=== PATIENT | female | born 1955 | race Caucasian/White ===

== ENCOUNTER 2019-07-21 16:50 | Inpatient (IN) | payer OTHER ==
--- NOTE | 2019-07-21 17:10 | ER Document Report ---
ED Medical Screen (RME) - General Chief Complaint: Hip Pain Stated Complaint: HIP PAIN Time Seen by Provider: 07/21/19 17:07 Notes: This 63-year-old female with a prior hip fracture to the left side who has discomfort to her right hip after a fall 4 weeks ago says she is been unable to ambulate. She is rather frail woman who has the appearance of somebody with osteoporosis. I greeted and performed a rapid initial assessment of this patient. Comprehensive ED assessment and evaluation of the patient, analysis of test results and completion of the medical decision making process will be conducted by additional ED providers. TRAVEL OUTSIDE OF THE [place] IN LAST 30 DAYS: No - Related Data Allergies/Adverse Reactions: prednisone [Prednisone] Allergy (Verified 02/03/14 18:02) Past Medical History - Social History Frequency of alcohol use: None Drug Abuse: None Physical Exam - Vital signs Vitals: Temp Pulse Resp BP Pulse Ox 98.6 F 57 L 20 110/71 97 07/21/19 16:58 07/21/19 16:58 07/21/19 16:58 07/21/19 16:58 07/21/19 16:58 Course - Vital Signs Vital signs: Temp Pulse Resp BP Pulse Ox 98.6 F 57 L 20 110/71 97 07/21/19 17:04 07/21/19 16:58 07/21/19 16:58 07/21/19 16:58 07/21/19 16:58
--- NOTE | 2019-07-21 18:10 | RADIOLOGY REPORT (SQ) ---
EXAM DESCRIPTION: CT PELVIS WITHOUT IMAGES COMPLETED DATE/TIME: 07/21/2019 5:47 pm REASON FOR STUDY: pain COMPARISON: CT abdomen pelvis 02/03/2014 TECHNIQUE: CT scan of the pelvis performed without intravenous or oral contrast. Images reviewed wi th soft tissue and bone windows. Reconstructed coronal and sagittal MPR images reviewed. All images stored on PACS. All CT scanners at this facility use dose modulation, iterative reconstruction, and/or weight based d osing when appropriate to reduce radiation dose to as low as reasonably achievable (ALARA). [facility]: Dose Right [facility]: CareDose [facility]: Dose Right [facility]: Teradose 4D [facility]: Smart BetterWorks (Closed) RADIATION DOSE: CT Rad equipment meets quality standard of care and radiation dose reduction techniq ues were employed. CTDIvol: 4.8 mGy. DLP: 212 mGy-cm. mGy. LIMITATIONS: None. FINDINGS: PELVIC BONES: No acute fracture. No worrisome bone lesions. VISUALIZED SPINE: No acute findings. 9 mm grade 1 degenerative anterolisthesis L4 on L5. HIP(S): Postsurgical changes of total right hip arthroplasty. Intact arthroplasty hardware. Mildly comminuted greater trochanteric fracture with mild anterior displacement. Mild left hip osteoarthrit is. PELVIC SOFT TISSUES: No significant findings. EXTRAPELVIC SOFT TISSUES: No significant findings. OTHER: Partially visualized elongated gallbladder containing numerous gallstones. No gallbladder wal l thickening or pericholecystic fluid. Dilated distal appendix measuring 9 mm in caliber. Mild righ t paracolic gutter and moderate right hemipelvis free fluid. IMPRESSION: Postsurgical changes of total right hip arthroplasty. Mildly comminuted right greater t rochanteric fracture with mild anterior displacement. No hardware fracture or dislocation. Dilated distal appendix measuring 9 mm in caliber. Elongated gallbladder containing numerous gallsto jasen. Mild right paracolic gutter and moderate right hemipelvis free fluid. As this is a limited non contrast exam, clinically correlate for acute cholecystitis or appendicitis. TECHNICAL DOCUMENTATION: JOB ID: [id number] Quality ID # [id number]: Final reports with documentation of one or more dose reduction techniques (e.g., Au tomated exposure control, adjustment of the mA and/or kV according to patient size, use of iterative reconstruction technique) 2010 [facility]- All Rights Reserved Reading location - IP/workstation name: [facility]
[2019-07-21] MEDS ORDERED: NORMAL SALINE 1000 ML 1,000 ML IV ONE (21:37)
--- NOTE | 2019-07-21 22:53 | RADIOLOGY REPORT (SQ) ---
CLINICAL INDICATION: COPD. TECHNIQUE: A single portable AP view was obtained of the chest at 2203 hours. Additional repeat image COMPARISON: None. FINDINGS: The cardiomediastinal silhouette is normal. The lungs demonstrates significant emphysematous changes. No evidence of effusion or pneumothorax. Old posttraumatic change. IMPRESSION: No evidence of active intrathoracic disease.
[2019-07-21 23:50] LABS: APPEARANCE,URINE SLIGHTLY-CLOUDY; BILIRUBIN,URINE SMALL (NEGATIVE); COLOR,URINE AMBER; GLUCOSE, URINE NEGATIVE (NEGATIVE); KETONES,URINE TRACE mg/dL (NEGATIVE); PROTEIN,URINE 30 mg/dL (NEGATIVE); URINE SPECIFIC GRAVITY 1.028
[2019-07-21 23:52] LABS: INTERNATIONAL RATION (INR) 2.07; PROTHROMBIN TIME 23.6 SEC (11.4-15.4)
[2019-07-21 23:59] LABS: URINE AMPHETAMINES SCREEN NEGATIVE; URINE BARBITURATES SCREEN NEGATIVE; URINE BENZODIAZEPINES SCREEN NEGATIVE; URINE COCAINE SCREEN NEGATIVE; URINE MARIJUANA (THC) SCREEN NEGATIVE; URINE METHADONE SCREEN NEGATIVE; URINE PHENCYCLIDINE SCREEN NEGATIVE
[2019-07-22 00:02] LABS: ABSOLUTE BASOPHILS # (AUTO) 0.1 10^3/uL (0.0-0.2); ABSOLUTE LYMPHOCYTES (AUTO) 1.8 10^3/uL (0.5-4.7); ABSOLUTE MONOCYTES (AUTO) 0.6 10^3/uL (0.1-1.4); ABSOLUTE NEUT (AUTO) 7.8 10^3/uL (1.7-8.2); BASOPHILS % (AUTO) 0.7 % (0-2); EOSINOPHILS % (AUTO) 0.1 % (0-6); HEMATOCRIT 39.7 % (36.0-47.0); HEMOGLOBIN 13.5 g/dL (12.0-15.5); LYMPHOCYTES % (AUTO) 17.6 % (13-45); MEAN CORPUSCULAR HEMOGLOBIN 36.9 pg (27.0-33.4); MEAN CORPUSCULAR VOLUME 108 fl (80-97); MONOCYTES % (AUTO) 6.1 % (3-13); PLATELET COUNT 496 10^3/uL (150-450); RED BLOOD COUNT 3.66 10^6/uL (3.72-5.28); RED CELL DISTRIBUTION WIDTH 18.2 % (11.5-14.0); SEGMENTED NEUTROPHILS % (AUTO) 75.5 % (42-78); TOTAL CELLS COUNTED % (AUTO) 100 %; WHITE BLOOD COUNT 10.4 10^3/uL (4.0-10.5)
[2019-07-22 00:13] LABS: ALKALINE PHOSPHATASE 290 U/L (38-126); ANION GAP 10 (5-19); ASPARTATE AMINO TRANSFERASE 44 U/L (14-36); BILIRUBIN,DIRECT 0.5 mg/dL (0.0-0.4); BILIRUBIN,TOTAL 0.8 mg/dL (0.2-1.3); BLOOD UREA NITROGEN 14 mg/dL (7-20); CALCIUM 8.5 mg/dL (8.4-10.2); CARBON DIOXIDE 27 mmol/L (22-30); CHLORIDE 101 mmol/L (98-107); GLUCOSE 96 mg/dL (75-110); POTASSIUM 3.7 mmol/L (3.6-5.0); TOTAL PROTEIN 6.7 g/dL (6.3-8.2)
[2019-07-22] MEDS ORDERED: PHYTONADIONE INJ 10 MG/1 ML AMPULE SUBCUT ONE (00:45)
[2019-07-22] MEDS ORDERED: LORAZEPAM INJ 2 MG/1 ML VIAL IV PRN (00:46)
[2019-07-22] MEDS ORDERED: IPRATROPIUM/ALBUTEROL 0.5-2.5 MG/3 ML AMPUL NEB PRN (00:47)
[2019-07-22] MEDS ORDERED: MAGNESIUM HYDROXIDE SUSP 30 ML UDCUP PO PRN (00:47)
[2019-07-22] MEDS ORDERED: ACETAMINOPHEN 325 MG TABLET PO PRN (00:47)
[2019-07-22] MEDS ORDERED: MAG HYDROX/AL HYDROX/SIMETH SUSP 30 ML UDCUP PO PRN (00:47)
[2019-07-22] MEDS ORDERED: LEVALBUTEROL HCL NEB 1.25 MG/3 ML AMPUL NEB PRN (00:47)
--- NOTE | 2019-07-22 00:50 | RADIOLOGY REPORT (SQ) ---
CLINICAL INDICATION: right hip pain. . TECHNIQUE: Single view(s) were obtained of the right hip. AP pelvis COMPARISON: February 04, 2014. FINDINGS: Acute nondisplaced fracture of the proximal femur adjacent to the femoral component of the hemiarthroplasty with apparent avulsion of the greater tuberosity. Alignment appears anatomic. Hemiarthroplasty appears intact. Surrounding soft tissues are unremarkable. IMPRESSION: Fracture of the femur adjacent to the femoral component of the right hip hemiarthroplasty.
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
[2019-07-22] MEDS ORDERED: NORMAL SALINE 1000 ML 1,000 ML IV PRN (01:00)
[2019-07-22] MEDS ORDERED: DIAZEPAM 5 MG TABLET PO ONE (01:15)
[2019-07-22] MEDS ORDERED: THIAMINE HCL 100 MG, FOLIC ACID 1 MG in NORMAL SALINE 250 ML IV ONE (01:15)
[2019-07-22] MEDS ORDERED: DILTIAZEM HCL INJ 25 MG/5 ML VIAL ONE ×2 (02:12→18:45)
[2019-07-22] MEDS ORDERED: DILTIAZEM HCL INJ 25 MG/5 ML VIAL IV ONE ×2 (02:15→18:45)
[2019-07-22] MEDS ORDERED: DILTIAZEM HCL/D5W 125 MG/125 ML RTUINJ IV ONE (02:20)
[2019-07-22] MEDS: DILTIAZEM HCL/D5W 125 MG/125 ML RTUINJ IV PRN ×2 (02:26→13:28)
[2019-07-22 02:31] LABS: PHOSPHORUS 2.3 mg/dL (2.5-4.5)
--- NOTE | 2019-07-22 03:02 | RADIOLOGY REPORT (SQ) ---
Ultrasound right upper quadrant on 07/22/2019 at 1:31 AM CLINICAL INDICATION: Abnormal LFTs, abnormal weight loss COMPARISON: CT from 02/03/2014 FINDINGS: Multiple sonographic images are obtained throughout the right upper quadrant, both transverse and sagittal images are obtained. Limited visualized pancreas is unremarkable. Visualized aorta is unremarkable. Visualized liver is homogeneous without focal liver lesion. Common duct measures 2 mm which is within normal limits mitigating against obstruction of the biliary tree. There are multiple echogenic foci with posterior shadowing in the gallbladder consistent with multiple gallstones. No gallbladder wall thickening or pericholecystic fluid is noted. The right kidney shows no hydronephrosis. IMPRESSION: 1. Cholelithiasis. 2. Otherwise essentially unremarkable.
[2019-07-22] MEDS ORDERED: FOLIC ACID INJ 5 MG/1 ML 10 ML VIAL ONE (04:18)
[2019-07-22] MEDS ORDERED: DIGOXIN INJ 0.5 MG/2 ML AMPULE IV ONE (05:11)
[2019-07-22] MEDS ORDERED: THIAMINE HCL INJ 200 MG/2 ML VIAL ONE (05:21)
[2019-07-22] MEDS: MAGNESIUM SULFATE/D5W 1 GM/100 ML RTUPB IV SCH ×2 (05:32→06:43)
[2019-07-22] MEDS: HEPARIN SOD (PORCINE) 5,000 UNIT/ML 1 ML VIAL SUBCUT SCH ×3 (05:33→22:20)
[2019-07-22] MEDS: KETOROLAC TROMETHAMINE INJ/PF 30 MG/1 ML SDV IV PRN ×2 (06:46→14:13)
[2019-07-22 06:51] LABS: HEMATOCRIT 42.7 % (36.0-47.0); HEMOGLOBIN 14.3 g/dL (12.0-15.5); MEAN CORPUSCULAR HEMOGLOBIN 36.6 pg (27.0-33.4); MEAN CORPUSCULAR HGB CONC 33.6 g/dL (32.0-36.0); MEAN CORPUSCULAR VOLUME 109 fl (80-97); PLATELET COUNT 477 10^3/uL (150-450); RED BLOOD COUNT 3.91 10^6/uL (3.72-5.28); WHITE BLOOD COUNT 8.2 10^3/uL (4.0-10.5)
[2019-07-22 06:59] LABS: ABSOLUTE RETICS # 0.025 10^6/uL (0.028-0.122); RETICULOCYTE COUNT (AUTO) 0.64 % (0.66-2.85)
[2019-07-22 07:15] LABS: ABSOLUTE LYMPHOCYTES# (MANUAL) 2.1 10^3/uL (0.5-4.7); ABSOLUTE MONOCYTES # (MANUAL) 0.4 10^3/uL (0.1-1.4); BAND NEUTROPHILS % (MANUAL) 2 % (3-5); BASOPHILS % (MANUAL) 0 % (0-2); EOSINOPHILS % (MANUAL) 0 % (0-6); LYMPHOCYTES % (MANUAL) 26 % (13-45); MONOCYTES % (MANUAL) 5 % (3-13); SEGMENTED NEUTROPHILS % (MAN) 67 % (42-78); TOTAL CELLS COUNTED 100
[2019-07-22 07:16] LABS: ANISOCYTOSIS 1+; PLATELET COMMENT ADEQUATE; POLYCHROMASIA 1+
[2019-07-22] MEDS ORDERED: DIGOXIN INJ 0.5 MG/2 ML AMPULE ONE (07:43)
[2019-07-22 08:47] LABS: ANION GAP 6 (5-19); BLOOD UREA NITROGEN 13 mg/dL (7-20); CALCIUM 7.5 mg/dL (8.4-10.2); CARBON DIOXIDE 24 mmol/L (22-30); CHLORIDE 102 mmol/L (98-107); GLUCOSE 108 mg/dL (75-110); IRON(TIBC) 30.9 ug/dL (37-170); POTASSIUM 3.5 mmol/L (3.6-5.0)
[2019-07-22 09:55] LABS: FOLATE > 20.00 ng/mL (>2.76)
[2019-07-22] MEDS ORDERED: DIAZEPAM 2 MG TABLET PO SCH (10:00)
[2019-07-22] MEDS ORDERED: DIAZEPAM 5 MG TABLET PO SCH (10:00)
[2019-07-22] MEDS: DOCUSATE SODIUM 100 MG CAPSULE PO SCH ×2 (10:56→17:29)
[2019-07-22] MEDS: CHOLECALCIFEROL (D3) 400 UNIT TABLET PO SCH (10:56)
--- NOTE | 2019-07-22 11:04 | PDOC CONSULTATION ---
Consultation Consult Date: 07/22/19 Attending physician:: KARLA OH Provider Consulted: ROGER NDIAYE Consult reason:: Right hip periprosthetic subacute greater trochanteric fracture History of Present Illness Admission Date/PCP: 07/22/19 01:[facility] Patient complains of: Right hip pain and difficulty ambulating History of Present Illness: OLGA BUSTAMANTE is a 63 year old female who previously underwent a right hip hemiarthroplasty for fracture. She reports a fall at home approximately 1 month ago. Since this fall she has been having pain in her right hip and difficulty ambulating even with the assistance of a walker. She has been requiring help from friends and neighbors. She presented to the emergency department last evening and was admitted to the hospitalist service. Past Medical History Cardiac Medical History: Reports: None Pulmonary Medical History: Reports: None, Bronchitis, Chronic Obstructive Pulmonary Disease (COPD) EENT Medical History: Reports: None Neurological Medical History: Reports: None Endocrine Medical History: Reports: None Renal/ Medical History: Reports: None Malignancy Medical History: Reports: None Skin Medical History: Reports: Eczema Psychiatric Medical History: Denies: Depression Past Surgical History Past Surgical History: Reports: Orthopedic Surgery - Right hip hemiarthroplasty by Dr. Corbett Social History Smoking Status: Current Every Day Smoker Cigarettes Packs Per Day: 1 Electronic Cigarette use?: No Frequency of Alcohol Use: Heavy Hx Recreational Drug Use: No Drugs: None Hx Prescription Drug Abuse: No - Advance Directive Resuscitation Status: Full Code Family History Family History: Arthritis, Hyperlipidemia Parental Family History Reviewed: Yes Children Family History Reviewed: Unknown Sibling(s) Family History Reviewed.: Unknown Medication/Allergy Home Medications: Ibuprofen 200 mg PO DAILYP PRN 02/03/14 Allergies/Adverse Reactions: prednisone [Prednisone] Allergy (Verified 02/03/14 18:02) Review of Systems All systems: reviewed and no additional remarkable complaints except as stated - As per HPI Physical Exam Vital Signs: Temp Pulse Resp BP Pulse Ox 97.8 F 120 H 20 111/59 L 86 L 07/22/19 07:32 07/22/19 10:00 07/22/19 08:04 07/22/19 10:00 07/22/19 07:33 Intake & Output 07/21/19 07/22/19 07/23/19 06:59 06:59 06:59 Intake Total 1107 422.2 Balance 1107 422.2 Weight 31.75 kg General appearance: PRESENT: no acute distress, well-developed, well-nourished Head exam: PRESENT: atraumatic, normocephalic Eye exam: PRESENT: PERRLA Mouth exam: PRESENT: moist, tongue midline Neck exam: PRESENT: full ROM Respiratory exam: PRESENT: clear to auscultation lovely. ABSENT: rales, rhonchi, wheezes Cardiovascular exam: PRESENT: RRR Pulses: PRESENT: +2 pedal pulses bilateral Rectal exam: PRESENT: deferred Musculoskeletal exam: PRESENT: other - Right lower extremity: The patient has full and painless range of motion of the hip, knee, ankle and foot. Sensation is normal to touch. 2+ PT and DP pulses. Results Laboratory Results: 07/22/19 06:14 07/22/19 08:20 07/21/19 07/21/19 07/21/19 22:40 23:28 23:28 WBC 10.4 RBC 3.66 L Hgb 13.5 Hct 39.7 MCV 108 H MCH 36.9 H MCHC 34.0 RDW 18.2 H Plt Count 496 H Seg Neutrophils % 75.5 Retic Count (auto) Sodium 137.7 Potassium 3.7 Chloride 101 Carbon Dioxide 27 Anion Gap 10 BUN 14 Creatinine 0.54 Est GFR ( Amer) > 60 Est GFR (Non-Af Amer) Glucose 96 Calcium 8.5 Phosphorus Magnesium 1.6 Iron TIBC % Saturation Transferrin Ferritin Total Bilirubin 0.8 AST 44 H Alkaline Phosphatase 290 H Total Protein 6.7 Albumin 3.0 L Prealbumin Vitamin B12 Folate TSH Urine Color ANUPAMA Urine Appearance SLIGHTLY-CLOUDY Urine pH 5.0 Ur Specific [place] 1.028 Urine Protein 30 H Urine Glucose (UA) NEGATIVE Urine Ketones TRACE H Urine Blood SMALL H 07/21/19 07/22/19 07/22/19 23:28 02:10 02:10 WBC RBC Hgb Hct MCV MCH MCHC RDW Plt Count Seg Neutrophils % Retic Count (auto) Sodium Potassium Chloride Carbon Dioxide Anion Gap BUN Creatinine Est GFR ( Amer) Est GFR (Non-Af Amer) Glucose Calcium Phosphorus 2.3 L Magnesium 1.5 L Iron TIBC % Saturation Transferrin Ferritin Total Bilirubin AST Alkaline Phosphatase Total Protein Albumin Prealbumin 8.1 L Vitamin B12 Folate TSH 3.21 Urine Color Urine Appearance Urine pH Ur Specific [place] Urine Protein Urine Glucose (UA) Urine Ketones Urine Blood 07/22/19 07/22/19 07/22/19 06:14 06:14 06:31 WBC 8.2 RBC 3.91 Hgb 14.3 Hct 42.7 MCV 109 H MCH 36.6 H MCHC 33.6 RDW 18.0 H Plt Count 477 H Seg Neutrophils % Not Reportable Retic Count (auto) 0.64 L Sodium Cancelled Potassium Cancelled Chloride Cancelled Carbon Dioxide Cancelled Anion Gap Cancelled BUN Cancelled Creatinine Cancelled Est GFR ( Amer) Cancelled Est GFR (Non-Af Amer) Cancelled Glucose Cancelled Calcium Cancelled Phosphorus Magnesium Iron TIBC % Saturation Transferrin Ferritin Total Bilirubin AST Alkaline Phosphatase Total Protein Albumin Prealbumin Vitamin B12 Folate TSH Urine Color Urine Appearance Urine pH Ur Specific [place] Urine Protein Urine Glucose (UA) Urine Ketones Urine Blood 07/22/19 07/22/19 07/22/19 06:31 06:31 08:20 WBC RBC Hgb Hct MCV MCH MCHC RDW Plt Count Seg Neutrophils % Retic Count (auto) Sodium 132.2 L Potassium 3.5 L Chloride 102 Carbon Dioxide 24 Anion Gap 6 BUN 13 Creatinine 0.44 L Est GFR ( Amer) > 60 Est GFR (Non-Af Amer) Glucose 108 Calcium 7.5 L Phosphorus Magnesium Iron Cancelled 30.9 L TIBC Cancelled 166 L % Saturation Cancelled 19 Transferrin Cancelled Ferritin Cancelled 803.00 H Total Bilirubin AST Alkaline Phosphatase Total Protein Albumin Prealbumin Vitamin B12 Cancelled 740.0 Folate Cancelled > 20.00 TSH Urine Color Urine Appearance Urine pH Ur Specific [place] Urine Protein Urine Glucose (UA) Urine Ketones Urine Blood 07/22/19 08:20 WBC RBC Hgb Hct MCV MCH MCHC RDW Plt Count Seg Neutrophils % Retic Count (auto) Sodium Potassium Chloride Carbon Dioxide Anion Gap BUN Creatinine Est GFR ( Amer) Est GFR (Non-Af Amer) Glucose Calcium Phosphorus Magnesium Iron TIBC % Saturation Transferrin 95.79 L Ferritin Total Bilirubin AST Alkaline Phosphatase Total Protein Albumin Prealbumin Vitamin B12 Folate TSH Urine Color Urine Appearance Urine pH Ur Specific [place] Urine Protein Urine Glucose (UA) Urine Ketones Urine Blood Impressions: Pelvis CT 07/21/19 17:07 IMPRESSION: Postsurgical changes of total right hip arthroplasty. Mildly comminuted right greater trochanteric fracture with mild anterior displacement. No hardware fracture or dislocation. Dilated distal appendix measuring 9 mm in caliber. Elongated gallbladder containing numerous gallstones. Mild right paracolic gutter and moderate right hemipelvis free fluid. As this is a limited noncontrast exam, clinically correlate for acute cholecystitis or appendicitis. Chest X-Ray 07/21/19 21:37 IMPRESSION: No evidence of active intrathoracic disease. Hip/Pelvis X-Ray 07/21/19 23:20 IMPRESSION: Fracture of the femur adjacent to the femoral component of the right hip hemiarthroplasty. Abdomen Ultrasound 07/22/19 00:00 IMPRESSION: 1. Cholelithiasis. 2. Otherwise essentially unremarkable. Assessment & Plan - Diagnosis (1) Closed right hip fracture Qualifiers: Encounter type: initial encounter Qualified Code(s): S72.001A - Fracture of unspecified part of neck of right femur, initial encounter for closed fracture - Time Time Spent: 30 to 50 Minutes - Plan Summary Plan Summary: The patient is a pleasant 63-year-old woman who previously underwent a right hip hemiarthroplasty for fracture. She has sustained a fall approximately 1 month ago resulting in a nondisplaced fracture in the greater trochanteric region. Radiographic examination of the right hip shows a nondisplaced greater trochanteric fracture with interval but incomplete healing. I have discussed these findings with the patient. I have discussed that she may continue to be weightbearing as tolerated with an assistive device and I have placed an order for physical therapy.
--- NOTE | 2019-07-22 11:16 | EKG REPORT ---
SEVERITY:- ABNORMAL ECG - A FIB FLUTTER WITH RVR BORDERLINE RIGHT AXIS DEVIATION CONSIDER ANTERIOR INFARCT : Confirmed by: Emilia Mckenzie 22-Jul-2019 11:16:04
[2019-07-22] MEDS ORDERED: METOPROLOL TARTRATE PF/INJ 5 MG/5 ML SDV IV ONE ×2 (13:15→13:30)
[2019-07-22] MEDS: HYDROCORTISONE 1% CREAM 28.35 GM TP PRN ×2 (13:29→23:31)
[2019-07-22] MEDS: DILTIAZEM HCL 60 MG TABLET PO SCH (16:08)
--- NOTE | 2019-07-22 19:01 | EKG REPORT ---
SEVERITY:- OTHERWISE NORMAL ECG - SINUS RHYTHM BORDERLINE RIGHT AXIS DEVIATION : Confirmed by: Emilia Mckenzie 22-Jul-2019 19:01:36
[2019-07-22] MEDS: NORMAL SALINE 1000 ML 1,000 ML IV PRN (21:30)
[2019-07-23] MEDS: DILTIAZEM HCL 60 MG TABLET PO SCH ×2 (01:33→07:06)
[2019-07-23] MEDS ORDERED: NORMAL SALINE 1000 ML 1,000 ML IV ONE (01:45)
[2019-07-23] MEDS: NORMAL SALINE 1000 ML 1,000 ML IV PRN ×2 (03:40→20:35)
[2019-07-23 05:33] LABS: ABSOLUTE EOSINOPHILS # (AUTO) 0.1 10^3/uL (0.0-0.6); ABSOLUTE LYMPHOCYTES (AUTO) 1.3 10^3/uL (0.5-4.7); ABSOLUTE MONOCYTES (AUTO) 0.8 10^3/uL (0.1-1.4); ABSOLUTE NEUT (AUTO) 6.7 10^3/uL (1.7-8.2); BASOPHILS % (AUTO) 0.3 % (0-2); EOSINOPHILS % (AUTO) 0.7 % (0-6); HEMATOCRIT 34.5 % (36.0-47.0); LYMPHOCYTES % (AUTO) 15.2 % (13-45); MEAN CORPUSCULAR HEMOGLOBIN 37.1 pg (27.0-33.4); MEAN CORPUSCULAR HGB CONC 33.8 g/dL (32.0-36.0); MEAN CORPUSCULAR VOLUME 110 fl (80-97); MONOCYTES % (AUTO) 8.9 % (3-13); PLATELET COUNT 400 10^3/uL (150-450); RED BLOOD COUNT 3.14 10^6/uL (3.72-5.28); RED CELL DISTRIBUTION WIDTH 17.9 % (11.5-14.0); SEGMENTED NEUTROPHILS % (AUTO) 74.9 % (42-78); TOTAL CELLS COUNTED % (AUTO) 100 %; WHITE BLOOD COUNT 8.9 10^3/uL (4.0-10.5)
[2019-07-23 05:34] LABS: HEMOGLOBIN 11.6 g/dL (12.0-15.5)
[2019-07-23 05:45] LABS: INTERNATIONAL RATION (INR) 1.12; PROTHROMBIN TIME 14.5 SEC (11.4-15.4)
[2019-07-23 05:47] LABS: ANION GAP 6 (5-19); BLOOD UREA NITROGEN 9 mg/dL (7-20); CALCIUM 7.4 mg/dL (8.4-10.2); CARBON DIOXIDE 21 mmol/L (22-30); CHLORIDE 106 mmol/L (98-107); GLUCOSE 76 mg/dL (75-110); POTASSIUM 3.5 mmol/L (3.6-5.0)
[2019-07-23] MEDS: HEPARIN SOD (PORCINE) 5,000 UNIT/ML 1 ML VIAL SUBCUT SCH ×2 (07:07→15:43)
[2019-07-23] MEDS ORDERED: LORAZEPAM INJ 2 MG/1 ML VIAL IV PRN (08:54)
[2019-07-23] MEDS ORDERED: SODIUM BICARBONATE 8.4% INJ 50 MEQ/50 ML DISP.SYRIN ONE ×2 (09:01→23:02)
[2019-07-23] MEDS ORDERED: ATROPINE SULFATE INJ 1 MG/10 ML DISP.SYRIN IV ONE (09:01)
[2019-07-23] MEDS ORDERED: EPINEPHRINE INJ 1 MG/10 ML DISP.SYRIN ONE ×2 (09:01→23:09)
[2019-07-23] MEDS: THIAMINE HCL 100 MG, FOLIC ACID 1 MG in NORMAL SALINE 250 ML IV SCH (10:29)
[2019-07-23] MEDS: DOCUSATE SODIUM 100 MG CAPSULE PO SCH ×2 (10:29→17:45)
[2019-07-23] MEDS: DILTIAZEM HCL 180 MG CAPSULE.CR PO SCH (10:29)
[2019-07-23] MEDS: DILTIAZEM HCL 120 MG CAP.SR.24H PO SCH (10:29)
[2019-07-23] MEDS: CHOLECALCIFEROL (D3) 400 UNIT TABLET PO SCH (10:29)
--- NOTE | 2019-07-23 14:00 | PDOC PROGRESS REPORT ---
Subjective Progress Note for:: 07/23/19 Subjective:: No adverse events overnight. No new complaints. No significant pain. She did not seem to do too well for physical therapy yesterday. Appetite overall is been pretty good. Reason For Visit: FALL HIP FTRACTURE ETOH DEP Physical Exam Vital Signs: Temp Pulse Resp BP Pulse Ox 97.7 F 102 H 16 121/70 96 07/23/19 11:53 07/23/19 11:53 07/23/19 11:53 07/23/19 11:53 07/23/19 11:53 Intake & Output 07/22/19 07/23/19 07/24/19 06:59 06:59 06:59 Intake Total 1107 3455.2 222 Output Total 350 Balance 1107 3105.2 222 Weight 31.75 kg 44.2 kg General appearance: PRESENT: no acute distress, cooperative, disheveled, thin Teeth exam: PRESENT: edentulous Respiratory exam: PRESENT: clear to auscultation loevly, symmetrical, unlabored. ABSENT: accessory muscle use, chest wall tenderness, crackles, prolonged expiratory phas, rhonchi, tachypnea, wheezes Cardiovascular exam: PRESENT: RRR, +S1, +S2 Pulses: PRESENT: normal carotid pulses Vascular exam: PRESENT: normal capillary refill GI/Abdominal exam: PRESENT: normal bowel sounds, soft. ABSENT: distended, guarding, rebound Extremities exam: ABSENT: clubbing, pedal edema Musculoskeletal exam: PRESENT: normal inspection. ABSENT: deformity Neurological exam: PRESENT: awake, oriented to person, oriented to place, oriented to situation Psychiatric exam: PRESENT: flat affect Skin exam: PRESENT: dry, warm Results Laboratory Results: 07/23/19 04:54 07/23/19 04:54 07/23/19 07/23/19 04:54 04:54 WBC 8.9 RBC 3.14 L Hgb 11.6 L D Hct 34.5 L MCV 110 H MCH 37.1 H MCHC 33.8 RDW 17.9 H Plt Count 400 Seg Neutrophils % 74.9 Sodium 132.6 L Potassium 3.5 L Chloride 106 Carbon Dioxide 21 L Anion Gap 6 BUN 9 Creatinine 0.39 L Est GFR ( Amer) > 60 Glucose 76 Calcium 7.4 L 07/21/19 22:40 Catheterized Urine Urine Culture - Final Escherichia Coli Impressions: Pelvis CT 07/21/19 17:07 IMPRESSION: Postsurgical changes of total right hip arthroplasty. Mildly comminuted right greater trochanteric fracture with mild anterior displacement. No hardware fracture or dislocation. Dilated distal appendix measuring 9 mm in caliber. Elongated gallbladder containing numerous gallstones. Mild right paracolic gutter and moderate right hemipelvis free fluid. As this is a limited noncontrast exam, clinically correlate for acute cholecystitis or appendicitis. Chest X-Ray 07/21/19 21:37 IMPRESSION: No evidence of active intrathoracic disease. Hip/Pelvis X-Ray 07/21/19 23:20 IMPRESSION: Fracture of the femur adjacent to the femoral component of the right hip hemiarthroplasty. Abdomen Ultrasound 07/22/19 00:00 IMPRESSION: 1. Cholelithiasis. 2. Otherwise essentially unremarkable. Assessment and Plan - Diagnosis (1) Closed right hip fracture Qualifiers: Encounter type: initial encounter Qualified Code(s): S72.001A - Fracture of unspecified part of neck of right femur, initial encounter for closed fracture Is this a current diagnosis for this admission?: Yes Plan: Weightbearing as tolerated with assistive device per orthopedics. We will follow-up physical therapy recommendations. (2) Atrial fibrillation with RVR Is this a current diagnosis for this admission?: Yes Plan: We switched her over to oral Cardizem today. She is converted to a sinus rhythm, and has bouts into A. fib a couple of times since then but mostly stays in a sinus rhythm now. With her risk of falling I would be reluctant to anticoagulate her at this time. (3) Asymptomatic bacteriuria Is this a current diagnosis for this admission?: Yes Plan: Her urine culture returned positive, but she has no symptoms, she had no white cells in her urine, and her leukocyte esterase was negative. We will monitor for now. (4) Iron deficiency Is this a current diagnosis for this admission?: Yes Plan: She is on an iron supplement (5) Macrocytic anemia Is this a current diagnosis for this admission?: Yes Plan: She does not have a reticulocytosis, her B12 and folic acid levels are normal, the only home medication she is on is ibuprofen. She denies use of alcohol. She is not on therapy for HIV. Her TSH is normal. In this patient, she could be thiamine deficient. She is on some thiamine now. Because her reticulocyte count was 11, she should have this followed up on in the future, with consideration of a referral to a engineer system administrator if it persists. (6) Vitamin D deficiency Is this a current diagnosis for this admission?: Yes Plan: She is on a supplement. She may have osteoporosis. She could benefit from a bone health consult as an outpatient with an ep tech. (7) Hypocalcemia Is this a current diagnosis for this admission?: Yes Plan: Replace with IV as needed (8) Current every day smoker Is this a current diagnosis for this admission?: Yes Plan: Have strongly encourage cessation - Time Time Spent with patient: 25-34 minutes
[2019-07-23] MEDS ORDERED: DIAZEPAM 2 MG TABLET PO ONE (21:45)
[2019-07-23] MEDS ORDERED: THIAMINE HCL 100 MG, FOLIC ACID 1 MG in NORMAL SALINE 250 ML IV ONE (22:30)
[2019-07-23] MEDS ORDERED: DEXTROSE 50%-WATER 25 GM/50 ML DISP.SYRIN IV ONE (22:32)
[2019-07-23] MEDS ORDERED: FOLIC ACID INJ 5 MG/1 ML 10 ML VIAL IV PRN (22:33)
[2019-07-23] MEDS ORDERED: THIAMINE HCL INJ 200 MG/2 ML VIAL IV PRN (22:33)
[2019-07-23] MEDS ORDERED: HYDROCORTISONE SOD SUCCINATE INJ/PF 100 MG/2 ML SDV IV ONE (22:36)
[2019-07-23] MEDS ORDERED: HYDROCORTISONE SOD SUCCINATE INJ/PF 100 MG/2 ML SDV ONE (22:37)
[2019-07-23] MEDS ORDERED: LORAZEPAM INJ 2 MG/1 ML VIAL ONE ×3 (22:39→22:50)
[2019-07-23] MEDS ORDERED: PHENYTOIN SODIUM INJ/PF 250 MG/5 ML SDV ONE ×2 (22:45→22:46)
[2019-07-23] MEDS ORDERED: ETOMIDATE INJ/PF 20 MG/10 ML SDV IV ONE (22:58)
[2019-07-23 23:05] LABS: ARTERIAL BLOOD BASE EXCESS -11.6 mmol/L; ARTERIAL BLOOD H2CO3 2.47 mmol/L (1.05-1.35); ARTERIAL BLOOD HCO3 20.9 mmol/L (20-24); ARTERIAL BLOOD O2 SATURATION 96.3 % (94-98); ARTERIAL BLOOD PO2 122.8 mmHg (80-100); ARTERIAL BLOOD TOTAL CO2 23.4 mmol/L (21-25)
[2019-07-23] MEDS ORDERED: EPINEPHRINE INJ/PF 1 MG/1 ML AMPULE ONE (23:09)
[2019-07-23 23:31] LABS: ARTERIAL BLOOD PCO2 82.1 mmHg (35-45); ARTERIAL BLOOD PH 7.02 (7.35-7.45)
[2019-07-23 23:36] LABS: PHOSPHORUS 2.9 mg/dL (2.5-4.5)
[2019-07-24] MEDS ORDERED: PHARMACY COMMUNICATION ORDER MC NR
[2019-07-24] MEDS ORDERED: NOREPINEPHRINE BITARTRATE INJ/PF 4 MG/4 ML SDV IV ONE ×2 (00:02→05:40)
[2019-07-24] MEDS: DEXTROSE 5%-WATER 250 ML with NOREPINEPHRINE BITARTRATE 4 MG IV PRN ×10 (00:05→21:42)
[2019-07-24] MEDS ORDERED: ACETAMINOPHEN SOLN 325 MG/10.15 ML UDCUP PO PRN (00:23)
[2019-07-24] MEDS ORDERED: MIDAZOLAM HCL 50 MG/100 ML RTUINJ ONE (00:23)
--- NOTE | 2019-07-24 00:24 | RADIOLOGY REPORT (SQ) ---
EXAM DESCRIPTION: XR CHEST 1 VIEW COMPLETED DATE/TME: 07/23/2019 00:00 CLINICAL HISTORY: 63 years, Female, Intubated COMPARISON: 07/21/2019 chest x-ray NUMBER OF VIEWS: Portable chest TECHNIQUE: Portable chest LIMITATIONS: None. FINDINGS: Heart size is normal. Severe underlying emphysema. Endotracheal tube with the tip approximately 2.6 cm above the ana. Enteric tube, the tip extends into the left upper quadrant. Overlying artifact. No discrete pneumothorax. Stable blunting of the costophrenic angles bilaterally. Multiple old right rib fractures. Equivocal right upper lobe airspace opacity IMPRESSION: Endotracheal and enteric tubes are in place. Severe underlying emphysema. Equivocal right upper lobe airspace opacity copyright 2010 [employer]- All Rights Reserved
[2019-07-24] MEDS ORDERED: ACETAMINOPHEN SOLN 325 MG/10.15 ML UDCUP NG PRN (00:30)
[2019-07-24] MEDS ORDERED: MAGNESIUM HYDROXIDE SUSP 30 ML UDCUP NG PRN (00:30)
[2019-07-24] MEDS ORDERED: MAG HYDROX/AL HYDROX/SIMETH SUSP 30 ML UDCUP NG PRN (00:30)
[2019-07-24] MEDS ORDERED: EPINEPHRINE INJ 1 MG/10 ML DISP.SYRIN ONE (00:33)
[2019-07-24] MEDS: DEXTROSE 5%-WATER 250 ML with EPINEPHRINE/PF 1 MG IV PRN ×10 (00:40→10:38)
[2019-07-24 01:20] LABS: ARTERIAL BLOOD H2CO3 0.89 mmol/L (1.05-1.35); ARTERIAL BLOOD HCO3 15.6 mmol/L (20-24); ARTERIAL BLOOD O2 SATURATION 99.6 % (94-98); ARTERIAL BLOOD PCO2 29.5 mmHg (35-45); ARTERIAL BLOOD PH 7.34 (7.35-7.45); ARTERIAL BLOOD PO2 280.5 mmHg (80-100); ARTERIAL BLOOD TOTAL CO2 16.5 mmol/L (21-25)
[2019-07-24 01:24] LABS: ARTERIAL BLOOD FIO2 60%
[2019-07-24 01:36] LABS: HEMATOCRIT 29.5 % (36.0-47.0); HEMOGLOBIN 9.6 g/dL (12.0-15.5); MEAN CORPUSCULAR HEMOGLOBIN 36.6 pg (27.0-33.4); MEAN CORPUSCULAR HGB CONC 32.8 g/dL (32.0-36.0); PLATELET COUNT 326 10^3/uL (150-450); RED BLOOD COUNT 2.63 10^6/uL (3.72-5.28); RED CELL DISTRIBUTION WIDTH 17.6 % (11.5-14.0); WHITE BLOOD COUNT 12.3 10^3/uL (4.0-10.5)
[2019-07-24] MEDS ORDERED: MIDAZOLAM HCL 50 MG/100 ML RTUINJ IV PRN (01:49)
[2019-07-24 01:51] LABS: MEAN CORPUSCULAR VOLUME 112 fl (80-97)
[2019-07-24 01:54] LABS: ABSOLUTE LYMPHOCYTES# (MANUAL) 0.6 10^3/uL (0.5-4.7); ABSOLUTE MONOCYTES # (MANUAL) 0.6 10^3/uL (0.1-1.4); BAND NEUTROPHILS % (MANUAL) 1 % (3-5); BASOPHILS % (MANUAL) 0 % (0-2); EOSINOPHILS % (MANUAL) 0 % (0-6); LYMPHOCYTES % (MANUAL) 5 % (13-45); MONOCYTES % (MANUAL) 5 % (3-13); SEGMENTED NEUTROPHILS % (MAN) 89 % (42-78); TOTAL CELLS COUNTED 100
[2019-07-24 01:58] LABS: ANISOCYTOSIS 1+; OVALOCYTES SLIGHT; PLATELET COMMENT ADEQUATE; POIKILOCYTOSIS 1+; SCHISTOCYTES 1+; TEAR DROP CELLS SLIGHT; TOXIC GRANULATION 1+
[2019-07-24 02:15] LABS: APPEARANCE,URINE SLIGHTLY-CLOUDY; BILIRUBIN,URINE NEGATIVE (NEGATIVE); COLOR,URINE YELLOW; GLUCOSE, URINE NEGATIVE (NEGATIVE); KETONES,URINE NEGATIVE (NEGATIVE); PROTEIN,URINE NEGATIVE (NEGATIVE); URINE SPECIFIC GRAVITY 1.004; UROBILINOGEN,URINE NEGATIVE mg/dL (<2.0)
[2019-07-24] MEDS ORDERED: EPINEPHRINE INJ/PF 1 MG/1 ML AMPULE ONE ×3 (02:16→07:11)
--- NOTE | 2019-07-24 02:34 | CRITICAL CARE ADMISSION REPORT ---
HPI Date:: 07/23/19 Time:: 23:00 Reason for ICU Reason:: s/p cardiac arrest HPI: Ms. Lisa Tobar is a 63-year-old female with a past medical history of COPD, right hip fracture status post hemiarthroplasty on 02/05/2014. She reports falling at home approximately 1 month ago. Since the fall she is been having pain in her right hip and difficulty ambulating even with assistance of a walker. She presented to the emergency department on 07/21/2019 and was admitted to the hospitalist service. At 2238 rapid response was called upon arrival to the floor patient was actively seizing she had a total of 3 mg of Ativan and was loaded with 1 g of Dilantin. At 2257 patient began agonal breathing and subsequently went into asystole ACLS was initiated. She was intubated with a 7.5 ETT 23 cm at the lip. She was given 4 rounds of epinephrine, 2 Amps of bicarb, and 0.5 mg of atropine. ROSC was achieved at 2306. Pulse was thready she was started on epinephrine drip at 0.01 mg/min, and transferred to the ICU for further management. Upon arrival to the intensive care unit she remained hypotensive with systolic blood pressure in the 70s she was started on norepinephrine arterial line was placed in the left femoral artery. An 18-gauge IV was placed in the right EJ. - Diagnosis/Plan (1) Asymptomatic bacteriuria Is this a current diagnosis for this admission?: Yes Plan: We will send urinalysis with reflex urine culture (2) Closed right hip fracture Qualifiers: Encounter type: initial encounter Qualified Code(s): S72.001A - Fracture of unspecified part of neck of right femur, initial encounter for closed fracture Is this a current diagnosis for this admission?: Yes Plan: Orthopedic surgery is following no plans for OR (3) Cardiac arrest Is this a current diagnosis for this admission?: Yes Plan: Given her rapid decline to cardiac arrest and being bedridden, for 4 weeks will send for CTA of the chest to rule out a PE Continue epinephrine and norepinephrine drip to maintain a map of 65 or greater. Maintain on mechanical ventilation. (4) Seizure Is this a current diagnosis for this admission?: Yes Plan: New onset seizure, has been loaded with 1 g of Dilantin Will need EEG when stabilized Will get CT of the head Started on Versed drip Past Medical History Cardiac Medical History: Reports: None Pulmonary Medical History: Reports: None, Bronchitis, Chronic Obstructive Pulmonary Disease (COPD) EENT Medical History: Reports: None Neurological Medical History: Reports: None Endocrine Medical History: Reports: None Renal/ Medical History: Reports: None Malignancy Medical History: Reports: None Skin Medical History: Reports: Eczema Psychiatric Medical History: Denies: Depression Past Surgical History Past Surgical History: Reports: Orthopedic Surgery - Right hip hemiarthroplasty by Dr. Corbett Social/Family History - Social History Smoking Status: Current Every Day Smoker Cigarettes Packs Per Day: 1 Frequency of Alcohol Use: Heavy Hx Recreational Drug Use: No Drugs: None Hx Prescription Drug Abuse: No - Medication/Allergies Home Medications: Ibuprofen 200 mg PO DAILYP PRN 02/03/14 Allergies/Adverse Reactions: prednisone [Prednisone] Allergy (Verified 02/03/14 18:02) Review of Systems ROS unobtainable: Due to endotracheal tube Physical Exam Vital Signs: Temp Pulse Resp BP Pulse Ox 95.7 F L 95 27 H 91/65 L 98 07/24/19 00:00 07/23/19 23:18 07/23/19 23:18 07/23/19 23:18 07/23/19 23:18 Intake & Output 07/22/19 07/23/19 07/24/19 06:59 06:59 06:59 Intake Total 1107 3455.2 1722 Output Total 350 300 Balance 1107 3105.2 1422 Weight 31.75 kg 44.2 kg Weight/Height Weight 44.2 kg Height 5 ft 4 in General appearance: PRESENT: severe distress Eye exam: PRESENT: other - Pupils fixed and dilated Mouth exam: PRESENT: moist Teeth exam: PRESENT: edentulous Neck exam: PRESENT: full ROM Respiratory exam: PRESENT: decreased breath sounds, other - Acute respiratory arrest Cardiovascular exam: PRESENT: RRR GI/Abdominal exam: PRESENT: normal bowel sounds, soft Neurological exam: PRESENT: other - Unresponsive Skin exam: PRESENT: other - Multiple areas of ecchymosis on bilateral upper extremities Tubes/Lines: PRESENT: Endotracheal Tube, Arterial Catheter, Nasogastic Tube Laboratory/Radiographs Laboratory Results: 07/23/19 04:54 07/23/19 07/23/19 07/23/19 04:54 04:54 22:31 WBC 8.9 RBC 3.14 L Hgb 11.6 L D Hct 34.5 L MCV 110 H MCH 37.1 H MCHC 33.8 RDW 17.9 H Plt Count 400 Seg Neutrophils % 74.9 Carbonic Acid 2.47 H HCO3/H2CO3 Ratio 8:1 ABG pH 7.02 L* ABG pCO2 82.1 H* ABG pO2 122.8 H ABG HCO3 20.9 ABG O2 Saturation 96.3 ABG Base Excess -11.6 FiO2 44% Sodium 132.6 L Potassium 3.5 L Chloride 106 Carbon Dioxide 21 L Anion Gap 6 BUN 9 Creatinine 0.39 L Est GFR ( Amer) > 60 Glucose 76 Calcium 7.4 L 07/23/19 07/24/19 07/24/19 22:53 01:10 01:10 WBC Cancelled RBC Cancelled Hgb Cancelled Hct Cancelled MCV Cancelled MCH Cancelled MCHC Cancelled RDW Cancelled Plt Count Cancelled Seg Neutrophils % Cancelled Not Reportable Carbonic Acid 0.89 L HCO3/H2CO3 Ratio 17:1 ABG pH 7.34 L ABG pCO2 29.5 L ABG pO2 280.5 H ABG HCO3 15.6 L ABG O2 Saturation 99.6 H ABG Base Excess -9.0 FiO2 60% Sodium Potassium Chloride Carbon Dioxide Anion Gap BUN Creatinine Est GFR ( Amer) Glucose Calcium 07/21/19 22:40 Catheterized Urine Urine Culture - Final Escherichia Coli Impressions: Pelvis CT 07/21/19 17:07 IMPRESSION: Postsurgical changes of total right hip arthroplasty. Mildly comminuted right greater trochanteric fracture with mild anterior displacement. No hardware fracture or dislocation. Dilated distal appendix measuring 9 mm in caliber. Elongated gallbladder containing numerous gallstones. Mild right paracolic gutter and moderate right hemipelvis free fluid. As this is a limited noncontrast exam, clinically correlate for acute cholecystitis or appendicitis. Hip/Pelvis X-Ray 07/21/19 23:20 IMPRESSION: Fracture of the femur adjacent to the femoral component of the right hip hemiarthroplasty. Abdomen Ultrasound 07/22/19 00:00 IMPRESSION: 1. Cholelithiasis. 2. Otherwise essentially unremarkable. Chest X-Ray 07/23/19 00:00 IMPRESSION: Endotracheal and enteric tubes are in place. Severe underlying emphysema. Equivocal right upper lobe airspace opacity copyright 2011 [employer]- All Rights Reserved All labs, radiographs, diagnostic studies and EKGs were personally reviewed: Yes In addition, reports of radiographic and diagnostic studies were read: Yes Critical Time Critical Time (minutes): 75 -: The care of a critically ill patient is dynamic. This note represents a static moment in the admission process. Orders and treatments may be given simultaneously and urgently, and time is not community representative of the treatment process. This patient requires Critical Care secondary to life threatening organ or limb dysfunction. Without Critical Care services, the patient is at risk for increased mortality and morbidity.
--- NOTE | 2019-07-24 02:54 | Operative Report ---
Bedside Procedure - History of Present Illness Indication for Procedure: Hemodynamic monitoring Date: 07/24/19 Provider: LOYDA GAITAN - Additional Procedures Arterial Line Time performed: 01:30 Notes: Laterality: Left Consent: Emergent Provider: ARLYN Liriano Indications: Hemodynamic monitoring After properly positioning the patient in the standard fashion the site was prepped and draped in sterile fashion. Lidocaine was administered subcutaneously as a local infiltration and given time to take effect. Next the femoral artery was entered, noting bright red blood and pulsatile flow guidewire was easily inserted and the needle removed. The catheter was then placed using the Seldinger technique. The guidewire was removed with good flow present. The catheter was then connected to the transducer with good waveform noted. The catheter was secured with suture and occlusive dressing was placed after properly cleaning and prepping the site. Complications: Patient tolerated the procedure well and no complications were noted. Estimated blood loss: Less than 5 cc
--- NOTE | 2019-07-24 03:59 | RADIOLOGY REPORT (SQ) ---
EXAM DESCRIPTION: CTA of the chest, abdomen, and pelvis with contrast. COMPLETED DATE/TME: 07/24/2019 00:00 CLINICAL HISTORY: Hypoxia, s/p cardiac arrest. CREAT 0.39 COMPARISON: None Available. TECHNIQUE: CTA of the chest, abdomen and pelvis performed following IV administration of 100 mL of Omnipaque 350. 3-D/MIP reformatted images available. Delayed images of the abdomen available. FINDINGS: Chest: Thyroid:No abnormalities of the visualized thyroid. Great Vessels:Great vessels have normal anatomic configuration. Thoracic Aorta: Normal caliber thoracic aorta without evidence of dissection. Atherosclerotic vascular calcification. Pulmonary arteries: No filling defects identified. Heart: Coronary artery atherosclerosis. No cardiomegaly or significant pericardial effusion. Lymph Nodes:No enlarged mediastinal lymph nodes identified. Esophagus: OG tube with tip in the esophagus. Other: Body wall anasarca. Lungs: Centrilobular emphysematous change. Bibasilar opacities. Pleura: Moderate left and small right pleural effusion. No pneumothorax identified. Trachea/Airways: Endotracheal tube terminating above the ana. Mild bronchial wall thickening Abdomen: Liver: The liver has normal size and density. No intrahepatic mass or biliary dilatation. Gallbladder: No calcified gallstones. Spleen, Pancreas, and Adrenal Glands: The spleen, pancreas, and adrenal glands are unremarkable. Kidneys: The kidneys have normal size and contour without evidence of solid mass or hydronephrosis. The kidneys excrete contrast. Vasculature: Normal caliber abdominal aorta. Aortoiliac atherosclerosis. Pleural-based stenosis of the left external iliac artery. The internal iliac arteries are patent. Following the stenosis of the right common femoral artery. The portal vein is patent. The celiac artery is widely patent. The superior mesenteric artery is widely patent. Replaced right hepatic artery. The inferior mesenteric artery is patent. The bilateral renal arteries are patent without evidence of flow-limiting stenosis. Stomach: OG tube with tip in the stomach. Other: No free intraperitoneal air. Moderate amount of free fluid. Pelvis: Bladder: Myles catheter in the urinary bladder. Bowel: Diffuse wall thickening of the small bowel coastal enhancement. No dilated loops of bowel. Appendix: Normal appendix. Pelvis: Uterus not enlarged. Bones: Right total hip arthroplasty. Degenerative change of the spine. Anterolisthesis of L4 over L5 is likely degenerative. Fractures of the anterior right fourth through sixth rib. Fractures of the left third through sixth ribs. IMPRESSION: 1. No evidence of dissection or aneurysm involving the thoracic or abdominal aorta. The visceral arteries are patent. 2. No pulmonary embolism. 3. Diffuse wall thickening of the small bowel with mucosal enhancement. Findings compatible with shock bowel related to prolonged hypotension. No large vessel arterial occlusion. 4. Moderate left and small right pleural effusion. 5. Bibasilar opacities. This likely represents a component of compressive atelectasis however superimposed aspiration could contribute to this appearance. Continued follow-up recommended. 6. Moderate amount of ascites. 7. Coronary artery atherosclerosis. 8. Centrilobular emphysematous change. Likely chronic bronchitis. 9. 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 Correlation for history of claudication recommended. 10. Nondisplaced fractures of the right fourth through sixth anterior ribs and left third through sixth anterior ribs. This exam was performed according to our departmental dose-optimization program, which includes automated exposure control, adjustment of the mA and/or kV according to patient size and/or use of iterative reconstruction technique.
--- NOTE | 2019-07-24 04:02 | RADIOLOGY REPORT (SQ) ---
EXAM DESCRIPTION: CT HEAD ANGIOGRAPHY WITHOUT THEN WITH IV CONTRAST COMPLETED DATE/TME: 07/24/2019 00:00 CLINICAL HISTORY: 63 years, Female, Seizure COMPARISON: None. TECHNIQUE: CT of the head obtained without contrast. Axial CTA images of the head and neck obtained after the uncomplicated intravenous administration of 100 mL Omnipaque 350. 3-D/MIP reformatted images available. FINDINGS: Head CT without contrast: No acute intracranial hemorrhage identified. No mass, mass effect, shift of the midline, abnormal extra-axial fluid collection or CT evidence of acute ischemic change identified. The ventricular system and sulcal spaces are mildly enlarged compatible with mild cerebral atrophy. Scattered areas of hypodensity throughout the supratentorial white matter are nonspecific and may be related to chronic small vessel ischemic change. The visualized paranasal sinuses and the mastoids are clear. No skull fracture identified. Visualized orbits and globes are unremarkable. Atherosclerotic calcification of the intracranial internal carotid arteries. Endotracheal tube and OG tube partially visualized. CTA head: In the anterior circulation, the intracranial internal carotid arteries have normal course and caliber. The internal carotid arteries bifurcate into widely patent A1 and M1 segments of the anterior and middle cerebral arteries respectively. No evidence of flow-limiting stenosis, aneurysm, occlusion, or dissection in the anterior circulation. The anterior communicating artery is patent. In the posterior circulation, the intracranial vertebral arteries combine to form a widely patent basilar artery. The basilar artery bifurcates into widely patent P1 segments of the posterior cerebral artery. No evidence of stenosis, aneurysm, occlusion, or dissection in the posterior circulation. No definite acute intracranial abnormality identified. No acute abnormality of the osseous calvarium. Paranasal sinuses and mastoid air cells are well aerated. CTA NECK: The aortic arch has normal anatomic configuration. The origin of the great vessels are widely patent. The right common carotid artery is widely patent and bifurcates into patent internal and external carotid arteries. 0% stenosis by NASCET criteria. No evidence of occlusion or dissection. Mild nonflow-limiting atherosclerotic plaque. The left common carotid artery is widely patent and bifurcates into patent internal and external carotid arteries. 0% stenosis by NASCET criteria. No evidence of occlusion or dissection. Mild nonflow limiting atherosclerotic plaque. The cervical vertebral arteries are widely patent throughout their course. No evidence of occlusion, stenosis, or dissection. No definite acute abnormalities in the neck soft tissues. No apical pneumothorax. No acute osseous abnormalities. Multilevel degenerative change of the cervical spine. IMPRESSION: 1. No acute intracranial abnormality by CT criteria. 2. No acute abnormality identified in the intracranial arterial circulation. 3. No evidence of stenosis/occlusion involving the cervical carotid or vertebral arteries. This exam was performed according to our departmental dose-optimization program, which includes automated exposure control, adjustment of the mA and/or kV according to patient size and/or use of iterative reconstruction technique.
[2019-07-24] MEDS: HEPARIN SOD (PORCINE) 5,000 UNIT/ML 1 ML VIAL SUBCUT SCH ×4 (04:13→21:41)
[2019-07-24] MEDS ORDERED: CEFTRIAXONE 1 GM/D5W RTU 1 GM/50 ML RTUPB IV ONE (05:00)
[2019-07-24 05:20] LABS: ARTERIAL BLOOD BASE EXCESS -3.9 mmol/L; ARTERIAL BLOOD H2CO3 0.73 mmol/L (1.05-1.35); ARTERIAL BLOOD HCO3 18.2 mmol/L (20-24); ARTERIAL BLOOD O2 SATURATION 99.5 % (94-98); ARTERIAL BLOOD PCO2 24.1 mmHg (35-45); ARTERIAL BLOOD PO2 208.8 mmHg (80-100); ARTERIAL BLOOD TOTAL CO2 18.9 mmol/L (21-25)
[2019-07-24 05:32] LABS: ARTERIAL BLOOD FIO2 50%
[2019-07-24 05:37] LABS: HEPATITS B SURFACE ANTIGEN Negative (Negative)
[2019-07-24 05:42] LABS: INTERNATIONAL RATION (INR) 1.33; PROTHROMBIN TIME 16.6 SEC (11.4-15.4)
[2019-07-24 05:43] LABS: PARTIAL THROMBOPLASTIN TIME 42.1 SEC (23.5-35.8)
[2019-07-24 05:50] LABS: ALBUMIN 1.6 g/dL (3.5-5.0); ALKALINE PHOSPHATASE 199 U/L (38-126); ANION GAP 7 (5-19); ASPARTATE AMINO TRANSFERASE 35 U/L (14-36); BILIRUBIN,DIRECT 0.1 mg/dL (0.0-0.4); BILIRUBIN,TOTAL 0.8 mg/dL (0.2-1.3); BLOOD UREA NITROGEN 8 mg/dL (7-20); CARBON DIOXIDE 18 mmol/L (22-30); CHLORIDE 104 mmol/L (98-107)
[2019-07-24 05:58] LABS: CALCIUM 6.9 mg/dL (8.4-10.2); GLUCOSE 427 mg/dL (75-110)
[2019-07-24] MEDS ORDERED: DEXTROSE 40% GEL 15 GM TUBE PO PRN ×2 (06:10)
[2019-07-24] MEDS ORDERED: GLUCAGON,HUMAN RECOMB 1 MG INJ IM PRN (06:10)
[2019-07-24] MEDS ORDERED: DEXTROSE 50%-WATER 25 GM/50 ML DISP.SYRIN IV PRN (06:10)
[2019-07-24] MEDS: INSULIN REG, HUMAN 100 UNIT/ML 3 ML VIAL (PYX) SUBCUT SCH ×5 (06:22→23:14)
[2019-07-24 07:11] LABS: HEPATITIS C VIRUS ANTIBODY <0.1 s/co ratio (0.0-0.9)
--- NOTE | 2019-07-24 08:48 | Progress Note ---
Provider Note Provider Note: Events of last night noted. pH is 7.5. TV is turned down to 400cc as her weight is 43kg. RR down also with ABG at 9;00 AM ordered. Also repeat tropoinin and lactic acid at 3P. Echo ordered.
[2019-07-24 09:10] LABS: ARTERIAL BLOOD BASE EXCESS -5.9 mmol/L; ARTERIAL BLOOD H2CO3 0.82 mmol/L (1.05-1.35); ARTERIAL BLOOD HCO3 17.4 mmol/L (20-24); ARTERIAL BLOOD O2 SATURATION 94.9 % (94-98); ARTERIAL BLOOD PCO2 27.3 mmHg (35-45); ARTERIAL BLOOD PH 7.42 (7.35-7.45); ARTERIAL BLOOD PO2 70.9 mmHg (80-100); ARTERIAL BLOOD TOTAL CO2 18.3 mmol/L (21-25)
[2019-07-24] MEDS ORDERED: CALCIUM GLUCONATE 1000 MG/10 ML INJ IV ONE (09:11)
[2019-07-24] MEDS: NORMAL SALINE 1000 ML 1,000 ML IV PRN ×3 (09:15→23:01)
[2019-07-24 09:22] LABS: ARTERIAL BLOOD FIO2 30%
[2019-07-24] MEDS ORDERED: DEXTROSE 5%-WATER 250 ML with EPINEPHRINE/PF 1 MG IV PRN ×2 (09:31)
--- NOTE | 2019-07-24 09:31 | EKG REPORT ---
SEVERITY:- ABNORMAL ECG - SINUS TACHYCARDIA LOW VOLTAGE WITH RIGHT AXIS DEVIATION ANTEROLATERAL INFARCT, AGE INDETERMINATE PROLONGED QT INTERVAL : Confirmed by: Fariha Jones MD 24-Jul-2019 09:30:00
[2019-07-24] MEDS: DOCUSATE SODIUM 100 MG/10 ML UDC NG SCH ×2 (09:52→17:59)
[2019-07-24] MEDS: THIAMINE HCL 100 MG, FOLIC ACID 1 MG in NORMAL SALINE 250 ML IV SCH (09:53)
[2019-07-24] MEDS: DILTIAZEM HCL 180 MG CAPSULE.CR PO SCH (09:55)
[2019-07-24] MEDS: DILTIAZEM HCL 120 MG CAP.SR.24H PO SCH (09:56)
[2019-07-24] MEDS: CALCIUM GLUCONATE 1 GM/NS 50 ML RTU IV SCH ×4 (10:24→13:58)
[2019-07-24] MEDS: POTASSI CL 20 MEQ/50 ML RIDER 20 MEQ/50 ML RTUPB IV SCH ×4 (10:24→16:10)
[2019-07-24] MEDS: PANTOPRAZOLE SODIUM 40 MG VIAL IV SCH (10:47)
[2019-07-24] MEDS: CHOLECALCIFEROL (D3) 400 UNIT TABLET NG SCH (10:55)
[2019-07-24] MEDS ORDERED: INSULIN REG, HUMAN 100 UNIT/ML 3 ML VIAL (PYX) SUBCUT SCH ×2 (12:15→13:00)
[2019-07-24 13:24] LABS: PATH REVIEW PATHOLOGIST REVIEWED
[2019-07-24] MEDS: INSULIN GLARGINE,HUM.REC.ANLOG 1,000 UNIT/10 ML VIAL SUBCUT SCH ×2 (14:02→21:37)
[2019-07-24] MEDS ORDERED: ALBUMIN HUMAN 12.5 GM/50 ML RTUINJ IV ONE (20:00)
[2019-07-24 20:32] LABS: BLOOD UREA NITROGEN 8 mg/dL (7-20); CALCIUM 7.7 mg/dL (8.4-10.2); CHLORIDE 107 mmol/L (98-107)
[2019-07-24 20:38] LABS: CARBON DIOXIDE 18 mmol/L (22-30)
[2019-07-24 21:01] LABS: ANION GAP 4 (5-19)
[2019-07-24 21:02] LABS: POTASSIUM 4.8 mmol/L (3.6-5.0)
--- NOTE | 2019-07-24 21:02 | XCELERA REPORT ---
[address] [address] Transthoracic Echocardiogram Report Name: OLGA BUSTAMANTE Age: 63 yrs Gender: Female : 1955 Patient Status: Inpatient Patient Location: ICU^602^A Study Date: 07/24/2019 02:46 PM Height: 64 in Weight: 98 lb BSA: 1.4 m2 Procedure: A two-dimensional transthoracic echocardiogram with color flow and Doppler was performed. The study was technically limited with all images being suboptimal in quality. Reason For Study: Cardiac arrest and still in need of pressors. History: Cardiac Arrest / Shock. Ordering Physician: STEFANIE PERES Performed By: Pia Morgan Interpretation Summary IV septum is hypokinetic. The left ventricle is normal in size. There is normal left ventricular wall thickness. Doppler measurements suggest impaired left ventricular relaxation, which is associated with grade I/IV or mild diastolic dysfunction There is no thrombus. Probably no ASD ,VSD,or PFO. LV EF is >55% Left ventricular systolic function is normal. The right ventricle is moderately dilated. The right ventricle is not well visualized secondary to technical limitations The right ventricular systolic function is moderately reduced. Right atrium not well visualized secondary to technical limitations The left atrial size is normal. There is no evidence of mitral valve prolapse. There is no vegetation seen on the mitral valve. There is no mitral valve stenosis. There is a mild amount of mitral regurgitation There is no aortic valvular vegetation. There is aortic sclerosis without aortic stenosis. There is no aortic valve stenosis There is no LVOT obstruction. No aortic regurgitation is present. There is no tricuspid stenosis. 2 jets of Trace TR.Upper normal to mild pulmonary hypertension.RVSP is 29 to 34 mm of Hg , with RA mean of 5 to 10. The pulmonic valve is not well visualized. The aortic root is not well visualized but is probably normal size. The inferior vena cava appeared normal and decreased > 50% with respiration (RAP 5-10 mmHg) There is no pericardial effusion. MMode/2D Measurements & Calculations RVDd: 2.8 cm LVIDd: 3.1 cm FS: 33.0 % Ao root diam: 2.1 cm IVSd: 0.55 cm LVIDs: 2.1 cm EDV(Teich): 37.9 ml Ao root area: 3.5 cm2 LVPWd: 0.69 cm ESV(Teich): 14.0 ml LA dimension: 2.5 cm EF(Teich): 63.1 % Doppler Measurements & Calculations MV E max haylee: MV P1/2t max haylee: Ao V2 max: LV V1 max P.0 cm/sec 59.4 cm/sec 98.9 cm/sec 1.8 mmHg MV A max haylee: MV P1/2t: 45.7 msec Ao max P.9 mmHg LV V1 max: 73.7 cm/sec MVA(P1/2t): 4.8 cm2 67.5 cm/sec MV E/A: 0.80 MV dec slope: 380.8 cm/sec2 MV dec time: 0.13 sec PA V2 max: TR max haylee: MV P1/2t-pr_phl: 60.7 cm/sec 245.7 cm/sec 45.7 msec PA max P.5 mmHgTR max P.1 mmHg Left Ventricle The left ventricle is normal in size. There is normal left ventricular wall thickness. LV EF is >55%. Left ventricular systolic function is normal. Doppler measurements suggest impaired left ventricular relaxation, which is associated with grade I/IV or mild diastolic dysfunction. IV septum is hypokinetic. There is no thrombus. Probably no ASD ,VSD,or PFO. Right Ventricle The right ventricle is moderately dilated. The right ventricle is not well visualized secondary to technical limitations. The right ventricular systolic function is moderately reduced. Atria Right atrium not well visualized secondary to technical limitations. The left atrial size is normal. Mitral Valve There is no evidence of mitral valve prolapse. There is no vegetation seen on the mitral valve. There is no mitral valve stenosis. There is a mild amount of mitral regurgitation. Aortic Valve There is no aortic valvular vegetation. There is aortic sclerosis without aortic stenosis. There is no aortic valve stenosis. There is no LVOT obstruction. No aortic regurgitation is present. Tricuspid Valve There is no tricuspid stenosis. 2 jets of Trace TR.Upper normal to mild pulmonary hypertension.RVSP is 29 to 34 mm of Hg , with RA mean of 5 to 10. Pulmonic Valve The pulmonic valve is not well visualized. Great Vessels The aortic root is not well visualized but is probably normal size. The inferior vena cava appeared normal and decreased > 50% with respiration (RAP 5-10 mmHg). Effusions There is no pericardial effusion. : STEFANIE PERES Lakshmi
[2019-07-24 21:03] LABS: GLUCOSE 42 mg/dL (75-110)
[2019-07-24] MEDS: CEFTRIAXONE 1 GM/D5W RTU 1 GM/50 ML RTUPB IV SCH (21:42)
[2019-07-24] MEDS ORDERED: FUROSEMIDE INJ/PF 40 MG/4 ML SDV IV ONE (21:59)
[2019-07-24] MEDS: DEXTROSE 50%-WATER 25 GM/50 ML DISP.SYRIN IV PRN (23:08)
[2019-07-25] MEDS: MORPHINE SULFATE 10 MG/ML INJ IV PRN ×2 (00:08→11:33)
[2019-07-25 03:56] LABS: ABSOLUTE LYMPHOCYTES (AUTO) 2.8 10^3/uL (0.5-4.7); ABSOLUTE MONOCYTES (AUTO) 1.4 10^3/uL (0.1-1.4); ABSOLUTE NEUT (AUTO) 13.6 10^3/uL (1.7-8.2); BASOPHILS % (AUTO) 0.2 % (0-2); EOSINOPHILS % (AUTO) 0.1 % (0-6); HEMATOCRIT 27.8 % (36.0-47.0); HEMOGLOBIN 9.3 g/dL (12.0-15.5); LYMPHOCYTES % (AUTO) 15.6 % (13-45); MEAN CORPUSCULAR HEMOGLOBIN 36.1 pg (27.0-33.4); MEAN CORPUSCULAR HGB CONC 33.6 g/dL (32.0-36.0); MONOCYTES % (AUTO) 8.1 % (3-13); PLATELET COUNT 304 10^3/uL (150-450); RED BLOOD COUNT 2.58 10^6/uL (3.72-5.28); RED CELL DISTRIBUTION WIDTH 18.4 % (11.5-14.0); TOTAL CELLS COUNTED % (AUTO) 100 %; WHITE BLOOD COUNT 17.9 10^3/uL (4.0-10.5)
[2019-07-25 04:01] LABS: MEAN CORPUSCULAR VOLUME 108 fl (80-97)
[2019-07-25 04:19] LABS: BLOOD UREA NITROGEN 9 mg/dL (7-20); CALCIUM 7.7 mg/dL (8.4-10.2); CARBON DIOXIDE 20 mmol/L (22-30); CHLORIDE 109 mmol/L (98-107)
[2019-07-25] MEDS: DEXTROSE 5%-WATER 1000 ML 1,000 ML IV PRN ×2 (04:40→14:58)
[2019-07-25] MEDS: DEXTROSE 50%-WATER 25 GM/50 ML DISP.SYRIN IV PRN ×6 (04:40→17:13)
[2019-07-25 04:42] LABS: ANION GAP 3 (5-19); GLUCOSE < 20 mg/dL (75-110); POTASSIUM 3.4 mmol/L (3.6-5.0)
[2019-07-25] MEDS: INSULIN REG, HUMAN 100 UNIT/ML 3 ML VIAL (PYX) SUBCUT SCH ×4 (05:01→23:28)
[2019-07-25] MEDS: HEPARIN SOD (PORCINE) 5,000 UNIT/ML 1 ML VIAL SUBCUT SCH ×3 (05:53→21:29)
[2019-07-25] MEDS: DEXTROSE 5%-WATER 250 ML with NOREPINEPHRINE BITARTRATE 4 MG IV PRN ×2 (05:53)
[2019-07-25] MEDS: PANTOPRAZOLE SODIUM 40 MG VIAL IV SCH (10:20)
[2019-07-25] MEDS: DOCUSATE SODIUM 100 MG/10 ML UDC NG SCH ×2 (10:20→17:13)
[2019-07-25] MEDS: THIAMINE HCL 100 MG, FOLIC ACID 1 MG in NORMAL SALINE 250 ML IV SCH (10:20)
[2019-07-25] MEDS: CHOLECALCIFEROL (D3) 400 UNIT TABLET NG SCH (10:20)
--- NOTE | 2019-07-25 10:49 | PDOC CRITICAL CARE PROG REPORT ---
General Date:: 07/25/19 ICU Day:: 2 Ventilator Day:: 2 Hospital Day:: 3 Resuscitation Status: Full Code Events in the past 12 to 24 Hours:: Starting to show signs of responsiveness. Review of systems relevant to events:: Neurological Reason for ICU Addmission:: s/p cardiac arrest, intubated. - Medications: Medications reviewed and adjusted accordingly: Yes Vasopressors:: Levophed. Sedation:: None Physical Exam Vital Signs: Temp Pulse Resp BP Pulse Ox 96.8 F L 120 H 22 H 94/53 L 99 07/25/19 05:24 07/25/19 08:35 07/25/19 08:00 07/24/19 18:00 07/25/19 08:00 Intake & Output 07/24/19 07/25/19 07/26/19 06:59 06:59 06:59 Intake Total 3979.2 4812.2 17 Output Total 435 1625 200 Balance 3544.2 3187.2 -183 Weight 44.8 kg 51.9 kg Weight/Height Weight 51.9 kg Height 5 ft 4 in General appearance: PRESENT: no acute distress, thin Head exam: PRESENT: atraumatic, normocephalic Eye exam: PRESENT: conjunctiva pink, EOMI, PERRLA. ABSENT: scleral icterus Ear exam: PRESENT: normal external ear exam Mouth exam: PRESENT: moist, tongue midline Respiratory exam: PRESENT: clear to auscultation lovely, rhonchi - Rhonchi heard on L, likely secretions.. ABSENT: rales, wheezes Cardiovascular exam: PRESENT: tachycardia Vascular exam: PRESENT: pallor GI/Abdominal exam: PRESENT: normal bowel sounds, soft. ABSENT: distended, guarding, mass, organolmegaly, rebound, tenderness Rectal exam: PRESENT: deferred Gentrourinary exam: PRESENT: indwelling catheter Extremities exam: PRESENT: full ROM. ABSENT: calf tenderness, clubbing, pedal edema Musculoskeletal exam: PRESENT: normal inspection Neurological exam: PRESENT: altered, other - She is starting to open eyes to voice and touch. GCS still about 6. Skin exam: PRESENT: dry, intact, pallor, warm. ABSENT: cyanosis, rash Tubes/Lines: PRESENT: Endotracheal Tube, Central Line, Arterial Catheter, Nasogastic Tube Laboratory/Radiographs Laboratory Results: 07/25/19 03:42 07/25/19 03:42 07/24/19 07/24/19 07/24/19 09:00 15:06 19:58 WBC RBC Hgb Hct MCV MCH MCHC RDW Plt Count Seg Neutrophils % Carbonic Acid 0.82 L HCO3/H2CO3 Ratio 21:1 ABG pH 7.42 ABG pCO2 27.3 L ABG pO2 70.9 L ABG HCO3 17.4 L ABG O2 Saturation 94.9 ABG Base Excess -5.9 FiO2 30% Sodium 129.3 L Potassium 4.8 D Chloride 107 Carbon Dioxide 18 L Anion Gap 4 L BUN 8 Creatinine 0.50 L Est GFR ( Amer) > 60 Glucose 42 L Lactic Acid 2.2 H Calcium 7.7 L 07/25/19 07/25/19 03:42 03:42 WBC 17.9 H RBC 2.58 L Hgb 9.3 L Hct 27.8 L MCV 108 H D MCH 36.1 H MCHC 33.6 RDW 18.4 H Plt Count 304 Seg Neutrophils % 76.0 Carbonic Acid HCO3/H2CO3 Ratio ABG pH ABG pCO2 ABG pO2 ABG HCO3 ABG O2 Saturation ABG Base Excess FiO2 Sodium 132.2 L Potassium 3.4 L D Chloride 109 H Carbon Dioxide 20 L Anion Gap 3 L BUN 9 Creatinine 0.51 L Est GFR ( Amer) > 60 Glucose < 20 L* Lactic Acid Calcium 7.7 L 07/24/19 15:06 Troponin I 0.014 Impressions: Pelvis CT 07/21/19 17:07 IMPRESSION: Postsurgical changes of total right hip arthroplasty. Mildly comminuted right greater trochanteric fracture with mild anterior displacement. No hardware fracture or dislocation. Dilated distal appendix measuring 9 mm in caliber. Elongated gallbladder containing numerous gallstones. Mild right paracolic gutter and moderate right hemipelvis free fluid. As this is a limited noncontrast exam, clinically correlate for acute cholecystitis or appendicitis. Hip/Pelvis X-Ray 07/21/19 23:20 IMPRESSION: Fracture of the femur adjacent to the femoral component of the right hip hemiarthroplasty. Abdomen Ultrasound 07/22/19 00:00 IMPRESSION: 1. Cholelithiasis. 2. Otherwise essentially unremarkable. Chest X-Ray 07/23/19 00:00 IMPRESSION: Endotracheal and enteric tubes are in place. Severe underlying emphysema. Equivocal right upper lobe airspace opacity copyright 2010 [employer]- All Rights Reserved Abdomen/Pelvis CT 07/24/19 00:00 IMPRESSION: 1. No evidence of dissection or aneurysm involving the thoracic or abdominal aorta. The visceral arteries are patent. 2. No pulmonary embolism. 3. Diffuse wall thickening of the small bowel with mucosal enhancement. Findings compatible with shock bowel related to prolonged hypotension. No large vessel arterial occlusion. 4. Moderate left and small right pleural effusion. 5. Bibasilar opacities. This likely represents a component of compressive atelectasis however superimposed aspiration could contribute to this appearance. Continued follow-up recommended. 6. Moderate amount of ascites. 7. Coronary artery atherosclerosis. 8. Centrilobular emphysematous change. Likely chronic bronchitis. 9. 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 Correlation for history of claudication recommended. 10. Nondisplaced fractures of the right fourth through sixth anterior ribs and left third through sixth anterior ribs. This exam was performed according to our departmental dose-optimization program, which includes automated exposure control, adjustment of the mA and/or kV according to patient size and/or use of iterative reconstruction technique. Chest/Abdomen CTA 07/24/19 00:00 IMPRESSION: 1. No evidence of dissection or aneurysm involving the thoracic or abdominal aorta. The visceral arteries are patent. 2. No pulmonary embolism. 3. Diffuse wall thickening of the small bowel with mucosal enhancement. Findings compatible with shock bowel related to prolonged hypotension. No large vessel arterial occlusion. 4. Moderate left and small right pleural effusion. 5. Bibasilar opacities. This likely represents a component of compressive atelectasis however superimposed aspiration could contribute to this appearance. Continued follow-up recommended. 6. Moderate amount of ascites. 7. Coronary artery atherosclerosis. 8. Centrilobular emphysematous change. Likely chronic bronchitis. 9. 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 Correlation for history of claudication recommended. 10. Nondisplaced fractures of the right fourth through sixth anterior ribs and left third through sixth anterior ribs. This exam was performed according to our departmental dose-optimization program, which includes automated exposure control, adjustment of the mA and/or kV according to patient size and/or use of iterative reconstruction technique. Head CTA 07/24/19 00:00 IMPRESSION: 1. No acute intracranial abnormality by CT criteria. 2. No acute abnormality identified in the intracranial arterial circulation. 3. No evidence of stenosis/occlusion involving the cervical carotid or vertebral arteries. This exam was performed according to our departmental dose-optimization program, which includes automated exposure control, adjustment of the mA and/or kV according to patient size and/or use of iterative reconstruction technique. Neck CTA 07/24/19 01:40 IMPRESSION: 1. No acute intracranial abnormality by CT criteria. 2. No acute abnormality identified in the intracranial arterial circulation. 3. No evidence of stenosis/occlusion involving the cervical carotid or vertebral arteries. This exam was performed according to our departmental dose-optimization program, which includes automated exposure control, adjustment of the mA and/or kV according to patient size and/or use of iterative reconstruction technique. EKG: She has a combination of sinus arrythmia, ST and a look as though she will go into atrial fibrillation. All labs, radiographs, diagnostic studies and EKGs were personally reviewed: Yes In addition, reports of radiographic and diagnostic studies were read: Yes Assessment and Plan - Diagnosis (1) Cardiac arrest Is this a current diagnosis for this admission?: Yes Plan: She is seeming to follow simple commands for the nursing staff. Will continue to support as long as she is making progress. (2) Alcohol abuse Is this a current diagnosis for this admission?: Yes Plan: This apparently has been an issue in the past but she has supposidely been abstinent "a few months". according to family. (3) Closed right hip fracture Qualifiers: Encounter type: initial encounter Qualified Code(s): S72.001A - Fracture of unspecified part of neck of right femur, initial encounter for closed fracture Is this a current diagnosis for this admission?: Yes Plan: She has been seen by orthopedics and conservative treatment is an option. Her arrest has seemed to put all this on hold. (4) Seizure Is this a current diagnosis for this admission?: Yes Plan: This was likely due to hypoxia around the time of the arrest. Plan Summary: Continuie to support her CV status until her neuro recovery has peaked. Restart cardizem. Albumin to try and get off levephed. Critical Time Critical Time (minutes): 35 Level of Care: ICU Anticipated discharge: SNF Within: Other -: 1. The care of a critical patient is a dynamic process. This note is a wholesale representative synopsis but static in nature. The timeframe for treatments given in order is not necessarily the actual time these treatments may have been done. 2. This patient requires critical care secondary to ongoing requirements for therapy not offered or safe outside the critical care environment. Transfer to a lower level of care will result in altered life or limb morbidity and mortality. 3. Multidisciplinary rounds completed. 4. ABCDE bundle addressed.
[2019-07-25] MEDS ORDERED: CALCIUM GLUCONATE 1000 MG/10 ML INJ IV ONE (10:53)
[2019-07-25] MEDS: DILTIAZEM HCL 60 MG TABLET PO SCH ×2 (11:08→17:13)
[2019-07-25] MEDS: ALBUMIN HUMAN 12.5 GM/50 ML RTUINJ IV SCH ×4 (11:08→14:33)
[2019-07-25] MEDS: CALCIUM GLUCONATE 1 GM/NS 50 ML RTU IV SCH ×4 (11:08→14:33)
--- NOTE | 2019-07-25 11:46 | CDI QUERY ---
CDI Query CDI Review: Dear Provider: To better reflect your patients severity of illness, morbidity, and resource utilization Please specify and document in the Progress Notes and Discharge Summary if you are monitoring / treating / evaluating any of the following conditions: Query Clinical indicators Please include in your documentation if any of the following were what necessitated the need for intubation: Acute respiratory failure with hypoxia Acute respiratory failure with hypercapnia Acute respiratory failure with hypoxia / hypercapnia Airway protection Unable to determine Other Critical care admission Notes: At 2238 rapid response was called upon arrival to the floor patient was acti vely seizing she had a total of 3 mg of Ativan and was loaded with 1 g of Dilantin. At 2257 patient began agonal breathing and subsequently went into asystole ACLS was initiated. She was intubated with a 7.5 ETT 23 cm at the lip. Progress Notes: Seizure Is this a current diagnosis for this admission?: Yes Plan: This was likely due to hypoxia around the time of the arrest. The terms probable, suspected, likely, possible or still to be ruled out may be used if you are unable to determine the exact nature of a condition. Thank you for your consideration, Clinical Documentation Physician Advisors ZANA Simon RN, BSN RN
[2019-07-25] MEDS ORDERED: DILTIAZEM HCL INJ 25 MG/5 ML VIAL IV ONE (13:00)
--- NOTE | 2019-07-25 13:24 | NEURO WORKBENCH EEG REPORT ---
EEG Report Patient: Lisa Tobar ID: [id number] Referring Doctor: Evan Vides Date: 07/25/2019 Reason for study: Is there evidence of continued seizure activity? Medications: Ceftriaxone, Vitamin D, Norepinephrine, Diltiazem, Insulin, Levalbulterol, Morphine, Protonix, Thiamine History: This is a 63 year old female with a history of COPD, right hip fracture s/p hemiarthroplasty in 2013. She was admitted on 07/21/2019 after a fall at home led to increased right hip pain. She had a seizure on the day of admission and received 3 mg of Ativan and was loaded with Dilantin. She subsequently went into asystole and ACLS was initiaed. She was resuscitated, intubated, and transferred to the ICU. This EEG was requested for evaluation of epileptiform activity. EEG Interpretation This EEG was recorded in the ICU and patient is intubated. There were no apparent spontaneous eye openings or closings, but the equipment maintenance tech manually opened and closed the patients eyes multiple times. There was no change in the background EEG activity associated with passive eye opening and closing other than the rare appearance of what was likely lambda activity in the occipital region. The backgound EEG shows monotonous diffuse polymorphic delta activity with superimposed fragmentary theta activity. There were no obvious asymmetries in amplitude or frequencies. Photic stimulation was done and photic driving was not noted in particular at 1 Hz, 3 Hz, and 5 Hz. There was no normal sleep architecture noted other than Positive Occipital Sharp Transients of Sleep (POSTs). There was no epileptiform activity (meaning no sharp waves or spikes), and there were no seizures noted. The EKG showed an irregular rhythm with rates typically in the 90-110 range. EEG Impression This is a markedly abnormal EEG and consistent with diffuse cerebral dysfunction which is non-specific for etiology. Likely considerations would include diffuse hypoxic injury, toxic-metabolic derangements, drug intoxication, or post-ictal state. There were no EEG findings consistent with epilepsy, but if there is strong concern for clinical or sub-clinical seizure activity then long-term EEG monitoring would be advised or additional repeat routine EEGs if long-term monitoring is not available. The EKG showed periods of an irregular rhythm, and further cardiac evaluation is recommended. INTERPRETING NEUROLOGIST: Uday Sellers MD Board certified by the [employer] in Neurology, Clinical Neurophysiology, and Sleep Medicine MTDD
[2019-07-25] MEDS: DEXTROSE 10%-WATER 1,000 ML IV PRN (16:37)
[2019-07-25] MEDS ORDERED: ALBUMIN HUMAN 12.5 GM/50 ML RTUINJ IV ONE (19:17)
[2019-07-25] MEDS: CEFTRIAXONE 1 GM/D5W RTU 1 GM/50 ML RTUPB IV SCH (21:29)
[2019-07-25] MEDS ORDERED: NORMAL SALINE 1000 ML 1,000 ML IV ONE (22:01)
[2019-07-25] MEDS ORDERED: DEXTROSE 5%-WATER 500 ML with AMIODARONE HCL 900 MG IV PRN ×2 (23:05)
[2019-07-25] MEDS ORDERED: IPRATROPIUM/ALBUTEROL 0.5-2.5 MG/3 ML AMPUL NEB PRN (23:10)
[2019-07-25] MEDS ORDERED: AMIODARONE HCL INJ 150 MG/3 ML VIAL IV ONE (23:12)
--- NOTE | 2019-07-26 00:06 | RADIOLOGY REPORT (SQ) ---
EXAM DESCRIPTION: XR CHEST 1 VIEW COMPLETED DATE/TME: 07/25/2019 00:00 CLINICAL HISTORY: ETT placement COMPARISON: 07/24/2019 FINDINGS: Single frontal view of the chest. Tubes and lines: Endotracheal tube with tip 1 cm above the ana. NG tube with tip below the diaphragm. Leads overlie the chest. Cardiomediastinal silhouette: Stable Lungs: Right upper lung opacity is stable. No pneumothorax or large effusion Hyperinflation. Bones: Stable. Upper abdomen: Stable. IMPRESSION: 1. Stable appearance of the chest.
[2019-07-26] MEDS: AMIODARONE HCL INJ 150 MG/3 ML VIAL IV ONE ×2 (00:50→01:32)
[2019-07-26] MEDS: DEXTROSE 5%-WATER 250 ML with NOREPINEPHRINE BITARTRATE 4 MG IV PRN ×2 (01:19)
[2019-07-26] MEDS ORDERED: MIDAZOLAM 2 MG/2 ML INJ ONE (01:24)
[2019-07-26] MEDS ORDERED: MIDAZOLAM 2 MG/2 ML INJ IV ONE (01:26)
[2019-07-26] MEDS: AMIODARONE HCL 150 MG in DEXTROSE 5%-WATER 100 ML IV ONE ×2 (01:28→01:30)
[2019-07-26] MEDS: DEXTROSE 10%-WATER 1,000 ML IV PRN (02:47)
[2019-07-26 03:15] LABS: ABSOLUTE LYMPHOCYTES (AUTO) 1.4 10^3/uL (0.5-4.7); ABSOLUTE MONOCYTES (AUTO) 0.9 10^3/uL (0.1-1.4); EOSINOPHILS % (AUTO) 0.2 % (0-6); TOTAL CELLS COUNTED % (AUTO) 100 %
[2019-07-26 03:26] LABS: ABSOLUTE NEUT (AUTO) 10.2 10^3/uL (1.7-8.2); BASOPHILS % (AUTO) 0.2 % (0-2); HEMATOCRIT 23.2 % (36.0-47.0); LYMPHOCYTES % (AUTO) 11.4 % (13-45); MEAN CORPUSCULAR HEMOGLOBIN 36.1 pg (27.0-33.4); MEAN CORPUSCULAR HGB CONC 33.1 g/dL (32.0-36.0); MEAN CORPUSCULAR VOLUME 109 fl (80-97); MONOCYTES % (AUTO) 7.1 % (3-13); PLATELET COUNT 198 10^3/uL (150-450); RED BLOOD COUNT 2.12 10^6/uL (3.72-5.28); SEGMENTED NEUTROPHILS % (AUTO) 81.1 % (42-78); WHITE BLOOD COUNT 12.5 10^3/uL (4.0-10.5)
[2019-07-26 03:27] LABS: HEMOGLOBIN 7.7 g/dL (12.0-15.5)
[2019-07-26 03:30] LABS: ANION GAP 6 (5-19); BLOOD UREA NITROGEN 4 mg/dL (7-20); CALCIUM 7.9 mg/dL (8.4-10.2); CARBON DIOXIDE 19 mmol/L (22-30); CHLORIDE 101 mmol/L (98-107); GLUCOSE 150 mg/dL (75-110)
[2019-07-26 03:38] LABS: POTASSIUM 2.5 mmol/L (3.6-5.0)
[2019-07-26] MEDS ORDERED: POTASSI CL 20 MEQ/50 ML RIDER 20 MEQ/50 ML RTUPB IV ONE (03:49)
[2019-07-26] MEDS: NORMAL SALINE 1000 ML 1,000 ML IV PRN ×3 (03:54→22:01)
[2019-07-26] MEDS: POTASSI CL 20 MEQ/50 ML RIDER 20 MEQ/50 ML RTUPB IV SCH ×4 (03:54→09:29)
[2019-07-26 03:55] LABS: PHOSPHORUS 1.2 mg/dL (2.5-4.5)
[2019-07-26] MEDS ORDERED: MAGNESIUM SULFATE 4 GM/100 ML RTUPB IV ONE ×2 (04:07→04:18)
[2019-07-26] MEDS ORDERED: MAGNESIUM SULFATE 4 GM/D5W 100 ML IV ONE (04:45)
[2019-07-26] MEDS ORDERED: MAGNESIUM SULFATE/D5W 1 GM/100 ML RTUPB IV SCH (04:45)
[2019-07-26] MEDS: HEPARIN SOD (PORCINE) 5,000 UNIT/ML 1 ML VIAL SUBCUT SCH ×3 (05:13→21:54)
[2019-07-26] MEDS: INSULIN REG, HUMAN 100 UNIT/ML 3 ML VIAL (PYX) SUBCUT SCH ×3 (05:13→17:12)
--- NOTE | 2019-07-26 09:02 | PDOC CRITICAL CARE PROG REPORT ---
General Date:: 07/26/19 ICU Day:: 2 Ventilator Day:: 2 Hospital Day:: 2 Resuscitation Status: Full Code Events in the past 12 to 24 Hours:: More awake and following simple commands Review of systems relevant to events:: Neurological, CV and pulmonary. Reason for ICU Addmission:: s/p cardiac arrest, intubated. - Medications: Medications reviewed and adjusted accordingly: Yes Vasopressors:: Levophed. Sedation:: PRN versed Physical Exam Vital Signs: Temp Pulse Resp BP Pulse Ox 99.3 F 112 H 25 H 100/49 L 100 07/26/19 06:00 07/26/19 07:00 07/26/19 06:00 07/25/19 19:44 07/26/19 04:11 Intake & Output 07/25/19 07/26/19 07/27/19 06:59 06:59 06:59 Intake Total 4812.2 3241.2 50 Output Total 1625 2035 Balance 3187.2 1206.2 50 Weight 51.9 kg 52.7 kg Weight/Height Weight 52.7 kg Height 5 ft 4 in General appearance: PRESENT: no acute distress, cooperative, thin Head exam: PRESENT: atraumatic, normocephalic Eye exam: PRESENT: conjunctiva pink, EOMI, PERRLA. ABSENT: scleral icterus Ear exam: PRESENT: normal external ear exam Mouth exam: PRESENT: moist, tongue midline Respiratory exam: PRESENT: clear to auscultation lovely, decreased breath sounds. ABSENT: rales, rhonchi, wheezes Cardiovascular exam: PRESENT: tachycardia GI/Abdominal exam: PRESENT: normal bowel sounds, soft. ABSENT: distended, guarding, mass, organolmegaly, rebound, tenderness Rectal exam: PRESENT: deferred Gentrourinary exam: PRESENT: indwelling catheter Extremities exam: PRESENT: full ROM. ABSENT: calf tenderness, clubbing, pedal edema Musculoskeletal exam: PRESENT: normal inspection Neurological exam: PRESENT: altered, CN II-XII grossly intact, other - Following simple commands. Skin exam: PRESENT: dry, intact, pallor, warm. ABSENT: cyanosis, rash Tubes/Lines: PRESENT: Endotracheal Tube, Arterial Catheter, Nasogastic Tube Laboratory/Radiographs Laboratory Results: 07/26/19 03:03 07/26/19 03:03 07/26/19 07/26/1907/25/20 03:03 03:03 03:03 WBC 12.5 H RBC 2.12 L Hgb 7.7 L Hct 23.2 L MCV 109 H MCH 36.1 H MCHC 33.1 RDW 18.0 H Plt Count 198 Seg Neutrophils % 81.1 H Sodium 126.2 L Potassium 2.5 L* Chloride 101 Carbon Dioxide 19 L Anion Gap 6 BUN 4 L Creatinine 0.45 L Est GFR ( Amer) > 60 Glucose 150 H Calcium 7.9 L Phosphorus 1.2 L Magnesium 0.9 L* 07/24/19 15:06 Troponin I 0.014 Impressions: Pelvis CT 07/21/19 17:07 IMPRESSION: Postsurgical changes of total right hip arthroplasty. Mildly comminuted right greater trochanteric fracture with mild anterior displacement. No hardware fracture or dislocation. Dilated distal appendix measuring 9 mm in caliber. Elongated gallbladder containing numerous gallstones. Mild right paracolic gutter and moderate right hemipelvis free fluid. As this is a limited noncontrast exam, clinically correlate for acute cholecystitis or appendicitis. Hip/Pelvis X-Ray 07/21/19 23:20 IMPRESSION: Fracture of the femur adjacent to the femoral component of the right hip hemiarthroplasty. Abdomen Ultrasound 07/22/19 00:00 IMPRESSION: 1. Cholelithiasis. 2. Otherwise essentially unremarkable. Abdomen/Pelvis CT 07/24/19 00:00 IMPRESSION: 1. No evidence of dissection or aneurysm involving the thoracic or abdominal aorta. The visceral arteries are patent. 2. No pulmonary embolism. 3. Diffuse wall thickening of the small bowel with mucosal enhancement. Findings compatible with shock bowel related to prolonged hypotension. No large vessel arterial occlusion. 4. Moderate left and small right pleural effusion. 5. Bibasilar opacities. This likely represents a component of compressive atelectasis however superimposed aspiration could contribute to this appearance. Continued follow-up recommended. 6. Moderate amount of ascites. 7. Coronary artery atherosclerosis. 8. Centrilobular emphysematous change. Likely chronic bronchitis. 9. 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 Correlation for history of claudication recommended. 10. Nondisplaced fractures of the right fourth through sixth anterior ribs and left third through sixth anterior ribs. This exam was performed according to our departmental dose-optimization program, which includes automated exposure control, adjustment of the mA and/or kV according to patient size and/or use of iterative reconstruction technique. Chest/Abdomen CTA 07/24/19 00:00 IMPRESSION: 1. No evidence of dissection or aneurysm involving the thoracic or abdominal aorta. The visceral arteries are patent. 2. No pulmonary embolism. 3. Diffuse wall thickening of the small bowel with mucosal enhancement. Findings compatible with shock bowel related to prolonged hypotension. No large vessel arterial occlusion. 4. Moderate left and small right pleural effusion. 5. Bibasilar opacities. This likely represents a component of compressive atelectasis however superimposed aspiration could contribute to this appearance. Continued follow-up recommended. 6. Moderate amount of ascites. 7. Coronary artery atherosclerosis. 8. Centrilobular emphysematous change. Likely chronic bronchitis. 9. 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 Correlation for history of claudication recommended. 10. Nondisplaced fractures of the right fourth through sixth anterior ribs and left third through sixth anterior ribs. This exam was performed according to our departmental dose-optimization program, which includes automated exposure control, adjustment of the mA and/or kV according to patient size and/or use of iterative reconstruction technique. Head CTA 07/24/19 00:00 IMPRESSION: 1. No acute intracranial abnormality by CT criteria. 2. No acute abnormality identified in the intracranial arterial circulation. 3. No evidence of stenosis/occlusion involving the cervical carotid or vertebral arteries. This exam was performed according to our departmental dose-optimization program, which includes automated exposure control, adjustment of the mA and/or kV according to patient size and/or use of iterative reconstruction technique. Neck CTA 07/24/19 01:40 IMPRESSION: 1. No acute intracranial abnormality by CT criteria. 2. No acute abnormality identified in the intracranial arterial circulation. 3. No evidence of stenosis/occlusion involving the cervical carotid or vertebral arteries. This exam was performed according to our departmental dose-optimization program, which includes automated exposure control, adjustment of the mA and/or kV according to patient size and/or use of iterative reconstruction technique. Chest X-Ray 07/25/19 00:00 IMPRESSION: 1. Stable appearance of the chest. All labs, radiographs, diagnostic studies and EKGs were personally reviewed: Yes In addition, reports of radiographic and diagnostic studies were read: Yes Assessment and Plan - Diagnosis (1) Cardiac arrest Is this a current diagnosis for this admission?: Yes Plan: She seems to be slowly recovering. Still needing levophed. Not hypoadrenal. (2) Alcohol abuse Is this a current diagnosis for this admission?: Yes Plan: This is by family history, not in other documented records. May be the reason for seizures. (3) Closed right hip fracture Qualifiers: Encounter type: initial encounter Qualified Code(s): S72.001A - Fracture of unspecified part of neck of right femur, initial encounter for closed fracture Is this a current diagnosis for this admission?: Yes Plan: Conservative treatment for now. (4) Seizure Is this a current diagnosis for this admission?: Yes Plan: No recurrence (5) Hypomagnesemia Is this a current diagnosis for this admission?: Yes Plan: Level is 0.9. This will need replacement before potassium. Four gms ordered (6) Hypokalemia Is this a current diagnosis for this admission?: Yes Plan: Level is 2.5. In view of recent arrest, would like to see this greater than 4.0 (7) Malnutrition Qualifiers: Malnutrition type: protein-calorie malnutrition Protein-calorie malnutri tion severity: severe Qualified Code(s): E43 - Unspecified severe protein- calorie malnutrition Is this a current diagnosis for this admission?: Yes Plan: She is emaciated with temporal wasting and physical signs of malnutrition. Her albumin is 1.7-an independent risk factor for mortality. She is on 6mcgs of levophed but we will start tube feeds at 20cc/hr. (8) Acute respiratory failure with hypoxia and hypercapnia Is this a current diagnosis for this admission?: Yes Plan: There was pulse oximeter documentation of hypoxia before arrest and acidosis and hypercapnea by ABG both are now resolved. However her RSBI is mid 50s and NI F of 14, on levophed is too risky to extubate now. Plan Summary: Start TF, try to wean levophed. Reasses for extubation when levophed is lower. Critical Time Critical Time (minutes): 35 Level of Care: ICU Anticipated discharge: SNF Within: Other -: 1. The care of a critical patient is a dynamic process. This note is a international account representative synopsis but static in nature. The timeframe for treatments given in order is not necessarily the actual time these treatments may have been done. 2. This patient requires critical care secondary to ongoing requirements for therapy not offered or safe outside the critical care environment. Transfer to a lower level of care will result in altered life or limb morbidity and mortality. 3. Multidisciplinary rounds completed. 4. ABCDE bundle addressed.
[2019-07-26] MEDS: THIAMINE HCL 100 MG, FOLIC ACID 1 MG in NORMAL SALINE 250 ML IV SCH (09:30)
[2019-07-26] MEDS: DOCUSATE SODIUM 100 MG/10 ML UDC NG SCH ×2 (09:30→17:12)
[2019-07-26] MEDS: PANTOPRAZOLE SODIUM 40 MG VIAL IV SCH (09:30)
[2019-07-26] MEDS: CHOLECALCIFEROL (D3) 400 UNIT TABLET NG SCH (09:30)
[2019-07-26] MEDS: MORPHINE SULFATE 10 MG/ML INJ IV PRN (09:46)
[2019-07-26 11:44] LABS: ANION GAP 6 (5-19); BLOOD UREA NITROGEN 4 mg/dL (7-20); CALCIUM 7.5 mg/dL (8.4-10.2); CARBON DIOXIDE 17 mmol/L (22-30); CHLORIDE 102 mmol/L (98-107); GLUCOSE 146 mg/dL (75-110)
[2019-07-26 11:53] LABS: POTASSIUM 4.1 mmol/L (3.6-5.0)
[2019-07-26] MEDS: CEFTRIAXONE 1 GM/D5W RTU 1 GM/50 ML RTUPB IV SCH (21:53)
[2019-07-26] MEDS ORDERED: AMIODARONE HCL 200 MG TABLET NG SCH (22:00)
[2019-07-26] MEDS ORDERED: AMIODARONE HCL 200 MG TABLET PO SCH (22:00)
[2019-07-27] MEDS: INSULIN REG, HUMAN 100 UNIT/ML 3 ML VIAL (PYX) SUBCUT SCH ×4 (00:42→18:19)
[2019-07-27 05:20] LABS: ABSOLUTE LYMPHOCYTES (AUTO) 1.1 10^3/uL (0.5-4.7); ABSOLUTE NEUT (AUTO) 12.3 10^3/uL (1.7-8.2); BASOPHILS % (AUTO) 0.1 % (0-2); EOSINOPHILS % (AUTO) 0.3 % (0-6); HEMATOCRIT 23.9 % (36.0-47.0); LYMPHOCYTES % (AUTO) 7.8 % (13-45); MEAN CORPUSCULAR HEMOGLOBIN 35.2 pg (27.0-33.4); MEAN CORPUSCULAR HGB CONC 32.6 g/dL (32.0-36.0); MEAN CORPUSCULAR VOLUME 108 fl (80-97); MONOCYTES % (AUTO) 6.6 % (3-13); PLATELET COUNT 210 10^3/uL (150-450); RED BLOOD COUNT 2.21 10^6/uL (3.72-5.28); RED CELL DISTRIBUTION WIDTH 18.4 % (11.5-14.0); SEGMENTED NEUTROPHILS % (AUTO) 85.2 % (42-78); TOTAL CELLS COUNTED % (AUTO) 100 %; WHITE BLOOD COUNT 14.5 10^3/uL (4.0-10.5)
[2019-07-27 05:22] LABS: HEMOGLOBIN 7.8 g/dL (12.0-15.5)
[2019-07-27] MEDS: HEPARIN SOD (PORCINE) 5,000 UNIT/ML 1 ML VIAL SUBCUT SCH (05:35)
[2019-07-27 05:40] LABS: BLOOD UREA NITROGEN 5 mg/dL (7-20); CALCIUM 7.2 mg/dL (8.4-10.2); CARBON DIOXIDE 19 mmol/L (22-30); CHLORIDE 107 mmol/L (98-107); GLUCOSE 120 mg/dL (75-110); PHOSPHORUS 1.6 mg/dL (2.5-4.5)
[2019-07-27 05:53] LABS: ANION GAP 3 (5-19)
[2019-07-27] MEDS ORDERED: SODIUM PHOS,M-BASIC-D-BASIC 30 MMOL in NORMAL SALINE 250 ML IV ONE (07:30)
[2019-07-27] MEDS: DEXTROSE 5%-WATER 250 ML with NOREPINEPHRINE BITARTRATE 4 MG IV PRN ×2 (07:49)
[2019-07-27] MEDS: NORMAL SALINE 1000 ML 1,000 ML IV PRN (08:06)
[2019-07-27 09:23] LABS: ARTERIAL BLOOD BASE EXCESS -5.5 mmol/L; ARTERIAL BLOOD H2CO3 0.99 mmol/L (1.05-1.35); ARTERIAL BLOOD O2 SATURATION 98.1 % (94-98); ARTERIAL BLOOD PH 7.38 (7.35-7.45); ARTERIAL BLOOD PO2 112.2 mmHg (80-100)
[2019-07-27 09:26] LABS: ARTERIAL BLOOD FIO2 30%
--- NOTE | 2019-07-27 09:29 | RADIOLOGY REPORT (SQ) ---
EXAM DESCRIPTION: CHEST SINGLE VIEW IMAGES COMPLETED DATE/TIME: 07/27/2019 9:08 am REASON FOR STUDY: Aspiration COMPARISON: 07/25/2019. EXAM PARAMETERS: NUMBER OF VIEWS: One view. TECHNIQUE: Single frontal radiographic view of the chest acquired. RADIATION DOSE: NA LIMITATIONS: None. FINDINGS: LUNGS AND PLEURA: Hyperinflation. No masses or infiltrates. Small pleural effusions. MEDIASTINUM AND HILAR STRUCTURES: No masses. Contour normal. HEART AND VASCULAR STRUCTURES: Heart normal in size. Normal vasculature. BONES: No acute findings. Old right rib fractures. HARDWARE: Endotracheal tube, tip at the orifice of the right mainstem bronchus. Nasogastric tube, ti p in the stomach. OTHER: No other significant finding. IMPRESSION: 1. LOW LYING ENDOTRACHEAL TUBE. RECOMMEND WITHDRAWAL BY 4 - 5 CM. 2. COPD. SMALL PLEURAL EFFUSIONS. NO SIGNIFICANT CHANGE. COMMENT: Pertinent findings on the imaging study reported as a CRITICAL RESULT to the patient's ICU nurse at09:23 on 07/27/2019. Category of Critical Result: Low lying endotracheal tube. TECHNICAL DOCUMENTATION: JOB ID: [id number] 2010 [employer]- All Rights Reserved Reading location - IP/workstation name: [email or web address]
[2019-07-27] MEDS: CHOLECALCIFEROL (D3) 400 UNIT TABLET NG SCH (09:33)
[2019-07-27] MEDS: FOLIC ACID 1 MG TABLET PO SCH (09:33)
[2019-07-27] MEDS: ZINC SULFATE 220 MG CAPSULE PO SCH (09:33)
[2019-07-27] MEDS: ASCORBIC ACID 500 MG TABLET PO SCH ×3 (09:33→18:19)
[2019-07-27] MEDS: PANTOPRAZOLE SODIUM 40 MG VIAL IV SCH (09:33)
[2019-07-27] MEDS: THIAMINE HCL 100 MG TABLET PO SCH ×2 (09:33→22:04)
[2019-07-27] MEDS: DOCUSATE SODIUM 100 MG/10 ML UDC NG SCH ×2 (09:33→18:19)
[2019-07-27] MEDS: AMIODARONE HCL 200 MG TABLET PO SCH (09:34)
--- NOTE | 2019-07-27 10:40 | RADIOLOGY REPORT (SQ) ---
EXAM DESCRIPTION: KUB/ABDOMEN (SINGLE VIEW) IMAGES COMPLETED DATE/TIME: 07/27/2019 10:27 am REASON FOR STUDY: Encounter for tube placement COMPARISON: None. NUMBER OF VIEWS: One view. TECHNIQUE: Supine radiographic image of the upper abdomen acquired. LIMITATIONS: None. FINDINGS: BOWEL GAS PATTERN: Normal bowel gas pattern. No dilated loops. CALCIFICATIONS: No suspicious calcifications. SOFT TISSUES: No gross mass or suggestion of organomegaly. HARDWARE: Nasogastric tube, tip in stomach. BONES: No acute fracture. No worrisome bone lesions. OTHER: No other significant finding. IMPRESSION: TIP OF THE NASOGASTRIC TUBE IN THE STOMACH. NO RADIOGRAPHIC EVIDENCE FOR ACUTE ABDOMINA L DISEASE. TECHNICAL DOCUMENTATION: JOB ID: [id number] 2010 [employer]- All Rights Reserved Reading location - IP/workstation name: [email or web address]
[2019-07-27] MEDS: APIXABAN 5 MG TABLET NG SCH ×2 (11:52→22:04)
[2019-07-27] MEDS: CHOLECALCIFEROL (D3) 1,000 UNIT (25 MCG) TABLET PO SCH ×2 (11:52→22:03)
[2019-07-27] MEDS: FUROSEMIDE INJ/PF 20 MG/2 ML SDV IV SCH ×2 (11:53→18:19)
--- NOTE | 2019-07-27 17:19 | PDOC CRITICAL CARE PROG REPORT ---
General Date:: 07/27/19 ICU Day:: 3 Ventilator Day:: 3 Hospital Day:: 3 Resuscitation Status: Full Code Events in the past 12 to 24 Hours:: 07.27.2019: Patient is continuing to improve. She is now off D10 and sodium has improved. Off levophed. 07.26.2019 (MD Mahogany):More awake and following simple commands Review of systems relevant to events:: 07.27.2019: Patient is more awake and able to lift head off bed. She has been on pressure support wean the last 24 hours. NG tube placed today in anticipation for possible extubation. Reason for ICU Addmission:: s/p cardiac arrest, intubated. - Medications: Medications reviewed and adjusted accordingly: Yes Vasopressors:: Levophed now off Sedation:: None Physical Exam Vital Signs: Temp Pulse Resp BP Pulse Ox 99.0 F 100 22 H 106/52 L 100 07/27/19 08:00 07/27/19 08:00 07/27/19 08:00 07/27/19 08:00 07/27/19 08:00 Intake & Output 07/26/19 07/27/19 07/28/19 06:59 06:59 06:59 Intake Total 3241.2 2802 1054 Output Total 2035 1438 150 Balance 1206.2 1364 904 Weight 52.7 kg 55.5 kg Weight/Height Weight 55.5 kg Height 5 ft 4 in General appearance: PRESENT: no acute distress, thin Exam: Emaciated older appearing intubated 63-year-old female no active distress. She is following commands and able to lift her head off bed Head exam: PRESENT: atraumatic, normocephalic Eye exam: PRESENT: conjunctiva pink, EOMI, PERRLA. ABSENT: conjunctival injection, nystagmus, scleral icterus Mouth exam: PRESENT: moist, neck supple Teeth exam: PRESENT: edentulous Neck exam: PRESENT: other - Right external jugular IV, no erythema no exudate. ABSENT: carotid bruit, JVD, thyromegaly, tracheal deviation Respiratory exam: PRESENT: clear to auscultation lovely, unlabored. ABSENT: accessory muscle use, rales, rhonchi, tachypnea, wheezes Cardiovascular exam: PRESENT: irregular rhythm, RRR, +S1, +S2. ABSENT: tachycardia Vascular exam: PRESENT: normal capillary refill. ABSENT: pallor GI/Abdominal exam: PRESENT: normal bowel sounds, soft. ABSENT: ascites, distended, guarding, mass, organolmegaly, rebound, tenderness Rectal exam: PRESENT: deferred Gentrourinary exam: PRESENT: indwelling catheter Extremities exam: ABSENT: pedal edema, tenderness Musculoskeletal exam: ABSENT: deformity, dislocation Neurological exam: PRESENT: altered, other - Intubated, follows commands, lifts head off bed. No focal motor or sensory deficits.. ABSENT: motor sensory deficit Psychiatric exam: PRESENT: appropriate affect Skin exam: PRESENT: intact, normal color. ABSENT: erythema, jaundice, pallor, petechiae Tubes/Lines: PRESENT: Endotracheal Tube, Arterial Catheter, Nasogastic Tube - Right external jugular catheter Laboratory/Radiographs Laboratory Results: 07/27/19 05:05 07/27/19 05:05 07/26/19 07/27/19 07/27/19 09:45 05:05 05:05 WBC RBC Hgb Hct MCV MCH MCHC RDW Plt Count Seg Neutrophils % Carbonic Acid HCO3/H2CO3 Ratio ABG pH ABG pCO2 ABG pO2 ABG HCO3 ABG O2 Saturation ABG Base Excess FiO2 Sodium 125.1 L 128.7 L Potassium 4.1 D 4.0 Chloride 102 107 Carbon Dioxide 17 L 19 L Anion Gap 6 3 L BUN 4 L 5 L Creatinine 0.43 L 0.39 L Est GFR ( Amer) > 60 > 60 Glucose 146 H 120 H Calcium 7.5 L 7.2 L Ionized Calcium Narciso 1.10 L Phosphorus 1.6 L Magnesium 1.7 07/27/19 07/27/19 05:05 09:10 WBC 14.5 H RBC 2.21 L Hgb 7.8 L Hct 23.9 L MCV 108 H MCH 35.2 H MCHC 32.6 RDW 18.4 H Plt Count 210 Seg Neutrophils % 85.2 H Carbonic Acid 0.99 L HCO3/H2CO3 Ratio 19:1 ABG pH 7.38 ABG pCO2 33.0 L ABG pO2 112.2 H ABG HCO3 19.0 L ABG O2 Saturation 98.1 H ABG Base Excess -5.5 FiO2 30% Sodium Potassium Chloride Carbon Dioxide Anion Gap BUN Creatinine Est GFR ( Amer) Glucose Calcium Ionized Calcium Narciso Phosphorus Magnesium 07/24/19 15:06 Troponin I 0.014 Impressions: Pelvis CT 07/21/19 17:07 IMPRESSION: Postsurgical changes of total right hip arthroplasty. Mildly comminuted right greater trochanteric fracture with mild anterior displacement. No hardware fracture or dislocation. Dilated distal appendix measuring 9 mm in caliber. Elongated gallbladder containing numerous gallstones. Mild right paracolic gutter and moderate right hemipelvis free fluid. As this is a limited noncontrast exam, clinically correlate for acute cholecystitis or appendicitis. Hip/Pelvis X-Ray 07/21/19 23:20 IMPRESSION: Fracture of the femur adjacent to the femoral component of the right hip hemiarthroplasty. Abdomen Ultrasound 07/22/19 00:00 IMPRESSION: 1. Cholelithiasis. 2. Otherwise essentially unremarkable. Abdomen/Pelvis CT 07/24/19 00:00 IMPRESSION: 1. No evidence of dissection or aneurysm involving the thoracic or abdominal aorta. The visceral arteries are patent. 2. No pulmonary embolism. 3. Diffuse wall thickening of the small bowel with mucosal enhancement. Findings compatible with shock bowel related to prolonged hypotension. No large vessel arterial occlusion. 4. Moderate left and small right pleural effusion. 5. Bibasilar opacities. This likely represents a component of compressive atelectasis however superimposed aspiration could contribute to this appearance. Continued follow-up recommended. 6. Moderate amount of ascites. 7. Coronary artery atherosclerosis. 8. Centrilobular emphysematous change. Likely chronic bronchitis. 9. 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 Correlation for history of claudication recommended. 10. Nondisplaced fractures of the right fourth through sixth anterior ribs and left third through sixth anterior ribs. This exam was performed according to our departmental dose-optimization program, which includes automated exposure control, adjustment of the mA and/or kV according to patient size and/or use of iterative reconstruction technique. Chest/Abdomen CTA 07/24/19 00:00 IMPRESSION: 1. No evidence of dissection or aneurysm involving the thoracic or abdominal aorta. The visceral arteries are patent. 2. No pulmonary embolism. 3. Diffuse wall thickening of the small bowel with mucosal enhancement. Findings compatible with shock bowel related to prolonged hypotension. No large vessel arterial occlusion. 4. Moderate left and small right pleural effusion. 5. Bibasilar opacities. This likely represents a component of compressive atelectasis however superimposed aspiration could contribute to this appearance. Continued follow-up recommended. 6. Moderate amount of ascites. 7. Coronary artery atherosclerosis. 8. Centrilobular emphysematous change. Likely chronic bronchitis. 9. 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 Correlation for history of claudication recommended. 10. Nondisplaced fractures of the right fourth through sixth anterior ribs and left third through sixth anterior ribs. This exam was performed according to our departmental dose-optimization program, which includes automated exposure control, adjustment of the mA and/or kV according to patient size and/or use of iterative reconstruction technique. Head CTA 07/24/19 00:00 IMPRESSION: 1. No acute intracranial abnormality by CT criteria. 2. No acute abnormality identified in the intracranial arterial circulation. 3. No evidence of stenosis/occlusion involving the cervical carotid or vertebral arteries. This exam was performed according to our departmental dose-optimization program, which includes automated exposure control, adjustment of the mA and/or kV according to patient size and/or use of iterative reconstruction technique. Neck CTA 07/24/19 01:40 IMPRESSION: 1. No acute intracranial abnormality by CT criteria. 2. No acute abnormality identified in the intracranial arterial circulation. 3. No evidence of stenosis/occlusion involving the cervical carotid or vertebral arteries. This exam was performed according to our departmental dose-optimization program, which includes automated exposure control, adjustment of the mA and/or kV according to patient size and/or use of iterative reconstruction technique. Chest X-Ray 07/27/19 00:00 IMPRESSION: 1. LOW LYING ENDOTRACHEAL TUBE. RECOMMEND WITHDRAWAL BY 4 - 5 CM. 2. COPD. SMALL PLEURAL EFFUSIONS. NO SIGNIFICANT CHANGE. All labs, radiographs, diagnostic studies and EKGs were personally reviewed: Yes In addition, reports of radiographic and diagnostic studies were read: Yes Assessment and Plan - Diagnosis (1) Cardiac arrest Is this a current diagnosis for this admission?: Yes (2) Acute respiratory failure with hypoxia and hypercapnia Is this a current diagnosis for this admission?: Yes (4) Seizure Is this a current diagnosis for this admission?: Yes Plan: There whether this was active. EEG negative (6) Atrial fibrillation with RVR Is this a current diagnosis for this admission?: Yes (7) Current every day smoker Is this a current diagnosis for this admission?: Yes Plan Summary: Respiratory: Patient is awake following commands and on pressure support wean. She appears to be suitable for liberation from mechanical ventilation. We will proceed and follow accordingly. There is a mild chance that she may fail given her protein calorie malnutrition and prolonged state of poor self-care. Infectious: Patient on Rocephin for possible urinary tract infection will discon tinue. Cardiac: Patient has atrial fibrillation with a now controlled rate. Given her failure to thrive, weight and body mass index have reduced her amiodarone to 200 mg daily. She is now off Levophed. Have started apixaban because of the atrial fibrillation. Hematologic: Patient has baseline anemia. This appears to be a macrocytosis. B12 levels appear acceptable and folate levels acceptable. Reticulocyte count was low to normal. We will continue to monitor and follow. Endocrine: Patient has intermittent hyperglycemia and then hypoglycemia. This has stabilized and she is in a euglycemic state. TSH is acceptable as well. Cortisol level was extremely elevated. Continue to monitor judiciously Renal: Creatinine and BUN are low indicative of moderate protein calorie malnutrition. She is edematous which is a combination of a low albumin state and glycolx disruption of the endothelium. Will provide gentle diuresis and discontinue IV fluids. As noted in metabolic below she did have hyponatremia and will need to be mindful of her sodium status as well. Will follow labs. Metabolic: Patient has moderate protein calorie malnutrition and will need to be judicious in tube feeding so as to not induce refeeding syndrome. Continue to monitor phosphorus, magnesium and electrolytes. Have started her on high-dose thiamine as well as zinc and vitamin C. Vitamin D levels were low and have increased her vitamin D. Alimentary: Nursing has placed NG tube at our request to assist with nutritional support. We will have nutrition consult to determine her best feeding strategy. Neurologic: Neurological status has improved. She is following commands and awake on the ventilator. We are unsure that her possible seizure could have been hypoxia or surreptitious use of alcohol with alcohol withdrawal seizure. We will attempt to determine the etiology when patient is liberated and determine her alcohol use. Patient is obviously weakened and has muscle deconditioning and physical deconditioning which preceded her admission. Will need physical therapy to assist with her care and she may need rehab therapy because of this. In addition she does have a healing fracture of the right leg and will need physical therapy to assist with the appropriate therapeutic regimen Sedation: None Lines/Tubes: Left femoral arterial catheter to be removed today. She has a right external jugular venous catheter. She also has a Myles which will be removed today. Other: Patient has healing right hip fracture in a previously fractured region. Treatment is conservative with physical therapy and ambulation regimen. Critical Time Critical Time (minutes): 50 - With follow up and evaluation for ventilator liberation Level of Care: ICU Anticipated discharge: Acute Rehab Within: within 72 hours -: 1. The care of a critical patient is a dynamic process. This note is a care support representative synopsis but static in nature. The timeframe for treatments given in order is not necessarily the actual time these treatments may have been done. 2. This patient requires critical care secondary to ongoing requirements for therapy not offered or safe outside the critical care environment. Transfer to a lower level of care will result in altered life or limb morbidity and mortality. 3. Multidisciplinary rounds completed. 4. ABCDE bundle addressed.
[2019-07-27] MEDS ORDERED: AMINO AC/PROTEIN HYDR/WHEY PRO 11 GM/45 ML PKT NG SCH (18:00)
[2019-07-28] MEDS: INSULIN REG, HUMAN 100 UNIT/ML 3 ML VIAL (PYX) SUBCUT SCH ×2 (00:56→07:01)
[2019-07-28] MEDS: FUROSEMIDE INJ/PF 20 MG/2 ML SDV IV SCH ×2 (00:56→07:01)
[2019-07-28 07:51] LABS: ABSOLUTE MONOCYTES (AUTO) 0.9 10^3/uL (0.1-1.4); ABSOLUTE NEUT (AUTO) 7.8 10^3/uL (1.7-8.2); BASOPHILS % (AUTO) 0.1 % (0-2); EOSINOPHILS % (AUTO) 0.5 % (0-6); HEMATOCRIT 24.3 % (36.0-47.0); HEMOGLOBIN 8.2 g/dL (12.0-15.5); LYMPHOCYTES % (AUTO) 10.7 % (13-45); MEAN CORPUSCULAR HEMOGLOBIN 36.6 pg (27.0-33.4); MEAN CORPUSCULAR HGB CONC 33.7 g/dL (32.0-36.0); MEAN CORPUSCULAR VOLUME 109 fl (80-97); MONOCYTES % (AUTO) 8.9 % (3-13); PLATELET COUNT 202 10^3/uL (150-450); RED BLOOD COUNT 2.24 10^6/uL (3.72-5.28); RED CELL DISTRIBUTION WIDTH 18.2 % (11.5-14.0); SEGMENTED NEUTROPHILS % (AUTO) 79.8 % (42-78); TOTAL CELLS COUNTED % (AUTO) 100 %; WHITE BLOOD COUNT 9.7 10^3/uL (4.0-10.5)
[2019-07-28 08:18] LABS: BLOOD UREA NITROGEN 7 mg/dL (7-20); CALCIUM 7.2 mg/dL (8.4-10.2); CHLORIDE 107 mmol/L (98-107); GLUCOSE 81 mg/dL (75-110); PHOSPHORUS 2.6 mg/dL (2.5-4.5); POTASSIUM 3.2 mmol/L (3.6-5.0)
[2019-07-28 08:23] LABS: CARBON DIOXIDE 22 mmol/L (22-30)
[2019-07-28 08:24] LABS: ANION GAP 4 (5-19)
--- NOTE | 2019-07-28 09:07 | PDOC CRITICAL CARE PROG REPORT ---
General Date:: 07/28/19 ICU Day:: 4 Hospital Day:: 4 Resuscitation Status: Full Code Medical Power of Financial Health Counselor: TBD Events in the past 12 to 24 Hours:: 07.28.2019: Patient was successfully extubated yesterday and has had no hypoxia or sequelae status post. She was maintained on high flow nasal cannula during sleep but is now being transitioned to nasal cannula. An NG tube was placed for continued nutritional support however patient pulled it out and refused to allow it to be put back in. She threatened to sign out AGAINST MEDICAL ADVICE was able to be reasoned with to maintain her treatment. She was started on apixaban because of atrial fibrillation. 07.27.2019: Patient is continuing to improve. She is now off D10 and sodium has improved. Off levophed. 07.26.2019 (MD Mahogany):More awake and following simple commands Review of systems relevant to events:: 07.28.2019: Patient's blood pressure has been low normal but has been maintaining maps above 65 mmHg. She has no pain or shortness of breath this morning. She does endorse weakness and deconditioning. She specifically denies any right hip pain. An attempted diuresis was made yesterday with resulting decrease in blood pressure. She was successfully extubated as noted above 07.27.2019: Patient is more awake and able to lift head off bed. She has been on pressure support wean the last 24 hours. NG tube placed today in anticipation for possible extubation. Reason for ICU Addmission:: s/p cardiac arrest, intubated. - Medications: Vasopressors:: None Sedation:: None Physical Exam Vital Signs: Temp Pulse Resp BP Pulse Ox 96.8 F L 99 20 90/61 L 100 07/28/19 05:24 07/28/19 07:00 07/28/19 06:19 07/28/19 06:19 07/28/19 06:04 Intake & Output 07/27/19 07/28/19 07/29/19 06:59 06:59 06:59 Intake Total 2800 8574 Output Total 1434 8093 Balance 1364 -501 Weight 55.5 kg 53.5 kg Weight/Height Weight 53.5 kg Height 5 ft 4 in General appearance: PRESENT: no acute distress, cooperative, thin. ABSENT: well-nourished Exam: Extubated nontoxic thin emaciated older appearing 63-year-old female no active distress. Head exam: PRESENT: atraumatic, normocephalic Eye exam: PRESENT: conjunctiva pink, EOMI, PERRLA. ABSENT: conjunctival injection, nystagmus, scleral icterus Ear exam: PRESENT: normal external ear exam Mouth exam: PRESENT: dry mucosa, neck supple Teeth exam: PRESENT: edentulous Neck exam: PRESENT: other - Right external jugular IV noted to be intact no erythema. ABSENT: carotid bruit, JVD, lymphadenopathy, thyromegaly, tracheal deviation Respiratory exam: PRESENT: clear to auscultation lovely, unlabored. ABSENT: accessory muscle use, rales, rhonchi, tachypnea, wheezes Cardiovascular exam: PRESENT: irregular rhythm, RRR Pulses: ABSENT: normal dorsalis pedis pul Vascular exam: PRESENT: normal capillary refill. ABSENT: pallor GI/Abdominal exam: PRESENT: normal bowel sounds, soft. ABSENT: ascites, distended, guarding, mass, organolmegaly, rebound, tenderness Rectal exam: PRESENT: deferred Gentrourinary exam: PRESENT: indwelling catheter Extremities exam: ABSENT: clubbing, joint swelling, pedal edema, tenderness Musculoskeletal exam: ABSENT: deformity, dislocation, tenderness Neurological exam: PRESENT: awake, oriented to person, oriented to place, oriented to time, CN II-XII grossly intact. ABSENT: motor sensory deficit Psychiatric exam: PRESENT: flat affect Focused psych exam: ABSENT: pressured speech, psychomotor agitation, restlessness Skin exam: PRESENT: dry, intact, warm. ABSENT: cyanosis, petechiae, rash Tubes/Lines: PRESENT: Other - Myles type urinary catheter Laboratory/Radiographs Laboratory Results: 07/28/19 07:42 07/28/19 07:42 07/27/19 07/28/19 07/28/19 09:10 07:42 07:42 WBC 9.7 RBC 2.24 L Hgb 8.2 L Hct 24.3 L MCV 109 H MCH 36.6 H MCHC 33.7 RDW 18.2 H Plt Count 202 Seg Neutrophils % 79.8 H Carbonic Acid 0.99 L HCO3/H2CO3 Ratio 19:1 ABG pH 7.38 ABG pCO2 33.0 L ABG pO2 112.2 H ABG HCO3 19.0 L ABG O2 Saturation 98.1 H ABG Base Excess -5.5 FiO2 30% Sodium 132.8 L Potassium 3.2 L Chloride 107 Carbon Dioxide 22 Anion Gap 4 L BUN 7 Creatinine 0.38 L Est GFR ( Amer) > 60 Glucose 81 Calcium 7.2 L Phosphorus 2.6 Magnesium 1.6 07/24/19 15:06 Troponin I 0.014 Impressions: Pelvis CT 07/21/19 17:07 IMPRESSION: Postsurgical changes of total right hip arthroplasty. Mildly comminuted right greater trochanteric fracture with mild anterior displacement. No hardware fracture or dislocation. Dilated distal appendix measuring 9 mm in caliber. Elongated gallbladder containing numerous gallstones. Mild right paracolic gutter and moderate right hemipelvis free fluid. As this is a limited noncontrast exam, clinically correlate for acute cholecystitis or appendicitis. Hip/Pelvis X-Ray 07/21/19 23:20 IMPRESSION: Fracture of the femur adjacent to the femoral component of the right hip hemiarthroplasty. Abdomen Ultrasound 07/22/19 00:00 IMPRESSION: 1. Cholelithiasis. 2. Otherwise essentially unremarkable. Abdomen/Pelvis CT 07/24/19 00:00 IMPRESSION: 1. No evidence of dissection or aneurysm involving the thoracic or abdominal aorta. The visceral arteries are patent. 2. No pulmonary embolism. 3. Diffuse wall thickening of the small bowel with mucosal enhancement. Findings compatible with shock bowel related to prolonged hypotension. No large vessel arterial occlusion. 4. Moderate left and small right pleural effusion. 5. Bibasilar opacities. This likely represents a component of compressive atelectasis however superimposed aspiration could contribute to this appearance. Continued follow-up recommended. 6. Moderate amount of ascites. 7. Coronary artery atherosclerosis. 8. Centrilobular emphysematous change. Likely chronic bronchitis. 9. 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 Correlation for history of claudication recommended. 10. Nondisplaced fractures of the right fourth through sixth anterior ribs and left third through sixth anterior ribs. This exam was performed according to our departmental dose-optimization program, which includes automated exposure control, adjustment of the mA and/or kV according to patient size and/or use of iterative reconstruction technique. Chest/Abdomen CTA 07/24/19 00:00 IMPRESSION: 1. No evidence of dissection or aneurysm involving the thoracic or abdominal aorta. The visceral arteries are patent. 2. No pulmonary embolism. 3. Diffuse wall thickening of the small bowel with mucosal enhancement. Findings compatible with shock bowel related to prolonged hypotension. No large vessel arterial occlusion. 4. Moderate left and small right pleural effusion. 5. Bibasilar opacities. This likely represents a component of compressive atelectasis however superimposed aspiration could contribute to this appearance. Continued follow-up recommended. 6. Moderate amount of ascites. 7. Coronary artery atherosclerosis. 8. Centrilobular emphysematous change. Likely chronic bronchitis. 9. 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 Correlation for history of claudication recommended. 10. Nondisplaced fractures of the right fourth through sixth anterior ribs and left third through sixth anterior ribs. This exam was performed according to our departmental dose-optimization program, which includes automated exposure control, adjustment of the mA and/or kV according to patient size and/or use of iterative reconstruction technique. Head CTA 07/24/19 00:00 IMPRESSION: 1. No acute intracranial abnormality by CT criteria. 2. No acute abnormality identified in the intracranial arterial circulation. 3. No evidence of stenosis/occlusion involving the cervical carotid or vertebral arteries. This exam was performed according to our departmental dose-optimization program, which includes automated exposure control, adjustment of the mA and/or kV according to patient size and/or use of iterative reconstruction technique. Neck CTA 07/24/19 01:40 IMPRESSION: 1. No acute intracranial abnormality by CT criteria. 2. No acute abnormality identified in the intracranial arterial circulation. 3. No evidence of stenosis/occlusion involving the cervical carotid or vertebral arteries. This exam was performed according to our departmental dose-optimization program, which includes automated exposure control, adjustment of the mA and/or kV according to patient size and/or use of iterative reconstruction technique. Chest X-Ray 07/27/19 00:00 IMPRESSION: 1. LOW LYING ENDOTRACHEAL TUBE. RECOMMEND WITHDRAWAL BY 4 - 5 CM. 2. COPD. SMALL PLEURAL EFFUSIONS. NO SIGNIFICANT CHANGE. KUB X-Ray 07/27/19 00:00 IMPRESSION: TIP OF THE NASOGASTRIC TUBE IN THE STOMACH. NO RADIOGRAPHIC EVIDENCE FOR ACUTE ABDOMINAL DISEASE. All labs, radiographs, diagnostic studies and EKGs were personally reviewed: Yes In addition, reports of radiographic and diagnostic studies were read: Yes Assessment and Plan - Diagnosis (1) Cardiac arrest Is this a current diagnosis for this admission?: Yes (2) Acute respiratory failure with hypoxia and hypercapnia Is this a current diagnosis for this admission?: Yes (4) Seizure Is this a current diagnosis for this admission?: Yes (6) Atrial fibrillation with RVR Is this a current diagnosis for this admission?: Yes (7) Current every day smoker Is this a current diagnosis for this admission?: Yes Plan Summary: 07.28.2019: Patient has been successfully extubated. She has several significant issues which will need further treatment and follow- up. Respiratory: Continue supportive care post extubation. Suspect COPD given her chest x-ray and CT scan findings of perihilar emphysema. Will screen for alpha- 1 antitrypsin however results may be spurious given her acute process. Will need to establish her degree of respiratory difficulty. She is somewhat stoic and reticent to provide any distinct history. Will be aware of the possible need for LABA and further treatment based on her symptomatology. Would suggest PFTs and follow-up with pulmonary service. Infectious: No active infectious diseases. Patient did appear to have a urinary tract infection and was placed on antibiotics for 4 doses. Urine culture positive for E. coli sensitive to the Rocephin that she had been on. Continue to monitor off antibiotics Cardiac: Patient had cardiac arrest which appears to have been related to respiratory arrest. She has had no untoward sequelae related to this and her echocardiogram is unremarkable. Blood pressures are low normal and we have given her albumin this morning in support of a low albumin state and to improve her intravascular volume. She is now on apixaban for atrial fibrillation. Her rate has been controlled on current therapy. Amiodarone has been decreased to 200 mg a day. Hematologic: Patient appears to have some degree of nutritionally related marrow failure. That being said her anemic indices are not significantly changed but this may reflect some component of an inflammatory process which often alters these. Would suggest repeat and follow-up as an outpatient. Endocrine: There is been stabilization of her glucose now. TSH is acceptable. Renal: No active renal issues. GFR is somewhat spurious given her very thin emaciated state. Continue to monitor accordingly and recognize that subtle elevation in creatinine may represent a larger reduction in GFR given her body mass. Metabolic: Continue to monitor electrolytes. Have started on thiamine folate and zinc supplementation. Obviously patient has failure to thrive pattern and will need to monitor her electrolytes as nutritional support is increased. Alimentary: Patient pulled out her NG tube. We will have speech evaluate for swallowing function and measure 24-hour calorie count to ascertain full nutritional needs. She is refusing NG tube but will ask her to reconsider if she is unable to take full nutritional support. Again cautious and vigilant monitoring for refeeding syndrome is paramount to her care Neurologic: Patient had deconditioning present prior to admission. No doubt her ICU stay has worsened this. We will have physical therapy involvement. She will be asked to get out of bed and continue to improve mobility. Patient appears to be somewhat depressed and she may require stimulant to improve her function. Would suggest gerontology psychology follow-up as well. Lines/Tubes: We will remove Myles today. No central access is present. Arterial catheter removed yesterday. Other: Patient meets suitability and criteria for stepdown from ICU to medical floor will transfer to hospitalist service. Distinct follow-up items include: 1. Rehab and physical therapy with close monitoring of the right hip which caused her significant pain previously 2. Nutritional support and 24-hour calorie count 3. Gerontology and psychology support. Patient appeared to have significant depression. She has not been drinking alcohol for at least 7 weeks. 4. Establish MPOA In addition to these please see above 07.27.2019: Respiratory: Patient is awake following commands and on pressure support wean. She appears to be suitable for liberation from mechanical ventilation. We will proceed and follow accordingly. There is a mild chance that she may fail given her protein calorie malnutrition and prolonged state of poor self-care. Infectious: Patient on Rocephin for possible urinary tract infection will discontinue. Cardiac: Patient has atrial fibrillation with a now controlled rate. Given her failure to thrive, weight and body mass index have reduced her amiodarone to 200 mg daily. She is now off Levophed. Have started apixaban because of the atrial fibrillation. Hematologic: Patient has baseline anemia. This appears to be a macrocytosis. B12 levels appear acceptable and folate levels acceptable. Reticulocyte count was low to normal. We will continue to monitor and follow. Endocrine: Patient has intermittent hyperglycemia and then hypoglycemia. This has stabilized and she is in a euglycemic state. TSH is acceptable as well. Cortisol level was extremely elevated. Continue to monitor judiciously Renal: Creatinine and BUN are low indicative of moderate protein calorie malnutrition. She is edematous which is a combination of a low albumin state and glycolx disruption of the endothelium. Will provide gentle diuresis and discontinue IV fluids. As noted in metabolic below she did have hyponatremia and will need to be mindful of her sodium status as well. Will follow labs. Metabolic: Patient has moderate protein calorie malnutrition and will need to be judicious in tube feeding so as to not induce refeeding syndrome. Continue to monitor phosphorus, magnesium and electrolytes. Have started her on high-dose thiamine as well as zinc and vitamin C. Vitamin D levels were low and have incr eased her vitamin D. Alimentary: Nursing has placed NG tube at our request to assist with nutritional support. We will have nutrition consult to determine her best feeding strategy. Neurologic: Neurological status has improved. She is following commands and awake on the ventilator. We are unsure that her possible seizure could have been hypoxia or surreptitious use of alcohol with alcohol withdrawal seizure. We will attempt to determine the etiology when patient is liberated and determine her alcohol use. Patient is obviously weakened and has muscle deconditioning and physical deconditioning which preceded her admission. Will need physical therapy to assist with her care and she may need rehab therapy because of this. In addition she does have a healing fracture of the right leg and will need physical therapy to assist with the appropriate therapeutic regimen Sedation: None Lines/Tubes: Left femoral arterial catheter to be removed today. She has a right external jugular venous catheter. She also has a Myles which will be removed today. Other: Patient has healing right hip fracture in a previously fractured region. Treatment is conservative with physical therapy and ambulation regimen. Critical Time Critical Time (minutes): 0 - [id number] Level of Care: TELE Anticipated discharge: Acute Rehab Within: within 48 hours -: 1. The care of a critical patient is a dynamic process. This note is a sales representative canvas products synopsis but static in nature. The timeframe for treatments given in order is not necessarily the actual time these treatments may have been done. 2. This patient requires critical care secondary to ongoing requirements for therapy not offered or safe outside the critical care environment. Transfer to a lower level of care will result in altered life or limb morbidity and mortality. 3. Multidisciplinary rounds completed. 4. ABCDE bundle addressed.
[2019-07-28] MEDS: DOCUSATE SODIUM 100 MG/10 ML UDC NG SCH (09:14)
[2019-07-28] MEDS: ZINC SULFATE 220 MG CAPSULE PO SCH (09:26)
[2019-07-28] MEDS: THIAMINE HCL 100 MG TABLET PO SCH (09:26)
[2019-07-28] MEDS: ASCORBIC ACID 500 MG TABLET PO SCH ×2 (09:26→15:24)
[2019-07-28] MEDS: AMIODARONE HCL 200 MG TABLET PO SCH (09:26)
[2019-07-28] MEDS: CHOLECALCIFEROL (D3) 1,000 UNIT (25 MCG) TABLET PO SCH (09:26)
[2019-07-28] MEDS: FOLIC ACID 1 MG TABLET PO SCH (09:27)
[2019-07-28] MEDS: APIXABAN 5 MG TABLET NG SCH (09:27)
[2019-07-28] MEDS ORDERED: ALBUMIN HUMAN 500 ML IV ONE (09:30)
[2019-07-28] MEDS ORDERED: ACETAMINOPHEN 325 MG TABLET PO PRN (09:52)
[2019-07-28] MEDS ORDERED: DEXTROSE 40% GEL 15 GM TUBE PO PRN ×2 (15:11)
[2019-07-28] MEDS ORDERED: DEXTROSE 50%-WATER 25 GM/50 ML DISP.SYRIN IV PRN ×2 (15:11)
[2019-07-28] MEDS ORDERED: GLUCAGON,HUMAN RECOMB 1 MG INJ SUBCUT PRN (15:11)
[2019-07-28] MEDS ORDERED: ACETAMINOPHEN 325 MG SUPP.RECT PR PRN (15:28)
[2019-07-28] MEDS ORDERED: METOPROLOL TARTRATE PF/INJ 5 MG/5 ML SDV IV PRN (15:35)
[2019-07-28] MEDS ORDERED: LEVALBUTEROL HCL NEB 1.25 MG/3 ML AMPUL NEB PRN (15:41)
[2019-07-28] MEDS ORDERED: IPRATROPIUM BROMIDE 0.02% NEB 0.5 MG/2.5 ML AMPUL NEB PRN (15:41)
--- NOTE | 2019-07-28 15:57 | PDOC PROGRESS REPORT ---
Subjective Progress Note for:: 07/28/19 Subjective:: The patient is downgraded from the ICU today. She is status post cardiac arrest. I spoke to respiratory therapy. She has been stable for the last 24 to 48 hours. She did have a speech therapy evaluation and they recommended strict n.p.o. status. They did call regarding oxygen saturations. To maintain saturation greater than 90% they put her on high flow nasal cannula and initially it was FiO2 50%. We are trying to wean her to the minimum oxygen supplementation to keep her saturation in the 90 to 94% range. Reason For Visit: FALL HIP FTRACTURE ETOH DEP Physical Exam Vital Signs: Temp Pulse Resp BP Pulse Ox 97.5 F 93 14 97/60 L 94 07/28/19 12:30 07/28/19 12:30 07/28/19 12:30 07/28/19 12:30 07/28/19 12:30 Intake & Output 07/27/19 07/28/19 07/29/19 06:59 06:59 06:59 Intake Total 2802 1454 500 Output Total 1438 1955 50 Balance 1364 -501 450 Weight 55.5 kg 53.5 kg General appearance: PRESENT: cooperative, mild distress, thin, well-developed Head exam: PRESENT: atraumatic, normocephalic Ear exam: PRESENT: normal external ear exam. ABSENT: bleeding, drainage Mouth exam: PRESENT: moist, tongue midline Respiratory exam: PRESENT: symmetrical, unlabored, other - Very congested breath sounds. ABSENT: rales, tachypnea, wheezes Cardiovascular exam: PRESENT: RRR, +S1, +S2 GI/Abdominal exam: PRESENT: diminished bowel sounds, soft. ABSENT: distended, guarding, tenderness Rectal exam: PRESENT: deferred Extremities exam: PRESENT: other - Edematous extremities. ABD pads in both groins with serosanguineous drainage. Neurological exam: PRESENT: awake, oriented to person. ABSENT: alert Psychiatric exam: PRESENT: flat affect. ABSENT: agitated, anxious Results Laboratory Results: 07/28/19 07:42 07/28/19 07:42 07/28/19 07/28/19 07:42 07:42 WBC 9.7 RBC 2.24 L Hgb 8.2 L Hct 24.3 L MCV 109 H MCH 36.6 H MCHC 33.7 RDW 18.2 H Plt Count 202 Seg Neutrophils % 79.8 H Sodium 132.8 L Potassium 3.2 L Chloride 107 Carbon Dioxide 22 Anion Gap 4 L BUN 7 Creatinine 0.38 L Est GFR ( Amer) > 60 Glucose 81 Calcium 7.2 L Phosphorus 2.6 Magnesium 1.6 07/24/19 15:06 Troponin I 0.014 Impressions: Pelvis CT 07/21/19 17:07 IMPRESSION: Postsurgical changes of total right hip arthroplasty. Mildly comminuted right greater trochanteric fracture with mild anterior displacement. No hardware fracture or dislocation. Dilated distal appendix measuring 9 mm in caliber. Elongated gallbladder containing numerous gallstones. Mild right paracolic gutter and moderate right hemipelvis free fluid. As this is a limited noncontrast exam, clinically joanne elate for acute cholecystitis or appendicitis. Hip/Pelvis X-Ray 07/21/19 23:20 IMPRESSION: Fracture of the femur adjacent to the femoral component of the right hip hemiarthroplasty. Abdomen Ultrasound 07/22/19 00:00 IMPRESSION: 1. Cholelithiasis. 2. Otherwise essentially unremarkable. Abdomen/Pelvis CT 07/24/19 00:00 IMPRESSION: 1. No evidence of dissection or aneurysm involving the thoracic or abdominal aorta. The visceral arteries are patent. 2. No pulmonary embolism. 3. Diffuse wall thickening of the small bowel with mucosal enhancement. Findings compatible with shock bowel related to prolonged hypotension. No large vessel arterial occlusion. 4. Moderate left and small right pleural effusion. 5. Bibasilar opacities. This likely represents a component of compressive atelectasis however superimposed aspiration could contribute to this appearance. Continued follow-up recommended. 6. Moderate amount of ascites. 7. Coronary artery atherosclerosis. 8. Centrilobular emphysematous change. Likely chronic bronchitis. 9. 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 Correlation for history of claudication recommended. 10. Nondisplaced fractures of the right fourth through sixth anterior ribs and left third through sixth anterior ribs. This exam was performed according to our departmental dose-optimization program, which includes automated exposure control, adjustment of the mA and/or kV according to patient size and/or use of iterative reconstruction technique. Chest/Abdomen CTA 07/24/19 00:00 IMPRESSION: 1. No evidence of dissection or aneurysm involving the thoracic or abdominal aorta. The visceral arteries are patent. 2. No pulmonary embolism. 3. Diffuse wall thickening of the small bowel with mucosal enhancement. Findings compatible with shock bowel related to prolonged hypotension. No large vessel arterial occlusion. 4. Moderate left and small right pleural effusion. 5. Bibasilar opacities. This likely represents a component of compressive atelectasis however superimposed aspiration could contribute to this appearance. Continued follow-up recommended. 6. Moderate amount of ascites. 7. Coronary artery atherosclerosis. 8. Centrilobular emphysematous change. Likely chronic bronchitis. 9. 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 Correlation for history of claudication recommended. 10. Nondisplaced fractures of the right fourth through sixth anterior ribs and left third through sixth anterior ribs. This exam was performed according to our departmental dose-optimization program, which includes automated exposure control, adjustment of the mA and/or kV according to patient size and/or use of iterative reconstruction technique. Head CTA 07/24/19 00:00 IMPRESSION: 1. No acute intracranial abnormality by CT criteria. 2. No acute abnormality identified in the intracranial arterial circulation. 3. No evidence of stenosis/occlusion involving the cervical carotid or vertebral arteries. This exam was performed according to our departmental dose-optimization program, which includes automated exposure control, adjustment of the mA and/or kV according to patient size and/or use of iterative reconstruction technique. Neck CTA 07/24/19 01:40 IMPRESSION: 1. No acute intracranial abnormality by CT criteria. 2. No acute abnormality identified in the intracranial arterial circulation. 3. No evidence of stenosis/occlusion involving the cervical carotid or vertebral arteries. This exam was performed according to our departmental dose-optimization program, which includes automated exposure control, adjustment of the mA and/or kV according to patient size and/or use of iterative reconstruction technique. Chest X-Ray 07/27/19 00:00 IMPRESSION: 1. LOW LYING ENDOTRACHEAL TUBE. RECOMMEND WITHDRAWAL BY 4 - 5 CM. 2. COPD. SMALL PLEURAL EFFUSIONS. NO SIGNIFICANT CHANGE. KUB X-Ray 07/27/19 00:00 IMPRESSION: TIP OF THE NASOGASTRIC TUBE IN THE STOMACH. NO RADIOGRAPHIC EVIDENCE FOR ACUTE ABDOMINAL DISEASE. Assessment and Plan - Diagnosis (1) Cardiac arrest Is this a current diagnosis for this admission?: Yes Plan: 07/28/2019 Discharge from ICU today. Successfully resuscitated after cardiac arrest requiring intubation and mechanical ventilation as well as IV pressors. She will be monitored on telemetry. Treating for atrial fibrillation. (2) Acute respiratory failure with hypoxia and hypercapnia Is this a current diagnosis for this admission?: Yes Plan: 07/28/2019 Currently high flow nasal cannula. We will try and wean from oxygen while keeping her saturation 88 to 92%. As needed nebulizers have been ordered. (3) Atrial fibrillation with RVR Is this a current diagnosis for this admission?: Yes Plan: 07/28/2019 1 of her admitting diagnoses. She was on diltiazem previously. By the monitor she is in sinus rhythm this afternoon. She is n.p.o. at this time and consider intravenous diltiazem for rate control if needed. (4) Current every day smoker Is this a current diagnosis for this admission?: Yes Plan: 07/28/2019 Nicotine patch if required (5) Closed right hip fracture Qualifiers: Encounter type: initial encounter Qualified Code(s): S72.001A - Fracture of unspecified part of neck of right femur, initial encounter for closed fracture Is this a current diagnosis for this admission?: Yes Plan: 07/28/2019 Nonsurgical. We will resume physical therapy. (6) Hypocalcemia Is this a current diagnosis for this admission?: Yes Plan: 07/28/2019 We will recheck albumin. Will monitor calcium. Supplement accordingly. (7) Hypokalemia Is this a current diagnosis for this admission?: Yes Plan: 07/28/2019 Monitor serum potassium. Supplement to keep serum potassium in the normal range. (8) Iron deficiency Is this a current diagnosis for this admission?: Yes Plan: 07/28/2019 Currently n.p.o. but initiate oral iron therapy once her swallow improves (9) Macrocytic anemia Is this a current diagnosis for this admission?: Yes Plan: 07/28/2019 Review previous laboratory studies. She is currently on thiamine and folic acid. (10) Vitamin D deficiency Is this a current diagnosis for this admission?: Yes Plan: 07/28/2019 When the patient is no longer n.p.o. resume supplement with vitamin D and calcium (11) Asymptomatic bacteriuria Is this a current diagnosis for this admission?: Yes Plan: Resolved - Time Time Spent with patient: 25-34 minutes Medications reviewed and adjusted accordingly: Yes
[2019-07-28] MEDS ORDERED: DEXTROSE 5%-LACTATED RINGERS 1,000 ML IV PRN (18:21)
[2019-07-28 20:55] LABS: ALBUMIN 2.3 g/dL (3.5-5.0); BLOOD UREA NITROGEN 6 mg/dL (7-20); CALCIUM 7.6 mg/dL (8.4-10.2); GLUCOSE 81 mg/dL (75-110); PHOSPHORUS 2.2 mg/dL (2.5-4.5); POTASSIUM 3.3 mmol/L (3.6-5.0)
[2019-07-28 21:00] LABS: CARBON DIOXIDE 25 mmol/L (22-30); CHLORIDE 106 mmol/L (98-107)
[2019-07-28 21:02] LABS: ANION GAP 3 (5-19)
[2019-07-28] MEDS: ENOXAPARIN SODIUM INJ 60 MG/0.6 ML DISP.SYRIN SUBCUT SCH (22:58)
[2019-07-29 08:04] LABS: ABSOLUTE LYMPHOCYTES (AUTO) 1.3 10^3/uL (0.5-4.7); ABSOLUTE NEUT (AUTO) 7.6 10^3/uL (1.7-8.2); BASOPHILS % (AUTO) 0.2 % (0-2); EOSINOPHILS % (AUTO) 0.4 % (0-6); HEMATOCRIT 26.1 % (36.0-47.0); HEMOGLOBIN 8.8 g/dL (12.0-15.5); MEAN CORPUSCULAR HEMOGLOBIN 36.7 pg (27.0-33.4); MEAN CORPUSCULAR HGB CONC 33.7 g/dL (32.0-36.0); MEAN CORPUSCULAR VOLUME 109 fl (80-97); MONOCYTES % (AUTO) 10.1 % (3-13); PLATELET COUNT 296 10^3/uL (150-450); RED BLOOD COUNT 2.39 10^6/uL (3.72-5.28); RED CELL DISTRIBUTION WIDTH 18.9 % (11.5-14.0); SEGMENTED NEUTROPHILS % (AUTO) 76.3 % (42-78); TOTAL CELLS COUNTED % (AUTO) 100 %; WHITE BLOOD COUNT 9.9 10^3/uL (4.0-10.5)
[2019-07-29 08:32] LABS: ALBUMIN 2.5 g/dL (3.5-5.0); BLOOD UREA NITROGEN 5 mg/dL (7-20); CALCIUM 8.1 mg/dL (8.4-10.2); CARBON DIOXIDE 27 mmol/L (22-30); CHLORIDE 106 mmol/L (98-107); GLUCOSE 83 mg/dL (75-110); POTASSIUM 3.4 mmol/L (3.6-5.0)
[2019-07-29 08:42] LABS: ANION GAP 2 (5-19)
[2019-07-29] MEDS: THIAMINE HCL 100 MG, FOLIC ACID 1 MG in NORMAL SALINE 250 ML IV SCH (10:34)
[2019-07-29] MEDS: ENOXAPARIN SODIUM INJ 60 MG/0.6 ML DISP.SYRIN SUBCUT SCH ×2 (10:35→22:50)
[2019-07-29] MEDS ORDERED: KETOROLAC TROMETHAMINE INJ/PF 30 MG/1 ML SDV IV PRN (11:10)
[2019-07-29] MEDS ORDERED: POTASSI CL 20 MEQ/50 ML RIDER 20 MEQ/50 ML RTUPB IV ONE (11:14)
--- NOTE | 2019-07-29 11:18 | PDOC PROGRESS REPORT ---
Subjective Progress Note for:: 07/29/19 Subjective:: Feeling better today. Looks better today. Arms are less puffy. Reason For Visit: FALL HIP FTRACTURE ETOH DEP Physical Exam Vital Signs: Temp Pulse Resp BP Pulse Ox 98.3 F 82 20 105/74 98 07/29/19 07:16 07/29/19 08:13 07/29/19 08:13 07/29/19 07:16 07/29/19 08:13 Intake & Output 07/28/19 07/29/19 07/30/19 06:59 06:59 06:59 Intake Total 1454 500 0 Output Total 1955 500 Balance -501 0 0 Weight 53.5 kg 47.9 kg General appearance: PRESENT: cooperative, thin - Very frail-appearing, well- developed, other - High flow nasal cannula in place Eye exam: PRESENT: conjunctiva pale. ABSENT: scleral icterus Mouth exam: PRESENT: moist, tongue midline Neck exam: ABSENT: carotid bruit, JVD, lymphadenopathy Respiratory exam: PRESENT: decreased breath sounds - Shallow breath, prolonged expiratory phas, rhonchi - Faint, symmetrical, unlabored. ABSENT: tachypnea, wheezes Cardiovascular exam: PRESENT: RRR, +S1, +S2 GI/Abdominal exam: PRESENT: normal bowel sounds, soft. ABSENT: distended, guarding, tenderness Rectal exam: PRESENT: deferred Extremities exam: ABSENT: pedal edema Musculoskeletal exam: PRESENT: normal inspection. ABSENT: deformity Neurological exam: PRESENT: alert, awake, oriented to person, oriented to place, oriented to situation Psychiatric exam: PRESENT: flat affect. ABSENT: agitated, anxious Skin exam: PRESENT: pallor Results Laboratory Results: 07/29/19 07:35 07/29/19 07:35 07/28/19 07/29/19 07/29/19 20:30 07:35 07:35 WBC 9.9 RBC 2.39 L Hgb 8.8 L Hct 26.1 L MCV 109 H MCH 36.7 H MCHC 33.7 RDW 18.9 H Plt Count 296 Seg Neutrophils % 76.3 Sodium 133.5 L 135.1 L Potassium 3.3 L 3.4 L Chloride 106 106 Carbon Dioxide 25 27 Anion Gap 3 L 2 L BUN 6 L 5 L Creatinine 0.40 L 0.41 L Est GFR ( Amer) > 60 > 60 Glucose 81 83 Calcium 7.6 L 8.1 L Phosphorus 2.2 L 2.0 L Magnesium 1.6 Albumin 2.3 L 2.5 L 07/24/19 15:06 Troponin I 0.014 Impressions: Pelvis CT 07/21/19 17:07 IMPRESSION: Postsurgical changes of total right hip arthroplasty. Mildly comminuted right greater trochanteric fracture with mild anterior displacement. No hardware fracture or dislocation. Dilated distal appendix measuring 9 mm in caliber. Elongated gallbladder containing numerous gallstones. Mild right paracolic gutter and moderate right hemipelvis free fluid. As this is a limited noncontrast exam, clinically correlate for acute cholecystitis or appendicitis. Hip/Pelvis X-Ray 07/21/19 23:20 IMPRESSION: Fracture of the femur adjacent to the femoral component of the right hip hemiarthroplasty. Abdomen Ultrasound 07/22/19 00:00 IMPRESSION: 1. Cholelithiasis. 2. Otherwise essentially unremarkable. Abdomen/Pelvis CT 07/24/19 00:00 IMPRESSION: 1. No evidence of dissection or aneurysm involving the thoracic or abdominal aorta. The visceral arteries are patent. 2. No pulmonary embolism. 3. Diffuse wall thickening of the small bowel with mucosal enhancement. Findings compatible with shock bowel related to prolonged hypotension. No large vessel arterial occlusion. 4. Moderate left and small right pleural effusion. 5. Bibasilar opacities. This likely represents a component of compressive atelectasis however superimposed aspiration could contribute to this appearance. Continued follow-up recommended. 6. Moderate amount of ascites. 7. Coronary artery atherosclerosis. 8. Centrilobular emphysematous change. Likely chronic bronchitis. 9. 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 Correlation for history of claudication recommended. 10. Nondisplaced fractures of the right fourth through sixth anterior ribs and left third through sixth anterior ribs. This exam was performed according to our departmental dose-optimization program, which includes automated exposure control, adjustment of the mA and/or kV according to patient size and/or use of iterative reconstruction technique. Chest/Abdomen CTA 07/24/19 00:00 IMPRESSION: 1. No evidence of dissection or aneurysm involving the thoracic or abdominal aorta. The visceral arteries are patent. 2. No pulmonary embolism. 3. Diffuse wall thickening of the small bowel with mucosal enhancement. Findings compatible with shock bowel related to prolonged hypotension. No large vessel arterial occlusion. 4. Moderate left and small right pleural effusion. 5. Bibasilar opacities. This likely represents a component of compressive atelectasis however superimposed aspiration could contribute to this appearance. Continued follow-up recommended. 6. Moderate amount of ascites. 7. Coronary artery atherosclerosis. 8. Centrilobular emphysematous change. Likely chronic bronchitis. 9. 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 Correlation for history of claudication recommended. 10. Nondisplaced fractures of the right fourth through sixth anterior ribs and left third through sixth anterior ribs. This exam was performed according to our departmental dose-optimization program, which includes automated exposure control, adjustment of the mA and/or kV according to patient size and/or use of iterative reconstruction technique. Head CTA 07/24/19 00:00 IMPRESSION: 1. No acute intracranial abnormality by CT criteria. 2. No acute abnormality identified in the intracranial arterial circulation. 3. No evidence of stenosis/occlusion involving the cervical carotid or vertebral arteries. This exam was performed according to our departmental dose-optimization program, which includes automated exposure control, adjustment of the mA and/or kV according to patient size and/or use of iterative reconstruction technique. Neck CTA 07/24/19 01:40 IMPRESSION: 1. No acute intracranial abnormality by CT criteria. 2. No acute abnormality identified in the intracranial arterial circulation. 3. No evidence of stenosis/occlusion involving the cervical carotid or vertebral arteries. This exam was performed according to our departmental dose-optimization program, which includes automated exposure control, adjustment of the mA and/or kV according to patient size and/or use of iterative reconstruction technique. Chest X-Ray 07/27/19 00:00 IMPRESSION: 1. LOW LYING ENDOTRACHEAL TUBE. RECOMMEND WITHDRAWAL BY 4 - 5 CM. 2. COPD. SMALL PLEURAL EFFUSIONS. NO SIGNIFICANT CHANGE. KUB X-Ray 07/27/19 00:00 IMPRESSION: TIP OF THE NASOGASTRIC TUBE IN THE STOMACH. NO RADIOGRAPHIC EVIDENCE FOR ACUTE ABDOMINAL DISEASE. Assessment and Plan - Diagnosis (1) Acute respiratory failure with hypoxia and hypercapnia Is this a current diagnosis for this admission?: Yes (2) Atrial fibrillation with RVR Is this a current diagnosis for this admission?: Yes Plan: 07/28/2019 1 of her admitting diagnoses. She was on diltiazem previously. By the monitor she is in sinus rhythm this afternoon. She is n.p.o. at this time and consider intravenous diltiazem for rate control if needed. 07/29/2019 Heart rate has been stable. Continue to monitor on telemetry. Is currently off of amiodarone while she is n.p.o. Dr. Mclean will be consulting. (3) Hypocalcemia Is this a current diagnosis for this admission?: Yes Plan: 07/28/2019 We will recheck albumin. Will monitor calcium. Supplement accordingly. 07/29/2019 Calcium is 8.1 but corrects considering albumin. Continue to monitor. (4) Hypokalemia Is this a current diagnosis for this admission?: Yes Plan: 07/28/2019 Monitor serum potassium. Supplement to keep serum potassium in the normal range . 07/29/2019 Potassium is just below the lower limit normal. Because she is n.p.o. I will give 20 mEq of IV potassium. We will recheck tomorrow. Hopefully she will pass the modified barium swallow enough to begin to take oral medications. (5) Iron deficiency Is this a current diagnosis for this admission?: Yes Plan: 07/28/2019 Currently n.p.o. but initiate oral iron therapy once her swallow improves 07/29/2019 As above (6) Macrocytic anemia Is this a current diagnosis for this admission?: Yes Plan: 07/28/2019 Review previous laboratory studies. She is currently on thiamine and folic acid. 07/29/2019 B12 level is within the therapeutic range and folic acid is well above the therapeutic range. Currently not on folic acid supplement. (7) Closed right hip fracture Qualifiers: Encounter type: initial encounter Qualified Code(s): S72.001A - Fracture of unspecified part of neck of right femur, initial encounter for closed fracture Is this a current diagnosis for this admission?: Yes Plan: 07/28/2019 Nonsurgical. We will resume physical therapy. 07/29/2019 Current respiratory status prohibits significant activity. As respiratory status improves we will begin physical therapy again. (8) Vitamin D deficiency Is this a current diagnosis for this admission?: Yes Plan: 07/28/2019 When the patient is no longer n.p.o. resume supplement with vitamin D and calc ium 07/29/2019 Resume calcium with vitamin D when patient is taking oral medications (9) Cardiac arrest Is this a current diagnosis for this admission?: Yes Plan: 07/28/2019 Discharge from ICU today. Successfully resuscitated after cardiac arrest requiring intubation and mechanical ventilation as well as IV pressors. She will be monitored on telemetry. Treating for atrial fibrillation. 07/29/2019 Dr. Jones is seeing the patient in consultation. Current rhythm is multifocal atrial tachycardia. (10) Current every day smoker Is this a current diagnosis for this admission?: Yes Plan: 07/28/2019 Nicotine patch if required (11) Asymptomatic bacteriuria Is this a current diagnosis for this admission?: Yes Plan: Resolved - Time Time Spent with patient: 15-24 minutes Medications reviewed and adjusted accordingly: Yes Anticipated discharge: SN[facility]
[2019-07-29] MEDS: ALBUMIN HUMAN 12.5 GM/50 ML RTUINJ IV SCH ×2 (15:06→16:50)
[2019-07-29] MEDS ORDERED: DEXAMETHASONE SOD PHOS INJ 10 MG/1 ML VIAL IV ONE (16:17)
[2019-07-29] MEDS ORDERED: ALBUMIN HUMAN 12.5 GM/50 ML RTUINJ IV ONE ×2 (16:21→17:07)
[2019-07-29 16:55] LABS: ARTERIAL BLOOD H2CO3 1.26 mmol/L (1.05-1.35); ARTERIAL BLOOD HCO3 23.3 mmol/L (20-24); ARTERIAL BLOOD O2 SATURATION 87.9 % (94-98); ARTERIAL BLOOD PCO2 41.9 mmHg (35-45); ARTERIAL BLOOD PH 7.36 (7.35-7.45); ARTERIAL BLOOD PO2 55.5 mmHg (80-100); ARTERIAL BLOOD TOTAL CO2 24.6 mmol/L (21-25)
--- NOTE | 2019-07-29 17:07 | RADIOLOGY REPORT (SQ) ---
EXAM DESCRIPTION: CHEST SINGLE VIEW IMAGES COMPLETED DATE/TIME: 07/29/2019 4:52 pm REASON FOR STUDY: ? Aspiration COMPARISON: 07/27/2019 TECHNIQUE: Single frontal radiographic view of the chest acquired. NUMBER OF VIEWS: One view. LIMITATIONS: None. FINDINGS: LUNGS AND PLEURA: No pneumothorax. New prominent right basilar consolidation - pleural ef fusion. New Left basilar subsegmental atelectasis and increased effusion. MEDIASTINUM AND HILAR STRUCTURES: Stable. HEART AND VASCULAR STRUCTURES: Stable. BONES: No acute findings. HARDWARE: None in the chest. OTHER: No other significant finding. IMPRESSION: New prominent right basilar consolidation - pleural effusion. New Left basilar subsegm ental atelectasis and increased effusion. TECHNICAL DOCUMENTATION: JOB ID: [id number] [employer]- All Rights Reserved Reading location - IP/workstation name: [email or web address]
[2019-07-29 17:13] LABS: APPEARANCE,URINE SLIGHTLY-CLOUDY; BILIRUBIN,URINE NEGATIVE (NEGATIVE); COLOR,URINE YELLOW; GLUCOSE, URINE NEGATIVE (NEGATIVE); KETONES,URINE NEGATIVE (NEGATIVE); LEUKOCYTE ESTERASE,URINE MODERATE (NEGATIVE); NITRITE,URINE NEGATIVE (NEGATIVE); PROTEIN,URINE NEGATIVE (NEGATIVE); URINE SPECIFIC GRAVITY 1.017
[2019-07-29] MEDS ORDERED: LEVALBUTEROL HCL NEB 1.25 MG/3 ML AMPUL NEB PRN (17:33)
[2019-07-29] MEDS ORDERED: IPRATROPIUM BROMIDE 0.02% NEB 0.5 MG/2.5 ML AMPUL NEB PRN (17:36)
[2019-07-29] MEDS: DEXTROSE 5%-LACTATED RINGERS 1,000 ML IV PRN (18:19)
--- NOTE | 2019-07-29 18:31 | PDOC PROGRESS REPORT ---
Subjective Progress Note for:: 07/29/19 Subjective:: I was contacted by the patient's nurse. She is at the bedside with respiratory therapy. The patient is exhibiting desaturations that are widely fluctuating from the 70s to the low 90s. Her oxygen requirements have increased. Upon my arrival she was still saturating below 90% however she looked comfortable. She was able to answer questions. She appeared to be at her baseline cognitively. She was not struggling for air. Reason For Visit: FALL HIP FTRACTURE ETOH DEP Physical Exam Vital Signs: Temp Pulse Resp BP Pulse Ox 97.9 F 85 15 108/67 94 07/29/19 16:00 07/29/19 16:35 07/29/19 16:35 07/29/19 16:00 07/29/19 16:35 Intake & Output 07/28/19 07/29/19 07/30/19 06:59 06:59 06:59 Intake Total 1454 500 401.2 Output Total 1955 500 100 Balance -501 0 301.2 Weight 53.5 kg 47.9 kg 47.9 kg General appearance: PRESENT: no acute distress, cooperative, thin, well- developed Head exam: PRESENT: atraumatic, normocephalic, other - Temporal wasting Eye exam: PRESENT: conjunctiva pale. ABSENT: scleral icterus Ear exam: PRESENT: normal external ear exam. ABSENT: bleeding, drainage Mouth exam: PRESENT: dry mucosa, tongue midline Neck exam: PRESENT: other - External jugular IV site right neck. ABSENT: carotid bruit, JVD, lymphadenopathy Respiratory exam: PRESENT: decreased breath sounds, prolonged expiratory phas - Shortened inspiratory phase, rhonchi - Faint rhonchi right base, tachypnea. ABSENT: rales, wheezes Cardiovascular exam: PRESENT: RRR, +S1, +S2 GI/Abdominal exam: PRESENT: hypoactive bowel sounds, soft. ABSENT: distended, guarding, tenderness Rectal exam: PRESENT: deferred Gentrourinary exam: ABSENT: indwelling catheter Extremities exam: PRESENT: other - Noticeably less edema in upper extremities compared to yesterday. Neurological exam: PRESENT: alert, awake, oriented to person, oriented to place, oriented to situation. ABSENT: altered Psychiatric exam: PRESENT: flat affect. ABSENT: agitated, anxious Results Laboratory Results: 07/29/19 07:35 07/29/19 07:35 07/28/19 07/29/19 07/29/19 20:30 07:35 07:35 WBC 9.9 RBC 2.39 L Hgb 8.8 L Hct 26.1 L MCV 109 H MCH 36.7 H MCHC 33.7 RDW 18.9 H Plt Count 296 Seg Neutrophils % 76.3 Carbonic Acid HCO3/H2CO3 Ratio ABG pH ABG pCO2 ABG pO2 ABG HCO3 ABG O2 Saturation ABG Base Excess FiO2 Sodium 133.5 L 135.1 L Potassium 3.3 L 3.4 L Chloride 106 106 Carbon Dioxide 25 27 Anion Gap 3 L 2 L BUN 6 L 5 L Creatinine 0.40 L 0.41 L Est GFR ( Amer) > 60 > 60 Glucose 81 83 Calcium 7.6 L 8.1 L Phosphorus 2.2 L 2.0 L Magnesium 1.6 Albumin 2.3 L 2.5 L Urine Color Urine Appearance Urine pH Ur Specific Cutler Urine Protein Urine Glucose (UA) Urine Ketones Urine Blood Urine Nitrite Ur Leukocyte Esterase Urine WBC (Auto) Urine RBC (Auto) 07/29/19 07/29/19 16:35 16:40 WBC RBC Hgb Hct MCV MCH MCHC RDW Plt Count Seg Neutrophils % Carbonic Acid 1.26 HCO3/H2CO3 Ratio 18:1 ABG pH 7.36 ABG pCO2 41.9 ABG pO2 55.5 L ABG HCO3 23.3 ABG O2 Saturation 87.9 L ABG Base Excess -2.0 FiO2 72% Sodium Potassium Chloride Carbon Dioxide Anion Gap BUN Creatinine Est GFR ( Amer) Glucose Calcium Phosphorus Magnesium Albumin Urine Color YELLOW Urine Appearance SLIGHTLY-CLOUDY Urine pH 5.0 Ur Specific Cutler 1.017 Urine Protein NEGATIVE Urine Glucose (UA) NEGATIVE Urine Ketones NEGATIVE Urine Blood NEGATIVE Urine Nitrite NEGATIVE Ur Leukocyte Esterase MODERATE H Urine WBC (Auto) 9 Urine RBC (Auto) 6 07/24/19 15:06 Troponin I 0.014 Impressions: Pelvis CT 07/21/19 17:07 IMPRESSION: Postsurgical changes of total right hip arthroplasty. Mildly comminuted right greater trochanteric fracture with mild anterior displacement. No hardware fracture or dislocation. Dilated distal appendix measuring 9 mm in caliber. Elongated gallbladder containing numerous gallstones. Mild right paracolic gutter and moderate right hemipelvis free fluid. As this is a limited noncontrast exam, clinically correlate for acute cholecystitis or appendicitis. Hip/Pelvis X-Ray 07/21/19 23:20 IMPRESSION: Fracture of the femur adjacent to the femoral component of the right hip hemiarthroplasty. Abdomen Ultrasound 07/22/19 00:00 IMPRESSION: 1. Cholelithiasis. 2. Otherwise essentially unremarkable. Abdomen/Pelvis CT 07/24/19 00:00 IMPRESSION: 1. No evidence of dissection or aneurysm involving the thoracic or abdominal aorta. The visceral arteries are patent. 2. No pulmonary embolism. 3. Diffuse wall thickening of the small bowel with mucosal enhancement. Findings compatible with shock bowel related to prolonged hypotension. No large vessel arterial occlusion. 4. Moderate left and small right pleural effusion. 5. Bibasilar opacities. This likely represents a component of compressive atelectasis however superimposed aspiration could contribute to this appearance. Continued follow-up recommended. 6. Moderate amount of ascites. 7. Coronary artery atherosclerosis. 8. Centrilobular emphysematous change. Likely chronic bronchitis. 9. 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 Correlation for history of claudication recommended. 10. Nondisplaced fractures of the right fourth through sixth anterior ribs and left third through sixth anterior ribs. This exam was performed according to our departmental dose-optimization program, which includes automated exposure control, adjustment of the mA and/or kV according to patient size and/or use of iterative reconstruction technique. Chest/Abdomen CTA 07/24/19 00:00 IMPRESSION: 1. No evidence of dissection or aneurysm involving the thoracic or abdominal aorta. The visceral arteries are patent. 2. No pulmonary embolism. 3. Diffuse wall thickening of the small bowel with mucosal enhancement. Findings compatible with shock bowel related to prolonged hypotension. No large vessel arterial occlusion. 4. Moderate left and small right pleural effusion. 5. Bibasilar opacities. This likely represents a component of compressive atelectasis however superimposed aspiration could contribute to this appearance. Continued follow-up recommended. 6. Moderate amount of ascites. 7. Coronary artery atherosclerosis. 8. Centrilobular emphysematous change. Likely chronic bronchitis. 9. 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 Correlation for history of claudication recommended. 10. Nondisplaced fractures of the right fourth through sixth anterior ribs and left third through sixth anterior ribs. This exam was performed according to our departmental dose-optimization program, which includes automated exposure control, adjustment of the mA and/or kV according to patient size and/or use of iterative reconstruction technique. Head CTA 07/24/19 00:00 IMPRESSION: 1. No acute intracranial abnormality by CT criteria. 2. No acute abnormality identified in the intracranial arterial circulation. 3. No evidence of stenosis/occlusion involving the cervical carotid or vertebral arteries. This exam was performed according to our departmental dose-optimization program, which includes automated exposure control, adjustment of the mA and/or kV according to patient size and/or use of iterative reconstruction technique. Neck CTA 07/24/19 01:40 IMPRESSION: 1. No acute intracranial abnormality by CT criteria. 2. No acute abnormality identified in the intracranial arterial circulation. 3. No evidence of stenosis/occlusion involving the cervical carotid or vertebral arteries. This exam was performed according to our departmental dose-optimization program, which includes automated exposure control, adjustment of the mA and/or kV according to patient size and/or use of iterative reconstruction technique. KUB X-Ray 07/27/19 00:00 IMPRESSION: TIP OF THE NASOGASTRIC TUBE IN THE STOMACH. NO RADIOGRAPHIC EVIDENCE FOR ACUTE ABDOMINAL DISEASE. Chest X-Ray 07/29/19 00:00 IMPRESSION: New prominent right basilar consolidation - pleural effusion. New Left basilar subsegmental atelectasis and increased effusion. Assessment and Plan - Diagnosis (1) Acute respiratory failure with hypoxia and hypercapnia Is this a current diagnosis for this admission?: Yes Plan: 07/28/2019 Currently high flow nasal cannula. We will try and wean from oxygen while daniel ping her saturation 88 to 92%. As needed nebulizers have been ordered. 07/29/2019 Continue high flow nasal cannula 07/29/2019 critical care visit A chest x-ray was obtained urgently. There is atelectasis versus consolidation at the right base. Small pleural effusion on the left. An ABG was drawn. On high flow nasal cannula FiO2 70% pH was 7.36, PCO2 41.9, PO2 55.5, bicarb 23.3, saturation 88%. Atelectasis versus possible aspiration pneumonia being considered. For atelectasis we will institute trials of CPAP. Consider chest percussion therapy as well. I have added back scheduled nebulizers of Xopenex, ipratropium every 6 hours, budesonide every 12 hours and as needed combination therapy. (2) Multifocal atrial tachycardia Is this a current diagnosis for this admission?: Yes Plan: 07/29/2019 The patient has metoprolol as needed. Unfortunately she is n.p.o. at this time. Verapamil is also very useful for multifocal atrial tachycardia. Hopefully with aggressive treatment of her underlying respiratory status her rate will settle. (3) Hypocalcemia Is this a current diagnosis for this admission?: Yes Plan: 07/28/2019 We will recheck albumin. Will monitor calcium. Supplement accordingly. 07/29/2019 Calcium is 8.1 but corrects considering albumin. Continue to monitor. 07/29/2019 critical care visit Calcium is normal as above. Will monitor closely for calcium, magnesium and potassium levels. (4) Hypokalemia Is this a current diagnosis for this admission?: Yes Plan: 07/28/2019 Monitor serum potassium. Supplement to keep serum potassium in the normal range. 07/29/2019 Potassium is just below the lower limit normal. Because she is n.p.o. I will give 20 mEq of IV potassium. We will recheck tomorrow. Hopefully she will pass the modified barium swallow enough to begin to take oral medications. 07/29/2019 critical care visit She received IV potassium earlier. As noted above we will monitor electrolytes closely to prevent deficiencies. (5) Iron deficiency Is this a current diagnosis for this admission?: Yes Plan: 07/28/2019 Currently n.p.o. but initiate oral iron therapy once her swallow improves 07/29/2019 As above (6) Macrocytic anemia Is this a current diagnosis for this admission?: Yes Plan: 07/28/2019 Review previous laboratory studies. She is currently on thiamine and folic acid. 07/29/2019 B12 level is within the therapeutic range and folic acid is well above the therapeutic range. Currently not on folic acid supplement. 07/29/2019 critical care visit We may need to set the threshold for her hemoglobin slightly higher. She improved from 8.2-8.8. We will check hemoglobin tomorrow. I would like to see her hemoglobin greater than 9.0. (7) Closed right hip fracture Qualifiers: Encounter type: initial encounter Qualified Code(s): S72.001A - Fracture of unspecified part of neck of right femur, initial encounter for closed fracture Is this a current diagnosis for this admission?: Yes Plan: 07/28/2019 Nonsurgical. We will resume physical therapy. 07/29/2019 Current respiratory status prohibits significant activity. As respiratory status improves we will begin physical therapy again. (8) Vitamin D deficiency Is this a current diagnosis for this admission?: Yes Plan: 07/28/2019 When the patient is no longer n.p.o. resume supplement with vitamin D and calcium 07/29/2019 Resume calcium with vitamin D when patient is taking oral medications (9) Atrial fibrillation with RVR Is this a current diagnosis for this admission?: Yes Plan: 07/28/2019 1 of her admitting diagnoses. She was on diltiazem previously. By the monitor she is in sinus rhythm this afternoon. She is n.p.o. at this time and consider intravenous diltiazem for rate control if needed. 07/29/2019 Heart rate has been stable. Continue to monitor on telemetry. Is currently off of amiodarone while she is n.p.o. Dr. Mclean will be consulting. 07/29/2019 critical care visit Currently on as needed IV metoprolol. Rhythm is actually multifocal atrial tachycardia. See above. (10) Cardiac arrest Is this a current diagnosis for this admission?: Yes Plan: 07/28/2019 Discharge from ICU today. Successfully resuscitated after cardiac arrest requiring intubation and mechanical ventilation as well as IV pressors. She will be monitored on telemetry. Treating for atrial fibrillation. 07/29/2019 Dr. Jones is seeing the patient in consultation. Current rhythm is multifocal atrial tachycardia. (11) Current every day smoker Is this a current diagnosis for this admission?: Yes Plan: 07/28/2019 Nicotine patch if required (12) Asymptomatic bacteriuria Is this a current diagnosis for this admission?: Yes Plan: Resolved - Time Total Critical Time (Minutes): 50 Medications reviewed and adjusted accordingly: Yes
[2019-07-29] MEDS ORDERED: LORAZEPAM INJ 2 MG/1 ML VIAL IV PRN (18:40)
[2019-07-29] MEDS ORDERED: MIDODRINE HCL 5 MG TABLET PO ONE (19:00)
[2019-07-29] MEDS ORDERED: MAGNESIUM SULFATE/D5W 1 GM/100 ML RTUPB IV ONE (19:00)
--- NOTE | 2019-07-29 19:33 | ADVANCED CARE ---
- Diagnosis (1) Acute respiratory failure with hypoxia and hypercapnia Diagnosis Current: Yes (2) Multifocal atrial tachycardia Diagnosis Current: Yes (3) Hypocalcemia Diagnosis Current: Yes (4) Hypokalemia Diagnosis Current: Yes (5) Iron deficiency Diagnosis Current: Yes (6) Macrocytic anemia Diagnosis Current: Yes (7) Closed right hip fracture Diagnosis Current: Yes (8) Vitamin D deficiency Diagnosis Current: Yes (9) Atrial fibrillation with RVR Diagnosis Current: Yes (10) Cardiac arrest Diagnosis Current: Yes (11) Current every day smoker Diagnosis Current: Yes (12) Asymptomatic bacteriuria Diagnosis Current: Yes Attendance: Because the patient is not recovering as nicely as we would like to see the nurse and I went back into the room to review her CODE STATUS. Resuscitation Status: Full Code Discussion: The patient is a chronic drinker and smoker. She did survive the recent arrest. She was successfully extubated. She is not doing as well as hoped. Because of her history current status I felt it prudent to review her CODE STATUS. The odds are that if she had another arrest she would not survive or we would be difficulty getting her off of the ventilator. We took the CPAP mask off for just several minutes and her saturations dropped into the low 80s. I explained her current status. The odds of surviving a second event in a very short period are quite poor. Despite this she wishes to remain full code. The CPAP mask was placed back on the patient. Care Planning Goals: The goal was to provide insight for the patient with regard to her current medical status and survivability. She was adamant that she wanted to remain a full code. Document(s) Completed: None Time Spent: 20
[2019-07-29] MEDS: LEVALBUTEROL HCL NEB 1.25 MG/3 ML AMPUL NEB SCH (20:12)
[2019-07-29] MEDS: IPRATROPIUM BROMIDE 0.02% NEB 0.5 MG/2.5 ML AMPUL NEB SCH (20:13)
[2019-07-29] MEDS: BUDESONIDE NEB 0.5 MG/2 ML AMPUL NEB SCH (20:13)
--- NOTE | 2019-07-29 20:35 | PDOC H&P ---
History of Present Illness Admission Date/PCP: 07/22/19 01:19 [facility] Patient complains of: Falls History of Present Illness: OLGA BUSTAMANTE is a 63 year old female with a past medical history of tobacco dependence, osteo-arthritis and hip replacement 4 years ago. She presents after repeated falls to the floor at home resulting in right hip pain prompting a call to EMS. In the emergency department she is found to have severe cachexia, malnutrition, widespread ecchymosis, coagulopathy, macrocytic anemia and a right-sided hip fracture. Orthopedic surgery was consulted and she is referred to the hospitalist for admission. Prior to being seen the patient develops SVT without symptoms despite a heart rate of 160. Vagal maneuvers are unhelpful she is placed on IV Cardizem. She persistently denies chest pain palpitations nausea vomiting diaphoresis. She denies recent change in medication regiment she is otherwise feeling well. She admits long-term tobacco and alcohol use. Patient reveals she feels unsafe at home and has fear of her children. She expresses interest in placement to rehab. She verifies her CODE STATUS is full code. Discharge planning is consulted. She denies any routine screening of mammography, [employer] exam or colonoscopy. Patient admitted July 22, 2019 Past Medical History Cardiac Medical History: Reports: None Pulmonary Medical History: Reports: None, Bronchitis, Chronic Obstructive Pulmonary Disease (COPD) EENT Medical History: Reports: None Neurological Medical History: Reports: None Endocrine Medical History: Reports: None Renal/ Medical History: Reports: None Malignancy Medical History: Reports: None Skin Medical History: Reports: Eczema Psychiatric Medical History: Denies: Depression Past Surgical History Past Surgical History: Reports: Orthopedic Surgery - Right hip hemiarthroplasty by Dr. Corbett Social History Smoking Status: Current Every Day Smoker Cigarettes Packs Per Day: 1 Electronic Cigarette use?: No Frequency of Alcohol Use: Heavy Hx Recreational Drug Use: No Drugs: None Hx Prescription Drug Abuse: No - Advance Directive Resuscitation Status: Full Code Family History Family History: Arthritis, Hyperlipidemia Parental Family History Reviewed: Yes Children Family History Reviewed: Yes Sibling(s) Family History Reviewed.: Yes Medication/Allergy Home Medications: Ibuprofen 200 mg PO DAILYP PRN 02/03/14 Allergies/Adverse Reactions: prednisone [Prednisone] Allergy (Verified 02/03/14 18:02) Review of Systems Constitutional: PRESENT: anorexia, fatigue, weakness, weight loss. ABSENT: chills, fever(s), headache(s), weight gain Eyes: ABSENT: visual disturbances Ears: ABSENT: hearing changes Cardiovascular: PRESENT: as per HPI. ABSENT: chest pain, dyspnea on exertion, edema, orthropnea, palpitations Respiratory: ABSENT: cough, hemoptysis Gastrointestinal: ABSENT: abdominal pain, constipation, diarrhea, hematemesis, hematochezia, nausea, vomiting Genitourinary: ABSENT: dysuria, hematuria Musculoskeletal: PRESENT: muscle weakness. ABSENT: joint swelling Integumentary: ABSENT: rash, wounds Neurological: ABSENT: abnormal gait, abnormal speech, confusion, dizziness, focal weakness, syncope Psychiatric: ABSENT: anxiety, depression, homidical ideation, suicidal ideation Endocrine: ABSENT: cold intolerance, heat intolerance, polydipsia, polyuria Hematologic/Lymphatic: ABSENT: easy bleeding, easy bruising Physical Exam Vital Signs: Temp Pulse Resp BP Pulse Ox 97.7 F 106 H 22 H 102/77 71 L 07/29/19 17:59 07/29/19 20:13 07/29/19 20:13 07/29/19 17:59 07/29/19 20:13 Intake & Output 07/28/19 07/29/19 07/30/19 11:59 11:59 11:59 Intake Total 500 251.2 1200 Output Total 1730 450 200 Balance -1230 -198.8 1000 Weight 53.5 kg 47.9 kg 47.9 kg General appearance: PRESENT: cooperative, disheveled, thin, well-developed, other - Temporal wasting, cachexia and global muscular atrophy. ABSENT: well- nourished Head exam: PRESENT: atraumatic, normocephalic Eye exam: PRESENT: conjunctiva pink, EOMI, PERRLA. ABSENT: scleral icterus Ear exam: PRESENT: normal external ear exam Mouth exam: PRESENT: dry mucosa, tongue midline Neck exam: ABSENT: carotid bruit, JVD, lymphadenopathy, thyromegaly Respiratory exam: PRESENT: clear to auscultation lovely. ABSENT: rales, rhonchi, wheezes Cardiovascular exam: PRESENT: RRR. ABSENT: diastolic murmur, rubs, systolic murmur Pulses: PRESENT: normal dorsalis pedis pul Vascular exam: PRESENT: normal capillary refill GI/Abdominal exam: PRESENT: normal bowel sounds, soft. ABSENT: distended, guarding, mass, organolmegaly, rebound, tenderness Rectal exam: PRESENT: deferred Extremities exam: PRESENT: full ROM. ABSENT: calf tenderness, clubbing, pedal edema Musculoskeletal exam: PRESENT: full ROM, tenderness, other - Right thigh ecchymosis. ABSENT: deformity, dislocation Neurological exam: PRESENT: alert, awake, oriented to person, oriented to place, oriented to time, oriented to situation, CN II-XII grossly intact. ABSENT: motor sensory deficit Psychiatric exam: PRESENT: flat affect, normal mood. ABSENT: homicidal ideation, suicidal ideation Skin exam: PRESENT: dry, intact, warm. ABSENT: cyanosis, rash Results Laboratory Results: 07/29/19 07:35 07/29/19 07:35 07/28/19 07/29/19 07/29/19 20:30 07:35 07:35 WBC 9.9 RBC 2.39 L Hgb 8.8 L Hct 26.1 L MCV 109 H MCH 36.7 H MCHC 33.7 RDW 18.9 H Plt Count 296 Seg Neutrophils % 76.3 Carbonic Acid HCO3/H2CO3 Ratio ABG pH ABG pCO2 ABG pO2 ABG HCO3 ABG O2 Saturation ABG Base Excess FiO2 Sodium 133.5 L 135.1 L Potassium 3.3 L 3.4 L Chloride 106 106 Carbon Dioxide 25 27 Anion Gap 3 L 2 L BUN 6 L 5 L Creatinine 0.40 L 0.41 L Est GFR ( Amer) > 60 > 60 Glucose 81 83 Calcium 7.6 L 8.1 L Phosphorus 2.2 L 2.0 L Magnesium 1.6 Albumin 2.3 L 2.5 L Urine Color Urine Appearance Urine pH Ur Specific [place] Urine Protein Urine Glucose (UA) Urine Ketones Urine Blood Urine Nitrite Ur Leukocyte Esterase Urine WBC (Auto) Urine RBC (Auto) 07/29/19 07/29/19 16:35 16:40 WBC RBC Hgb Hct MCV MCH MCHC RDW Plt Count Seg Neutrophils % Carbonic Acid 1.26 HCO3/H2CO3 Ratio 18:1 ABG pH 7.36 ABG pCO2 41.9 ABG pO2 55.5 L ABG HCO3 23.3 ABG O2 Saturation 87.9 L ABG Base Excess -2.0 FiO2 72% Sodium Potassium Chloride Carbon Dioxide Anion Gap BUN Creatinine Est GFR ( Amer) Glucose Calcium Phosphorus Magnesium Albumin Urine Color YELLOW Urine Appearance SLIGHTLY-CLOUDY Urine pH 5.0 Ur Specific [place] 1.017 Urine Protein NEGATIVE Urine Glucose (UA) NEGATIVE Urine Ketones NEGATIVE Urine Blood NEGATIVE Urine Nitrite NEGATIVE Ur Leukocyte Esterase MODERATE H Urine WBC (Auto) 9 Urine RBC (Auto) 6 07/24/19 15:06 Troponin I 0.014 Impressions: Pelvis CT 07/21/19 17:07 IMPRESSION: Postsurgical changes of total right hip arthroplasty. Mildly comminuted right greater trochanteric fracture with mild anterior displacement. No hardware fracture or dislocation. Dilated distal appendix measuring 9 mm in caliber. Elongated gallbladder containing numerous gallstones. Mild right paracolic gutter and moderate right hemipelvis free fluid. As this is a limited noncontrast exam, clinically correlate for acute cholecystitis or appendicitis. Hip/Pelvis X-Ray 07/21/19 23:20 IMPRESSION: Fracture of the femur adjacent to the femoral component of the right hip hemiarthroplasty. Abdomen Ultrasound 07/22/19 00:00 IMPRESSION: 1. Cholelithiasis. 2. Otherwise essentially unremarkable. Abdomen/Pelvis CT 07/24/19 00:00 IMPRESSION: 1. No evidence of dissection or aneurysm involving the thoracic or abdominal aorta. The visceral arteries are patent. 2. No pulmonary embolism. 3. Diffuse wall thickening of the small bowel with mucosal enhancement. Findings compatible with shock bowel related to prolonged hypotension. No large vessel arterial occlusion. 4. Moderate left and small right pleural effusion. 5. Bibasilar opacities. This likely represents a component of compressive atelectasis however superimposed aspiration could contribute to this appearance. Continued follow-up recommended. 6. Moderate amount of ascites. 7. Coronary artery atherosclerosis. 8. Centrilobular emphysematous change. Likely chronic bronchitis. 9. 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 Correlation for history of claudication recommended. 10. Nondisplaced fractures of the right fourth through sixth anterior ribs and left third through sixth anterior ribs. This exam was performed according to our departmental dose-optimization program, which includes automated exposure control, adjustment of the mA and/or kV according to patient size and/or use of iterative reconstruction technique. Chest/Abdomen CTA 07/24/19 00:00 IMPRESSION: 1. No evidence of dissection or aneurysm involving the thoracic or abdominal aorta. The visceral arteries are patent. 2. No pulmonary embolism. 3. Diffuse wall thickening of the small bowel with mucosal enhancement. Findings compatible with shock bowel related to prolonged hypotension. No large vessel arterial occlusion. 4. Moderate left and small right pleural effusion. 5. Bibasilar opacities. This likely represents a component of compressive atelectasis however superimposed aspiration could contribute to this appearance. Continued follow-up recommended. 6. Moderate amount of ascites. 7. Coronary artery atherosclerosis. 8. Centrilobular emphysematous change. Likely chronic bronchitis. 9. 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 Correlation for history of claudication recommended. 10. Nondisplaced fractures of the right fourth through sixth anterior ribs and left third through sixth anterior ribs. This exam was performed according to our departmental dose-optimization program, which includes automated exposure control, adjustment of the mA and/or kV according to patient size and/or use of iterative reconstruction technique. Head CTA 07/24/19 00:00 IMPRESSION: 1. No acute intracranial abnormality by CT criteria. 2. No acute abnormality identified in the intracranial arterial circulation. 3. No evidence of stenosis/occlusion involving the cervical carotid or vertebral arteries. This exam was performed according to our departmental dose-optimization program, which includes automated exposure control, adjustment of the mA and/or kV according to patient size and/or use of iterative reconstruction technique. Neck CTA 07/24/19 01:40 IMPRESSION: 1. No acute intracranial abnormality by CT criteria. 2. No acute abnormality identified in the intracranial arterial circulation. 3. No evidence of stenosis/occlusion involving the cervical carotid or vertebral arteries. This exam was performed according to our departmental dose-optimization program, which includes automated exposure control, adjustment of the mA and/or kV according to patient size and/or use of iterative reconstruction technique. KUB X-Ray 07/27/19 00:00 IMPRESSION: TIP OF THE NASOGASTRIC TUBE IN THE STOMACH. NO RADIOGRAPHIC EVID ENCE FOR ACUTE ABDOMINAL DISEASE. Chest X-Ray 07/29/19 00:00 IMPRESSION: New prominent right basilar consolidation - pleural effusion. New Left basilar subsegmental atelectasis and increased effusion. Assessment and Plan - Diagnosis (1) Alcohol abuse Is this a current diagnosis for this admission?: Yes Plan: Denies history of DTs, thiamine, folate, benzodiazepine as needed (2) Atrial fibrillation with RVR Is this a current diagnosis for this admission?: Yes Plan: IV Cardizem, follow-up cardiac enzymes and chemistry. (3) Closed right hip fracture Qualifiers: Encounter type: initial encounter Qualified Code(s): S72.001A - Fracture of unspecified part of neck of right femur, initial encounter for closed fracture Is this a current diagnosis for this admission?: Yes Plan: Follow-up orthopedic consult. (4) Current every day smoker Is this a current diagnosis for this admission?: Yes Plan: Tobacco cessation counseling performed and nicotine replacement options discussed. (5) Failure to thrive syndrome, adult Is this a current diagnosis for this admission?: Yes Plan: Patient lives alone, fear of family, discharge planning consulted for options. (6) Macrocytic anemia Is this a current diagnosis for this admission?: Yes Plan: Likely secondary to malnutrition and alcoholism. Follow-up anemia labs. (7) Malnutrition Qualifiers: Malnutrition type: protein-calorie malnutrition Protein-calorie malnutrition severity: severe Qualified Code(s): E43 - Unspecified severe protein-calorie malnutrition Is this a current diagnosis for this admission?: Yes Plan: Likely secondary to alcoholism, Beneprotein with meals, follow-up prealbumin, discharge planning and dietitian consult. (8) Vitamin D deficiency Is this a current diagnosis for this admission?: Yes Plan: Suggested by history and demographic, vitamin D ordered, follow-up vitamin D level. - Time Time Spent with patient: 25-34 minutes - Inpatient Certification Medical Necessity: Need Close Monitoring Due to Risk of Patient Decompensation
[2019-07-29] MEDS ORDERED: DIAZEPAM INJ 10 MG/2 ML DISP.SYRIN IV ONE (20:45)
--- NOTE | 2019-07-29 22:09 | PDOC CONSULTATION ---
Consultation-Blank Consultation: CARDIOLOGY CONSULTATION by Dr. Leonard is on 07/29/2019. Patient seen at 12 noon. 60 minutes spent with patient more than 50% time spent in direct patient care. REASON FOR CONSULTATION: Paroxysmal atrial fibrillation. Need for amiodarone medication continuation. CONSULT REQUESTING PHYSICIAN: [facility] Amanda[facility] HISTORY OF PRESENT ILLNESS: Chart reviewed in detail. Patient did present with a nasal BiPAP. Able to answer questions she is awake, slightly drowsy but oriented x3. The patient has a history of COPD and continues to smoke. She has had multiple falls in the house. She has had a right hip arthroplasty in 2013 and came in with right hip pain due to falls and found to have a fracture also. The patient was admitted for further management of this. The patient on the night of 07/24/2019 22 acute decompensation. She was noticed to have seizure and became unresponsive with agonal breathing and then had pulseless cardiac arrest. She was resuscitated, and transferred to the ICU. Her imaging work-up including CTA of the chest and abdomen and head do not show anything significant and there is no evidence of pulmonary emboli.. It is noted that on admission the patient in SVT. Subsequently she was also noted on the ninth prior to this decompensation episode to have a run of what was called is atrial fibrillation with RVR,Which was treated with IV Cardizem and she converted to sinus rhythm. Review of data of the patient in the ICU was said to have atrial fibrillation and continued on amiodarone drip. At present is held since there is a question about the patient's p.o. intake. And she is awaiting a swallow study. Of note on detailed review of the rhythm strips and the EKGs the patient has multifocal atrial tachycardia and not atrial fibrillation. Also the patient's presenting complaints raises a doubt that this could be fat embolism causing respiratory failure on already compromised COPD lung. At present the patient denies any chest pain or discomfort. There is no shower as of breath apparently at rest. But with minimal activity the patient complains of shortness of breath. There is no PND or leg edema. The patient's monitor shows that the patient has a multifocal atrial tachycardia with a heart rate in the 100 to the 106 bpm. There is no ventricular arrhythmias seen. The patient does have orthopnea. The patient denies any history of coronary artery disease. There is no history of diabetes mellitus. There is no history of congestive heart failure. There is no prior history of documented atrial fibrillation. Past Medical History Cardiac Medical History: Reports: None Pulmonary Medical History: Reports: None, Bronchitis, Chronic Obstructive Pulmonary Disease (COPD) EENT Medical History: Reports: None Neurological Medical History: Reports: None Endocrine Medical History: Reports: None Renal/ Medical History: Reports: None Malignancy Medical History: Reports: None Skin Medical History: Reports: Eczema Psychiatric Medical History: Denies: Depression Past Surgical History Past Surgical History: Reports: Orthopedic Surgery - Right hip hemiarthroplasty by Dr. Corbett Social History Smoking Status: Current Every Day Smoker Cigarettes Packs Per Day: 1 Electronic Cigarette use?: No Frequency of Alcohol Use: Heavy Hx Recreational Drug Use: No Drugs: None Hx Prescription Drug Abuse: No - Advance Directive Resuscitation Status: DO NOT INTUBATE. The patient's daughter is her surrogate healthcare decision maker Family History Family History: Arthritis, Hyperlipidemia Parental Family History Reviewed: Yes Children Family History Reviewed: Yes Sibling(s) Family History Reviewed.: Yes Medication/Allergy Home Medications: Ibuprofen 200 mg PO DAILYP PRN 02/03/14 Allergies/Adverse Reactions: prednisone [Prednisone] Allergy (Verified 02/03/14 18:02) Current Medications Generic Name Dose Route Start Last Admin Trade Name Freq PRN Reason Stop Dose Admin Acetaminophen 325 mg 07/28/19 15:28 Tylenol 325 Mg Supp MA 08/27/19 15:27 Q4HP PRN FOR PAIN OR TEMP Budesonide 0.5 mg 07/29/19 20:00 07/29/19 20:13 Pulmicort Neb 0.5 Mg/2 Ml Ampul NEB 08/28/19 19:59 0.5 mg RTQ12 JUANJO Administration Dextrose 12.5 gm 07/28/19 15:11 Dextrose Inj 50% Syringe (25 Gm/50 Ml) IV 08/27/19 15:10 PRN PRN FOR BG 50-69 IN ALERT PATIENT Protocol Dextrose 25 gm 07/28/19 15:11 Dextrose Inj 50% Syringe (25 Gm/50 Ml) IV 08/27/19 15:10 PRN PRN See Label Comments Protocol Enoxaparin Sodium 50 mg 07/28/19 22:00 07/29/19 10:35 Lovenox Inj 60 Mg/0.6 Ml Disp.Syrin SUBCUT 08/27/19 21:59 50 mg Q12 JUANJO Administration Glucagon 1 mg 07/28/19 15:11 Glucagen Inj 1 Mg Vial SUBCUT 08/27/19 15:10 PRN PRN Evaluate for BG < 70 Protocol Glucose 15 gm 07/28/19 15:11 Glutose 40% Gel 15 Gm Tube PO 08/27/19 15:10 PRN PRN For BG 50-69 in Alert Patient Protocol Glucose 30 gm 07/28/19 15:11 Glutose 40% Gel 15 Gm Tube PO 08/27/19 15:10 PRN PRN FOR BG < 50 IN ALERT PATIENT Protocol Hydrocortisone 1 applic 07/22/19 10:57 07/22/19 23:31 Hydrocortisone 1% Cream 28.35 Gm TP 08/21/19 10:56 1 applic QIDP PRN Administration FOR ITCHY LEG Thiamine HCl 100 mg/ Folic 251.2 mls @ 502.4 mls/hr 07/29/19 10:00 07/29/19 11:10 Acid 1 mg/ Sodium Chloride IV 08/28/19 09:59 Infused DAILY JUANJO Infusion Dextrose/Lactated Ringer's 1,000 mls @ 100 mls/hr 07/29/19 17:50 07/29/19 18:19 D5lr 1000 Ml Iv Soln IV 08/27/19 18:20 100 mls/hr CONTINUOUS PRN Administration THIS MED IS NOT "PRN" Ipratropium Topping 0.5 mg 07/29/19 17:36 Atrovent 0.02% Neb 0.5 Mg/2.5 Ml Ampul NEB 08/28/19 17:33 RTQ3HP PRN SHORTNESS OF BREATH Ipratropium Topping 0.5 mg 07/29/19 20:00 07/29/19 20:13 Atrovent 0.02% Neb 0.5 Mg/2.5 Ml Ampul NEB 08/28/19 19:59 0.5 mg RTQ6 JUANJO Administration Ketorolac Tromethamine 15 mg 07/29/19 11:10 Toradol Inj/Pf 30 Mg/1 Ml Sdv IV 08/03/19 11:09 Q6HP PRN FOR PAIN SCALE 3-5 Levalbuterol HCl 1.25 mg 07/29/19 20:00 07/29/19 20:12 Xopenex Neb 1.25 Mg/3 Ml Ampul NEB 08/28/19 19:59 1.25 mg RTQ6 JUANJO Administration Levalbuterol HCl 1.25 mg 07/29/19 17:33 Xopenex Neb 1.25 Mg/3 Ml Ampul NEB 08/28/19 17:32 RTQ3HP PRN SHORTNESS OF BREATH Lorazepam 0.5 mg 07/29/19 18:40 Ativan Inj 2 Mg/1 Ml Vial IV 08/05/19 18:39 Q4HP PRN ANXIETY/AGITATION Metoprolol Tartrate 2.5 mg 07/28/19 15:35 Lopressor Inj/Pf 5 Mg/5 Ml Sdv IV 08/27/19 15:34 Q6HP PRN Give For Hr > 120 Midodrine 5 mg 07/30/19 10:00 Proamatine 5 Mg Tablet PO 08/29/19 09:59 TID JUANJO Sodium Chloride 2.5 ml 07/24/19 06:00 07/29/19 15:06 Saline Flush 2.5 Ml Monoject Prefil Syrin IV 08/23/19 05:59 2.5 ml Q8 JUANJO Administration Discontinued Medications Generic Name Dose Route Start Last Admin Trade Name Freq PRN Reason Stop Dose Admin Acetaminophen 325 mg 07/22/19 00:47 Tylenol 325 Mg Tablet PO 08/21/19 00:46 Q4HP PRN FOR PAIN OR TEMP Acetaminophen 325 mg 07/24/19 00:23 Tylenol Soln 325 Mg/10.15 Ml Udcup PO 08/23/19 00:22 Q4HP PRN FOR PAIN OR TEMP Acetaminophen 325 mg 07/24/19 00:30 Tylenol Soln 325 Mg/10.15 Ml Udcup NG 08/23/19 00:22 Q4HP PRN FOR PAIN OR TEMP Acetaminophen 325 mg 07/28/19 09:52 07/28/19 10:44 Tylenol 325 Mg Tablet PO 08/27/19 09:51 325 mg Q4HP PRN Administration FOR BREAKTHROUGH PAIN Al Hydrox/Mg Hydrox/Simethicone 30 ml 07/22/19 00:47 Maalox Plus Susp 30 Udcup PO 08/21/19 00:46 Q6HP PRN HEARTBURN Al Hydrox/Mg Hydrox/Simethicone 30 ml 07/24/19 00:30 Maalox Plus Susp 30 Udcup NG 08/21/19 00:46 Q6HP PRN HEARTBURN Albuterol/Ipratropium 3 ml 07/22/19 00:47 Duoneb 3 Ml Ampul NEB 08/21/19 00:46 [id number] PRN SHORTNESS OF BREATH Albuterol/Ipratropium 3 ml 07/25/19 23:10 07/26/19 00:24 Duoneb 3 Ml Ampul NEB 08/24/19 23:09 3 ml RTQ2HP PRN Administration FOR WHEEZING Amino Acid Protein 45 ml 07/27/19 18:00 07/27/19 18:19 Prosource Tf 11 Gm Protein/45 Ml Pkt NG 08/26/19 17:59 Not Given BID JUANJO Amiodarone HCl Confirm 07/25/19 23:12 07/25/19 23:22 Cordarone Inj 150 Mg/3 Ml Vial Administered 07/25/19 23:13 Not Given Dose 150 mg IV .STK-MED ONE Amiodarone HCl Confirm 07/26/19 00:52 07/26/19 01:32 Cordarone Inj 150 Mg/3 Ml Vial Administered 07/26/19 00:53 Not Given Dose 150 mg IV .STK-MED ONE Amiodarone HCl 400 mg 07/26/19 22:00 Cordarone 200 Mg Tablet PO 08/25/19 21:59 Q12 JUANJO Amiodarone HCl 400 mg 07/26/19 22:00 07/26/19 21:52 Cordarone 200 Mg Tablet NG 08/25/19 21:59 400 mg Q12 JUANJO Administration Amiodarone HCl 200 mg 07/27/19 10:00 07/28/19 09:26 Cordarone 200 Mg Tablet PO 08/26/19 09:59 200 mg DAILY JUANJO Administration Apixaban 5 mg 07/27/19 11:00 07/28/19 09:27 Eliquis 5 Mg Tablet NG 08/26/19 10:59 5 mg Q12 JUANJO Administration Ascorbic Acid 1,000 mg 07/27/19 10:00 07/28/19 15:24 Vitamin C 500 Mg Tablet PO 08/26/19 09:59 Not Given TID JUANJO Atropine Sulfate 1 mg 07/23/19 09:01 Atropine Sulfate Inj 1 Mg/10 Ml Disp.Syrin IV 07/23/19 09:02 .STK-MED ONE Cholecalciferol 400 unit 07/22/19 10:00 07/23/19 10:29 Vitamin D3 400 Unit Tablet PO 08/21/19 09:59 400 unit DAILY JUANJO Administration Cholecalciferol 400 unit 07/24/19 10:00 07/27/19 09:33 Vitamin D3 400 Unit Tablet NG 08/21/19 09:59 400 unit DAILY JUANJO Administration Cholecalciferol 5,000 unit 07/27/19 11:00 07/28/19 09:26 Vitamin D3 1000 Unit Tablet PO 08/26/19 10:59 5,000 unit Q12 JUANJO Administration Dexamethasone Sodium Phosphate 8 mg 07/29/19 16:17 07/29/19 16:54 Decadron Inj 10 Mg/1 Ml Vial IV 07/29/19 16:18 8 mg NOW ONE Administration Dextrose Confirm 07/23/19 22:32 07/23/19 22:37 Dextrose Inj 50% Syringe (25 Gm/50 Ml) Administered 07/23/19 22:33 25 gm Dose Administration 25 gm IV .STK-MED ONE Dextrose 12.5 gm 07/24/19 06:10 Dextrose Inj 50% Syringe (25 Gm/50 Ml) IV 08/23/19 06:09 PRN PRN FOR BG 50-69 IN ALERT PATIENT Protocol Dextrose 25 gm 07/24/19 06:10 07/25/19 17:13 Dextrose Inj 50% Syringe (25 Gm/50 Ml) IV 08/23/19 06:09 25 gm PRN PRN Administration PER PROTOCOL Protocol Diazepam 10 mg 07/22/19 10:00 Valium 5 Mg Tablet PO 07/29/19 09:59 Q12 [facility] Diazepam 10 mg 07/22/19 01:15 07/22/19 01:57 Valium 5 Mg Tablet PO 07/22/19 01:16 Not Given NOW ONE Diazepam 2 mg 07/22/19 10:00 Valium 2 Mg Tablet PO 07/29/19 09:59 Q12 JUANJO Diazepam 2 mg 07/23/19 21:45 07/23/19 23:30 Valium 2 Mg Tablet PO 07/23/19 21:46 Not Given NOW ONE Diazepam 5 mg 07/29/19 20:45 07/29/19 20:43 Valium Inj 10 Mg/2 Ml Disp.Syrin IV 07/29/19 20:46 5 mg NOW ONE Administration Digoxin 0.25 mg 07/22/19 05:11 07/22/19 07:46 Lanoxin Inj 0.5 Mg/2 Ml Ampule IV 07/22/19 05:12 0.25 mg NOW ONE Administration Digoxin Confirm 07/22/19 07:43 07/22/19 08:02 Lanoxin Inj 0.5 Mg/2 Ml Ampule Administered 07/22/19 07:44 Not Given Dose 0.5 mg .ROUTE .STK-MED ONE Diltiazem HCl Confirm 07/22/19 02:12 07/22/19 02:18 Cardizem Inj 25 Mg/5 Ml Vial Administered 07/22/19 02:13 5 mg Dose Administration 25 mg .ROUTE .STK-MED ONE Diltiazem HCl 5 mg 07/22/19 02:15 07/22/19 02:55 Cardizem Inj 25 Mg/5 Ml Vial IV 07/22/19 02:16 Not Given NOW ONE Diltiazem HCl 60 mg 07/22/19 16:00 07/23/19 07:06 Cardizem 60 Mg Tablet PO 08/21/19 15:59 60 mg Q6 JUANJO Administration Diltiazem HCl 15 mg 07/22/19 18:45 07/22/19 18:49 Cardizem Inj 25 Mg/5 Ml Vial IV 07/22/19 18:46 15 mg NOW ONE Administration Diltiazem HCl Confirm 07/22/19 18:45 07/22/19 18:50 Cardizem Inj 25 Mg/5 Ml Vial Administered 07/22/19 18:46 Not Given Dose 25 mg .ROUTE .STK-MED ONE Diltiazem HCl 120 mg 07/23/19 10:00 07/24/19 09:56 Cardizem Cd 120 Mg Capsule PO 08/22/19 09:59 Not Given DAILY JUANJO Diltiazem HCl 180 mg 07/23/19 10:00 07/24/19 09:55 Cardizem Cd 180 Mg Capsule PO 08/22/19 09:59 Not Given DAILY JUANJO Diltiazem HCl 60 mg 07/25/19 12:00 07/25/19 17:13 Cardizem 60 Mg Tablet PO 08/24/19 11:59 60 mg Q6 JUANJO Administration Diltiazem HCl 10 mg 07/25/19 13:00 07/25/19 13:13 Cardizem Inj 25 Mg/5 Ml Vial IV 07/25/19 13:01 10 mg NOW ONE Administration Docusate Sodium 100 mg 07/22/19 10:00 07/23/19 17:45 Colace 100 Mg Capsule PO 08/21/19 09:59 Not Given BID JUANJO Docusate Sodium 100 mg 07/24/19 10:00 07/28/19 09:14 Colace Udc 100 Mg/10 Ml Oral Soln NG 08/23/19 09:59 Not Given BID JUANJO Epinephrine HCl Confirm 07/23/19 23:09 07/24/19 00:40 Epinephrine Inj 1 Mg/10 Ml Disp.Syrin Administered 07/23/19 23:10 Not Given Dose 1 mg .ROUTE .STK-MED ONE Epinephrine HCl Confirm 07/23/19 23:09 07/23/19 23:12 Epinephrine-Pf Inj 1 Mg/Ml (1:1000) Ampule Administered 07/23/19 23:10 1 mg Dose Administration 1 mg .ROUTE .STK-MED ONE Epinephrine HCl Confirm 07/24/19 00:33 07/24/19 00:35 Epinephrine Inj 1 Mg/10 Ml Disp.Syrin Administered 07/24/19 00:34 Not Given Dose 1 mg .ROUTE .STK-MED ONE Epinephrine HCl Confirm 07/24/19 02:16 07/24/19 03:23 Epinephrine-Pf Inj 1 Mg/Ml (1:1000) Ampule Administered 07/24/19 02:17 Not Given Dose 1 mg .ROUTE .STK-MED ONE Epinephrine HCl Confirm 07/24/19 04:17 07/24/19 04:35 Epinephrine-Pf Inj 1 Mg/Ml (1:1000) Ampule Administered 07/24/19 04:18 Not Given Dose 1 mg .ROUTE .STK-MED ONE Epinephrine HCl Confirm 07/24/19 07:11 07/24/19 11:18 Epinephrine-Pf Inj 1 Mg/Ml (1:1000) Ampule Administered 07/24/19 07:12 Not Given Dose 1 mg .ROUTE .STK-MED ONE Epinephrine HCl 6 mg 07/23/19 09:01 Epinephrine Inj 1 Mg/10 Ml Disp.Syrin .ROUTE 07/23/19 09:02 .STK-MED ONE Etomidate Confirm 07/23/19 22:58 07/24/19 00:43 Amidate Inj/Pf 20 Mg/10 Ml Sdv Administered 07/23/19 22:59 Not Given Dose 20 mg IV .STK-MED ONE Folic Acid Confirm 07/22/19 04:18 07/22/19 06:45 Folvite Inj 5 Mg/1 Ml 10 Ml Vial Administered 07/22/19 04:19 Not Given Dose 5 mg .ROUTE .STK-MED ONE Folic Acid 1 mg 07/23/19 22:33 Folvite Inj 5 Mg/1 Ml 10 Ml Vial IV 07/24/19 06:00 ASDIR PRN Folic Acid 1 mg 07/27/19 10:00 07/28/19 09:27 Folvite 1 Mg Tablet PO 08/26/19 09:59 1 mg DAILY JUANJO Administration Furosemide 40 mg 07/24/19 21:59 07/24/19 23:01 Lasix Inj/Pf 40 Mg/4 Ml Sdv IV 07/24/19 22:00 40 mg NOW ONE Administration Furosemide 10 mg 07/27/19 12:00 07/28/19 07:01 Lasix Inj/Pf 20 Mg/2 Ml Sdv IV 07/28/19 18:01 Not Given Q6 JUANJO Glucagon 1 mg 07/24/19 06:10 Glucagen Inj 1 Mg Vial IM 08/23/19 06:09 PRN PRN Evaluate for BG < 70 Protocol Glucose 15 gm 07/24/19 06:10 Glutose 40% Gel 15 Gm Tube PO 08/23/19 06:09 PRN PRN FOR BG 50-69 IN ALERT PATIENT Protocol Glucose 30 gm 07/24/19 06:10 Glutose 40% Gel 15 Gm Tube PO 08/23/19 06:09 PRN PRN FOR BG < 50 IN ALERT PATIENT Protocol Heparin Sodium (Porcine) 5,000 unit 07/22/19 06:00 07/27/19 05:35 Heparin Inj 5,000 Units/Ml 1 Ml Vial SUBCUT 08/21/19 05:59 5,000 unit Q8 JUANJO Administration Hydrocortisone Sodium Succinate 100 mg 07/23/19 22:36 07/23/19 22:44 Solu-Cortef Inj/Pf 100 Mg/ 2 Ml Sdv IV 07/23/19 22:37 100 mg NOW ONE Administration Hydrocortisone Sodium Succinate Confirm 07/23/19 22:37 07/24/19 00:37 Solu-Cortef Inj/Pf 100 Mg/ 2 Ml Sdv Administered 07/23/19 22:38 Not Given Dose 100 mg .ROUTE .STK-MED ONE Sodium Chloride 1,000 mls @ 125 mls/hr 07/21/19 21:37 07/22/19 04:22 Nacl 0.9% 1000 Ml Iv Soln IV 07/22/19 05:36 Infused NOW ONE Infusion Thiamine HCl 100 mg/ Folic 251.2 mls @ 502.4 mls/hr 07/23/19 10:00 07/26/19 09:30 Acid 1 mg/ Sodium Chloride IV 08/22/19 09:59 502.4 mls/hr DAILY JUANJO Administration Sodium Chloride 1,000 mls @ 200 mls/hr 07/22/19 01:00 07/22/19 15:08 Nacl 0.9% 1000 Ml Iv Soln IV Infused CONTINUOUS PRN Infusion Thiamine HCl 100 mg/ Folic 251.2 mls @ 502.4 mls/hr 07/22/19 01:15 07/22/19 08:40 Acid 1 mg/ Sodium Chloride IV 07/22/19 01:44 Infused NOW ONE Infusion Diltiazem HCl Confirm 07/22/19 02:20 07/22/19 02:42 Cardizem Rtu Inj 125 Mg-D5w 125 Ml Premix Administered 07/22/19 02:21 Not Given Dose 125 mg in 125 mls @ ud IV .STK-MED ONE Diltiazem HCl 125 mg in 125 mls @ 0 mls/hr 07/22/19 02:25 07/22/19 17:03 Cardizem Rtu Inj 125 Mg-D5w 125 Ml Premix IV 07/22/19 17:00 Infused CONTINUOUS PRN Titration THIS MED IS NOT "PRN" Protocol Titrate Magnesium Sulfate/Dextrose 1 gm in 100 mls @ 100 mls/hr 07/22/19 04:30 07/22/19 07:43 Magnesium Sulfate Rtu-D5w 1 Gm/100 Ml Premix IV 07/22/19 06:29 Infused Q1H JUANJO Infusion Sodium Chloride 1,000 mls @ 250 mls/hr 07/22/19 21:15 07/24/19 05:31 Nacl 0.9% 1000 Ml Iv Soln IV 08/21/19 21:14 Infused CONTINUOUS PRN Infusion THIS MED IS NOT "PRN" Sodium Chloride 1,000 mls @ 0 mls/hr 07/23/19 01:45 07/23/19 03:40 Nacl 0.9% 1000 Ml Iv Soln IV 07/23/19 01:46 0 mls/hr BOLUS ONE Infusion Wide Open Thiamine HCl 100 mg/ Folic 251.2 mls @ 502.4 mls/hr 07/23/19 22:30 07/24/19 04:13 Acid 1 mg/ Sodium Chloride IV 07/23/19 22:59 Not Given NOW ONE Epinephrine HCl 1 mg/ Dextrose 250 mls @ 150 mls/hr 07/23/19 23:49 07/24/19 07:40 IV 08/22/19 23:48 Infused CONTINUOUS PRN Infusion THIS MED IS NOT "PRN" 0.01 MG/MIN Norepinephrine Bitartrate 4 mg 250 mls @ 0 mls/hr 07/24/19 00:04 07/27/19 11:41 / Dextrose IV 08/23/19 00:03 Infused CONTINUOUS PRN Titration THIS MED IS NOT "PRN" Protocol Titrate Midazolam HCl Confirm 07/24/19 00:23 07/24/19 03:23 Versed Rtu 50 Mg/100 Ml Premix Bag Administered 07/24/19 00:24 Not Given Dose 50 mg in 100 mls @ ud .ROUTE .STK-MED ONE Midazolam HCl 50 mg in 100 mls @ 0 mls/hr 07/24/19 01:49 07/24/19 18:13 Versed Rtu 50 Mg/100 Ml Premix Bag IV 07/31/19 01:48 Infused CONTINUOUS PRN Titration THIS MED IS NOT "PRN" Protocol Titrate Ceftriaxone Sodium/Dextrose 1 gm in 50 mls @ 100 mls/hr 07/24/19 22:00 07/26/19 22:23 Rocephin Rtu 1 Gm/D5w 50 Ml Premix IV 07/31/19 21:59 Infused QHS JUANJO Infusion Ceftriaxone Sodium/Dextrose 1 gm in 50 mls @ 100 mls/hr 07/24/19 05:00 07/24/19 06:52 Rocephin Rtu 1 Gm/D5w 50 Ml Premix IV 07/24/19 05:29 Infused NOW ONE Infusion Sodium Chloride 1,000 mls @ 150 mls/hr 07/24/19 09:09 07/25/19 04:40 Nacl 0.9% 1000 Ml Iv Soln IV 08/21/19 21:14 Infused CONTINUOUS PRN Infusion THIS MED IS NOT "PRN" Potassium Chloride/Water 20 meq in 50 mls @ 25 mls/hr 07/24/19 09:15 07/24/19 18:14 Potassium Chloride Tommy 20 Meq/50 Ml IV 07/24/19 17:14 Infused Q2H JUANJO Infusion Calcium Gluconate 1 gm in 50 mls @ 50 mls/hr 07/24/19 10:00 07/24/19 13:58 Calcium Gluconate Rtu 1 Gm/50 Ml IV 07/24/19 13:59 50 mls/hr Q1H JUANJO Administration Epinephrine HCl 1 mg/ Dextrose 250 mls @ 150 mls/hr 07/24/19 09:31 IV 08/23/19 09:30 CONTINUOUS PRN THIS MED IS NOT "PRN" 0.01 MG/MIN Epinephrine HCl 1 mg/ Dextrose 250 mls @ 15 mls/hr 07/24/19 10:47 07/25/19 16:46 IV 08/23/19 10:46 Infused CONTINUOUS PRN Titration THIS MED IS NOT "PRN" Protocol 1 MCG/MIN Albumin Human 12.5 gm in 50 mls @ 50 mls/hr 07/24/19 20:00 07/24/19 21:39 Albuminar-25 Rtu Inj 12.5 Gm/50 Ml Premix IV 07/24/19 20:59 Infused NOW ONE Infusion Dextrose 1,000 mls @ 100 mls/hr 07/25/19 04:36 07/25/19 16:37 D5w 1000 Ml Iv Soln IV 08/24/19 04:35 Infused CONTINUOUS PRN Infusion THIS MED IS NOT "PRN" Albumin Human 12.5 gm in 50 mls @ 50 mls/hr 07/25/19 11:15 07/25/19 15:55 Albuminar-25 Rtu Inj 12.5 Gm/50 Ml Premix IV 07/25/19 15:14 Infused Q1H JUANJO Infusion Calcium Gluconate 1 gm in 50 mls @ 50 mls/hr 07/25/19 11:00 07/25/19 12:13 Calcium Gluconate Rtu 1 Gm/50 Ml IV 07/25/19 12:59 50 mls/hr Q1H JUANJO Administration Calcium Gluconate 1 gm in 50 mls @ 50 mls/hr 07/25/19 14:00 07/25/19 14:33 Calcium Gluconate Rtu 1 Gm/50 Ml IV 07/25/19 15:59 50 mls/hr Q1H JUANJO Administration Dextrose 1,000 mls @ 100 mls/hr 07/25/19 15:16 07/26/19 02:47 D10w 1000 Ml Iv Soln IV 08/24/19 15:15 100 mls/hr CONTINUOUS PRN Administration As long as glocose is < 120 Albumin Human 12.5 gm in 50 mls @ 50 mls/hr 07/25/19 19:17 07/25/19 20:20 Albuminar-25 Rtu Inj 12.5 Gm/50 Ml Premix IV 07/25/19 20:16 Infused NOW ONE Infusion Sodium Chloride 1,000 mls @ 0 mls/hr 07/25/19 22:01 07/25/19 23:01 Nacl 0.9% 1000 Ml Iv Soln IV 07/25/19 22:02 Infused BOLUS ONE Infusion Wide Open Amiodarone HCl 900 mg/ 500 mls @ 0 mls/hr 07/25/19 23:05 07/27/19 01:20 Dextrose IV 07/26/19 22:00 Infused CONTINUOUS PRN Titration THIS MED IS NOT "PRN" Protocol Per Protocol Amiodarone HCl 150 mg/ 100 mls @ 600 mls/hr 07/26/19 01:19 07/26/19 01:30 Dextrose IV 07/26/19 01:28 600 mls/hr NOW ONE Administration Protocol Sodium Chloride 1,000 mls @ 100 mls/hr 07/26/19 03:43 07/27/19 09:30 Nacl 0.9% 1000 Ml Iv Soln IV 08/25/19 03:42 Infused CONTINUOUS PRN Infusion THIS MED IS NOT "PRN" Potassium Chloride/Water 20 meq in 50 mls @ 25 mls/hr 07/26/19 03:47 07/26/19 09:29 Potassium Chloride Tommy 20 Meq/50 Ml IV 07/26/19 11:46 25 mls/hr Q2H JUANJO 25 mls/hr Administration Potassium Chloride/Water Confirm 07/26/19 03:49 07/26/19 03:54 Potassium Chloride Tommy 20 Meq/50 Ml Administered 07/26/19 03:50 Not Given Dose 20 meq in 50 mls @ ud IV .STK-MED ONE Magnesium Sulfate 4 gm in 100 mls @ 25 mls/hr 07/26/19 04:07 Magnesium Sulfate Rtu 4 Gm/100 Ml Premix Bag IV 07/26/19 08:06 NOW ONE Magnesium Sulfate Confirm 07/26/19 04:18 07/26/19 04:29 Magnesium Sulfate Rtu 4 Gm/100 Ml Premix Bag Administered 07/26/19 04:19 Not Given Dose 4 gm in 100 mls @ ud IV .STK-MED ONE Magnesium Sulfate/Dextrose 1 gm in 100 mls @ 100 mls/hr 07/26/19 04:45 Magnesium Sulfate Rtu-D5w 1 Gm/100 Ml Premix IV 07/26/19 08:44 Q1H JUANJO Magnesium Sulfate 4 gm in 100 mls @ 25 mls/hr 07/26/19 04:45 07/26/19 04:51 Magnesium Sulfate Rtu 4 Gm/100 Ml Premix Bag IV 07/26/19 08:44 25 mls/hr NOW ONE 25 mls/hr Administration Sodium Phosphate 30 mmol/ 260 mls @ 127.5 mls/hr 07/27/19 07:30 07/27/19 10:00 Sodium Chloride IV 07/27/19 09:32 Infused NOW ONE Infusion Albumin Human 500 mls @ 30 mls/min 07/28/19 09:30 07/28/19 09:50 Albutein 5% Inj 25 Gm/500 Ml Premixed Bottle IV 07/28/19 09:46 Infused NOW ONE Infusion Dextrose/Lactated Ringer's 1,000 mls @ 50 mls/hr 07/28/19 18:21 07/29/19 18:19 D5lr 1000 Ml Iv Soln IV 08/27/19 18:20 Infused CONTINUOUS PRN Infusion THIS MED IS NOT "PRN" Potassium Chloride/Water 20 meq in 50 mls @ 25 mls/hr 07/29/19 11:14 07/29/19 14:45 Potassium Chloride Tommy 20 Meq/50 Ml IV 07/29/19 13:13 Infused NOW ONE Infusion Albumin Human 12.5 gm in 50 mls @ 50 mls/hr 07/29/19 13:00 07/29/19 17:56 Albuminar-25 Rtu Inj 12.5 Gm/50 Ml Premix IV 07/29/19 14:59 Infused Q1H JUANJO Infusion Albumin Human 12.5 gm in 50 mls @ 50 mls/hr 07/29/19 16:21 07/29/19 18:30 Albuminar-25 Rtu Inj 12.5 Gm/50 Ml Premix IV 07/29/19 17:20 Infused NOW ONE Infusion Albumin Human Confirm 07/29/19 17:07 07/29/19 17:57 Albuminar-25 Rtu Inj 12.5 Gm/50 Ml Premix Administered 07/29/19 17:08 Not Given Dose 12.5 gm in 50 mls @ ud IV .STK-MED ONE Magnesium Sulfate/Dextrose 1 gm in 100 mls @ 100 mls/hr 07/29/19 19:00 07/29/19 19:08 Magnesium Sulfate Rtu-D5w 1 Gm/100 Ml Premix IV 07/29/19 19:59 100 mls/hr NOW ONE 100 mls/hr Administration Insulin Glargine 20 unit 07/24/19 14:00 07/24/19 21:37 Lantus Insulin 100 Unit/1 Ml 10 Ml SUBCUT 08/23/19 13:59 Not Given Q12 [facility] Insulin Human Regular 0 - 12 unit 07/24/19 06:00 07/24/19 12:00 Humulin R (Pyxis) Insulin 100 Unit/Ml 3ml SUBCUT 08/23/19 05:59 Not Given Q6 [facility] Protocol Insulin Human Regular 0 - 12 unit 07/24/19 12:15 Humulin R (Pyxis) Insulin 100 Unit/Ml 3ml SUBCUT 08/23/19 05:59 Q6 [facility] Protocol Insulin Human Regular 0 - 12 unit 07/24/19 13:00 Humulin R (Pyxis) Insulin 100 Unit/Ml 3ml SUBCUT 08/23/19 12:59 Q6 [facility] Protocol Insulin Human Regular 0 - 14 unit 07/24/19 13:00 07/28/19 07:01 Humulin R (Pyxis) Insulin 100 Unit/Ml 3ml SUBCUT 08/23/19 12:59 Not Given Q6 [facility] Protocol Ipratropium Topping 0.5 mg 07/28/19 15:41 Atrovent 0.02% Neb 0.5 Mg/2.5 Ml Ampul NEB 08/27/19 15:40 RTQ4HP PRN SHORTNESS OF BREATH Ketorolac Tromethamine 15 mg 07/22/19 00:47 07/22/19 14:13 Toradol Inj/Pf 30 Mg/1 Ml Sdv IV 07/27/19 00:46 15 mg Q6HP PRN Administration FOR PAIN OR TEMP Levalbuterol HCl 1.25 mg 07/22/19 00:47 Xopenex Neb 1.25 Mg/3 Ml Ampul NEB 08/21/19 00:46 RTQ8HP PRN SHORTNESS OF BREATH Levalbuterol HCl 1.25 mg 07/28/19 15:41 07/28/19 16:33 Xopenex Neb 1.25 Mg/3 Ml Ampul NEB 08/27/19 15:40 1.25 mg RTQ4HP PRN Administration SHORTNESS OF BREATH Lorazepam 2 mg 07/22/19 00:46 Ativan Inj 2 Mg/1 Ml Vial IV 07/29/19 00:45 Q3HP PRN ANXIETY/AGITATION Lorazepam 1 mg 07/23/19 08:54 Ativan Inj 2 Mg/1 Ml Vial IV 07/30/19 08:52 Q6HP PRN ANXIETY/AGITATION Lorazepam Confirm 07/23/19 22:39 07/23/19 22:41 Ativan Inj 2 Mg/1 Ml Vial Administered 07/23/19 22:40 1 mg Dose Administration 2 mg .ROUTE .STK-MED ONE Lorazepam Confirm 07/23/19 22:42 07/23/19 22:43 Ativan Inj 2 Mg/1 Ml Vial Administered 07/23/19 22:43 2 mg Dose Administration 2 mg .ROUTE .STK-MED ONE Lorazepam Confirm 07/23/19 22:50 07/24/19 00:43 Ativan Inj 2 Mg/1 Ml Vial Administered 07/23/19 22:51 Not Given Dose 2 mg .ROUTE .STK-MED ONE Magnesium Hydroxide 30 ml 07/22/19 00:47 Milk Of Magnesia 30 Ml Udcup PO 08/21/19 00:46 HSP PRN FOR CONSTIPATION Magnesium Hydroxide 30 ml 07/24/19 00:30 Milk Of Magnesia 30 Ml Udcup NG 08/21/19 00:46 HSP PRN FOR CONSTIPATION Metoprolol Tartrate Confirm 07/22/19 13:15 07/22/19 13:27 Lopressor Inj/Pf 5 Mg/5 Ml Sdv Administered 07/22/19 13:16 Not Given Dose 5 mg IV .STK-MED ONE Metoprolol Tartrate 5 mg 07/22/19 13:30 07/22/19 13:28 Lopressor Inj/Pf 5 Mg/5 Ml Sdv IV 07/22/19 13:31 5 mg NOW ONE Administration Midazolam HCl 4 mg 07/26/19 01:26 07/26/19 01:26 Versed 2 Mg/2 Ml Inj IV 07/26/19 01:27 4 mg NOW ONE Administration Midazolam HCl Confirm 07/26/19 01:24 07/26/19 01:30 Versed 2 Mg/2 Ml Inj Administered 07/26/19 01:25 Not Given Dose 2 mg .ROUTE .STK-MED ONE Midodrine 5 mg 07/29/19 19:00 07/29/19 19:08 Proamatine 5 Mg Tablet PO 07/29/19 19:01 5 mg NOW ONE Administration Morphine Sulfate 3 mg 07/24/19 19:44 07/26/19 09:46 Morphine 10 Mg/Ml Inj IV 07/31/19 19:43 3 mg Q4HP PRN Administration Sedation for vent management Norepinephrine Bitartrate Confirm 07/24/19 00:02 07/24/19 01:26 Levophed Inj/Pf 4 Mg/4 Ml Sdv Administered 07/24/19 00:03 Not Given Dose 4 mg IV .STK-MED ONE Norepinephrine Bitartrate Confirm 07/24/19 05:40 07/24/19 05:52 Levophed Inj/Pf 4 Mg/4 Ml Sdv Administered 07/24/19 05:41 Not Given Dose 4 mg IV .STK-MED ONE Pantoprazole Sodium 40 mg 07/24/19 11:00 07/27/19 09:33 Protonix Iv Inj 40 Mg Vial IV 07/31/19 10:59 40 mg DAILY JUANJO Administration Pharmacy Profile Note 1 each 07/24/19 00:00 Medication Communication Order 08/23/19 00:00 .NOTICE NR Phenytoin Sodium Confirm 07/23/19 22:45 07/23/19 22:49 Dilantin Inj/Pf 250 Mg/5 Ml Sdv Administered 07/23/19 22:46 250 mg Dose Administration 250 mg .ROUTE .STK-MED ONE Phenytoin Sodium Confirm 07/23/19 22:46 07/24/19 00:42 Dilantin Inj/Pf 250 Mg/5 Ml Sdv Administered 07/23/19 22:47 Not Given Dose 250 mg .ROUTE .STK-MED ONE Phytonadione 10 mg 07/22/19 00:45 07/22/19 02:22 Aqua-Mephyton Inj 10 Mg/1 Ml Ampule SUBCUT 07/22/19 00:46 10 mg NOW ONE Administration Sodium Bicarbonate Confirm 07/23/19 23:02 07/23/19 23:05 Sodium Bicarbonate 8.4% Inj 50 Meq/50ml Syrin Administered 07/23/19 23:03 50 meq Dose Administration 50 meq .ROUTE .STK-MED ONE Sodium Bicarbonate 50 meq 07/23/19 09:01 Sodium Bicarbonate 8.4% Inj 50 Meq/50ml Syrin .ROUTE 07/23/19 09:02 .STK-MED ONE Thiamine HCl Confirm 07/22/19 05:21 07/22/19 06:45 Thiamine Hcl Inj 200 Mg/2 Ml Vial Administered 07/22/19 05:22 Not Given Dose 200 mg .ROUTE .STK-MED ONE Thiamine HCl 100 mg 07/23/19 22:33 Thiamine Hcl Inj 200 Mg/2 Ml Vial IV 07/24/19 07:00 ASDIR PRN Thiamine HCl 250 mg 07/27/19 10:00 07/28/19 09:26 Thiamine 100 Mg Tablet PO 08/26/19 09:59 250 mg Q12 JUANJO Administration Zinc Sulfate 220 mg 07/27/19 10:00 07/28/19 09:26 Zinc-220 Capsule PO 08/26/19 09:59 220 mg DAILY JUANJO Administration Review of Systems Constitutional: PRESENT: anorexia, fatigue, weakness, weight loss. ABSENT: chills, fever(s), headache(s), weight gain Eyes: ABSENT: visual disturbances Ears: ABSENT: hearing changes Cardiovascular: PRESENT: as per HPI. ABSENT: chest pain, dyspnea on exertion, edema, orthropnea, palpitations Respiratory: ABSENT: cough, hemoptysis Gastrointestinal: ABSENT: abdominal pain, constipation, diarrhea, hematemesis, hematochezia, nausea, vomiting Genitourinary: ABSENT: dysuria, hematuria Musculoskeletal: PRESENT: muscle weakness. ABSENT: joint swelling Integumentary: ABSENT: rash, wounds Neurological: ABSENT: abnormal gait, abnormal speech, confusion, dizziness, focal weakness, syncope Psychiatric: ABSENT: anxiety, depression, homidical ideation, suicidal ideation Endocrine: ABSENT: cold intolerance, heat intolerance, polydipsia, polyuria Hematologic/Lymphatic: ABSENT: easy bleeding, easy bruising. PHYSICAL EXAMINATION: The patient is a frail build and appears to be chronically ill. She is on nasal BiPAP. Selected Entries 07/29/19 07/29/19 07/29/19 08:13 11:13 12:00 Temperature 97.9 F Temperature Oral Source Pulse Rate 101 H 99 Respiratory 18 Rate Blood Pressure 106/64 Blood Pressure 106/64 [Left Femoral Artery] Blood Pressure 78 Mean [Left Femoral Artery] Blood Pressure Supine Position [Left Femoral Artery] BP Location Right Arm BP Position Supine O2 Sat by Pulse 98 Oximetry Oxygen Delivery High Flow Nasal Method ( Cannula includes room air) Fraction of 45 Inspired Oxygen (FIO2) Oxygen Flow 40 Rate Head: Is atraumatic normocephalic. EYES: Pupils are equal round regular reactive to light and accommodation. Extraocular movements are normal. There is no conjunctival pallor. There is no scleral icterus. EARS: Tympanic membranes are intact. External ocular auditory canals are clear. NOSE: Not examined due to the patient having nasal BiPAP. MOUTH: Mucous membranes of the mouth are moist. Tongue is moist. Mucous membranes are moist. There is no bleeding from the gums. THROAT: There is no redness of the oropharynx. There is no exudates. SKIN: There is no skin rashes. There is no skin lesions. There is no petechia or ecchymosis. Neck: Supple. There Is No JVD. Carotids Are Equal There Is No Bruit. There Is No Lymphadenopathy. There Is No Goiter There Is No Accessory Muscle Respiration Use. Trachea Central. LUNGS: There Is Diminished Air Entry and Prolonged Expiration. There is tubular breath sounds in the right base. There Is a Few Dry Crackles in the Left Base. On per Percussion There Is Hyperresonance. HEART: S1-S2 Is [place]. There Is No S3 Gallop. There Is No S3 Gallop. There Is Systolic Murmur Left Sternal Border and the [place] There Is No Rub. ABDOMEN: Soft. Nontender. There Is No Hepatosplenomegaly. Bowel Sounds Are Well [place]. EXTREMITIES: Well [place]. There Is No Femoral Bruits. Leg Pulses Are Well [place]. There Is No Pedal Edema. There Is No DVT or Cellulitis. There Is No Cyanosis or Clubbing. EMBLEM CUTTER: The Patient Slightly Drowsy but Oriented x3 There Is No Focal Deficits. PSYCHIATRIC: In Spite Of Her Mental Status Her Judgment Insight Are Intact Her Affect Appears to Be Slightly Anxious. The patient's several EKGs show sinus tachycardia with APCs versus hemispherically. There is no acute changes. The rhythm strips and EKGs do not document any atrial fibrillation at any point. Labs- Entire Visit 07/21/19 07/21/19 07/21/19 22:40 22:40 23:28 WBC 10.4 RBC 3.66 L Hgb 13.5 Hct 39.7 MCV 108 H MCH 36.9 H MCHC 34.0 RDW 18.2 H Plt Count 496 H Lymph % (Auto) 17.6 [place] % (Auto) 6.1 Eos % (Auto) 0.1 Baso % (Auto) 0.7 Reticulocyte # Absolute Neuts (auto) 7.8 Absolute Lymphs (auto) 1.8 Absolute Monos (auto) 0.6 Absolute Eos (auto) 0.0 Absolute Basos (auto) 0.1 Total Counted Seg Neutrophils % 75.5 Seg Neuts % (Manual) Band Neutrophils % Lymphocytes % (Manual) Monocytes % (Manual) Eosinophils % (Manual) Basophils % (Manual) Abs Neuts (Manual) Abs Lymphs (Manual) Abs Monocytes (Manual) Absolute Eos (Manual) Abs Basophils (Manual) Toxic Granulation Platelet Estimate Platelet Comment Polychromasia Poikilocytosis Anisocytosis Macrocytosis Tear Drop Cells Ovalocytes Schistocytes Retic Count (auto) PT INR APTT Carbonic Acid HCO3/H2CO3 Ratio ABG pH ABG pCO2 ABG pO2 ABG HCO3 ABG Total CO2 ABG O2 Saturation ABG Base Excess FiO2 Sodium Potassium Chloride Carbon Dioxide Anion Gap BUN Creatinine Est GFR ( Amer) Est GFR (Non-Af Amer) Est GFR (MDRD) Non-Af Glucose POC Glucose Lactic Acid Calcium Ionized Calcium Narciso Phosphorus Magnesium Iron TIBC % Saturation Iron Saturation Transferrin Ferritin Total Bilirubin Direct Bilirubin Neonat Total Bilirubin Neonat Direct Bilirubin Neonat Indirect Bili AST ALT Alkaline Phosphatase Troponin I Total Protein Albumin Prealbumin EGFR Vitamin B12 Vitamin D 25-Hydroxy Folate TSH Random Cortisol Urine Color ANUPAMA Urine Appearance SLIGHTLY-CLOUDY Urine pH 5.0 Ur Specific [place] 1.028 Urine Protein 30 H Urine Glucose (UA) NEGATIVE Urine Ketones TRACE H Urine Blood SMALL H Urine Nitrite Urine Nitrite (Reflex) NEGATIVE Urine Bilirubin SMALL H Urine Urobilinogen 4.0 H Ur Leukocyte Esterase Leukocyte Esterase Rfl NEGATIVE Urine WBC (Auto) Urine RBC (Auto) U Hyaline Cast (Auto) Urine Bacteria (Auto) 3+ Urine WBC (Reflex) 1 Squamous Epi Cells Auto 3 Urine Mucus (Auto) MANY Urine Ascorbic Acid NEGATIVE Urine Opiates Screen NEGATIVE Urine Methadone Screen NEGATIVE Ur Barbiturates Screen NEGATIVE Ur Phencyclidine Scrn NEGATIVE Ur Amphetamines Screen NEGATIVE U Benzodiazepines Scrn NEGATIVE Urine Cocaine Screen NEGATIVE U Marijuana (THC) Screen NEGATIVE Hepatitis A IgM Ab Hep Bs Antigen Hep B Core IgM Ab Hepatitis C Antibody Slides for Path Review 07/21/19 07/21/19 07/21/19 23:28 23:28 23:28 WBC RBC Hgb Hct MCV MCH MCHC RDW Plt Count Lymph % (Auto) [place] % (Auto) Eos % (Auto) Baso % (Auto) Reticulocyte # Absolute Neuts (auto) Absolute Lymphs (auto) Absolute Monos (auto) Absolute Eos (auto) Absolute Basos (auto) Total Counted Seg Neutrophils % Seg Neuts % (Manual) Band Neutrophils % Lymphocytes % (Manual) Monocytes % (Manual) Eosinophils % (Manual) Basophils % (Manual) Abs Neuts (Manual) Abs Lymphs (Manual) Abs Monocytes (Manual) Absolute Eos (Manual) Abs Basophils (Manual) Toxic Granulation Platelet Estimate Platelet Comment Polychromasia Poikilocytosis Anisocytosis Macrocytosis Tear Drop Cells Ovalocytes Schistocytes Retic Count (auto) PT 23.6 H INR 2.07 APTT 57.0 H Carbonic Acid HCO3/H2CO3 Ratio ABG pH ABG pCO2 ABG pO2 ABG HCO3 ABG Total CO2 ABG O2 Saturation ABG Base Excess FiO2 Sodium 137.7 Potassium 3.7 Chloride 101 Carbon Dioxide 27 Anion Gap 10 BUN 14 Creatinine 0.54 Est GFR ( Amer) > 60 Est GFR (Non-Af Amer) Est GFR (MDRD) Non-Af > 60 Glucose 96 POC Glucose Lactic Acid Calcium 8.5 Ionized Calcium Narciso Phosphorus Magnesium 1.6 Iron TIBC % Saturation Iron Saturation Transferrin Ferritin Total Bilirubin 0.8 Direct Bilirubin 0.5 H Neonat Total Bilirubin Not Reportable Neonat Direct Bilirubin Not Reportable Neonat Indirect Bili Not Reportable AST 44 H ALT 23 Alkaline Phosphatase 290 H Troponin I Total Protein 6.7 Albumin 3.0 L Prealbumin EGFR Vitamin B12 Vitamin D 25-Hydroxy Folate TSH 3.21 Random Cortisol Urine Color Urine Appearance Urine pH Ur Specific [place] Urine Protein Urine Glucose (UA) Urine Ketones Urine Blood Urine Nitrite Urine Nitrite (Reflex) Urine Bilirubin Urine Urobilinogen Ur Leukocyte Esterase Leukocyte Esterase Rfl Urine WBC (Auto) Urine RBC (Auto) U Hyaline Cast (Auto) Urine Bacteria (Auto) Urine WBC (Reflex) Squamous Epi Cells Auto Urine Mucus (Auto) Urine Ascorbic Acid Urine Opiates Screen Urine Methadone Screen Ur Barbiturates Screen Ur Phencyclidine Scrn Ur Amphetamines Screen U Benzodiazepines Scrn Urine Cocaine Screen U Marijuana (THC) Screen Hepatitis A IgM Ab Hep Bs Antigen Hep B Core IgM Ab Hepatitis C Antibody Slides for Path Review 07/22/19 07/22/19 07/22/19 02:10 02:10 06:14 WBC 8.2 RBC 3.91 Hgb 14.3 Hct 42.7 MCV 109 H MCH 36.6 H MCHC 33.6 RDW 18.0 H Plt Count 477 H Lymph % (Auto) Not Reportable [place] % (Auto) Not Reportable Eos % (Auto) Not Reportable Baso % (Auto) Not Reportable Reticulocyte # Absolute Neuts (auto) Not Reportable Absolute Lymphs (auto) Not Reportable Absolute Monos (auto) Not Reportable Absolute Eos (auto) Not Reportable Absolute Basos (auto) Not Reportable Total Counted 100 Seg Neutrophils % Not Reportable Seg Neuts % (Manual) 67 Band Neutrophils % 2 L Lymphocytes % (Manual) 26 Monocytes % (Manual) 5 Eosinophils % (Manual) 0 Basophils % (Manual) 0 Abs Neuts (Manual) 5.7 Abs Lymphs (Manual) 2.1 Abs Monocytes (Manual) 0.4 Absolute Eos (Manual) 0.0 Abs Basophils (Manual) 0.0 Toxic Granulation Platelet Estimate Platelet Comment ADEQUATE Polychromasia 1+ Poikilocytosis Anisocytosis 1+ Macrocytosis 2+ Tear Drop Cells Ovalocytes Schistocytes Retic Count (auto) PT INR APTT Carbonic Acid HCO3/H2CO3 Ratio ABG pH ABG pCO2 ABG pO2 ABG HCO3 ABG Total CO2 ABG O2 Saturation ABG Base Excess FiO2 Sodium Potassium Chloride Carbon Dioxide Anion Gap BUN Creatinine Est GFR ( Amer) Est GFR (Non-Af Amer) Est GFR (MDRD) Non-Af Glucose POC Glucose Lactic Acid Calcium Ionized Calcium Narciso Phosphorus 2.3 L Magnesium 1.5 L Iron TIBC % Saturation Iron Saturation Transferrin Ferritin Total Bilirubin Direct Bilirubin Neonat Total Bilirubin Neonat Direct Bilirubin Neonat Indirect Bili AST ALT Alkaline Phosphatase Troponin I Total Protein Albumin Prealbumin 8.1 L EGFR Vitamin B12 Vitamin D 25-Hydroxy Folate TSH Random Cortisol Urine Color Urine Appearance Urine pH Ur Specific [place] Urine Protein Urine Glucose (UA) Urine Ketones Urine Blood Urine Nitrite Urine Nitrite (Reflex) Urine Bilirubin Urine Urobilinogen Ur Leukocyte Esterase Leukocyte Esterase Rfl Urine WBC (Auto) Urine RBC (Auto) U Hyaline Cast (Auto) Urine Bacteria (Auto) Urine WBC (Reflex) Squamous Epi Cells Auto Urine Mucus (Auto) Urine Ascorbic Acid Urine Opiates Screen Urine Methadone Screen Ur Barbiturates Screen Ur Phencyclidine Scrn Ur Amphetamines Screen U Benzodiazepines Scrn Urine Cocaine Screen U Marijuana (THC) Screen Hepatitis A IgM Ab Hep Bs Antigen Hep B Core IgM Ab Hepatitis C Antibody Slides for Path Review 07/22/19 07/22/19 07/22/19 06:14 06:31 06:31 WBC RBC Hgb Hct MCV MCH MCHC RDW Plt Count Lymph % (Auto) [place] % (Auto) Eos % (Auto) Baso % (Auto) Reticulocyte # 0.025 L Absolute Neuts (auto) Absolute Lymphs (auto) Absolute Monos (auto) Absolute Eos (auto) Absolute Basos (auto) Total Counted Seg Neutrophils % Seg Neuts % (Manual) Band Neutrophils % Lymphocytes % (Manual) Monocytes % (Manual) Eosinophils % (Manual) Basophils % (Manual) Abs Neuts (Manual) Abs Lymphs (Manual) Abs Monocytes (Manual) Absolute Eos (Manual) Abs Basophils (Manual) Toxic Granulation Platelet Estimate Platelet Comment Polychromasia Poikilocytosis Anisocytosis Macrocytosis Tear Drop Cells Ovalocytes Schistocytes Retic Count (auto) 0.64 L PT INR APTT Carbonic Acid HCO3/H2CO3 Ratio ABG pH ABG pCO2 ABG pO2 ABG HCO3 ABG Total CO2 ABG O2 Saturation ABG Base Excess FiO2 Sodium Cancelled Potassium Cancelled Chloride Cancelled Carbon Dioxide Cancelled Anion Gap Cancelled BUN Cancelled Creatinine Cancelled Est GFR ( Amer) Cancelled Est GFR (Non-Af Amer) Cancelled Est GFR (MDRD) Non-Af Cancelled Glucose Cancelled POC Glucose Lactic Acid Calcium Cancelled Ionized Calcium Narciso Phosphorus Magnesium Iron Cancelled TIBC Cancelled % Saturation Cancelled Iron Saturation Cancelled Transferrin Ferritin Cancelled Total Bilirubin Direct Bilirubin Neonat Total Bilirubin Neonat Direct Bilirubin Neonat Indirect Bili AST ALT Alkaline Phosphatase Troponin I Total Protein Albumin Prealbumin EGFR Cancelled Vitamin B12 Cancelled Vitamin D 25-Hydroxy Folate Cancelled TSH Random Cortisol Urine Color Urine Appearance Urine pH Ur Specific [place] Urine Protein Urine Glucose (UA) Urine Ketones Urine Blood Urine Nitrite Urine Nitrite (Reflex) Urine Bilirubin Urine Urobilinogen Ur Leukocyte Esterase Leukocyte Esterase Rfl Urine WBC (Auto) Urine RBC (Auto) U Hyaline Cast (Auto) Urine Bacteria (Auto) Urine WBC (Reflex) Squamous Epi Cells Auto Urine Mucus (Auto) Urine Ascorbic Acid Urine Opiates Screen Urine Methadone Screen Ur Barbiturates Screen Ur Phencyclidine Scrn Ur Amphetamines Screen U Benzodiazepines Scrn Urine Cocaine Screen U Marijuana (THC) Screen Hepatitis A IgM Ab Hep Bs Antigen Hep B Core IgM Ab Hepatitis C Antibody Slides for Path Review 07/22/19 07/22/19 07/22/19 06:31 08:20 08:20 WBC RBC Hgb Hct MCV MCH MCHC RDW Plt Count Lymph % (Auto) [place] % (Auto) Eos % (Auto) Baso % (Auto) Reticulocyte # Absolute Neuts (auto) Absolute Lymphs (auto) Absolute Monos (auto) Absolute Eos (auto) Absolute Basos (auto) Total Counted Seg Neutrophils % Seg Neuts % (Manual) Band Neutrophils % Lymphocytes % (Manual) Monocytes % (Manual) Eosinophils % (Manual) Basophils % (Manual) Abs Neuts (Manual) Abs Lymphs (Manual) Abs Monocytes (Manual) Absolute Eos (Manual) Abs Basophils (Manual) Toxic Granulation Platelet Estimate Platelet Comment Polychromasia Poikilocytosis Anisocytosis Macrocytosis Tear Drop Cells Ovalocytes Schistocytes Retic Count (auto) PT INR APTT Carbonic Acid HCO3/H2CO3 Ratio ABG pH ABG pCO2 ABG pO2 ABG HCO3 ABG Total CO2 ABG O2 Saturation ABG Base Excess FiO2 Sodium 132.2 L Potassium 3.5 L Chloride 102 Carbon Dioxide 24 Anion Gap 6 BUN 13 Creatinine 0.44 L Est GFR ( Amer) > 60 Est GFR (Non-Af Amer) Est GFR (MDRD) Non-Af > 60 Glucose 108 POC Glucose Lactic Acid Calcium 7.5 L Ionized Calcium Narciso Phosphorus Magnesium Iron 30.9 L TIBC 166 L % Saturation 19 Iron Saturation Transferrin Cancelled Ferritin 803.00 H Total Bilirubin Direct Bilirubin Neonat Total Bilirubin Neonat Direct Bilirubin Neonat Indirect Bili AST ALT Alkaline Phosphatase Troponin I Total Protein Albumin Prealbumin EGFR Vitamin B12 740.0 Vitamin D 25-Hydroxy < 12.8 L Folate > 20.00 TSH Random Cortisol Urine Color Urine Appearance Urine pH Ur Specific [place] Urine Protein Urine Glucose (UA) Urine Ketones Urine Blood Urine Nitrite Urine Nitrite (Reflex) Urine Bilirubin Urine Urobilinogen Ur Leukocyte Esterase Leukocyte Esterase Rfl Urine WBC (Auto) Urine RBC (Auto) U Hyaline Cast (Auto) Urine Bacteria (Auto) Urine WBC (Reflex) Squamous Epi Cells Auto Urine Mucus (Auto) Urine Ascorbic Acid Urine Opiates Screen Urine Methadone Screen Ur Barbiturates Screen Ur Phencyclidine Scrn Ur Amphetamines Screen U Benzodiazepines Scrn Urine Cocaine Screen U Marijuana (THC) Screen Hepatitis A IgM Ab Hep Bs Antigen Hep B Core IgM Ab Hepatitis C Antibody Slides for Path Review 07/22/19 07/22/19 07/23/19 08:20 14:10 04:54 WBC 8.9 RBC 3.14 L Hgb 11.6 L D Hct 34.5 L MCV 110 H MCH 37.1 H MCHC 33.8 RDW 17.9 H Plt Count 400 Lymph % (Auto) 15.2 [place] % (Auto) 8.9 Eos % (Auto) 0.7 Baso % (Auto) 0.3 Reticulocyte # Absolute Neuts (auto) 6.7 Absolute Lymphs (auto) 1.3 Absolute Monos (auto) 0.8 Absolute Eos (auto) 0.1 Absolute Basos (auto) 0.0 Total Counted Seg Neutrophils % 74.9 Seg Neuts % (Manual) Band Neutrophils % Lymphocytes % (Manual) Monocytes % (Manual) Eosinophils % (Manual) Basophils % (Manual) Abs Neuts (Manual) Abs Lymphs (Manual) Abs Monocytes (Manual) Absolute Eos (Manual) Abs Basophils (Manual) Toxic Granulation Platelet Estimate Platelet Comment Polychromasia Poikilocytosis Anisocytosis Macrocytosis Tear Drop Cells Ovalocytes Schistocytes Retic Count (auto) PT INR APTT Carbonic Acid HCO3/H2CO3 Ratio ABG pH ABG pCO2 ABG pO2 ABG HCO3 ABG Total CO2 ABG O2 Saturation ABG Base Excess FiO2 Sodium Potassium Chloride Carbon Dioxide Anion Gap BUN Creatinine Est GFR ( Amer) Est GFR (Non-Af Amer) Est GFR (MDRD) Non-Af Glucose POC Glucose Lactic Acid Calcium Ionized Calcium Narciso Phosphorus Magnesium Iron TIBC % Saturation Iron Saturation Transferrin 95.79 L Ferritin Total Bilirubin Direct Bilirubin Neonat Total Bilirubin Neonat Direct Bilirubin Neonat Indirect Bili AST ALT Alkaline Phosphatase Troponin I Total Protein Albumin Prealbumin EGFR Vitamin B12 Vitamin D 25-Hydroxy Folate TSH Random Cortisol Urine Color Urine Appearance Urine pH Ur Specific [place] Urine Protein Urine Glucose (UA) Urine Ketones Urine Blood Urine Nitrite Urine Nitrite (Reflex) Urine Bilirubin Urine Urobilinogen Ur Leukocyte Esterase Leukocyte Esterase Rfl Urine WBC (Auto) Urine RBC (Auto) U Hyaline Cast (Auto) Urine Bacteria (Auto) Urine WBC (Reflex) Squamous Epi Cells Auto Urine Mucus (Auto) Urine Ascorbic Acid Urine Opiates Screen Urine Methadone Screen Ur Barbiturates Screen Ur Phencyclidine Scrn Ur Amphetamines Screen U Benzodiazepines Scrn Urine Cocaine Screen U Marijuana (THC) Screen Hepatitis A IgM Ab Negative Hep Bs Antigen Negative Hep B Core IgM Ab Negative Hepatitis C Antibody <0.1 Slides for Path Review 07/23/19 07/23/19 07/23/19 04:54 04:54 22:31 WBC RBC Hgb Hct MCV MCH MCHC RDW Plt Count Lymph % (Auto) [place] % (Auto) Eos % (Auto) Baso % (Auto) Reticulocyte # Absolute Neuts (auto) Absolute Lymphs (auto) Absolute Monos (auto) Absolute Eos (auto) Absolute Basos (auto) Total Counted Seg Neutrophils % Seg Neuts % (Manual) Band Neutrophils % Lymphocytes % (Manual) Monocytes % (Manual) Eosinophils % (Manual) Basophils % (Manual) Abs Neuts (Manual) Abs Lymphs (Manual) Abs Monocytes (Manual) Absolute Eos (Manual) Abs Basophils (Manual) Toxic Granulation Platelet Estimate Platelet Comment Polychromasia Poikilocytosis Anisocytosis Macrocytosis Tear Drop Cells Ovalocytes Schistocytes Retic Count (auto) PT 14.5 INR 1.12 APTT Carbonic Acid 2.47 H HCO3/H2CO3 Ratio 8:1 ABG pH 7.02 L* ABG pCO2 82.1 H* ABG pO2 122.8 H ABG HCO3 20.9 ABG Total CO2 23.4 ABG O2 Saturation 96.3 ABG Base Excess -11.6 FiO2 44% Sodium 132.6 L Potassium 3.5 L Chloride 106 Carbon Dioxide 21 L Anion Gap 6 BUN 9 Creatinine 0.39 L Est GFR ( Amer) > 60 Est GFR (Non-Af Amer) Est GFR (MDRD) Non-Af > 60 Glucose 76 POC Glucose Lactic Acid Calcium 7.4 L Ionized Calcium Narciso Phosphorus Magnesium Iron TIBC % Saturation Iron Saturation Transferrin Ferritin Total Bilirubin Direct Bilirubin Neonat Total Bilirubin Neonat Direct Bilirubin Neonat Indirect Bili AST ALT Alkaline Phosphatase Troponin I Total Protein Albumin Prealbumin EGFR Vitamin B12 Vitamin D 25-Hydroxy Folate TSH Random Cortisol Urine Color Urine Appearance Urine pH Ur Specific [place] Urine Protein Urine Glucose (UA) Urine Ketones Urine Blood Urine Nitrite Urine Nitrite (Reflex) Urine Bilirubin Urine Urobilinogen Ur Leukocyte Esterase Leukocyte Esterase Rfl Urine WBC (Auto) Urine RBC (Auto) U Hyaline Cast (Auto) Urine Bacteria (Auto) Urine WBC (Reflex) Squamous Epi Cells Auto Urine Mucus (Auto) Urine Ascorbic Acid Urine Opiates Screen Urine Methadone Screen Ur Barbiturates Screen Ur Phencyclidine Scrn Ur Amphetamines Screen U Benzodiazepines Scrn Urine Cocaine Screen U Marijuana (THC) Screen Hepatitis A IgM Ab Hep Bs Antigen Hep B Core IgM Ab Hepatitis C Antibody Slides for Path Review 07/23/19 07/23/19 07/23/19 22:33 22:53 22:53 WBC Cancelled RBC Cancelled Hgb Cancelled Hct Cancelled MCV Cancelled MCH Cancelled MCHC Cancelled RDW Cancelled Plt Count Cancelled Lymph % (Auto) Cancelled [place] % (Auto) Cancelled Eos % (Auto) Cancelled Baso % (Auto) Cancelled Reticulocyte # Absolute Neuts (auto) Cancelled Absolute Lymphs (auto) Cancelled Absolute Monos (auto) Cancelled Absolute Eos (auto) Cancelled Absolute Basos (auto) Cancelled Total Counted Seg Neutrophils % Cancelled Seg Neuts % (Manual) Band Neutrophils % Lymphocytes % (Manual) Monocytes % (Manual) Eosinophils % (Manual) Basophils % (Manual) Abs Neuts (Manual) Abs Lymphs (Manual) Abs Monocytes (Manual) Absolute Eos (Manual) Abs Basophils (Manual) Toxic Granulation Platelet Estimate Cancelled Platelet Comment Polychromasia Poikilocytosis Anisocytosis Macrocytosis Tear Drop Cells Ovalocytes Schistocytes Retic Count (auto) PT INR APTT Carbonic Acid HCO3/H2CO3 Ratio ABG pH ABG pCO2 ABG pO2 ABG HCO3 ABG Total CO2 ABG O2 Saturation ABG Base Excess FiO2 Sodium Potassium Chloride Carbon Dioxide Anion Gap BUN Creatinine Est GFR ( Amer) Est GFR (Non-Af Amer) Est GFR (MDRD) Non-Af Glucose POC Glucose 127 H Lactic Acid Calcium Ionized Calcium Narciso Phosphorus 2.9 Magnesium Iron TIBC % Saturation Iron Saturation Transferrin Ferritin Total Bilirubin Direct Bilirubin Neonat Total Bilirubin Neonat Direct Bilirubin Neonat Indirect Bili AST ALT Alkaline Phosphatase Troponin I Total Protein Albumin Prealbumin EGFR Vitamin B12 Vitamin D 25-Hydroxy Folate TSH Random Cortisol 132.00 Urine Color Urine Appearance Urine pH Ur Specific [place] Urine Protein Urine Glucose (UA) Urine Ketones Urine Blood Urine Nitrite Urine Nitrite (Reflex) Urine Bilirubin Urine Urobilinogen Ur Leukocyte Esterase Leukocyte Esterase Rfl Urine WBC (Auto) Urine RBC (Auto) U Hyaline Cast (Auto) Urine Bacteria (Auto) Urine WBC (Reflex) Squamous Epi Cells Auto Urine Mucus (Auto) Urine Ascorbic Acid Urine Opiates Screen Urine Methadone Screen Ur Barbiturates Screen Ur Phencyclidine Scrn Ur Amphetamines Screen U Benzodiazepines Scrn Urine Cocaine Screen U Marijuana (THC) Screen Hepatitis A IgM Ab Hep Bs Antigen Hep B Core IgM Ab Hepatitis C Antibody Slides for Path Review Cancelled 07/24/19 07/24/19 07/24/19 01:10 01:10 01:40 WBC 12.3 H RBC 2.63 L Hgb 9.6 L Hct 29.5 L MCV 112 H MCH 36.6 H MCHC 32.8 RDW 17.6 H Plt Count 326 Lymph % (Auto) Not Reportable [place] % (Auto) Not Reportable Eos % (Auto) Not Reportable Baso % (Auto) Not Reportable Reticulocyte # Absolute Neuts (auto) Not Reportable Absolute Lymphs (auto) Not Reportable Absolute Monos (auto) Not Reportable Absolute Eos (auto) Not Reportable Absolute Basos (auto) Not Reportable Total Counted 100 Seg Neutrophils % Not Reportable Seg Neuts % (Manual) 89 H Band Neutrophils % 1 L Lymphocytes % (Manual) 5 L Monocytes % (Manual) 5 Eosinophils % (Manual) 0 Basophils % (Manual) 0 Abs Neuts (Manual) 11.1 H Abs Lymphs (Manual) 0.6 Abs Monocytes (Manual) 0.6 Absolute Eos (Manual) 0.0 Abs Basophils (Manual) 0.0 Toxic Granulation 1+ Platelet Estimate Platelet Comment ADEQUATE Polychromasia Poikilocytosis 1+ Anisocytosis 1+ Macrocytosis 3+ Tear Drop Cells SLIGHT Ovalocytes SLIGHT Schistocytes 1+ Retic Count (auto) PT INR APTT Carbonic Acid 0.89 L HCO3/H2CO3 Ratio 17:1 ABG pH 7.34 L ABG pCO2 29.5 L ABG pO2 280.5 H ABG HCO3 15.6 L ABG Total CO2 16.5 L ABG O2 Saturation 99.6 H ABG Base Excess -9.0 FiO2 60% Sodium Potassium Chloride Carbon Dioxide Anion Gap BUN Creatinine Est GFR ( Amer) Est GFR (Non-Af Amer) Est GFR (MDRD) Non-Af Glucose POC Glucose Lactic Acid Calcium Ionized Calcium Narciso Phosphorus Magnesium Iron TIBC % Saturation Iron Saturation Transferrin Ferritin Total Bilirubin Direct Bilirubin Neonat Total Bilirubin Neonat Direct Bilirubin Neonat Indirect Bili AST ALT Alkaline Phosphatase Troponin I Total Protein Albumin Prealbumin EGFR Vitamin B12 Vitamin D 25-Hydroxy Folate TSH Random Cortisol Urine Color YELLOW Urine Appearance SLIGHTLY-CLOUDY Urine pH 5.0 Ur Specific [place] 1.004 Urine Protein NEGATIVE Urine Glucose (UA) NEGATIVE Urine Ketones NEGATIVE Urine Blood MODERATE H Urine Nitrite Urine Nitrite (Reflex) NEGATIVE Urine Bilirubin NEGATIVE Urine Urobilinogen NEGATIVE Ur Leukocyte Esterase Leukocyte Esterase Rfl SMALL H Urine WBC (Auto) Urine RBC (Auto) 18 U Hyaline Cast (Auto) 11 Urine Bacteria (Auto) 3+ Urine WBC (Reflex) 14 Squamous Epi Cells Auto 1 Urine Mucus (Auto) FEW Urine Ascorbic Acid NEGATIVE Urine Opiates Screen Urine Methadone Screen Ur Barbiturates Screen Ur Phencyclidine Scrn Ur Amphetamines Screen U Benzodiazepines Scrn Urine Cocaine Screen U Marijuana (THC) Screen Hepatitis A IgM Ab Hep Bs Antigen Hep B Core IgM Ab Hepatitis C Antibody Slides for Path Review PATHOLOGIST REVIEWED 07/24/19 07/24/19 07/24/19 01:40 05:05 05:26 WBC RBC Hgb Hct MCV MCH MCHC RDW Plt Count Lymph % (Auto) Ramsey % (Auto) Eos % (Auto) Baso % (Auto) Reticulocyte # Absolute Neuts (auto) Absolute Lymphs (auto) Absolute Monos (auto) Absolute Eos (auto) Absolute Basos (auto) Total Counted Seg Neutrophils % Seg Neuts % (Manual) Band Neutrophils % Lymphocytes % (Manual) Monocytes % (Manual) Eosinophils % (Manual) Basophils % (Manual) Abs Neuts (Manual) Abs Lymphs (Manual) Abs Monocytes (Manual) Absolute Eos (Manual) Abs Basophils (Manual) Toxic Granulation Platelet Estimate Platelet Comment Polychromasia Poikilocytosis Anisocytosis Macrocytosis Tear Drop Cells Ovalocytes Schistocytes Retic Count (auto) PT 16.6 H INR 1.33 APTT 42.1 H Carbonic Acid 0.73 L HCO3/H2CO3 Ratio 24:1 ABG pH 7.50 H ABG pCO2 24.1 L ABG pO2 208.8 H ABG HCO3 18.2 L ABG Total CO2 18.9 L ABG O2 Saturation 99.5 H ABG Base Excess -3.9 FiO2 50% Sodium Potassium Chloride Carbon Dioxide Anion Gap BUN Creatinine Est GFR ( Amer) Est GFR (Non-Af Amer) Est GFR (MDRD) Non-Af Glucose POC Glucose Lactic Acid 5.8 H Calcium Ionized Calcium Narciso Phosphorus Magnesium Iron TIBC % Saturation Iron Saturation Transferrin Ferritin Total Bilirubin Direct Bilirubin Neonat Total Bilirubin Neonat Direct Bilirubin Neonat Indirect Bili AST ALT Alkaline Phosphatase Troponin I Total Protein Albumin Prealbumin EGFR Vitamin B12 Vitamin D 25-Hydroxy Folate TSH Random Cortisol Urine Color Urine Appearance Urine pH Ur Specific [place] Urine Protein Urine Glucose (UA) Urine Ketones Urine Blood Urine Nitrite Urine Nitrite (Reflex) Urine Bilirubin Urine Urobilinogen Ur Leukocyte Esterase Leukocyte Esterase Rfl Urine WBC (Auto) Urine RBC (Auto) U Hyaline Cast (Auto) Urine Bacteria (Auto) Urine WBC (Reflex) Squamous Epi Cells Auto Urine Mucus (Auto) Urine Ascorbic Acid Urine Opiates Screen Urine Methadone Screen Ur Barbiturates Screen Ur Phencyclidine Scrn Ur Amphetamines Screen U Benzodiazepines Scrn Urine Cocaine Screen U Marijuana (THC) Screen Hepatitis A IgM Ab Hep Bs Antigen Hep B Core IgM Ab Hepatitis C Antibody Slides for Path Review 07/24/19 07/24/19 07/24/19 05:26 05:26 05:27 WBC RBC Hgb Hct MCV MCH MCHC RDW Plt Count Lymph % (Auto) Ramsey % (Auto) Eos % (Auto) Baso % (Auto) Reticulocyte # Absolute Neuts (auto) Absolute Lymphs (auto) Absolute Monos (auto) Absolute Eos (auto) Absolute Basos (auto) Total Counted Seg Neutrophils % Seg Neuts % (Manual) Band Neutrophils % Lymphocytes % (Manual) Monocytes % (Manual) Eosinophils % (Manual) Basophils % (Manual) Abs Neuts (Manual) Abs Lymphs (Manual) Abs Monocytes (Manual) Absolute Eos (Manual) Abs Basophils (Manual) Toxic Granulation Platelet Estimate Platelet Comment Polychromasia Poikilocytosis Anisocytosis Macrocytosis Tear Drop Cells Ovalocytes Schistocytes Retic Count (auto) PT INR APTT Carbonic Acid HCO3/H2CO3 Ratio ABG pH ABG pCO2 ABG pO2 ABG HCO3 ABG Total CO2 ABG O2 Saturation ABG Base Excess FiO2 Sodium 129.3 L Cancelled Potassium 3.0 L* Cancelled Chloride 104 Cancelled Carbon Dioxide 18 L Cancelled Anion Gap 7 Cancelled BUN 8 Cancelled Creatinine 0.53 Cancelled Est GFR ( Amer) > 60 Cancelled Est GFR (Non-Af Amer) Cancelled Est GFR (MDRD) Non-Af > 60 Cancelled Glucose 427 H* Cancelled POC Glucose 324 H Lactic Acid Calcium 6.9 L* Cancelled Ionized Calcium Narciso Phosphorus Magnesium Iron TIBC % Saturation Iron Saturation Transferrin Ferritin Total Bilirubin 0.8 Cancelled Direct Bilirubin 0.1 Cancelled Neonat Total Bilirubin Not Reportable Cancelled Neonat Direct Bilirubin Not Reportable Cancelled Neonat Indirect Bili Not Reportable Cancelled AST 35 Cancelled ALT 21 Cancelled Alkaline Phosphatase 199 H Cancelled Troponin I Total Protein 4.0 L Cancelled Albumin 1.6 L Cancelled Prealbumin EGFR Cancelled Vitamin B12 Vitamin D 25-Hydroxy Folate TSH Random Cortisol Urine Color Urine Appearance Urine pH Ur Specific [place] Urine Protein Urine Glucose (UA) Urine Ketones Urine Blood Urine Nitrite Urine Nitrite (Reflex) Urine Bilirubin Urine Urobilinogen Ur Leukocyte Esterase Leukocyte Esterase Rfl Urine WBC (Auto) Urine RBC (Auto) U Hyaline Cast (Auto) Urine Bacteria (Auto) Urine WBC (Reflex) Squamous Epi Cells Auto Urine Mucus (Auto) Urine Ascorbic Acid Urine Opiates Screen Urine Methadone Screen Ur Barbiturates Screen Ur Phencyclidine Scrn Ur Amphetamines Screen U Benzodiazepines Scrn Urine Cocaine Screen U Marijuana (THC) Screen Hepatitis A IgM Ab Hep Bs Antigen Hep B Core IgM Ab Hepatitis C Antibody Slides for Path Review 07/24/19 07/24/19 07/24/19 09:00 11:49 11:51 WBC RBC Hgb Hct MCV MCH MCHC RDW Plt Count Lymph % (Auto) [place] % (Auto) Eos % (Auto) Baso % (Auto) Reticulocyte # Absolute Neuts (auto) Absolute Lymphs (auto) Absolute Monos (auto) Absolute Eos (auto) Absolute Basos (auto) Total Counted Seg Neutrophils % Seg Neuts % (Manual) Band Neutrophils % Lymphocytes % (Manual) Monocytes % (Manual) Eosinophils % (Manual) Basophils % (Manual) Abs Neuts (Manual) Abs Lymphs (Manual) Abs Monocytes (Manual) Absolute Eos (Manual) Abs Basophils (Manual) Toxic Granulation Platelet Estimate Platelet Comment Polychromasia Poikilocytosis Anisocytosis Macrocytosis Tear Drop Cells Ovalocytes Schistocytes Retic Count (auto) PT INR APTT Carbonic Acid 0.82 L HCO3/H2CO3 Ratio 21:1 ABG pH 7.42 ABG pCO2 27.3 L ABG pO2 70.9 L ABG HCO3 17.4 L ABG Total CO2 18.3 L ABG O2 Saturation 94.9 ABG Base Excess -5.9 FiO2 30% Sodium Potassium Chloride Carbon Dioxide Anion Gap BUN Creatinine Est GFR ( Amer) Est GFR (Non-Af Amer) Est GFR (MDRD) Non-Af Glucose POC Glucose 406 H* 411 H* Lactic Acid Calcium Ionized Calcium Narciso Phosphorus Magnesium Iron TIBC % Saturation Iron Saturation Transferrin Ferritin Total Bilirubin Direct Bilirubin Neonat Total Bilirubin Neonat Direct Bilirubin Neonat Indirect Bili AST ALT Alkaline Phosphatase Troponin I Total Protein Albumin Prealbumin EGFR Vitamin B12 Vitamin D 25-Hydroxy Folate TSH Random Cortisol Urine Color Urine Appearance Urine pH Ur Specific [place] Urine Protein Urine Glucose (UA) Urine Ketones Urine Blood Urine Nitrite Urine Nitrite (Reflex) Urine Bilirubin Urine Urobilinogen Ur Leukocyte Esterase Leukocyte Esterase Rfl Urine WBC (Auto) Urine RBC (Auto) U Hyaline Cast (Auto) Urine Bacteria (Auto) Urine WBC (Reflex) Squamous Epi Cells Auto Urine Mucus (Auto) Urine Ascorbic Acid Urine Opiates Screen Urine Methadone Screen Ur Barbiturates Screen Ur Phencyclidine Scrn Ur Amphetamines Screen U Benzodiazepines Scrn Urine Cocaine Screen U Marijuana (THC) Screen Hepatitis A IgM Ab Hep Bs Antigen Hep B Core IgM Ab Hepatitis C Antibody Slides for Path Review 07/24/19 07/24/19 07/24/19 14:01 15:06 15:06 WBC RBC Hgb Hct MCV MCH MCHC RDW Plt Count Lymph % (Auto) Ramsey % (Auto) Eos % (Auto) Baso % (Auto) Reticulocyte # Absolute Neuts (auto) Absolute Lymphs (auto) Absolute Monos (auto) Absolute Eos (auto) Absolute Basos (auto) Total Counted Seg Neutrophils % Seg Neuts % (Manual) Band Neutrophils % Lymphocytes % (Manual) Monocytes % (Manual) Eosinophils % (Manual) Basophils % (Manual) Abs Neuts (Manual) Abs Lymphs (Manual) Abs Monocytes (Manual) Absolute Eos (Manual) Abs Basophils (Manual) Toxic Granulation Platelet Estimate Platelet Comment Polychromasia Poikilocytosis Anisocytosis Macrocytosis Tear Drop Cells Ovalocytes Schistocytes Retic Count (auto) PT INR APTT Carbonic Acid HCO3/H2CO3 Ratio ABG pH ABG pCO2 ABG pO2 ABG HCO3 ABG Total CO2 ABG O2 Saturation ABG Base Excess FiO2 Sodium Potassium Chloride Carbon Dioxide Anion Gap BUN Creatinine Est GFR ( Amer) Est GFR (Non-Af Amer) Est GFR (MDRD) Non-Af Glucose POC Glucose 366 H Lactic Acid 2.2 H Calcium Ionized Calcium Narciso Phosphorus Magnesium Iron TIBC % Saturation Iron Saturation Transferrin Ferritin Total Bilirubin Direct Bilirubin Neonat Total Bilirubin Neonat Direct Bilirubin Neonat Indirect Bili AST ALT Alkaline Phosphatase Troponin I 0.014 Total Protein Albumin Prealbumin EGFR Vitamin B12 Vitamin D 25-Hydroxy Folate TSH Random Cortisol Urine Color Urine Appearance Urine pH Ur Specific [place] Urine Protein Urine Glucose (UA) Urine Ketones Urine Blood Urine Nitrite Urine Nitrite (Reflex) Urine Bilirubin Urine Urobilinogen Ur Leukocyte Esterase Leukocyte Esterase Rfl Urine WBC (Auto) Urine RBC (Auto) U Hyaline Cast (Auto) Urine Bacteria (Auto) Urine WBC (Reflex) Squamous Epi Cells Auto Urine Mucus (Auto) Urine Ascorbic Acid Urine Opiates Screen Urine Methadone Screen Ur Barbiturates Screen Ur Phencyclidine Scrn Ur Amphetamines Screen U Benzodiazepines Scrn Urine Cocaine Screen U Marijuana (THC) Screen Hepatitis A IgM Ab Hep Bs Antigen Hep B Core IgM Ab Hepatitis C Antibody Slides for Path Review 07/24/19 07/24/19 07/24/19 17:49 19:58 21:05 WBC RBC Hgb Hct MCV MCH MCHC RDW Plt Count Lymph % (Auto) [place] % (Auto) Eos % (Auto) Baso % (Auto) Reticulocyte # Absolute Neuts (auto) Absolute Lymphs (auto) Absolute Monos (auto) Absolute Eos (auto) Absolute Basos (auto) Total Counted Seg Neutrophils % Seg Neuts % (Manual) Band Neutrophils % Lymphocytes % (Manual) Monocytes % (Manual) Eosinophils % (Manual) Basophils % (Manual) Abs Neuts (Manual) Abs Lymphs (Manual) Abs Monocytes (Manual) Absolute Eos (Manual) Abs Basophils (Manual) Toxic Granulation Platelet Estimate Platelet Comment Polychromasia Poikilocytosis Anisocytosis Macrocytosis Tear Drop Cells Ovalocytes Schistocytes Retic Count (auto) PT INR APTT Carbonic Acid HCO3/H2CO3 Ratio ABG pH ABG pCO2 ABG pO2 ABG HCO3 ABG Total CO2 ABG O2 Saturation ABG Base Excess FiO2 Sodium 129.3 L Potassium 4.8 D Chloride 107 Carbon Dioxide 18 L Anion Gap 4 L BUN 8 Creatinine 0.50 L Est GFR ( Amer) > 60 Est GFR (Non-Af Amer) Est GFR (MDRD) Non-Af > 60 Glucose 42 L POC Glucose 153 H 77 Lactic Acid Calcium 7.7 L Ionized Calcium Narciso Phosphorus Magnesium Iron TIBC % Saturation Iron Saturation Transferrin Ferritin Total Bilirubin Direct Bilirubin Neonat Total Bilirubin Neonat Direct Bilirubin Neonat Indirect Bili AST ALT Alkaline Phosphatase Troponin I Total Protein Albumin Prealbumin EGFR Vitamin B12 Vitamin D 25-Hydroxy Folate TSH Random Cortisol Urine Color Urine Appearance Urine pH Ur Specific [place] Urine Protein Urine Glucose (UA) Urine Ketones Urine Blood Urine Nitrite Urine Nitrite (Reflex) Urine Bilirubin Urine Urobilinogen Ur Leukocyte Esterase Leukocyte Esterase Rfl Urine WBC (Auto) Urine RBC (Auto) U Hyaline Cast (Auto) Urine Bacteria (Auto) Urine WBC (Reflex) Squamous Epi Cells Auto Urine Mucus (Auto) Urine Ascorbic Acid Urine Opiates Screen Urine Methadone Screen Ur Barbiturates Screen Ur Phencyclidine Scrn Ur Amphetamines Screen U Benzodiazepines Scrn Urine Cocaine Screen U Marijuana (THC) Screen Hepatitis A IgM Ab Hep Bs Antigen Hep B Core IgM Ab Hepatitis C Antibody Slides for Path Review 07/24/19 07/24/19 07/25/19 23:06 23:23 03:42 WBC RBC Hgb Hct MCV MCH MCHC RDW Plt Count Lymph % (Auto) [place] % (Auto) Eos % (Auto) Baso % (Auto) Reticulocyte # Absolute Neuts (auto) Absolute Lymphs (auto) Absolute Monos (auto) Absolute Eos (auto) Absolute Basos (auto) Total Counted Seg Neutrophils % Seg Neuts % (Manual) Band Neutrophils % Lymphocytes % (Manual) Monocytes % (Manual) Eosinophils % (Manual) Basophils % (Manual) Abs Neuts (Manual) Abs Lymphs (Manual) Abs Monocytes (Manual) Absolute Eos (Manual) Abs Basophils (Manual) Toxic Granulation Platelet Estimate Platelet Comment Polychromasia Poikilocytosis Anisocytosis Macrocytosis Tear Drop Cells Ovalocytes Schistocytes Retic Count (auto) PT INR APTT Carbonic Acid HCO3/H2CO3 Ratio ABG pH ABG pCO2 ABG pO2 ABG HCO3 ABG Total CO2 ABG O2 Saturation ABG Base Excess FiO2 Sodium 132.2 L Potassium 3.4 L D Chloride 109 H Carbon Dioxide 20 L Anion Gap 3 L BUN 9 Creatinine 0.51 L Est GFR ( Amer) > 60 Est GFR (Non-Af Amer) Est GFR (MDRD) Non-Af > 60 Glucose < 20 L* POC Glucose < 30 L* 210 H Lactic Acid Calcium 7.7 L Ionized Calcium Narciso Phosphorus Magnesium Iron TIBC % Saturation Iron Saturation Transferrin Ferritin Total Bilirubin Direct Bilirubin Neonat Total Bilirubin Neonat Direct Bilirubin Neonat Indirect Bili AST ALT Alkaline Phosphatase Troponin I Total Protein Albumin Prealbumin EGFR Vitamin B12 Vitamin D 25-Hydroxy Folate TSH Random Cortisol Urine Color Urine Appearance Urine pH Ur Specific [place] Urine Protein Urine Glucose (UA) Urine Ketones Urine Blood Urine Nitrite Urine Nitrite (Reflex) Urine Bilirubin Urine Urobilinogen Ur Leukocyte Esterase Leukocyte Esterase Rfl Urine WBC (Auto) Urine RBC (Auto) U Hyaline Cast (Auto) Urine Bacteria (Auto) Urine WBC (Reflex) Squamous Epi Cells Auto Urine Mucus (Auto) Urine Ascorbic Acid Urine Opiates Screen Urine Methadone Screen Ur Barbiturates Screen Ur Phencyclidine Scrn Ur Amphetamines Screen U Benzodiazepines Scrn Urine Cocaine Screen U Marijuana (THC) Screen Hepatitis A IgM Ab Hep Bs Antigen Hep B Core IgM Ab Hepatitis C Antibody Slides for Path Review 07/25/19 07/25/19 07/25/19 03:42 04:31 04:47 WBC 17.9 H RBC 2.58 L Hgb 9.3 L Hct 27.8 L MCV 108 H D MCH 36.1 H MCHC 33.6 RDW 18.4 H Plt Count 304 Lymph % (Auto) 15.6 [place] % (Auto) 8.1 Eos % (Auto) 0.1 Baso % (Auto) 0.2 Reticulocyte # Absolute Neuts (auto) 13.6 H Absolute Lymphs (auto) 2.8 Absolute Monos (auto) 1.4 Absolute Eos (auto) 0.0 Absolute Basos (auto) 0.0 Total Counted Seg Neutrophils % 76.0 Seg Neuts % (Manual) Band Neutrophils % Lymphocytes % (Manual) Monocytes % (Manual) Eosinophils % (Manual) Basophils % (Manual) Abs Neuts (Manual) Abs Lymphs (Manual) Abs Monocytes (Manual) Absolute Eos (Manual) Abs Basophils (Manual) Toxic Granulation Platelet Estimate Platelet Comment Polychromasia Poikilocytosis Anisocytosis Macrocytosis Tear Drop Cells Ovalocytes Schistocytes Retic Count (auto) PT INR APTT Carbonic Acid HCO3/H2CO3 Ratio ABG pH ABG pCO2 ABG pO2 ABG HCO3 ABG Total CO2 ABG O2 Saturation ABG Base Excess FiO2 Sodium Potassium Chloride Carbon Dioxide Anion Gap BUN Creatinine Est GFR ( Amer) Est GFR (Non-Af Amer) Est GFR (MDRD) Non-Af Glucose POC Glucose < 30 L* 101 Lactic Acid Calcium Ionized Calcium Narciso Phosphorus Magnesium Iron TIBC % Saturation Iron Saturation Transferrin Ferritin Total Bilirubin Direct Bilirubin Neonat Total Bilirubin Neonat Direct Bilirubin Neonat Indirect Bili AST ALT Alkaline Phosphatase Troponin I Total Protein Albumin Prealbumin EGFR Vitamin B12 Vitamin D 25-Hydroxy Folate TSH Random Cortisol Urine Color Urine Appearance Urine pH Ur Specific [place] Urine Protein Urine Glucose (UA) Urine Ketones Urine Blood Urine Nitrite Urine Nitrite (Reflex) Urine Bilirubin Urine Urobilinogen Ur Leukocyte Esterase Leukocyte Esterase Rfl Urine WBC (Auto) Urine RBC (Auto) U Hyaline Cast (Auto) Urine Bacteria (Auto) Urine WBC (Reflex) Squamous Epi Cells Auto Urine Mucus (Auto) Urine Ascorbic Acid Urine Opiates Screen Urine Methadone Screen Ur Barbiturates Screen Ur Phencyclidine Scrn Ur Amphetamines Screen U Benzodiazepines Scrn Urine Cocaine Screen U Marijuana (THC) Screen Hepatitis A IgM Ab Hep Bs Antigen Hep B Core IgM Ab Hepatitis C Antibody Slides for Path Review 07/25/19 07/25/19 07/25/19 05:47 06:00 07:22 WBC RBC Hgb Hct MCV MCH MCHC RDW Plt Count Lymph % (Auto) [place] % (Auto) Eos % (Auto) Baso % (Auto) Reticulocyte # Absolute Neuts (auto) Absolute Lymphs (auto) Absolute Monos (auto) Absolute Eos (auto) Absolute Basos (auto) Total Counted Seg Neutrophils % Seg Neuts % (Manual) Band Neutrophils % Lymphocytes % (Manual) Monocytes % (Manual) Eosinophils % (Manual) Basophils % (Manual) Abs Neuts (Manual) Abs Lymphs (Manual) Abs Monocytes (Manual) Absolute Eos (Manual) Abs Basophils (Manual) Toxic Granulation Platelet Estimate Platelet Comment Polychromasia Poikilocytosis Anisocytosis Macrocytosis Tear Drop Cells Ovalocytes Schistocytes Retic Count (auto) PT INR APTT Carbonic Acid HCO3/H2CO3 Ratio ABG pH ABG pCO2 ABG pO2 ABG HCO3 ABG Total CO2 ABG O2 Saturation ABG Base Excess FiO2 Sodium Potassium Chloride Carbon Dioxide Anion Gap BUN Creatinine Est GFR ( Amer) Est GFR (Non-Af Amer) Est GFR (MDRD) Non-Af Glucose POC Glucose 43 L 261 H 62 L Lactic Acid Calcium Ionized Calcium Narciso Phosphorus Magnesium Iron TIBC % Saturation Iron Saturation Transferrin Ferritin Total Bilirubin Direct Bilirubin Neonat Total Bilirubin Neonat Direct Bilirubin Neonat Indirect Bili AST ALT Alkaline Phosphatase Troponin I Total Protein Albumin Prealbumin EGFR Vitamin B12 Vitamin D 25-Hydroxy Folate TSH Random Cortisol Urine Color Urine Appearance Urine pH Ur Specific [place] Urine Protein Urine Glucose (UA) Urine Ketones Urine Blood Urine Nitrite Urine Nitrite (Reflex) Urine Bilirubin Urine Urobilinogen Ur Leukocyte Esterase Leukocyte Esterase Rfl Urine WBC (Auto) Urine RBC (Auto) U Hyaline Cast (Auto) Urine Bacteria (Auto) Urine WBC (Reflex) Squamous Epi Cells Auto Urine Mucus (Auto) Urine Ascorbic Acid Urine Opiates Screen Urine Methadone Screen Ur Barbiturates Screen Ur Phencyclidine Scrn Ur Amphetamines Screen U Benzodiazepines Scrn Urine Cocaine Screen U Marijuana (THC) Screen Hepatitis A IgM Ab Hep Bs Antigen Hep B Core IgM Ab Hepatitis C Antibody Slides for Path Review 07/25/19 07/25/19 07/25/19 07:48 08:40 09:46 WBC RBC Hgb Hct MCV MCH MCHC RDW Plt Count Lymph % (Auto) [place] % (Auto) Eos % (Auto) Baso % (Auto) Reticulocyte # Absolute Neuts (auto) Absolute Lymphs (auto) Absolute Monos (auto) Absolute Eos (auto) Absolute Basos (auto) Total Counted Seg Neutrophils % Seg Neuts % (Manual) Band Neutrophils % Lymphocytes % (Manual) Monocytes % (Manual) Eosinophils % (Manual) Basophils % (Manual) Abs Neuts (Manual) Abs Lymphs (Manual) Abs Monocytes (Manual) Absolute Eos (Manual) Abs Basophils (Manual) Toxic Granulation Platelet Estimate Platelet Comment Polychromasia Poikilocytosis Anisocytosis Macrocytosis Tear Drop Cells Ovalocytes Schistocytes Retic Count (auto) PT INR APTT Carbonic Acid HCO3/H2CO3 Ratio ABG pH ABG pCO2 ABG pO2 ABG HCO3 ABG Total CO2 ABG O2 Saturation ABG Base Excess FiO2 Sodium Potassium Chloride Carbon Dioxide Anion Gap BUN Creatinine Est GFR ( Amer) Est GFR (Non-Af Amer) Est GFR (MDRD) Non-Af Glucose POC Glucose 176 H 84 52 L Lactic Acid Calcium Ionized Calcium Narciso Phosphorus Magnesium Iron TIBC % Saturation Iron Saturation Transferrin Ferritin Total Bilirubin Direct Bilirubin Neonat Total Bilirubin Neonat Direct Bilirubin Neonat Indirect Bili AST ALT Alkaline Phosphatase Troponin I Total Protein Albumin Prealbumin EGFR Vitamin B12 Vitamin D 25-Hydroxy Folate TSH Random Cortisol Urine Color Urine Appearance Urine pH Ur Specific [place] Urine Protein Urine Glucose (UA) Urine Ketones Urine Blood Urine Nitrite Urine Nitrite (Reflex) Urine Bilirubin Urine Urobilinogen Ur Leukocyte Esterase Leukocyte Esterase Rfl Urine WBC (Auto) Urine RBC (Auto) U Hyaline Cast (Auto) Urine Bacteria (Auto) Urine WBC (Reflex) Squamous Epi Cells Auto Urine Mucus (Auto) Urine Ascorbic Acid Urine Opiates Screen Urine Methadone Screen Ur Barbiturates Screen Ur Phencyclidine Scrn Ur Amphetamines Screen U Benzodiazepines Scrn Urine Cocaine Screen U Marijuana (THC) Screen Hepatitis A IgM Ab Hep Bs Antigen Hep B Core IgM Ab Hepatitis C Antibody Slides for Path Review 07/25/19 07/25/19 07/25/19 10:29 11:07 11:39 WBC RBC Hgb Hct MCV MCH MCHC RDW Plt Count Lymph % (Auto) [place] % (Auto) Eos % (Auto) Baso % (Auto) Reticulocyte # Absolute Neuts (auto) Absolute Lymphs (auto) Absolute Monos (auto) Absolute Eos (auto) Absolute Basos (auto) Total Counted Seg Neutrophils % Seg Neuts % (Manual) Band Neutrophils % Lymphocytes % (Manual) Monocytes % (Manual) Eosinophils % (Manual) Basophils % (Manual) Abs Neuts (Manual) Abs Lymphs (Manual) Abs Monocytes (Manual) Absolute Eos (Manual) Abs Basophils (Manual) Toxic Granulation Platelet Estimate Platelet Comment Polychromasia Poikilocytosis Anisocytosis Macrocytosis Tear Drop Cells Ovalocytes Schistocytes Retic Count (auto) PT INR APTT Carbonic Acid HCO3/H2CO3 Ratio ABG pH ABG pCO2 ABG pO2 ABG HCO3 ABG Total CO2 ABG O2 Saturation ABG Base Excess FiO2 Sodium Potassium Chloride Carbon Dioxide Anion Gap BUN Creatinine Est GFR ( Amer) Est GFR (Non-Af Amer) Est GFR (MDRD) Non-Af Glucose POC Glucose 150 H 98 88 Lactic Acid Calcium Ionized Calcium Narciso Phosphorus Magnesium Iron TIBC % Saturation Iron Saturation Transferrin Ferritin Total Bilirubin Direct Bilirubin Neonat Total Bilirubin Neonat Direct Bilirubin Neonat Indirect Bili AST ALT Alkaline Phosphatase Troponin I Total Protein Albumin Prealbumin EGFR Vitamin B12 Vitamin D 25-Hydroxy Folate TSH Random Cortisol Urine Color Urine Appearance Urine pH Ur Specific [place] Urine Protein Urine Glucose (UA) Urine Ketones Urine Blood Urine Nitrite Urine Nitrite (Reflex) Urine Bilirubin Urine Urobilinogen Ur Leukocyte Esterase Leukocyte Esterase Rfl Urine WBC (Auto) Urine RBC (Auto) U Hyaline Cast (Auto) Urine Bacteria (Auto) Urine WBC (Reflex) Squamous Epi Cells Auto Urine Mucus (Auto) Urine Ascorbic Acid Urine Opiates Screen Urine Methadone Screen Ur Barbiturates Screen Ur Phencyclidine Scrn Ur Amphetamines Screen U Benzodiazepines Scrn Urine Cocaine Screen U Marijuana (THC) Screen Hepatitis A IgM Ab Hep Bs Antigen Hep B Core IgM Ab Hepatitis C Antibody Slides for Path Review 07/25/19 07/25/19 07/25/19 13:03 13:29 14:04 WBC RBC Hgb Hct MCV MCH MCHC RDW Plt Count Lymph % (Auto) [place] % (Auto) Eos % (Auto) Baso % (Auto) Reticulocyte # Absolute Neuts (auto) Absolute Lymphs (auto) Absolute Monos (auto) Absolute Eos (auto) Absolute Basos (auto) Total Counted Seg Neutrophils % Seg Neuts % (Manual) Band Neutrophils % Lymphocytes % (Manual) Monocytes % (Manual) Eosinophils % (Manual) Basophils % (Manual) Abs Neuts (Manual) Abs Lymphs (Manual) Abs Monocytes (Manual) Absolute Eos (Manual) Abs Basophils (Manual) Toxic Granulation Platelet Estimate Platelet Comment Polychromasia Poikilocytosis Anisocytosis Macrocytosis Tear Drop Cells Ovalocytes Schistocytes Retic Count (auto) PT INR APTT Carbonic Acid HCO3/H2CO3 Ratio ABG pH ABG pCO2 ABG pO2 ABG HCO3 ABG Total CO2 ABG O2 Saturation ABG Base Excess FiO2 Sodium Potassium Chloride Carbon Dioxide Anion Gap BUN Creatinine Est GFR ( Amer) Est GFR (Non-Af Amer) Est GFR (MDRD) Non-Af Glucose POC Glucose 54 L 140 H 110 Lactic Acid Calcium Ionized Calcium Narciso Phosphorus Magnesium Iron TIBC % Saturation Iron Saturation Transferrin Ferritin Total Bilirubin Direct Bilirubin Neonat Total Bilirubin Neonat Direct Bilirubin Neonat Indirect Bili AST ALT Alkaline Phosphatase Troponin I Total Protein Albumin Prealbumin EGFR Vitamin B12 Vitamin D 25-Hydroxy Folate TSH Random Cortisol Urine Color Urine Appearance Urine pH Ur Specific [place] Urine Protein Urine Glucose (UA) Urine Ketones Urine Blood Urine Nitrite Urine Nitrite (Reflex) Urine Bilirubin Urine Urobilinogen Ur Leukocyte Esterase Leukocyte Esterase Rfl Urine WBC (Auto) Urine RBC (Auto) U Hyaline Cast (Auto) Urine Bacteria (Auto) Urine WBC (Reflex) Squamous Epi Cells Auto Urine Mucus (Auto) Urine Ascorbic Acid Urine Opiates Screen Urine Methadone Screen Ur Barbiturates Screen Ur Phencyclidine Scrn Ur Amphetamines Screen U Benzodiazepines Scrn Urine Cocaine Screen U Marijuana (THC) Screen Hepatitis A IgM Ab Hep Bs Antigen Hep B Core IgM Ab Hepatitis C Antibody Slides for Path Review 07/25/19 07/25/19 07/25/19 15:10 17:10 17:38 WBC RBC Hgb Hct MCV MCH MCHC RDW Plt Count Lymph % (Auto) [place] % (Auto) Eos % (Auto) Baso % (Auto) Reticulocyte # Absolute Neuts (auto) Absolute Lymphs (auto) Absolute Monos (auto) Absolute Eos (auto) Absolute Basos (auto) Total Counted Seg Neutrophils % Seg Neuts % (Manual) Band Neutrophils % Lymphocytes % (Manual) Monocytes % (Manual) Eosinophils % (Manual) Basophils % (Manual) Abs Neuts (Manual) Abs Lymphs (Manual) Abs Monocytes (Manual) Absolute Eos (Manual) Abs Basophils (Manual) Toxic Granulation Platelet Estimate Platelet Comment Polychromasia Poikilocytosis Anisocytosis Macrocytosis Tear Drop Cells Ovalocytes Schistocytes Retic Count (auto) PT INR APTT Carbonic Acid HCO3/H2CO3 Ratio ABG pH ABG pCO2 ABG pO2 ABG HCO3 ABG Total CO2 ABG O2 Saturation ABG Base Excess FiO2 Sodium Potassium Chloride Carbon Dioxide Anion Gap BUN Creatinine Est GFR ( Amer) Est GFR (Non-Af Amer) Est GFR (MDRD) Non-Af Glucose POC Glucose 70 55 L 130 H Lactic Acid Calcium Ionized Calcium Narciso Phosphorus Magnesium Iron TIBC % Saturation Iron Saturation Transferrin Ferritin Total Bilirubin Direct Bilirubin Neonat Total Bilirubin Neonat Direct Bilirubin Neonat Indirect Bili AST ALT Alkaline Phosphatase Troponin I Total Protein Albumin Prealbumin EGFR Vitamin B12 Vitamin D 25-Hydroxy Folate TSH Random Cortisol Urine Color Urine Appearance Urine pH Ur Specific [place] Urine Protein Urine Glucose (UA) Urine Ketones Urine Blood Urine Nitrite Urine Nitrite (Reflex) Urine Bilirubin Urine Urobilinogen Ur Leukocyte Esterase Leukocyte Esterase Rfl Urine WBC (Auto) Urine RBC (Auto) U Hyaline Cast (Auto) Urine Bacteria (Auto) Urine WBC (Reflex) Squamous Epi Cells Auto Urine Mucus (Auto) Urine Ascorbic Acid Urine Opiates Screen Urine Methadone Screen Ur Barbiturates Screen Ur Phencyclidine Scrn Ur Amphetamines Screen U Benzodiazepines Scrn Urine Cocaine Screen U Marijuana (THC) Screen Hepatitis A IgM Ab Hep Bs Antigen Hep B Core IgM Ab Hepatitis C Antibody Slides for Path Review 07/25/19 07/25/19 07/25/19 18:15 19:20 21:54 WBC RBC Hgb Hct MCV MCH MCHC RDW Plt Count Lymph % (Auto) [place] % (Auto) Eos % (Auto) Baso % (Auto) Reticulocyte # Absolute Neuts (auto) Absolute Lymphs (auto) Absolute Monos (auto) Absolute Eos (auto) Absolute Basos (auto) Total Counted Seg Neutrophils % Seg Neuts % (Manual) Band Neutrophils % Lymphocytes % (Manual) Monocytes % (Manual) Eosinophils % (Manual) Basophils % (Manual) Abs Neuts (Manual) Abs Lymphs (Manual) Abs Monocytes (Manual) Absolute Eos (Manual) Abs Basophils (Manual) Toxic Granulation Platelet Estimate Platelet Comment Polychromasia Poikilocytosis Anisocytosis Macrocytosis Tear Drop Cells Ovalocytes Schistocytes Retic Count (auto) PT INR APTT Carbonic Acid HCO3/H2CO3 Ratio ABG pH ABG pCO2 ABG pO2 ABG HCO3 ABG Total CO2 ABG O2 Saturation ABG Base Excess FiO2 Sodium Potassium Chloride Carbon Dioxide Anion Gap BUN Creatinine Est GFR ( Amer) Est GFR (Non-Af Amer) Est GFR (MDRD) Non-Af Glucose POC Glucose 121 H 101 112 H Lactic Acid Calcium Ionized Calcium Narciso Phosphorus Magnesium Iron TIBC % Saturation Iron Saturation Transferrin Ferritin Total Bilirubin Direct Bilirubin Neonat Total Bilirubin Neonat Direct Bilirubin Neonat Indirect Bili AST ALT Alkaline Phosphatase Troponin I Total Protein Albumin Prealbumin EGFR Vitamin B12 Vitamin D 25-Hydroxy Folate TSH Random Cortisol Urine Color Urine Appearance Urine pH Ur Specific [place] Urine Protein Urine Glucose (UA) Urine Ketones Urine Blood Urine Nitrite Urine Nitrite (Reflex) Urine Bilirubin Urine Urobilinogen Ur Leukocyte Esterase Leukocyte Esterase Rfl Urine WBC (Auto) Urine RBC (Auto) U Hyaline Cast (Auto) Urine Bacteria (Auto) Urine WBC (Reflex) Squamous Epi Cells Auto Urine Mucus (Auto) Urine Ascorbic Acid Urine Opiates Screen Urine Methadone Screen Ur Barbiturates Screen Ur Phencyclidine Scrn Ur Amphetamines Screen U Benzodiazepines Scrn Urine Cocaine Screen U Marijuana (THC) Screen Hepatitis A IgM Ab Hep Bs Antigen Hep B Core IgM Ab Hepatitis C Antibody Slides for Path Review 07/26/19 07/26/19 07/26/19 02:52 03:03 03:03 WBC 12.5 H RBC 2.12 L Hgb 7.7 L Hct 23.2 L MCV 109 H MCH 36.1 H MCHC 33.1 RDW 18.0 H Plt Count 198 Lymph % (Auto) 11.4 L Ramsey % (Auto) 7.1 Eos % (Auto) 0.2 Baso % (Auto) 0.2 Reticulocyte # Absolute Neuts (auto) 10.2 H Absolute Lymphs (auto) 1.4 Absolute Monos (auto) 0.9 Absolute Eos (auto) 0.0 Absolute Basos (auto) 0.0 Total Counted Seg Neutrophils % 81.1 H Seg Neuts % (Manual) Band Neutrophils % Lymphocytes % (Manual) Monocytes % (Manual) Eosinophils % (Manual) Basophils % (Manual) Abs Neuts (Manual) Abs Lymphs (Manual) Abs Monocytes (Manual) Absolute Eos (Manual) Abs Basophils (Manual) Toxic Granulation Platelet Estimate Platelet Comment Polychromasia Poikilocytosis Anisocytosis Macrocytosis Tear Drop Cells Ovalocytes Schistocytes Retic Count (auto) PT INR APTT Carbonic Acid HCO3/H2CO3 Ratio ABG pH ABG pCO2 ABG pO2 ABG HCO3 ABG Total CO2 ABG O2 Saturation ABG Base Excess FiO2 Sodium 126.2 L Potassium 2.5 L* Chloride 101 Carbon Dioxide 19 L Anion Gap 6 BUN 4 L Creatinine 0.45 L Est GFR ( Amer) > 60 Est GFR (Non-Af Amer) Est GFR (MDRD) Non-Af > 60 Glucose 150 H POC Glucose 145 H Lactic Acid Calcium 7.9 L Ionized Calcium Narciso Phosphorus Magnesium Iron TIBC % Saturation Iron Saturation Transferrin Ferritin Total Bilirubin Direct Bilirubin Neonat Total Bilirubin Neonat Direct Bilirubin Neonat Indirect Bili AST ALT Alkaline Phosphatase Troponin I Total Protein Albumin Prealbumin EGFR Vitamin B12 Vitamin D 25-Hydroxy Folate TSH Random Cortisol Urine Color Urine Appearance Urine pH Ur Specific [place] Urine Protein Urine Glucose (UA) Urine Ketones Urine Blood Urine Nitrite Urine Nitrite (Reflex) Urine Bilirubin Urine Urobilinogen Ur Leukocyte Esterase Leukocyte Esterase Rfl Urine WBC (Auto) Urine RBC (Auto) U Hyaline Cast (Auto) Urine Bacteria (Auto) Urine WBC (Reflex) Squamous Epi Cells Auto Urine Mucus (Auto) Urine Ascorbic Acid Urine Opiates Screen Urine Methadone Screen Ur Barbiturates Screen Ur Phencyclidine Scrn Ur Amphetamines Screen U Benzodiazepines Scrn Urine Cocaine Screen U Marijuana (THC) Screen Hepatitis A IgM Ab Hep Bs Antigen Hep B Core IgM Ab Hepatitis C Antibody Slides for Path Review 07/26/19 07/26/19 07/26/19 03:03 05:10 09:45 WBC RBC Hgb Hct MCV MCH MCHC RDW Plt Count Lymph % (Auto) [place] % (Auto) Eos % (Auto) Baso % (Auto) Reticulocyte # Absolute Neuts (auto) Absolute Lymphs (auto) Absolute Monos (auto) Absolute Eos (auto) Absolute Basos (auto) Total Counted Seg Neutrophils % Seg Neuts % (Manual) Band Neutrophils % Lymphocytes % (Manual) Monocytes % (Manual) Eosinophils % (Manual) Basophils % (Manual) Abs Neuts (Manual) Abs Lymphs (Manual) Abs Monocytes (Manual) Absolute Eos (Manual) Abs Basophils (Manual) Toxic Granulation Platelet Estimate Platelet Comment Polychromasia Poikilocytosis Anisocytosis Macrocytosis Tear Drop Cells Ovalocytes Schistocytes Retic Count (auto) PT INR APTT Carbonic Acid HCO3/H2CO3 Ratio ABG pH ABG pCO2 ABG pO2 ABG HCO3 ABG Total CO2 ABG O2 Saturation ABG Base Excess FiO2 Sodium 125.1 L Potassium 4.1 D Chloride 102 Carbon Dioxide 17 L Anion Gap 6 BUN 4 L Creatinine 0.43 L Est GFR ( Amer) > 60 Est GFR (Non-Af Amer) Est GFR (MDRD) Non-Af > 60 Glucose 146 H POC Glucose 112 H Lactic Acid Calcium 7.5 L Ionized Calcium Narciso Phosphorus 1.2 L Magnesium 0.9 L* Iron TIBC % Saturation Iron Saturation Transferrin Ferritin Total Bilirubin Direct Bilirubin Neonat Total Bilirubin Neonat Direct Bilirubin Neonat Indirect Bili AST ALT Alkaline Phosphatase Troponin I Total Protein Albumin Prealbumin EGFR Vitamin B12 Vitamin D 25-Hydroxy Folate TSH Random Cortisol Urine Color Urine Appearance Urine pH Ur Specific [place] Urine Protein Urine Glucose (UA) Urine Ketones Urine Blood Urine Nitrite Urine Nitrite (Reflex) Urine Bilirubin Urine Urobilinogen Ur Leukocyte Esterase Leukocyte Esterase Rfl Urine WBC (Auto) Urine RBC (Auto) U Hyaline Cast (Auto) Urine Bacteria (Auto) Urine WBC (Reflex) Squamous Epi Cells Auto Urine Mucus (Auto) Urine Ascorbic Acid Urine Opiates Screen Urine Methadone Screen Ur Barbiturates Screen Ur Phencyclidine Scrn Ur Amphetamines Screen U Benzodiazepines Scrn Urine Cocaine Screen U Marijuana (THC) Screen Hepatitis A IgM Ab Hep Bs Antigen Hep B Core IgM Ab Hepatitis C Antibody Slides for Path Review 07/26/19 07/26/19 07/27/19 11:28 17:09 00:11 WBC RBC Hgb Hct MCV MCH MCHC RDW Plt Count Lymph % (Auto) [place] % (Auto) Eos % (Auto) Baso % (Auto) Reticulocyte # Absolute Neuts (auto) Absolute Lymphs (auto) Absolute Monos (auto) Absolute Eos (auto) Absolute Basos (auto) Total Counted Seg Neutrophils % Seg Neuts % (Manual) Band Neutrophils % Lymphocytes % (Manual) Monocytes % (Manual) Eosinophils % (Manual) Basophils % (Manual) Abs Neuts (Manual) Abs Lymphs (Manual) Abs Monocytes (Manual) Absolute Eos (Manual) Abs Basophils (Manual) Toxic Granulation Platelet Estimate Platelet Comment Polychromasia Poikilocytosis Anisocytosis Macrocytosis Tear Drop Cells Ovalocytes Schistocytes Retic Count (auto) PT INR APTT Carbonic Acid HCO3/H2CO3 Ratio ABG pH ABG pCO2 ABG pO2 ABG HCO3 ABG Total CO2 ABG O2 Saturation ABG Base Excess FiO2 Sodium Potassium Chloride Carbon Dioxide Anion Gap BUN Creatinine Est GFR ( Amer) Est GFR (Non-Af Amer) Est GFR (MDRD) Non-Af Glucose POC Glucose 128 H 136 H 116 H Lactic Acid Calcium Ionized Calcium Narciso Phosphorus Magnesium Iron TIBC % Saturation Iron Saturation Transferrin Ferritin Total Bilirubin Direct Bilirubin Neonat Total Bilirubin Neonat Direct Bilirubin Neonat Indirect Bili AST ALT Alkaline Phosphatase Troponin I Total Protein Albumin Prealbumin EGFR Vitamin B12 Vitamin D 25-Hydroxy Folate TSH Random Cortisol Urine Color Urine Appearance Urine pH Ur Specific [place] Urine Protein Urine Glucose (UA) Urine Ketones Urine Blood Urine Nitrite Urine Nitrite (Reflex) Urine Bilirubin Urine Urobilinogen Ur Leukocyte Esterase Leukocyte Esterase Rfl Urine WBC (Auto) Urine RBC (Auto) U Hyaline Cast (Auto) Urine Bacteria (Auto) Urine WBC (Reflex) Squamous Epi Cells Auto Urine Mucus (Auto) Urine Ascorbic Acid Urine Opiates Screen Urine Methadone Screen Ur Barbiturates Screen Ur Phencyclidine Scrn Ur Amphetamines Screen U Benzodiazepines Scrn Urine Cocaine Screen U Marijuana (THC) Screen Hepatitis A IgM Ab Hep Bs Antigen Hep B Core IgM Ab Hepatitis C Antibody Slides for Path Review 07/27/19 07/27/19 07/27/19 05:05 05:05 05:05 WBC 14.5 H RBC 2.21 L Hgb 7.8 L Hct 23.9 L MCV 108 H MCH 35.2 H MCHC 32.6 RDW 18.4 H Plt Count 210 Lymph % (Auto) 7.8 L [place] % (Auto) 6.6 Eos % (Auto) 0.3 Baso % (Auto) 0.1 Reticulocyte # Absolute Neuts (auto) 12.3 H Absolute Lymphs (auto) 1.1 Absolute Monos (auto) 1.0 Absolute Eos (auto) 0.0 Absolute Basos (auto) 0.0 Total Counted Seg Neutrophils % 85.2 H Seg Neuts % (Manual) Band Neutrophils % Lymphocytes % (Manual) Monocytes % (Manual) Eosinophils % (Manual) Basophils % (Manual) Abs Neuts (Manual) Abs Lymphs (Manual) Abs Monocytes (Manual) Absolute Eos (Manual) Abs Basophils (Manual) Toxic Granulation Platelet Estimate Platelet Comment Polychromasia Poikilocytosis Anisocytosis Macrocytosis Tear Drop Cells Ovalocytes Schistocytes Retic Count (auto) PT INR APTT Carbonic Acid HCO3/H2CO3 Ratio ABG pH ABG pCO2 ABG pO2 ABG HCO3 ABG Total CO2 ABG O2 Saturation ABG Base Excess FiO2 Sodium 128.7 L Potassium 4.0 Chloride 107 Carbon Dioxide 19 L Anion Gap 3 L BUN 5 L Creatinine 0.39 L Est GFR ( Amer) > 60 Est GFR (Non-Af Amer) Est GFR (MDRD) Non-Af > 60 Glucose 120 H POC Glucose Lactic Acid Calcium 7.2 L Ionized Calcium Narciso 1.10 L Phosphorus 1.6 L Magnesium 1.7 Iron TIBC % Saturation Iron Saturation Transferrin Ferritin Total Bilirubin Direct Bilirubin Neonat Total Bilirubin Neonat Direct Bilirubin Neonat Indirect Bili AST ALT Alkaline Phosphatase Troponin I Total Protein Albumin Prealbumin EGFR Vitamin B12 Vitamin D 25-Hydroxy Folate TSH Random Cortisol Urine Color Urine Appearance Urine pH Ur Specific [place] Urine Protein Urine Glucose (UA) Urine Ketones Urine Blood Urine Nitrite Urine Nitrite (Reflex) Urine Bilirubin Urine Urobilinogen Ur Leukocyte Esterase Leukocyte Esterase Rfl Urine WBC (Auto) Urine RBC (Auto) U Hyaline Cast (Auto) Urine Bacteria (Auto) Urine WBC (Reflex) Squamous Epi Cells Auto Urine Mucus (Auto) Urine Ascorbic Acid Urine Opiates Screen Urine Methadone Screen Ur Barbiturates Screen Ur Phencyclidine Scrn Ur Amphetamines Screen U Benzodiazepines Scrn Urine Cocaine Screen U Marijuana (THC) Screen Hepatitis A IgM Ab Hep Bs Antigen Hep B Core IgM Ab Hepatitis C Antibody Slides for Path Review 07/27/19 07/27/19 07/27/19 05:22 09:10 11:51 WBC RBC Hgb Hct MCV MCH MCHC RDW Plt Count Lymph % (Auto) [place] % (Auto) Eos % (Auto) Baso % (Auto) Reticulocyte # Absolute Neuts (auto) Absolute Lymphs (auto) Absolute Monos (auto) Absolute Eos (auto) Absolute Basos (auto) Total Counted Seg Neutrophils % Seg Neuts % (Manual) Band Neutrophils % Lymphocytes % (Manual) Monocytes % (Manual) Eosinophils % (Manual) Basophils % (Manual) Abs Neuts (Manual) Abs Lymphs (Manual) Abs Monocytes (Manual) Absolute Eos (Manual) Abs Basophils (Manual) Toxic Granulation Platelet Estimate Platelet Comment Polychromasia Poikilocytosis Anisocytosis Macrocytosis Tear Drop Cells Ovalocytes Schistocytes Retic Count (auto) PT INR APTT Carbonic Acid 0.99 L HCO3/H2CO3 Ratio 19:1 ABG pH 7.38 ABG pCO2 33.0 L ABG pO2 112.2 H ABG HCO3 19.0 L ABG Total CO2 20.0 L ABG O2 Saturation 98.1 H ABG Base Excess -5.5 FiO2 30% Sodium Potassium Chloride Carbon Dioxide Anion Gap BUN Creatinine Est GFR ( Amer) Est GFR (Non-Af Amer) Est GFR (MDRD) Non-Af Glucose POC Glucose 104 107 Lactic Acid Calcium Ionized Calcium Narciso Phosphorus Magnesium Iron TIBC % Saturation Iron Saturation Transferrin Ferritin Total Bilirubin Direct Bilirubin Neonat Total Bilirubin Neonat Direct Bilirubin Neonat Indirect Bili AST ALT Alkaline Phosphatase Troponin I Total Protein Albumin Prealbumin EGFR Vitamin B12 Vitamin D 25-Hydroxy Folate TSH Random Cortisol Urine Color Urine Appearance Urine pH Ur Specific [place] Urine Protein Urine Glucose (UA) Urine Ketones Urine Blood Urine Nitrite Urine Nitrite (Reflex) Urine Bilirubin Urine Urobilinogen Ur Leukocyte Esterase Leukocyte Esterase Rfl Urine WBC (Auto) Urine RBC (Auto) U Hyaline Cast (Auto) Urine Bacteria (Auto) Urine WBC (Reflex) Squamous Epi Cells Auto Urine Mucus (Auto) Urine Ascorbic Acid Urine Opiates Screen Urine Methadone Screen Ur Barbiturates Screen Ur Phencyclidine Scrn Ur Amphetamines Screen U Benzodiazepines Scrn Urine Cocaine Screen U Marijuana (THC) Screen Hepatitis A IgM Ab Hep Bs Antigen Hep B Core IgM Ab Hepatitis C Antibody Slides for Path Review 07/27/19 07/28/19 07/28/19 18:13 00:55 06:59 WBC RBC Hgb Hct MCV MCH MCHC RDW Plt Count Lymph % (Auto) [place] % (Auto) Eos % (Auto) Baso % (Auto) Reticulocyte # Absolute Neuts (auto) Absolute Lymphs (auto) Absolute Monos (auto) Absolute Eos (auto) Absolute Basos (auto) Total Counted Seg Neutrophils % Seg Neuts % (Manual) Band Neutrophils % Lymphocytes % (Manual) Monocytes % (Manual) Eosinophils % (Manual) Basophils % (Manual) Abs Neuts (Manual) Abs Lymphs (Manual) Abs Monocytes (Manual) Absolute Eos (Manual) Abs Basophils (Manual) Toxic Granulation Platelet Estimate Platelet Comment Polychromasia Poikilocytosis Anisocytosis Macrocytosis Tear Drop Cells Ovalocytes Schistocytes Retic Count (auto) PT INR APTT Carbonic Acid HCO3/H2CO3 Ratio ABG pH ABG pCO2 ABG pO2 ABG HCO3 ABG Total CO2 ABG O2 Saturation ABG Base Excess FiO2 Sodium Potassium Chloride Carbon Dioxide Anion Gap BUN Creatinine Est GFR ( Amer) Est GFR (Non-Af Amer) Est GFR (MDRD) Non-Af Glucose POC Glucose 101 91 87 Lactic Acid Calcium Ionized Calcium Narciso Phosphorus Magnesium Iron TIBC % Saturation Iron Saturation Transferrin Ferritin Total Bilirubin Direct Bilirubin Neonat Total Bilirubin Neonat Direct Bilirubin Neonat Indirect Bili AST ALT Alkaline Phosphatase Troponin I Total Protein Albumin Prealbumin EGFR Vitamin B12 Vitamin D 25-Hydroxy Folate TSH Random Cortisol Urine Color Urine Appearance Urine pH Ur Specific [place] Urine Protein Urine Glucose (UA) Urine Ketones Urine Blood Urine Nitrite Urine Nitrite (Reflex) Urine Bilirubin Urine Urobilinogen Ur Leukocyte Esterase Leukocyte Esterase Rfl Urine WBC (Auto) Urine RBC (Auto) U Hyaline Cast (Auto) Urine Bacteria (Auto) Urine WBC (Reflex) Squamous Epi Cells Auto Urine Mucus (Auto) Urine Ascorbic Acid Urine Opiates Screen Urine Methadone Screen Ur Barbiturates Screen Ur Phencyclidine Scrn Ur Amphetamines Screen U Benzodiazepines Scrn Urine Cocaine Screen U Marijuana (THC) Screen Hepatitis A IgM Ab Hep Bs Antigen Hep B Core IgM Ab Hepatitis C Antibody Slides for Path Review 07/28/19 07/28/19 07/28/19 07:42 07:42 11:45 WBC 9.7 RBC 2.24 L Hgb 8.2 L Hct 24.3 L MCV 109 H MCH 36.6 H MCHC 33.7 RDW 18.2 H Plt Count 202 Lymph % (Auto) 10.7 L [place] % (Auto) 8.9 Eos % (Auto) 0.5 Baso % (Auto) 0.1 Reticulocyte # Absolute Neuts (auto) 7.8 Absolute Lymphs (auto) 1.0 Absolute Monos (auto) 0.9 Absolute Eos (auto) 0.0 Absolute Basos (auto) 0.0 Total Counted Seg Neutrophils % 79.8 H Seg Neuts % (Manual) Band Neutrophils % Lymphocytes % (Manual) Monocytes % (Manual) Eosinophils % (Manual) Basophils % (Manual) Abs Neuts (Manual) Abs Lymphs (Manual) Abs Monocytes (Manual) Absolute Eos (Manual) Abs Basophils (Manual) Toxic Granulation Platelet Estimate Platelet Comment Polychromasia Poikilocytosis Anisocytosis Macrocytosis Tear Drop Cells Ovalocytes Schistocytes Retic Count (auto) PT INR APTT Carbonic Acid HCO3/H2CO3 Ratio ABG pH ABG pCO2 ABG pO2 ABG HCO3 ABG Total CO2 ABG O2 Saturation ABG Base Excess FiO2 Sodium 132.8 L Potassium 3.2 L Chloride 107 Carbon Dioxide 22 Anion Gap 4 L BUN 7 Creatinine 0.38 L Est GFR ( Amer) > 60 Est GFR (Non-Af Amer) Est GFR (MDRD) Non-Af > 60 Glucose 81 POC Glucose 99 Lactic Acid Calcium 7.2 L Ionized Calcium Narciso Phosphorus 2.6 Magnesium 1.6 Iron TIBC % Saturation Iron Saturation Transferrin Ferritin Total Bilirubin Direct Bilirubin Neonat Total Bilirubin Neonat Direct Bilirubin Neonat Indirect Bili AST ALT Alkaline Phosphatase Troponin I Total Protein Albumin Prealbumin EGFR Vitamin B12 Vitamin D 25-Hydroxy Folate TSH Random Cortisol Urine Color Urine Appearance Urine pH Ur Specific [place] Urine Protein Urine Glucose (UA) Urine Ketones Urine Blood Urine Nitrite Urine Nitrite (Reflex) Urine Bilirubin Urine Urobilinogen Ur Leukocyte Esterase Leukocyte Esterase Rfl Urine WBC (Auto) Urine RBC (Auto) U Hyaline Cast (Auto) Urine Bacteria (Auto) Urine WBC (Reflex) Squamous Epi Cells Auto Urine Mucus (Auto) Urine Ascorbic Acid Urine Opiates Screen Urine Methadone Screen Ur Barbiturates Screen Ur Phencyclidine Scrn Ur Amphetamines Screen U Benzodiazepines Scrn Urine Cocaine Screen U Marijuana (THC) Screen Hepatitis A IgM Ab Hep Bs Antigen Hep B Core IgM Ab Hepatitis C Antibody Slides for Path Review 07/28/19 07/28/19 07/29/19 18:11 20:30 00:58 WBC RBC Hgb Hct MCV MCH MCHC RDW Plt Count Lymph % (Auto) [place] % (Auto) Eos % (Auto) Baso % (Auto) Reticulocyte # Absolute Neuts (auto) Absolute Lymphs (auto) Absolute Monos (auto) Absolute Eos (auto) Absolute Basos (auto) Total Counted Seg Neutrophils % Seg Neuts % (Manual) Band Neutrophils % Lymphocytes % (Manual) Monocytes % (Manual) Eosinophils % (Manual) Basophils % (Manual) Abs Neuts (Manual) Abs Lymphs (Manual) Abs Monocytes (Manual) Absolute Eos (Manual) Abs Basophils (Manual) Toxic Granulation Platelet Estimate Platelet Comment Polychromasia Poikilocytosis Anisocytosis Macrocytosis Tear Drop Cells Ovalocytes Schistocytes Retic Count (auto) PT INR APTT Carbonic Acid HCO3/H2CO3 Ratio ABG pH ABG pCO2 ABG pO2 ABG HCO3 ABG Total CO2 ABG O2 Saturation ABG Base Excess FiO2 Sodium 133.5 L Potassium 3.3 L Chloride 106 Carbon Dioxide 25 Anion Gap 3 L BUN 6 L Creatinine 0.40 L Est GFR ( Amer) > 60 Est GFR (Non-Af Amer) Est GFR (MDRD) Non-Af > 60 Glucose 81 POC Glucose 84 79 Lactic Acid Calcium 7.6 L Ionized Calcium Narciso Phosphorus 2.2 L Magnesium Iron TIBC % Saturation Iron Saturation Transferrin Ferritin Total Bilirubin Direct Bilirubin Neonat Total Bilirubin Neonat Direct Bilirubin Neonat Indirect Bili AST ALT Alkaline Phosphatase Troponin I Total Protein Albumin 2.3 L Prealbumin EGFR Vitamin B12 Vitamin D 25-Hydroxy Folate TSH Random Cortisol Urine Color Urine Appearance Urine pH Ur Specific [place] Urine Protein Urine Glucose (UA) Urine Ketones Urine Blood Urine Nitrite Urine Nitrite (Reflex) Urine Bilirubin Urine Urobilinogen Ur Leukocyte Esterase Leukocyte Esterase Rfl Urine WBC (Auto) Urine RBC (Auto) U Hyaline Cast (Auto) Urine Bacteria (Auto) Urine WBC (Reflex) Squamous Epi Cells Auto Urine Mucus (Auto) Urine Ascorbic Acid Urine Opiates Screen Urine Methadone Screen Ur Barbiturates Screen Ur Phencyclidine Scrn Ur Amphetamines Screen U Benzodiazepines Scrn Urine Cocaine Screen U Marijuana (THC) Screen Hepatitis A IgM Ab Hep Bs Antigen Hep B Core IgM Ab Hepatitis C Antibody Slides for Path Review 07/29/19 07/29/19 07/29/19 06:07 07:35 07:35 WBC 9.9 RBC 2.39 L Hgb 8.8 L Hct 26.1 L MCV 109 H MCH 36.7 H MCHC 33.7 RDW 18.9 H Plt Count 296 Lymph % (Auto) 13.0 [place] % (Auto) 10.1 Eos % (Auto) 0.4 Baso % (Auto) 0.2 Reticulocyte # Absolute Neuts (auto) 7.6 Absolute Lymphs (auto) 1.3 Absolute Monos (auto) 1.0 Absolute Eos (auto) 0.0 Absolute Basos (auto) 0.0 Total Counted Seg Neutrophils % 76.3 Seg Neuts % (Manual) Band Neutrophils % Lymphocytes % (Manual) Monocytes % (Manual) Eosinophils % (Manual) Basophils % (Manual) Abs Neuts (Manual) Abs Lymphs (Manual) Abs Monocytes (Manual) Absolute Eos (Manual) Abs Basophils (Manual) Toxic Granulation Platelet Estimate Platelet Comment Polychromasia Poikilocytosis Anisocytosis Macrocytosis Tear Drop Cells Ovalocytes Schistocytes Retic Count (auto) PT INR APTT Carbonic Acid HCO3/H2CO3 Ratio ABG pH ABG pCO2 ABG pO2 ABG HCO3 ABG Total CO2 ABG O2 Saturation ABG Base Excess FiO2 Sodium 135.1 L Potassium 3.4 L Chloride 106 Carbon Dioxide 27 Anion Gap 2 L BUN 5 L Creatinine 0.41 L Est GFR ( Amer) > 60 Est GFR (Non-Af Amer) Est GFR (MDRD) Non-Af > 60 Glucose 83 POC Glucose 82 Lactic Acid Calcium 8.1 L Ionized Calcium Narciso Phosphorus 2.0 L Magnesium 1.6 Iron TIBC % Saturation Iron Saturation Transferrin Ferritin Total Bilirubin Direct Bilirubin Neonat Total Bilirubin Neonat Direct Bilirubin Neonat Indirect Bili AST ALT Alkaline Phosphatase Troponin I Total Protein Albumin 2.5 L Prealbumin EGFR Vitamin B12 Vitamin D 25-Hydroxy Folate TSH Random Cortisol Urine Color Urine Appearance Urine pH Ur Specific [place] Urine Protein Urine Glucose (UA) Urine Ketones Urine Blood Urine Nitrite Urine Nitrite (Reflex) Urine Bilirubin Urine Urobilinogen Ur Leukocyte Esterase Leukocyte Esterase Rfl Urine WBC (Auto) Urine RBC (Auto) U Hyaline Cast (Auto) Urine Bacteria (Auto) Urine WBC (Reflex) Squamous Epi Cells Auto Urine Mucus (Auto) Urine Ascorbic Acid Urine Opiates Screen Urine Methadone Screen Ur Barbiturates Screen Ur Phencyclidine Scrn Ur Amphetamines Screen U Benzodiazepines Scrn Urine Cocaine Screen U Marijuana (THC) Screen Hepatitis A IgM Ab Hep Bs Antigen Hep B Core IgM Ab Hepatitis C Antibody Slides for Path Review 07/29/19 07/29/19 07/29/19 11:16 16:35 16:40 WBC RBC Hgb Hct MCV MCH MCHC RDW Plt Count Lymph % (Auto) Ramsey % (Auto) Eos % (Auto) Baso % (Auto) Reticulocyte # Absolute Neuts (auto) Absolute Lymphs (auto) Absolute Monos (auto) Absolute Eos (auto) Absolute Basos (auto) Total Counted Seg Neutrophils % Seg Neuts % (Manual) Band Neutrophils % Lymphocytes % (Manual) Monocytes % (Manual) Eosinophils % (Manual) Basophils % (Manual) Abs Neuts (Manual) Abs Lymphs (Manual) Abs Monocytes (Manual) Absolute Eos (Manual) Abs Basophils (Manual) Toxic Granulation Platelet Estimate Platelet Comment Polychromasia Poikilocytosis Anisocytosis Macrocytosis Tear Drop Cells Ovalocytes Schistocytes Retic Count (auto) PT INR APTT Carbonic Acid 1.26 HCO3/H2CO3 Ratio 18:1 ABG pH 7.36 ABG pCO2 41.9 ABG pO2 55.5 L ABG HCO3 23.3 ABG Total CO2 24.6 ABG O2 Saturation 87.9 L ABG Base Excess -2.0 FiO2 72% Sodium Potassium Chloride Carbon Dioxide Anion Gap BUN Creatinine Est GFR ( Amer) Est GFR (Non-Af Amer) Est GFR (MDRD) Non-Af Glucose POC Glucose 89 Lactic Acid Calcium Ionized Calcium Narciso Phosphorus Magnesium Iron TIBC % Saturation Iron Saturation Transferrin Ferritin Total Bilirubin Direct Bilirubin Neonat Total Bilirubin Neonat Direct Bilirubin Neonat Indirect Bili AST ALT Alkaline Phosphatase Troponin I Total Protein Albumin Prealbumin EGFR Vitamin B12 Vitamin D 25-Hydroxy Folate TSH Random Cortisol Urine Color YELLOW Urine Appearance SLIGHTLY-CLOUDY Urine pH 5.0 Ur Specific [place] 1.017 Urine Protein NEGATIVE Urine Glucose (UA) NEGATIVE Urine Ketones NEGATIVE Urine Blood NEGATIVE Urine Nitrite NEGATIVE Urine Nitrite (Reflex) Urine Bilirubin NEGATIVE Urine Urobilinogen 2.0 H Ur Leukocyte Esterase MODERATE H Leukocyte Esterase Rfl Urine WBC (Auto) 9 Urine RBC (Auto) 6 U Hyaline Cast (Auto) Urine Bacteria (Auto) TRACE Urine WBC (Reflex) Squamous Epi Cells Auto 9 Urine Mucus (Auto) OCC Urine Ascorbic Acid 40 H Urine Opiates Screen Urine Methadone Screen Ur Barbiturates Screen Ur Phencyclidine Scrn Ur Amphetamines Screen U Benzodiazepines Scrn Urine Cocaine Screen U Marijuana (THC) Screen Hepatitis A IgM Ab Hep Bs Antigen Hep B Core IgM Ab Hepatitis C Antibody Slides for Path Review 07/29/19 17:01 WBC RBC Hgb Hct MCV MCH MCHC RDW Plt Count Lymph % (Auto) Ramsey % (Auto) Eos % (Auto) Baso % (Auto) Reticulocyte # Absolute Neuts (auto) Absolute Lymphs (auto) Absolute Monos (auto) Absolute Eos (auto) Absolute Basos (auto) Total Counted Seg Neutrophils % Seg Neuts % (Manual) Band Neutrophils % Lymphocytes % (Manual) Monocytes % (Manual) Eosinophils % (Manual) Basophils % (Manual) Abs Neuts (Manual) Abs Lymphs (Manual) Abs Monocytes (Manual) Absolute Eos (Manual) Abs Basophils (Manual) Toxic Granulation Platelet Estimate Platelet Comment Polychromasia Poikilocytosis Anisocytosis Macrocytosis Tear Drop Cells Ovalocytes Schistocytes Retic Count (auto) PT INR APTT Carbonic Acid HCO3/H2CO3 Ratio ABG pH ABG pCO2 ABG pO2 ABG HCO3 ABG Total CO2 ABG O2 Saturation ABG Base Excess FiO2 Sodium Potassium Chloride Carbon Dioxide Anion Gap BUN Creatinine Est GFR ( Amer) Est GFR (Non-Af Amer) Est GFR (MDRD) Non-Af Glucose POC Glucose 95 Lactic Acid Calcium Ionized Calcium Narciso Phosphorus Magnesium Iron TIBC % Saturation Iron Saturation Transferrin Ferritin Total Bilirubin Direct Bilirubin Neonat Total Bilirubin Neonat Direct Bilirubin Neonat Indirect Bili AST ALT Alkaline Phosphatase Troponin I Total Protein Albumin Prealbumin EGFR Vitamin B12 Vitamin D 25-Hydroxy Folate TSH Random Cortisol Urine Color Urine Appearance Urine pH Ur Specific [place] Urine Protein Urine Glucose (UA) Urine Ketones Urine Blood Urine Nitrite Urine Nitrite (Reflex) Urine Bilirubin Urine Urobilinogen Ur Leukocyte Esterase Leukocyte Esterase Rfl Urine WBC (Auto) Urine RBC (Auto) U Hyaline Cast (Auto) Urine Bacteria (Auto) Urine WBC (Reflex) Squamous Epi Cells Auto Urine Mucus (Auto) Urine Ascorbic Acid Urine Opiates Screen Urine Methadone Screen Ur Barbiturates Screen Ur Phencyclidine Scrn Ur Amphetamines Screen U Benzodiazepines Scrn Urine Cocaine Screen U Marijuana (THC) Screen Hepatitis A IgM Ab Hep Bs Antigen Hep B Core IgM Ab Hepatitis C Antibody Slides for Path Review Pelvis CT 07/21/19 17:07 IMPRESSION: Postsurgical changes of total right hip arthroplasty. Mildly comminuted right greater trochanteric fracture with mild anterior displacement. No hardware fracture or dislocation. Dilated distal appendix measuring 9 mm in caliber. Elongated gallbladder containing numerous gallstones. Mild right paracolic gutter and moderate right hemipelvis free fluid. As this is a limited noncontrast exam, clinically correlate for acute cholecystitis or appendicitis. Chest X-Ray 07/21/19 21:37 IMPRESSION: No evidence of active intrathoracic disease. Hip/Pelvis X-Ray 07/21/19 23:20 IMPRESSION: Fracture of the femur adjacent to the femoral component of the right hip hemiarthroplasty. Abdomen Ultrasound 07/22/19 00:00 IMPRESSION: 1. Cholelithiasis. 2. Otherwise essentially unremarkable. Chest X-Ray 07/23/19 00:00 IMPRESSION: Endotracheal and enteric tubes are in place. Severe underlying emphysema. Equivocal right upper lobe airspace opacity copyright 2010 [employer]- All Rights Reserved Abdomen/Pelvis CT 07/24/19 00:00 IMPRESSION: 1. No evidence of dissection or aneurysm involving the thoracic or abdominal aorta. The visceral arteries are patent. 2. No pulmonary embolism. 3. Diffuse wall thickening of the small bowel with mucosal enhancement. Findings compatible with shock bowel related to prolonged hypotension. No large vessel arterial occlusion. 4. Moderate left and small right pleural effusion. 5. Bibasilar opacities. This likely represents a component of compressive atelectasis however superimposed aspiration could contribute to this appearance. Continued follow-up recommended. 6. Moderate amount of ascites. 7. Coronary artery atherosclerosis. 8. Centrilobular emphysematous change. Likely chronic bronchitis. 9. 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 Correlation for history of claudication recommended. 10. Nondisplaced fractures of the right fourth through sixth anterior ribs and left third through sixth anterior ribs. This exam was performed according to our departmental dose-optimization program, which includes automated exposure control, adjustment of the mA and/or kV according to patient size and/or use of iterative reconstruction technique. Chest/Abdomen CTA 07/24/19 00:00 IMPRESSION: 1. No evidence of dissection or aneurysm involving the thoracic or abdominal aorta. The visceral arteries are patent. 2. No pulmonary embolism. 3. Diffuse wall thickening of the small bowel with mucosal enhancement. Findings compatible with shock bowel related to prolonged hypotension. No large vessel arterial occlusion. 4. Moderate left and small right pleural effusion. 5. Bibasilar opacities. This likely represents a component of compressive atelectasis however superimposed aspiration could contribute to this appearance. Continued follow-up recommended. 6. Moderate amount of ascites. 7. Coronary artery atherosclerosis. 8. Centrilobular emphysematous change. Likely chronic bronchitis. 9. 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 Correlation for history of claudication recommended. 10. Nondisplaced fractures of the right fourth through sixth anterior ribs and left third through sixth anterior ribs. This exam was performed according to our departmental dose-optimization program, which includes automated exposure control, adjustment of the mA and/or kV according to patient size and/or use of iterative reconstruction technique. Head CTA 07/24/19 00:00 IMPRESSION: 1. No acute intracranial abnormality by CT criteria. 2. No acute abnormality identified in the intracranial arterial circulation. 3. No evidence of stenosis/occlusion involving the cervical carotid or vertebral arteries. This exam was performed according to our departmental dose-optimization program, which includes automated exposure control, adjustment of the mA and/or kV according to patient size and/or use of iterative reconstruction technique. Neck CTA 07/24/19 01:40 IMPRESSION: 1. No acute intracranial abnormality by CT criteria. 2. No acute abnormality identified in the intracranial arterial circulation. 3. No evidence of stenosis/occlusion involving the cervical carotid or vertebral arteries. This exam was performed according to our departmental dose-optimization program, which includes automated exposure control, adjustment of the mA and/or kV according to patient size and/or use of iterative reconstruction technique. IMPRESSION/RECOMMENDATION: 1. Acute on chronic respiratory failure. The patient still continues to be not back to her usual baseline. Continue current therapy. 2. There is no evidence of atrial fibrillation. Hence would discontinue the patient's amiodarone. Note that the patient's not getting it at present. 3. Multifocal atrial tachycardia: At present heart rate is not very fast. Hence we will observe. The patient need may need medial drain to keep her blood pressure up so that we can treat her with IV or p.o. Cardizem, or p.o. verapamil. Chest X-Ray 07/25/19 00:00 IMPRESSION: 1. Stable appearance of the chest. Chest X-Ray 07/27/19 00:00 IMPRESSION: 1. LOW LYING ENDOTRACHEAL TUBE. RECOMMEND WITHDRAWAL BY 4 - 5 CM. 2. COPD. SMALL PLEURAL EFFUSIONS. NO SIGNIFICANT CHANGE. KUB X-Ray 07/27/19 00:00 IMPRESSION: TIP OF THE NASOGASTRIC TUBE IN THE STOMACH. NO RADIOGRAPHIC EVIDENCE FOR ACUTE ABDOMINAL DISEASE. Chest X-Ray 07/29/19 00:00 IMPRESSION: New prominent right basilar consolidation - pleural effusion. New Left basilar subsegmental atelectasis and increased effusion. Her 07/24/2019 echocardiogram shows normal left and ejection fraction. With hypokinesis of the IV septum. Dilated right ventricle and right atrium but with no significant pulmonary hypertension. Please see report. Later would recommend repeating the patient's echo to see if indeed the patient does have significant pulmonary hypertension. Impression/RECOMMENDATION: 1. Acute on chronic respiratory failure. The patient continues to be in respiratory distress requiring nasal BiPAP. She is not back to her baseline. 2. Status post respiratory arrest leading to cardiac arrest. Later once her COPD is under control then would recommend IV Lexiscan Cardiolite stress test to be sure the patient does not have any severe underlying coronary artery disease. 3. No evidence of atrial fibrillation. Hence patient does not require amiodarone. Amiodarone is very high risk medication for this patient. This is due to potential side effects. 4. Multifocal atrial tachycardia: Note that the patient's heart rate is not very fast. If the patient should develop increased heart rate then would recommend IV or p.o. Cardizem or p.o. verapamil, with Midodrine being on board ,to help the patient's blood pressure. 5.COPD: Cntinue treatments. 7. Right basilar pneumonia: Continue antibiotics. 6. Right hip fracture in a patient with prior right hip arthroplasty. 8. Tobacco abuse disorder.: Tobacco cessation counseling given. 3 minutes spent on this. 9. Malnutrition consider enteral hyperalimentation. Medications reviewed. Medical regimen and management plan discussed with Dr. Amanda. Medical decision making is of high complexity. 60 minutes spent on the patient more than 50% of time spent in direct patient care. Will follow.
[2019-07-30] MEDS ORDERED: DIAZEPAM INJ 10 MG/2 ML DISP.SYRIN IV PRN (00:43)
[2019-07-30] MEDS: DEXTROSE 5%-LACTATED RINGERS 1,000 ML IV PRN ×2 (01:48→16:22)
[2019-07-30] MEDS: IPRATROPIUM BROMIDE 0.02% NEB 0.5 MG/2.5 ML AMPUL NEB SCH ×4 (02:24→20:14)
[2019-07-30] MEDS: LEVALBUTEROL HCL NEB 1.25 MG/3 ML AMPUL NEB SCH ×4 (02:25→20:15)
[2019-07-30 06:17] LABS: HEMATOCRIT 22.7 % (36.0-47.0); MEAN CORPUSCULAR HEMOGLOBIN 36.3 pg (27.0-33.4); MEAN CORPUSCULAR HGB CONC 33.1 g/dL (32.0-36.0); MEAN CORPUSCULAR VOLUME 110 fl (80-97); PLATELET COUNT 281 10^3/uL (150-450); RED BLOOD COUNT 2.07 10^6/uL (3.72-5.28); RED CELL DISTRIBUTION WIDTH 18.8 % (11.5-14.0); WHITE BLOOD COUNT 7.2 10^3/uL (4.0-10.5)
[2019-07-30 06:19] LABS: HEMOGLOBIN 7.5 g/dL (12.0-15.5)
[2019-07-30 06:46] LABS: BLOOD UREA NITROGEN 4 mg/dL (7-20); CALCIUM 7.7 mg/dL (8.4-10.2); GLUCOSE 196 mg/dL (75-110); POTASSIUM 3.9 mmol/L (3.6-5.0)
[2019-07-30 06:52] LABS: CARBON DIOXIDE 24 mmol/L (22-30); CHLORIDE 107 mmol/L (98-107)
[2019-07-30 07:05] LABS: ANION GAP 4 (5-19)
[2019-07-30] MEDS: BUDESONIDE NEB 0.5 MG/2 ML AMPUL NEB SCH ×2 (09:00→20:15)
[2019-07-30] MEDS: MIDODRINE HCL 5 MG TABLET PO SCH ×3 (10:49→17:42)
[2019-07-30] MEDS: ENOXAPARIN SODIUM INJ 60 MG/0.6 ML DISP.SYRIN SUBCUT SCH ×2 (10:50→22:14)
[2019-07-30] MEDS: THIAMINE HCL 100 MG, FOLIC ACID 1 MG in NORMAL SALINE 250 ML IV SCH ×2 (10:50→13:51)
--- NOTE | 2019-07-30 11:29 | RADIOLOGY REPORT (SQ) ---
EXAM DESCRIPTION: CHEST SINGLE VIEW IMAGES COMPLETED DATE/TIME: 07/30/2019 10:20 am REASON FOR STUDY: atalectasis COMPARISON: 07/29/2019 EXAM PARAMETERS: NUMBER OF VIEWS: One view. TECHNIQUE: Single frontal radiographic view of the chest acquired. RADIATION DOSE: NA LIMITATIONS: None. FINDINGS: LUNGS AND PLEURA: Persistent decreasing bilateral pleural effusions, particularly on the left. Bibasilar atelectatic changes also decreasing. No pneumothorax. MEDIASTINUM AND HILAR STRUCTURES: No masses. Contour normal. HEART AND VASCULAR STRUCTURES: Heart normal in size. Normal vasculature. BONES: No acute findings. HARDWARE: None in the chest. OTHER: No other significant finding. IMPRESSION: 1. Since the previous examination dated 07/29/2019, decreasing bilateral pleural effusio ns, particularly on the left, and bibasilar compressive atelectasis. TECHNICAL DOCUMENTATION: JOB ID: [id number] [employer]- All Rights Reserved Reading location - IP/workstation name: [email or web address]
[2019-07-30] MEDS ORDERED: NORMAL SALINE 250 ML IV PRN ×2 (13:04)
--- NOTE | 2019-07-30 13:07 | PDOC PROGRESS REPORT ---
Subjective Progress Note for:: 07/30/19 Subjective:: Still weeping fluid. Still on high flow nasal cannula. Still very weak. Now with hemoglobin less than 8.0 and despite IV albumin her albumin is down to 2.0. Reason For Visit: FALL HIP FTRACTURE ETOH DEP Physical Exam Vital Signs: Temp Pulse Resp BP Pulse Ox 98.4 F 102 H 18 130/93 H 90 L 07/30/19 08:07 07/30/19 09:00 07/30/19 12:16 07/30/19 08:07 07/30/19 12:16 Intake & Output 07/29/19 07/30/19 07/31/19 06:59 06:59 06:59 Intake Total 500 2299.2 1004 Output Total 500 360 Balance 0 1939.2 1004 Weight 47.9 kg 52.7 kg 52.7 kg General appearance: PRESENT: mild distress, thin - Very frail appearing Head exam: PRESENT: other - Temporal wasting Eye exam: PRESENT: conjunctiva pale Ear exam: PRESENT: normal external ear exam. ABSENT: bleeding, drainage Respiratory exam: PRESENT: clear to auscultation lovely - Anteriorly, decreased breath sounds - Bases, tachypnea. ABSENT: rhonchi, wheezes Cardiovascular exam: PRESENT: RRR, +S1, +S2 GI/Abdominal exam: PRESENT: diminished bowel sounds, soft. ABSENT: distended, guarding, tenderness Rectal exam: PRESENT: deferred Musculoskeletal exam: PRESENT: other - Decreased muscle mass Neurological exam: PRESENT: alert, awake, oriented to person, oriented to place, oriented to situation. ABSENT: altered Psychiatric exam: PRESENT: flat affect. ABSENT: agitated, anxious Focused psych exam: ABSENT: delusional, paranoid, restlessness Skin exam: PRESENT: pallor Results Laboratory Results: 07/30/19 05:34 07/30/19 05:34 07/29/19 07/29/19 07/30/19 16:35 16:40 05:34 WBC 7.2 RBC 2.07 L Hgb 7.5 L Hct 22.7 L MCV 110 H MCH 36.3 H MCHC 33.1 RDW 18.8 H Plt Count 281 Carbonic Acid 1.26 HCO3/H2CO3 Ratio 18:1 ABG pH 7.36 ABG pCO2 41.9 ABG pO2 55.5 L ABG HCO3 23.3 ABG O2 Saturation 87.9 L ABG Base Excess -2.0 FiO2 72% Sodium Potassium Chloride Carbon Dioxide Anion Gap BUN Creatinine Est GFR ( Amer) Glucose Calcium Magnesium Albumin Urine Color YELLOW Urine Appearance SLIGHTLY-CLOUDY Urine pH 5.0 Ur Specific [place] 1.017 Urine Protein NEGATIVE Urine Glucose (UA) NEGATIVE Urine Ketones NEGATIVE Urine Blood NEGATIVE Urine Nitrite NEGATIVE Ur Leukocyte Esterase MODERATE H Urine WBC (Auto) 9 Urine RBC (Auto) 6 07/30/19 07/30/19 05:34 05:34 WBC RBC Hgb Hct MCV MCH MCHC RDW Plt Count Carbonic Acid HCO3/H2CO3 Ratio ABG pH ABG pCO2 ABG pO2 ABG HCO3 ABG O2 Saturation ABG Base Excess FiO2 Sodium 135.3 L Potassium 3.9 Chloride 107 Carbon Dioxide 24 Anion Gap 4 L BUN 4 L Creatinine 0.39 L Est GFR ( Amer) > 60 Glucose 196 H Calcium 7.7 L Magnesium 1.8 Albumin 2.0 L Urine Color Urine Appearance Urine pH Ur Specific [place] Urine Protein Urine Glucose (UA) Urine Ketones Urine Blood Urine Nitrite Ur Leukocyte Esterase Urine WBC (Auto) Urine RBC (Auto) 07/24/19 15:06 Troponin I 0.014 Impressions: Pelvis CT 07/21/19 17:07 IMPRESSION: Postsurgical changes of total right hip arthroplasty. Mildly comminuted right greater trochanteric fracture with mild anterior displacement. No hardware fracture or dislocation. Dilated distal appendix measuring 9 mm in caliber. Elongated gallbladder containing numerous gallstones. Mild right paracolic gutter and moderate right hemipelvis free fluid. As this is a limited noncontrast exam, clinically correlate for acute cholecystitis or appendicitis. Hip/Pelvis X-Ray 07/21/19 23:20 IMPRESSION: Fracture of the femur adjacent to the femoral component of the right hip hemiarthroplasty. Abdomen Ultrasound 07/22/19 00:00 IMPRESSION: 1. Cholelithiasis. 2. Otherwise essentially unremarkable. Abdomen/Pelvis CT 07/24/19 00:00 IMPRESSION: 1. No evidence of dissection or aneurysm involving the thoracic or abdominal aorta. The visceral arteries are patent. 2. No pulmonary embolism. 3. Diffuse wall thickening of the small bowel with mucosal enhancement. Findings compatible with shock bowel related to prolonged hypotension. No large vessel arterial occlusion. 4. Moderate left and small right pleural effusion. 5. Bibasilar opacities. This likely represents a component of compressive atelectasis however superimposed aspiration could contribute to this appearance. Continued follow-up recommended. 6. Moderate amount of ascites. 7. Coronary artery atherosclerosis. 8. Centrilobular emphysematous change. Likely chronic bronchitis. 9. 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 Correlation for history of claudication recommended. 10. Nondisplaced fractures of the right fourth through sixth anterior ribs and left third through sixth anterior ribs. This exam was performed according to our departmental dose-optimization program, which includes automated exposure control, adjustment of the mA and/or kV according to patient size and/or use of iterative reconstruction technique. Chest/Abdomen CTA 07/24/19 00:00 IMPRESSION: 1. No evidence of dissection or aneurysm involving the thoracic or abdominal aorta. The visceral arteries are patent. 2. No pulmonary embolism. 3. Diffuse wall thickening of the small bowel with mucosal enhancement. Findings compatible with shock bowel related to prolonged hypotension. No large vessel arterial occlusion. 4. Moderate left and small right pleural effusion. 5. Bibasilar opacities. This likely represents a component of compressive atelectasis however superimposed aspiration could contribute to this appearance. Continued follow-up recommended. 6. Moderate amount of ascites. 7. Coronary artery atherosclerosis. 8. Centrilobular emphysematous change. Likely chronic bronchitis. 9. 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 Correlation for history of claudication recommended. 10. Nondisplaced fractures of the right fourth through sixth anterior ribs and left third through sixth anterior ribs. This exam was performed according to our departmental dose-optimization program, which includes automated exposure control, adjustment of the mA and/or kV according to patient size and/or use of iterative reconstruction technique. Head CTA 07/24/19 00:00 IMPRESSION: 1. No acute intracranial abnormality by CT criteria. 2. No acute abnormality identified in the intracranial arterial circulation. 3. No evidence of stenosis/occlusion involving the cervical carotid or vertebral arteries. This exam was performed according to our departmental dose-optimization program, which includes automated exposure control, adjustment of the mA and/or kV according to patient size and/or use of iterative reconstruction technique. Neck CTA 07/24/19 01:40 IMPRESSION: 1. No acute intracranial abnormality by CT criteria. 2. No acute abnormality identified in the intracranial arterial circulation. 3. No evidence of stenosis/occlusion involving the cervical carotid or vertebral arteries. This exam was performed according to our departmental dose-optimization program, which includes automated exposure control, adjustment of the mA and/or kV according to patient size and/or use of iterative reconstruction technique. KUB X-Ray 07/27/19 00:00 IMPRESSION: TIP OF THE NASOGASTRIC TUBE IN THE STOMACH. NO RADIOGRAPHIC EVIDENCE FOR ACUTE ABDOMINAL DISEASE. Chest X-Ray 07/30/19 06:00 IMPRESSION: 1. Since the previous examination dated 07/29/2019, decreasing bilateral pleural effusions, particularly on the left, and bibasilar compressive atelectasis. Assessment and Plan - Diagnosis (1) Acute respiratory failure with hypoxia and hypercapnia Is this a current diagnosis for this admission?: Yes Plan: 07/28/2019 Currently high flow nasal cannula. We will try and wean from oxygen while keeping her saturation 88 to 92%. As needed nebulizers have been ordered. 07/29/2019 Continue high flow nasal cannula 07/29/2019 critical care visit A chest x-ray was obtained urgently. There is atelectasis versus consolidation at the right base. Small pleural effusion on the left. An ABG was drawn. On high flow nasal cannula FiO2 70% pH was 7.36, PCO2 41.9, PO2 55.5, bicarb 23.3, saturation 88%. Atelectasis versus possible aspiration pneumonia being considered. For atelectasis we will institute trials of CPAP. Consider chest percussion therapy as well. I have added back scheduled nebulizers of Xopenex, ipratropium every 6 hours, budesonide every 12 hours and as needed combination therapy. 07/30/2019 She is stable today but still on high flow nasal cannula. We will continue nebulizer treatments. I have added Decadron as she lists prednisone as an allergy. (2) Multifocal atrial tachycardia Is this a current diagnosis for this admission?: Yes Plan: 07/29/2019 The patient has metoprolol as needed. Unfortunately she is n.p.o. at this time. Verapamil is also very useful for multifocal atrial tachycardia. Hopefully with aggressive treatment of her underlying respiratory status her rate will settle. 07/30/2019 Heart rate still around 100. Blood pressure still tending to be low. Have instituted a trial midodrine. Would like to avoid IV pressors if possible. (3) Hypocalcemia Is this a current diagnosis for this admission?: Yes Plan: 07/28/2019 We will recheck albumin. Will monitor calcium. Supplement accordingly. 07/29/2019 Calcium is 8.1 but corrects considering albumin. Continue to monitor. 07/29/2019 critical care visit Calcium is normal as above. Will monitor closely for calcium, magnesium and potassium levels. 07/30/2019 Monitor closely including albumin, magnesium and potassium (4) Hypokalemia Is this a current diagnosis for this admission?: Yes Plan: 07/28/2019 Monitor serum potassium. Supplement to keep serum potassium in the normal range. 07/29/2019 Potassium is just below the lower limit normal. Because she is n.p.o. I will give 20 mEq of IV potassium. We will recheck tomorrow. Hopefully she will pass the modified barium swallow enough to begin to take oral medications. 07/29/2019 critical care visit She received IV potassium earlier. As noted above we will monitor electrolytes closely to prevent deficiencies. 07/30/2019 We will need to monitor closely. Small dose of Florinef has been added (5) Urinary tract infection, E. coli Is this a current diagnosis for this admission?: Yes Plan: 07/30/2019 Patient had a previous urine culture that is growing pansensitive E. coli. Patient will be started on ceftriaxone. (6) Iron deficiency Is this a current diagnosis for this admission?: Yes Plan: 07/28/2019 Currently n.p.o. but initiate oral iron therapy once her swallow improves 07/29/2019 As above 07/30/2019 Patient remains n.p.o. for any extended time I will administer IV iron. (7) Macrocytic anemia Is this a current diagnosis for this admission?: Yes Plan: Likely secondary to malnutrition and alcoholism. Follow-up anemia labs. 08/02/2019 Likely related to alcohol use. When patient is taking medications by mouth we will supplement folic acid B12 (8) Closed right hip fracture Qualifiers: Encounter type: initial encounter Qualified Code(s): S72.001A - Fracture of unspecified part of neck of right femur, initial encounter for closed fracture Is this a current diagnosis for this admission?: Yes Plan: Follow-up orthopedic consult. 07/30/2019 When patient is more stable will initiate physical therapy. (9) Vitamin D deficiency Is this a current diagnosis for this admission?: Yes Plan: Suggested by history and demographic, vitamin D ordered, follow-up vitamin D level. 07/30/2019 Supplement after consistent oral intake (10) Atrial fibrillation with RVR Is this a current diagnosis for this admission?: Yes Plan: IV Cardizem, follow-up cardiac enzymes and chemistry. 07/30/2019 Cardiology reports that the rhythm is not atrial fibrillation but rather multifocal atrial tachycardia. Please see above. (11) Cardiac arrest Is this a current diagnosis for this admission?: Yes Plan: 07/28/2019 Discharge from ICU today. Successfully resuscitated after cardiac arrest requiring intubation and mechanical ventilation as well as IV pressors. She will be monitored on telemetry. Treating for atrial fibrillation. 07/29/2019 Dr. Jones is seeing the patient in consultation. Current rhythm is multifocal atrial tachycardia. (12) Current every day smoker Is this a current diagnosis for this admission?: Yes Plan: Tobacco cessation counseling performed and nicotine replacement options discussed. (13) Asymptomatic bacteriuria Is this a current diagnosis for this admission?: Yes Plan: Recent urine culture grew greater than 100,000 colony-forming units per milliliter of E. coli. This is not asymptomatic bacteriuria. This is a urinary tract infection. - Time Time Spent with patient: 25-34 minutes Medications reviewed and adjusted accordingly: Yes Anticipated discharge: SN[facility]
[2019-07-30] MEDS ORDERED: ACETAMINOPHEN 325 MG TABLET PO PRN (13:13)
[2019-07-30] MEDS ORDERED: DEXAMETHASONE 0.5 MG TABLET PO SCH (14:00)
[2019-07-30 15:26] LABS: INTERNATIONAL RATION (INR) 1.05; PROTHROMBIN TIME 13.7 SEC (11.4-15.4)
[2019-07-30 15:27] LABS: FIBRINOGEN 282 mg/dL (209-497); PARTIAL THROMBOPLASTIN TIME 33.2 SEC (23.5-35.8)
[2019-07-30] MEDS ORDERED: NORMAL SALINE 10 ML SDV (AFTER EACH USE) IV PRN (15:30)
[2019-07-30] MEDS: CEFTRIAXONE 1 GM/D5W RTU 1 GM/50 ML RTUPB IV SCH (16:20)
--- NOTE | 2019-07-30 16:32 | RADIOLOGY REPORT (SQ) ---
"EXAM DESCRIPTION: PICC INSERTION IMAGES COMPLETED DATE/TIME: 07/30/2019 2:59 pm REASON FOR STUDY: IV access COMPARISON: None. FLUOROSCOPY TIME: 0.29 MINUTES 2 images saved to PACS. TECHNIQUE: Fluoroscopic and ultrasound guided PICC placement. LIMITATIONS: None. PROCEDURE: After written consent and assessment were obtained, the patient was brought into the fluo roscopy room and placed supine on the table. Ultrasound evaluation of potential access sites were per formed. After successfully identifying a patent right basilic vein, the right arm was prepped and leesa ped in a sterile fashion along with the ultrasound probe. The entry site was anesthetized with 1% lid ocaine. A 21 gauge 7 cm needle was advanced through the skin and into the basilic vein under live ult rasound guidance. An ultrasound image was saved to PACS confirming access site. A .018 guide wire w as then inserted through the needle and into the venous system. The needle was then removed and an 11 blade scalpel was used to make a 1cm skin incision. A 5 fr peel-away sheath was advanced over the w marcial and into the venous system. A measurement was then made using the existing wire and live fluorosc opic guidance. The wire was then removed and trimmed. The PICC was advanced through the peel-away she ath and into the venous system. The peel-away sheath was removed and the catheter was adhered to the patients arm with a stat lock. The catheter was then aspirated and flushed and a sterile bandage was placed over the access site. A fluoroscopic spot image was saved to PACS confirming the catheter tip within the cavoatrial junction. IMPRESSION: SUCCESSFUL PLACEMENT OF A 5 FR DUAL LUMEN 32 CM PICC IN THE RIGHT BASILIC VEIN. COMMENT: Patient medication list reviewed: Yes- Quality ID# 130:Eligible professional attests to doc umenting in the medical record they obtained, updated, or reviewed the patient's current medications. . Quality ID 145: Final reports for procedures using fluoroscopy that document radiation exposure imelda ace, or exposure time and number of fluorographic images (if radiation exposure indices are not avail able) Quality ID #76: The patient was prepped and draped using maximum sterile barrier technique including cap, mask, sterile gown, sterile gloves, a large sterile sheet, hand hygiene, and 2% Chlorhexidine fo r cutaneous antisepsis. When ultrasound is used, sterile ultrasound techniques are followed requiring sterile gel and sterile probes. TECHNICAL DOCUMENTATION: JOB ID: [id number] [employer] - [employer] | [employer] | [employer]- All Rights Reserved rev-07/01 Reading location - IP/workstation name: [email or web address]"
[2019-07-30] MEDS: ALBUMIN HUMAN 12.5 GM/50 ML RTUINJ IV SCH ×2 (17:03→17:42)
[2019-07-30] MEDS: DEXAMETHASONE 0.5 MG TABLET PO SCH ×2 (17:37→22:59)
[2019-07-30] MEDS: MAGNESIUM OXIDE 400 MG TABLET PO SCH (22:13)
[2019-07-30] MEDS: NORMAL SALINE 10 ML SDV (SCHEDULED) IV SCH (22:14)
--- NOTE | 2019-07-30 22:15 | Progress Note ---
Provider Note Provider Note: CARDIOLOGY PROGRESS NOTE by Dr. Fariha Jones on 07/30/2019. OBJECTIVE: The patient's hemoglobin came back 7.5. Patient is receiving blood transfusion. She failed a bedside swallow test, but is able to take applesauce with medications crushed and mixed with it. She denies any chest pain or discomfort. She continues to be on the nasal BiPAP. Minimal exertion causes her to have shortness of breath even movements in the bed. There is no arrhythmias seen on the monitor. There is no evidence of atrial fibrillation. There are rare APCs present. There is no alcohol withdrawal symptoms. PHYSICAL EXAMINATION: The patient is a frail build and appears to be chronically ill and malnourished. Selected Entries 07/30/19 07/30/19 18:30 19:00 Temperature 98 F Temperature Oral Source Pulse Rate 100 Heart Rate ( 98 Monitors) Respiratory 21 H Rate Blood Pressure 104/59 L [Left Upper Arm ] Blood Pressure 74 Mean [Left Upper Arm] Blood Pressure Supine Position [Left Upper Arm] O2 Sat by Pulse 94 Oximetry Oxygen Delivery High Flow Nasal Method ( Cannula includes room air) Percent of 55 Oxygen Head: Is atraumatic normocephalic. EYES: Pupils are equal round regular reactive to light and accommodation. Extraocular movements are normal. There is no conjunctival pallor. There is no scleral icterus. EARS: Tympanic membranes are intact. External ocular auditory canals are clear. NOSE: Not examined due to the patient having nasal BiPAP. MOUTH: Mucous membranes of the mouth are moist. Tongue is moist. Mucous membranes are moist. There is no bleeding from the gums. THROAT: There is no redness of the oropharynx. There is no exudates. SKIN: There is no skin rashes. There is no skin lesions. There is no petechia or ecchymosis. Neck: Supple. There Is No JVD. Carotids Are Equal There Is No Bruit. There Is No Lymphadenopathy. There Is No Goiter There Is No Accessory Muscle Respiration Use. Trachea Central. LUNGS: There Is Diminished Air Entry and Prolonged Expiration. There is tubular breath sounds in the right base. There Is a Few Dry Crackles in the Left Base. On per Percussion There Is Hyperresonance. HEART: S1-S2 Is [place]. There Is No S3 Gallop. There Is No S3 Gallop. There Is Systolic Murmur Left Sternal Border and the [place] There Is No Rub. ABDOMEN: Soft. Nontender. There Is No Hepatosplenomegaly. Bowel Sounds Are Well [place]. EXTREMITIES: Well [place]. There Is No Femoral Bruits. Leg Pulses Are Well [place]. There Is No Pedal Edema. There Is No DVT or Cellulitis. There Is No Cyanosis or Clubbing. RECYCLING MANAGER: The Patient Slightly Drowsy but Oriented x3 There Is No Focal Deficits. PSYCHIATRIC: In Spite Of Her Mental Status Her Judgment Insight Are Intact Her Affect Appears to Be Slightly Anxious. Labs- All tests 24 hr 07/30/19 07/30/19 07/30/19 00:22 05:34 05:34 WBC 7.2 RBC 2.07 L Hgb 7.5 L Hct 22.7 L MCV 110 H MCH 36.3 H MCHC 33.1 RDW 18.8 H Plt Count 281 PT INR APTT Fibrinogen Sodium 135.3 L Potassium 3.9 Chloride 107 Carbon Dioxide 24 Anion Gap 4 L BUN 4 L Creatinine 0.39 L Est GFR ( Amer) > 60 Est GFR (MDRD) Non-Af > 60 Glucose 196 H POC Glucose 211 H Calcium 7.7 L Magnesium 1.8 Albumin Blood Type Antibody Screen Crossmatch 07/30/19 07/30/19 07/30/19 05:34 06:06 12:35 WBC RBC Hgb Hct MCV MCH MCHC RDW Plt Count PT INR APTT Fibrinogen Sodium Potassium Chloride Carbon Dioxide Anion Gap BUN Creatinine Est GFR ( Amer) Est GFR (MDRD) Non-Af Glucose POC Glucose 218 H 90 Calcium Magnesium Albumin 2.0 L Blood Type Antibody Screen Crossmatch 07/30/19 07/30/19 07/30/19 14:56 14:56 18:31 WBC RBC Hgb Hct MCV MCH MCHC RDW Plt Count PT 13.7 INR 1.05 APTT 33.2 Fibrinogen 282 Sodium Potassium Chloride Carbon Dioxide Anion Gap BUN Creatinine Est GFR ( Amer) Est GFR (MDRD) Non-Af Glucose POC Glucose 149 H Calcium Magnesium Albumin Blood Type O POSITIVE Antibody Screen NEGATIVE Crossmatch See Detail Pelvis CT 07/21/19 17:07 IMPRESSION: Postsurgical changes of total right hip arthroplasty. Mildly comminuted right greater trochanteric fracture with mild anterior displacement. No hardware fracture or dislocation. Dilated distal appendix measuring 9 mm in caliber. Elongated gallbladder containing numerous gallstones. Mild right paracolic gutter and moderate right hemipelvis free fluid. As this is a limited noncontrast exam, clinically correlate for acute cholecystitis or appendicitis. Chest X-Ray 07/21/19 21:37 IMPRESSION: No evidence of active intrathoracic disease. Hip/Pelvis X-Ray 07/21/19 23:20 IMPRESSION: Fracture of the femur adjacent to the femoral component of the right hip hemiarthroplasty. Abdomen Ultrasound 07/22/19 00:00 IMPRESSION: 1. Cholelithiasis. 2. Otherwise essentially unremarkable. Chest X-Ray 07/23/19 00:00 IMPRESSION: Endotracheal and enteric tubes are in place. Severe underlying emphysema. Equivocal right upper lobe airspace opacity copyright 2011 [employer]- All Rights Reserved Abdomen/Pelvis CT 07/24/19 00:00 IMPRESSION: 1. No evidence of dissection or aneurysm involving the thoracic or abdominal aorta. The visceral arteries are patent. 2. No pulmonary embolism. 3. Diffuse wall thickening of the small bowel with mucosal enhancement. Findings compatible with shock bowel related to prolonged hypotension. No large vessel arterial occlusion. 4. Moderate left and small right pleural effusion. 5. Bibasilar opacities. This likely represents a component of compressive atelectasis however superimposed aspiration could contribute to this appearance. Continued follow-up recommended. 6. Moderate amount of ascites. 7. Coronary artery atherosclerosis. 8. Centrilobular emphysematous change. Likely chronic bronchitis. 9. 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 Correlation for history of claudication recommended. 10. Nondisplaced fractures of the right fourth through sixth anterior ribs and left third through sixth anterior ribs. This exam was performed according to our departmental dose-optimization program, which includes automated exposure control, adjustment of the mA and/or kV according to patient size and/or use of iterative reconstruction technique. Chest/Abdomen CTA 07/24/19 00:00 IMPRESSION: 1. No evidence of dissection or aneurysm involving the thoracic or abdominal aorta. The visceral arteries are patent. 2. No pulmonary embolism. 3. Diffuse wall thickening of the small bowel with mucosal enhancement. Findings compatible with shock bowel related to prolonged hypotension. No large vessel arterial occlusion. 4. Moderate left and small right pleural effusion. 5. Bibasilar opacities. This likely represents a component of compressive atelectasis however superimposed aspiration could contribute to this appearance. Continued follow-up recommended. 6. Moderate amount of ascites. 7. Coronary artery atherosclerosis. 8. Centrilobular emphysematous change. Likely chronic bronchitis. 9. 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 Correlation for history of claudication recommended. 10. Nondisplaced fractures of the right fourth through sixth anterior ribs and left third through sixth anterior ribs. This exam was performed according to our departmental dose-optimization program, which includes automated exposure control, adjustment of the mA and/or kV according to patient size and/or use of iterative reconstruction technique. Head CTA 07/24/19 00:00 IMPRESSION: 1. No acute intracranial abnormality by CT criteria. 2. No acute abnormality identified in the intracranial arterial circulation. 3. No evidence of stenosis/occlusion involving the cervical carotid or vertebral arteries. This exam was performed according to our departmental dose-optimization program, which includes automated exposure control, adjustment of the mA and/or kV according to patient size and/or use of iterative reconstruction technique. Neck CTA 07/24/19 01:40 IMPRESSION: 1. No acute intracranial abnormality by CT criteria. 2. No acute abnormality identified in the intracranial arterial circulation. 3. No evidence of stenosis/occlusion involving the cervical carotid or vertebral arteries. This exam was performed according to our departmental dose-optimization program, which includes automated exposure control, adjustment of the mA and/or kV according to patient size and/or use of iterative reconstruction technique. Chest X-Ray 07/25/19 00:00 IMPRESSION: 1. Stable appearance of the chest. Chest X-Ray 07/27/19 00:00 IMPRESSION: 1. LOW LYING ENDOTRACHEAL TUBE. RECOMMEND WITHDRAWAL BY 4 - 5 CM. 2. COPD. SMALL PLEURAL EFFUSIONS. NO SIGNIFICANT CHANGE. KUB X-Ray 07/27/19 00:00 IMPRESSION: TIP OF THE NASOGASTRIC TUBE IN THE STOMACH. NO RADIOGRAPHIC EVIDENCE FOR ACUTE ABDOMINAL DISEASE. Chest X-Ray 07/29/19 00:00 IMPRESSION: New prominent right basilar consolidation - pleural effusion. New Left basilar subsegmental atelectasis and increased effusion. PICC Line Insertion 07/30/19 00:00 IMPRESSION: SUCCESSFUL PLACEMENT OF A 5 FR DUAL LUMEN 32 CM PICC IN THE RIGHT BASILIC VEIN. Chest X-Ray 07/30/19 06:00 IMPRESSION: 1. Since the previous examination dated 07/29/2019, decreasing bilateral pleural effusions, particularly on the left, and bibasilar compressive atelectasis. Impression/RECOMMENDATION: 1. Acute on chronic respiratory failure. The patient continues to be in respiratory distress requiring nasal BiPAP. She is not back to her baseline. 2. Status post respiratory arrest leading to cardiac arrest. Later once her COPD is under control then would recommend IV Lexiscan Cardiolite stress test to be sure the patient does not have any severe underlying coronary artery disease. 3. Anemia: Hemoglobin dropped to 7.5. Patient is receiving blood transfusions. 4. No evidence of atrial fibrillation. Hence patient does not require amiodarone. Amiodarone is very high risk medication for this patient. This is due to potential side effects. 5. Multifocal atrial tachycardia: Note that the patient's heart rate is not very fast. If the patient should develop increased heart rate then would recommend IV or p.o. Cardizem or p.o. verapamil, with Midodrine being on board ,to help the patient's blood pressure. 6. Right basilar pneumonia: Continue antibiotics. 7. Right hip fracture in a patient with prior right hip arthroplasty. 8. Tobacco abuse disorder.: Tobacco cessation counseling given. 3 minutes spent on this. 9. Malnutrition consider enteral hyperalimentation. 10. Alcohol dependence: No evidence of withdrawal Medications reviewed. Medical regimen and management plan discussed with Dr. Amanda. Medical decision making is of high complexity. 60 minutes spent on the patient more than 50% of time spent in direct patient care. Will follow.
[2019-07-30 22:51] LABS: APPEARANCE,URINE CLEAR; BILIRUBIN,URINE NEGATIVE (NEGATIVE); COLOR,URINE YELLOW; GLUCOSE, URINE NEGATIVE (NEGATIVE); KETONES,URINE NEGATIVE (NEGATIVE); LEUKOCYTE ESTERASE,URINE SMALL (NEGATIVE); NITRITE,URINE NEGATIVE (NEGATIVE); PROTEIN,URINE NEGATIVE (NEGATIVE); URINE SPECIFIC GRAVITY 1.011; UROBILINOGEN,URINE NEGATIVE mg/dL (<2.0)
[2019-07-31] MEDS: LEVALBUTEROL HCL NEB 1.25 MG/3 ML AMPUL NEB SCH ×4 (02:20→20:26)
[2019-07-31] MEDS: IPRATROPIUM BROMIDE 0.02% NEB 0.5 MG/2.5 ML AMPUL NEB SCH ×4 (02:20→20:26)
[2019-07-31] MEDS: DEXTROSE 5%-LACTATED RINGERS 1,000 ML IV PRN ×3 (02:37→23:44)
[2019-07-31 03:09] LABS: ABSOLUTE LYMPHOCYTES (AUTO) 1.6 10^3/uL (0.5-4.7); ABSOLUTE MONOCYTES (AUTO) 1.8 10^3/uL (0.1-1.4); BASOPHILS % (AUTO) 0.1 % (0-2); EOSINOPHILS % (AUTO) 0.1 % (0-6); HEMATOCRIT 34.8 % (36.0-47.0); LYMPHOCYTES % (AUTO) 15.4 % (13-45); MEAN CORPUSCULAR HEMOGLOBIN 31.7 pg (27.0-33.4); MEAN CORPUSCULAR HGB CONC 33.4 g/dL (32.0-36.0); PLATELET COUNT 230 10^3/uL (150-450); RED BLOOD COUNT 3.66 10^6/uL (3.72-5.28); RED CELL DISTRIBUTION WIDTH 22.9 % (11.5-14.0); SEGMENTED NEUTROPHILS % (AUTO) 67.4 % (42-78); TOTAL CELLS COUNTED % (AUTO) 100 %; WHITE BLOOD COUNT 10.5 10^3/uL (4.0-10.5)
[2019-07-31 03:10] LABS: HEMOGLOBIN 11.6 g/dL (12.0-15.5); MEAN CORPUSCULAR VOLUME 95 fl (80-97)
[2019-07-31] MEDS: MAGNESIUM OXIDE 400 MG TABLET PO SCH ×3 (05:53→21:10)
[2019-07-31] MEDS: DEXAMETHASONE 0.5 MG TABLET PO SCH ×4 (05:53→23:44)
[2019-07-31] MEDS: BUDESONIDE NEB 0.5 MG/2 ML AMPUL NEB SCH ×2 (08:21→20:26)
--- NOTE | 2019-07-31 09:24 | PDOC PROGRESS REPORT ---
Subjective Progress Note for:: 07/31/19 Subjective:: Thin cachectic female comfortable in the bed communicating well. Patient is on high flow oxygen. Going for barium swallow study today. Receiving ceftriaxone for E. coli. Awaiting for placement. Reason For Visit: FALL HIP FTRACTURE ETOH DEP Physical Exam Vital Signs: Temp Pulse Resp BP Pulse Ox 97.5 F 100 21 H 101/57 L 92 07/31/19 07:37 07/31/19 07:37 07/31/19 07:37 07/31/19 07:37 07/31/19 07:37 Intake & Output 07/30/19 07/31/19 08/01/19 06:59 06:59 06:59 Intake Total 2299.2 2833 Output Total 360 500 Balance 1939.2 2333 Weight 52.7 kg 54.1 kg General appearance: PRESENT: disheveled, thin Head exam: PRESENT: atraumatic Eye exam: PRESENT: PERRLA Teeth exam: PRESENT: poor dentation Neck exam: ABSENT: carotid bruit, JVD, lymphadenopathy, thyromegaly Respiratory exam: PRESENT: decreased breath sounds Cardiovascular exam: PRESENT: tachycardia Pulses: PRESENT: normal dorsalis pedis pul GI/Abdominal exam: PRESENT: normal bowel sounds, soft. ABSENT: distended, guarding, mass, organolmegaly, rebound, tenderness Rectal exam: PRESENT: deferred Neurological exam: PRESENT: alert, awake, oriented to person, oriented to place, oriented to time, oriented to situation, CN II-XII grossly intact. ABSENT: motor sensory deficit Psychiatric exam: PRESENT: appropriate affect, normal mood. ABSENT: homicidal ideation, suicidal ideation Results Laboratory Results: 07/31/19 02:40 07/30/19 05:34 07/30/19 07/30/19 07/30/19 05:34 14:56 22:23 WBC RBC Hgb Hct MCV MCH MCHC RDW Plt Count Seg Neutrophils % Albumin 2.0 L Urine Color YELLOW Urine Appearance CLEAR Urine pH 6.0 Ur Specific [place] 1.011 Urine Protein NEGATIVE Urine Glucose (UA) NEGATIVE Urine Ketones NEGATIVE Urine Blood NEGATIVE Urine Nitrite NEGATIVE Ur Leukocyte Esterase SMALL H Urine WBC (Auto) 6 Urine RBC (Auto) 3 Blood Type O POSITIVE Antibody Screen NEGATIVE 07/31/19 02:40 WBC 10.5 RBC 3.66 L Hgb 11.6 L D Hct 34.8 L MCV 95 D MCH 31.7 MCHC 33.4 RDW 22.9 H Plt Count 230 Seg Neutrophils % 67.4 Albumin Urine Color Urine Appearance Urine pH Ur Specific [place] Urine Protein Urine Glucose (UA) Urine Ketones Urine Blood Urine Nitrite Ur Leukocyte Esterase Urine WBC (Auto) Urine RBC (Auto) Blood Type Antibody Screen 07/24/19 15:06 Troponin I 0.014 Impressions: Pelvis CT 07/21/19 17:07 IMPRESSION: Postsurgical changes of total right hip arthroplasty. Mildly comminuted right greater trochanteric fracture with mild anterior displacement. No hardware fracture or dislocation. Dilated distal appendix measuring 9 mm in caliber. Elongated gallbladder containing numerous gallstones. Mild right paracolic gutter and moderate right hemipelvis free fluid. As this is a limited noncontrast exam, clinically correlate for acute cholecystitis or appendicitis. Hip/Pelvis X-Ray 07/21/19 23:20 IMPRESSION: Fracture of the femur adjacent to the femoral component of the right hip hemiarthroplasty. Abdomen Ultrasound 07/22/19 00:00 IMPRESSION: 1. Cholelithiasis. 2. Otherwise essentially unremarkable. Abdomen/Pelvis CT 07/24/19 00:00 IMPRESSION: 1. No evidence of dissection or aneurysm involving the thoracic or abdominal aorta. The visceral arteries are patent. 2. No pulmonary embolism. 3. Diffuse wall thickening of the small bowel with mucosal enhancement. Findings compatible with shock bowel related to prolonged hypotension. No large vessel arterial occlusion. 4. Moderate left and small right pleural effusion. 5. Bibasilar opacities. This likely represents a component of compressive atelectasis however superimposed aspiration could contribute to this appearance. Continued follow-up recommended. 6. Moderate amount of ascites. 7. Coronary artery atherosclerosis. 8. Centrilobular emphysematous change. Likely chronic bronchitis. 9. 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 Correlation for history of claudication recommended. 10. Nondisplaced fractures of the right fourth through sixth anterior ribs and left third through sixth anterior ribs. This exam was performed according to our departmental dose-optimization program, which includes automated exposure control, adjustment of the mA and/or kV according to patient size and/or use of iterative reconstruction technique. Chest/Abdomen CTA 07/24/19 00:00 IMPRESSION: 1. No evidence of dissection or aneurysm involving the thoracic or abdominal aorta. The visceral arteries are patent. 2. No pulmonary embolism. 3. Diffuse wall thickening of the small bowel with mucosal enhancement. Findings compatible with shock bowel related to prolonged hypotension. No large vessel arterial occlusion. 4. Moderate left and small right pleural effusion. 5. Bibasilar opacities. This likely represents a component of compressive atelectasis however superimposed aspiration could contribute to this appearance. Continued follow-up recommended. 6. Moderate amount of ascites. 7. Coronary artery atherosclerosis. 8. Centrilobular emphysematous change. Likely chronic bronchitis. 9. 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 Correlation for history of claudication recommended. 10. Nondisplaced fractures of the right fourth through sixth anterior ribs and left third through sixth anterior ribs. This exam was performed according to our departmental dose-optimization program, which includes automated exposure control, adjustment of the mA and/or kV according to patient size and/or use of iterative reconstruction technique. Head CTA 07/24/19 00:00 IMPRESSION: 1. No acute intracranial abnormality by CT criteria. 2. No acute abnormality identified in the intracranial arterial circulation. 3. No evidence of stenosis/occlusion involving the cervical carotid or vertebral arteries. This exam was performed according to our departmental dose-optimization program, which includes automated exposure control, adjustment of the mA and/or kV according to patient size and/or use of iterative reconstruction technique. Neck CTA 07/24/19 01:40 IMPRESSION: 1. No acute intracranial abnormality by CT criteria. 2. No acute abnormality identified in the intracranial arterial circulation. 3. No evidence of stenosis/occlusion involving the cervical carotid or vertebral arteries. This exam was performed according to our departmental dose-optimization program, which includes automated exposure control, adjustment of the mA and/or kV according to patient size and/or use of iterative reconstruction technique. KUB X-Ray 07/27/19 00:00 IMPRESSION: TIP OF THE NASOGASTRIC TUBE IN THE STOMACH. NO RADIOGRAPHIC EVIDENCE FOR ACUTE ABDOMINAL DISEASE. PICC Line Insertion 07/30/19 00:00 IMPRESSION: SUCCESSFUL PLACEMENT OF A 5 FR DUAL LUMEN 32 CM PICC IN THE RIGHT BASILIC VEIN. Chest X-Ray 07/30/19 06:00 IMPRESSION: 1. Since the previous examination dated 07/29/2019, decreasing bilateral pleural effusions, particularly on the left, and bibasilar compressive atelectasis. Assessment and Plan - Diagnosis (1) Acute respiratory failure with hypoxia and hypercapnia Is this a current diagnosis for this admission?: Yes Plan: 07/28/2019 Currently high flow nasal cannula. We will try and wean from oxygen while keeping her saturation 88 to 92%. As needed nebulizers have been ordered. 07/29/2019 Continue high flow nasal cannula 07/29/2019 critical care visit A chest x-ray was obtained urgently. There is atelectasis versus consolidation at the right base. Small pleural effusion on the left. An ABG was drawn. On high flow nasal cannula FiO2 70% pH was 7.36, PCO2 41.9, PO2 55.5, bicarb 23.3, saturation 88%. Atelectasis versus possible aspiration pneumonia being considered. For atelectasis we will institute trials of CPAP. Consider chest percussion therapy as well. I have added back scheduled nebulizers of Xopenex, ipratropium every 6 hours, budesonide every 12 hours and as needed combination therapy. 07/30/2019 She is stable today but still on high flow nasal cannula. We will continue nebulizer treatments. I have added Decadron as she lists prednisone as an allergy. 07/31/19-patient is still on high flow oxygen. Going for cookie swallow study today. Receiving nebulizer treatments. Patient is also on Decadron. On BiPAP since yesterday. Receiving scheduled Xopenex, ipratropium every 6 hours, but desonide every 12 hours. Needs to continue the present management and once stable plan is to discharge her to SNF. (2) Multifocal atrial tachycardia Is this a current diagnosis for this admission?: Yes Plan: 07/29/2019 The patient has metoprolol as needed. Unfortunately she is n.p.o. at this time. Verapamil is also very useful for multifocal atrial tachycardia. Hopefully with aggressive treatment of her underlying respiratory status her rate will settle. 07/30/2019 Heart rate still around 100. Blood pressure still tending to be low. Have instituted a trial midodrine. Would like to avoid IV pressors if possible. 07/31/19-Dr. Jones is following the patient for multifocal atrial tachycardia. He thinks she is not a candidate for amiodarone. It is on Midodrin as per Dr. Jones's recommendations if the heart rate goes up plan to start her on p.o. verapamil or IV or p.o. Cardizem. Heart rate is around 100 this morning. (3) Iron deficiency Is this a current diagnosis for this admission?: Yes Plan: 07/28/2019 Currently n.p.o. but initiate oral iron therapy once her swallow improves 07/29/2019 As above 07/30/2019 Patient remains n.p.o. for any extended time I will administer IV iron. (4) Hypokalemia Is this a current diagnosis for this admission?: Yes Plan: 07/28/2019 Monitor serum potassium. Supplement to keep serum potassium in the normal range. 07/29/2019 Potassium is just below the lower limit normal. Because she is n.p.o. I will give 20 mEq of IV potassium. We will recheck tomorrow. Hopefully she will pass the modified barium swallow enough to begin to take oral medications. 07/29/2019 critical care visit She received IV potassium earlier. As noted above we will monitor electrolytes closely to prevent deficiencies. 07/30/2019 We will need to monitor closely. Small dose of Florinef has been added 07/31/2019-serum potassium from yesterday is 3.9. Patient is presently on F lorinef and receiving as needed supplementations of potassium. (5) Hypocalcemia Is this a current diagnosis for this admission?: Yes Plan: 07/28/2019 We will recheck albumin. Will monitor calcium. Supplement accordingly. 07/29/2019 Calcium is 8.1 but corrects considering albumin. Continue to monitor. 07/29/2019 critical care visit Calcium is normal as above. Will monitor closely for calcium, magnesium and potassium levels. 07/30/2019 Monitor closely including albumin, magnesium and potassium (6) Current every day smoker Is this a current diagnosis for this admission?: Yes Plan: Tobacco cessation counseling performed and nicotine replacement options discu ssed. (7) Closed right hip fracture Qualifiers: Encounter type: initial encounter Qualified Code(s): S72.001A - Fracture of unspecified part of neck of right femur, initial encounter for closed fracture Is this a current diagnosis for this admission?: Yes Plan: Follow-up orthopedic consult. 07/30/2019 When patient is more stable will initiate physical therapy. (8) Atrial fibrillation with RVR Is this a current diagnosis for this admission?: Yes Plan: IV Cardizem, follow-up cardiac enzymes and chemistry. 07/30/2019 Cardiology reports that the rhythm is not atrial fibrillation but rather multifocal atrial tachycardia. Please see above. (9) Cardiac arrest Is this a current diagnosis for this admission?: Yes Plan: Discharge from ICU today. Successfully resuscitated after cardiac arrest requiring intubation and mechanical ventilation as well as IV pressors. She will be monitored on telemetry. Treating for atrial fibrillation. 07/29/2019 Dr. Jones is seeing the patient in consultation. Current rhythm is multifocal atrial tachycardia. (10) Urinary tract infection, E. coli Is this a current diagnosis for this admission?: Yes Plan: 07/30/2019 Patient had a previous urine culture that is growing pansensitive E. coli. Patient will be started on ceftriaxone. (11) Sepsis Is this a current diagnosis for this admission?: Yes Plan: 07/31/2019-performance improved mental team thinks patient may be septic based on tachycardia 400 respiratory rate of around 20 and she has UTI, map of less than 65. Sepsis protocol will be implemented.
[2019-07-31] MEDS: MULTIVITAMINS W-IRON TABLET, CHEWABLE PO SCH (11:29)
[2019-07-31] MEDS: MIDODRINE HCL 5 MG TABLET PO SCH ×3 (11:29→18:11)
[2019-07-31] MEDS: THIAMINE HCL 100 MG TABLET PO SCH (11:29)
[2019-07-31] MEDS: ENOXAPARIN SODIUM INJ 60 MG/0.6 ML DISP.SYRIN SUBCUT SCH ×2 (11:30→21:11)
[2019-07-31] MEDS: NORMAL SALINE 10 ML SDV (SCHEDULED) IV SCH ×2 (11:31→21:28)
[2019-07-31] MEDS: FLUDROCORTISONE ACETATE 0.1 MG TABLET PO SCH (11:32)
--- NOTE | 2019-07-31 11:44 | RADIOLOGY REPORT (SQ) ---
EXAM DESCRIPTION: COOKIE SWALLOW IMAGES COMPLETED DATE/TIME: 07/31/2019 11:26 am REASON FOR STUDY: dysphagia acute respiratory failure COMPARISON: None. TECHNIQUE: Videofluoroscopic swallowing examination was performed in conjunction with speech patholo gy. Videofluoroscopic imaging was obtained and reviewed and these are the findings: RADIATION DOSE: Fluoro time 2.46 minutes 1 images saved to PACS. LIMITATIONS: None FINDINGS: The patient was brought into the fluoro room and placed upright on a modified barium swall ow chair. The patient was then given multiple consistencies mixed with barium to swallow under live fluoroscopic video guidance. According to the Speech Pathologist there was aspiration seen with thin and nectar thick consistencies. Deep laryngeal penetration was seen with residuals from honey thick and pureed. Significant residuals seen in the vallecula and piriform sinuses. Please refer to the [facility] pathology report for further details. IMPRESSION: ASPIRATION WITH THIN AND NECTAR THICK CONSISTENCIES. LARYNGEAL PENETRATION FROM RESIDUA LS. PLEASE SEE SPEECH PATHOLOGIST REPORT FOR OTHER FINDINGS AND RECOMMENDATIONS. COMMENT: NONE Quality ID [id number]: Final reports for procedures using fluoroscopy that document radiation exposure imelda ace, or exposure time and number of fluorographic images (if radiation exposure indices are not avail able) TECHNICAL DOCUMENTATION: JOB ID: [id number] 2010 [employer]- All Rights Reserved Reading location - IP/workstation name: [email or web address] [id number]
--- NOTE | 2019-07-31 12:40 | ST Inp Modified Barium Swallow ---
Medical Diagnosis - Medical Diagnoses Medical Diagnosis Description & ICD-10 Code(s): acute respiratory failure, hip fracture - ICD-10 Tx Diagnosis Coding (1) Acute respiratory failure with hypoxia and hypercapnia ICD-10 Code(s): J96.01 - ACUTE RESPIRATORY FAILURE WITH HYPOXIA; J96.02 - ACUTE RESPIRATORY FAILURE WITH HYPERCAPNIA (2) Closed right hip fracture ICD-10 Code(s): S72.001A - FRACTURE OF UNSP PART OF NECK OF RIGHT FEMUR, INIT (3) Dysphagia ICD-10 Code(s): R13.10 - DYSPHAGIA, UNSPECIFIED ST Inpatient MBS - General Date: 07/31/19 Date of Onset: 07/28/19 - History History Obtained From: Other - EMR -: Medical - 07/31/2019: Patient evaluated by ST 07/28/2019. Initially planned to complete MBSS Tuesday, however patient on high flow nasal cannula. ------- 07/30/2019: Discussed care with Dr. Amanda and held MBSS until Tuesday with ST making recommendations for safest way to take medications that could not be administered via IV. HISTORY: patient admitted 07/20 initially, was transitioned to ICU on 07/22 due to respiratory failure and intubated. Was extubated on 07/26. Prior medical history includes COPD and right hip fracture. 07/28/2019: Nursing reports that the patient was able to swallow liquids well, however, demonstrated wet sounding cough with pudding. Patient was then made NPO. No NG tube in place due to patient pulling it out multiple times. A MBSS order is also in place, however, this procedure is not available on weekends. Medications: Medications Reviewed Allergies: Refer to medical record - Subjective Current Nutritional Means: NPO, IV Fluids Current Symptoms: Coughing Pain: unable to communicate - unintelligible; appeared to attend to conversation and speech - Objective Assessment: Upright, Left Lateral - Food Trials Food Trials Used: Thin liquids, Honey-thickened liquids, [place] thick liquids, Pureed The Patient: fed by ST, via spoon, via straw - Assessment Labial Function: Within Functional Limits Lingual Function: Within Functional Limits - for consistencies assessed Mandibular Function: Within Functional Limits Velo-Pharyngeal Function: Not assessed Laryngeal Function: weak voicing - Pharyngeal Stage Decreased Laryngeal Elevation: Yes Reduced Velo-Pharyngeal Closure: yes, no Reduced Pressure Generation: Yes Reduced Tongue Base Retraction: Yes Pre-Swallowing Pooling in Valleculae: None Pre-Swallowing Pooling in Pyriforms: None Reduced Thyro-Hyiod Approximation: Yes Reduced Epiglottic Excursion: Yes Reduced Pharyngeal Peristalsis: Yes Multiple Swallows With: Ineffective Clearance - for puree; able to clear thin liquids partially with spontaneous swallows and fully with cued swallow; unable to clear mixed residuals (puree + honey) Post Swallow Residuals in Valleculae: Significant - with puree Post Swallow Residuals in Pyriforms: Mild - with puree - Esophageal Stage Cricophageal Function: Normal - Impression/Summary Laryngeal Penetration: Yes, Deep - with thin Tracheal Aspiration: yes - with thin and mixed residuals (puree & honey, puree & nectar) Productive Cough: No Effective Clearing: no Patient Presents With: Pharyngeal stage dysph., Severe Risk of Aspiration: Severe Risk of Nutritional Compromise: Severe - Recommendations NPO: yes Dysphagia Therapy with [employer]: Yes - Needs repeat MBSS; tentatively plan to complete either Tuesday or when patient's oxygen reduced from 10 liters high flow Other Recommendations: Recommend continued NPO. For medications that cannot be administered via IV, continue to recommend medications in applesauce (thin puree) as safest consistency for medication; did caution that puree cannot be followed by liquids. - Time Total Time: 15 Total Timed Minutes: 0
[2019-07-31] MEDS: CEFTRIAXONE 1 GM/D5W RTU 1 GM/50 ML RTUPB IV SCH (17:18)
--- NOTE | 2019-07-31 19:05 | PSYCHOLOGICAL NOTE ---
Psych Note - Psych Note Date seen by psych provider: 07/31/19 Time seen by psych provider: 16:92 - [id number] evaluation. Nurse collateral right after Psych Note: Presenting Problem: Patient is a 63 year old female who is admitted to hospitalist services. A psychiatric consult was ordered due to depression. Patient was laying in bed on her back with multiple medical tubing instruments being utilized. She responded immediately to her name being said. She denied nati ng sad or depressed. She denied being prescribed anything for depression. Patient denied SI. Patient was alert and oriented to self, person, place, time and situation. Mood was depressed with flat affect. She denied current SI/HI and these were not presenting concerns. Patient did not appear to be responding to internal stimuli as evidenced by fair eye contact and answering questions appropriately when addressed. Thought processes seemed linear. Conversational speech was within normal limits for rate and prosody, while soft in tone. Intellectual abilities are estimated to be average. Insight, judgment and impulse control were fair as evidenced by being as a matter of fact. 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 Her had been having an affair for a long time, patient was not taking care of herself he thought, was a brain picker with scabs and was drinking alcohol. They ended up . Now all patient does is sit at home and she doesn't eat. Nurse noted patient currently is NPO because she did not do well on her swallow test earlier, is scheduled for another one Tuesday, and can take medications with applesauce or pudding and is also able to have ice chips. Nurse noted patient had gone into respiratory distress when she initially arrived which resulted in Intubation, going to ICU, but has since been Extubated. Reviewed MAR with nurse: Valium and Ativan listed as PRNs and not really utilized (which is good try to avoid use of benzos), and no antidepressant. Was unable to call patient's daughter Mary for collateral. Clinical Presentation Depression Medication recommendations made by the psychiatric medication provider Dr. Geovanna SCHNEIDER., includes: Add Celexa 20MG daily for Depression/Ruminating Thoughts/Anxiety Impression/Plan: Patient is cleared from acute psychiatric services. She denied SI/HI and no observed psychosis. Consulted for depression. She reported not being on anything in the past for depression and she is not being administered anything currently. Provided medication recommendation. Consulted with Dr. Stanley regarding the management and care of patient. Attending Hospitalist aware of recommendations via this note.
[2019-08-01] MEDS: LEVALBUTEROL HCL NEB 1.25 MG/3 ML AMPUL NEB SCH ×4 (02:19→20:51)
[2019-08-01] MEDS: IPRATROPIUM BROMIDE 0.02% NEB 0.5 MG/2.5 ML AMPUL NEB SCH ×4 (02:19→20:51)
[2019-08-01] MEDS: DEXAMETHASONE 0.5 MG TABLET PO SCH ×4 (05:34→23:11)
[2019-08-01] MEDS: MAGNESIUM OXIDE 400 MG TABLET PO SCH ×3 (05:34→21:19)
[2019-08-01 05:54] LABS: HEMATOCRIT 37.4 % (36.0-47.0); HEMOGLOBIN 12.5 g/dL (12.0-15.5); MEAN CORPUSCULAR HEMOGLOBIN 32.2 pg (27.0-33.4); MEAN CORPUSCULAR HGB CONC 33.5 g/dL (32.0-36.0); MEAN CORPUSCULAR VOLUME 96 fl (80-97); PLATELET COUNT 225 10^3/uL (150-450); RED BLOOD COUNT 3.89 10^6/uL (3.72-5.28); RED CELL DISTRIBUTION WIDTH 23.9 % (11.5-14.0); WHITE BLOOD COUNT 7.6 10^3/uL (4.0-10.5)
[2019-08-01] MEDS: BUDESONIDE NEB 0.5 MG/2 ML AMPUL NEB SCH ×2 (08:03→20:50)
--- NOTE | 2019-08-01 09:44 | PDOC PROGRESS REPORT ---
Subjective Progress Note for:: 08/01/19 Subjective:: Thin cachectic female comfortable in the bed communicating well. Patient is on high flow oxygen. Going for barium swallow study today. Receiving ceftriaxone for E. coli. Awaiting for placement. 08/01/2019-no acute events in the last 24 hours. Patient has cookie swallow done yesterday she failed swallowing evaluation. Diet as per speech therapy recommendations. Plan is to repeat the swallowing study on Tuesday. Patient is comfortably in the bed complaining of weakness and tiredness. No other complaints. Urine culture is positive for E. coli. Patient is receiving IV ceftriaxone. Reason For Visit: FALL HIP FTRACTURE ETOH DEP Physical Exam Vital Signs: Temp Pulse Resp BP Pulse Ox 97.4 F 91 18 98/67 L 93 08/01/19 07:20 08/01/19 08:06 08/01/19 08:06 08/01/19 07:20 08/01/19 08:06 Intake & Output 07/31/19 08/01/19 08/02/19 06:59 06:59 06:59 Intake Total 2833 2048 Output Total 500 750 Balance 2333 1298 Weight 54.1 kg 55.8 kg General appearance: PRESENT: no acute distress, disheveled, thin Head exam: PRESENT: atraumatic Eye exam: PRESENT: PERRLA Mouth exam: PRESENT: moist, tongue midline Teeth exam: PRESENT: poor dentation Neck exam: ABSENT: carotid bruit, JVD, lymphadenopathy, thyromegaly Respiratory exam: PRESENT: decreased breath sounds Cardiovascular exam: PRESENT: RRR. ABSENT: diastolic murmur, rubs, systolic murmur GI/Abdominal exam: PRESENT: normal bowel sounds, soft. ABSENT: distended, guarding, mass, organolmegaly, rebound, tenderness Rectal exam: PRESENT: deferred Extremities exam: PRESENT: full ROM. ABSENT: calf tenderness, clubbing, pedal edema Neurological exam: PRESENT: alert, awake, oriented to person, oriented to place, oriented to time, oriented to situation, CN II-XII grossly intact. ABSENT: motor sensory deficit Skin exam: PRESENT: dry, intact, warm. ABSENT: cyanosis, rash Results Laboratory Results: 08/01/19 05:40 07/31/19 07/31/19 07/31/19 10:35 14:00 16:30 WBC RBC Hgb Hct MCV MCH MCHC RDW Plt Count Lactic Acid 5.0 H 4.6 H 3.6 H 08/01/19 05:40 WBC 7.6 RBC 3.89 Hgb 12.5 Hct 37.4 MCV 96 MCH 32.2 MCHC 33.5 RDW 23.9 H Plt Count 225 Lactic Acid 07/24/19 15:06 Troponin I 0.014 Impressions: Pelvis CT 07/21/19 17:07 IMPRESSION: Postsurgical changes of total right hip arthroplasty. Mildly comminuted right greater trochanteric fracture with mild anterior displacement. No hardware fracture or dislocation. Dilated distal appendix measuring 9 mm in caliber. Elongated gallbladder containing numerous gallstones. Mild right paracolic gutter and moderate right hemipelvis free fluid. As this is a limited noncontrast exam, clinically correlate for acute cholecystitis or appendicitis. Hip/Pelvis X-Ray 07/21/19 23:20 IMPRESSION: Fracture of the femur adjacent to the femoral component of the right hip hemiarthroplasty. Abdomen Ultrasound 07/22/19 00:00 IMPRESSION: 1. Cholelithiasis. 2. Otherwise essentially unremarkable. Abdomen/Pelvis CT 07/24/19 00:00 IMPRESSION: 1. No evidence of dissection or aneurysm involving the thoracic or abdominal aorta. The visceral arteries are patent. 2. No pulmonary embolism. 3. Diffuse wall thickening of the small bowel with mucosal enhancement. Findings compatible with shock bowel related to prolonged hypotension. No large vessel arterial occlusion. 4. Moderate left and small right pleural effusion. 5. Bibasilar opacities. This likely represents a component of compressive atelectasis however superimposed aspiration could contribute to this appearance. Continued follow-up recommended. 6. Moderate amount of ascites. 7. Coronary artery atherosclerosis. 8. Centrilobular emphysematous change. Likely chronic bronchitis. 9. 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 Correlation for history of claudication recommended. 10. Nondisplaced fractures of the right fourth through sixth anterior ribs and left third through sixth anterior ribs. This exam was performed according to our departmental dose-optimization program, which includes automated exposure control, adjustment of the mA and/or kV according to patient size and/or use of iterative reconstruction technique. Chest/Abdomen CTA 07/24/19 00:00 IMPRESSION: 1. No evidence of dissection or aneurysm involving the thoracic or abdominal aorta. The visceral arteries are patent. 2. No pulmonary embolism. 3. Diffuse wall thickening of the small bowel with mucosal enhancement. Findings compatible with shock bowel related to prolonged hypotension. No large vessel arterial occlusion. 4. Moderate left and small right pleural effusion. 5. Bibasilar opacities. This likely represents a component of compressive atelectasis however superimposed aspiration could contribute to this appearance. Continued follow-up recommended. 6. Moderate amount of ascites. 7. Coronary artery atherosclerosis. 8. Centrilobular emphysematous change. Likely chronic bronchitis. 9. 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 Correlation for history of claudication recommended. 10. Nondisplaced fractures of the right fourth through sixth anterior ribs and left third through sixth anterior ribs. This exam was performed according to our departmental dose-optimization program, which includes automated exposure control, adjustment of the mA and/or kV according to patient size and/or use of iterative reconstruction technique. Head CTA 07/24/19 00:00 IMPRESSION: 1. No acute intracranial abnormality by CT criteria. 2. No acute abnormality identified in the intracranial arterial circulation. 3. No evidence of stenosis/occlusion involving the cervical carotid or vertebral arteries. This exam was performed according to our departmental dose-optimization program, which includes automated exposure control, adjustment of the mA and/or kV according to patient size and/or use of iterative reconstruction technique. Neck CTA 07/24/19 01:40 IMPRESSION: 1. No acute intracranial abnormality by CT criteria. 2. No acute abnormality identified in the intracranial arterial circulation. 3. No evidence of stenosis/occlusion involving the cervical carotid or vertebral arteries. This exam was performed according to our departmental dose-optimization program, which includes automated exposure control, adjustment of the mA and/or kV according to patient size and/or use of iterative reconstruction technique. KUB X-Ray 07/27/19 00:00 IMPRESSION: TIP OF THE NASOGASTRIC TUBE IN THE STOMACH. NO RADIOGRAPHIC EVIDENCE FOR ACUTE ABDOMINAL DISEASE. PICC Line Insertion 07/30/19 00:00 IMPRESSION: SUCCESSFUL PLACEMENT OF A 5 FR DUAL LUMEN 32 CM PICC IN THE RIGHT BASILIC VEIN. Chest X-Ray 07/30/19 06:00 IMPRESSION: 1. Since the previous examination dated 07/29/2019, decreasing bilateral pleural effusions, particularly on the left, and bibasilar compressive atelectasis. Modified Barium Swallow 07/31/19 08:00 IMPRESSION: ASPIRATION WITH THIN AND NECTAR THICK CONSISTENCIES. LARYNGEAL PENETRATION FROM RESIDUALS. PLEASE SEE SPEECH PATHOLOGIST REPORT FOR OTHER FINDINGS AND RECOMMENDATIONS. Assessment and Plan - Diagnosis (1) Acute respiratory failure with hypoxia and hypercapnia Is this a current diagnosis for this admission?: Yes Plan: 07/28/2019 Currently high flow nasal cannula. We will try and wean from oxygen while keeping her saturation 88 to 92%. As needed nebulizers have been ordered. 07/29/2019 Continue high flow nasal cannula 07/29/2019 critical care visit A chest x-ray was obtained urgently. There is atelectasis versus consolidation at the right base. Small pleural effusion on the left. An ABG was drawn. On high flow nasal cannula FiO2 70% pH was 7.36, PCO2 41.9, PO2 55.5, bicarb 23.3, saturation 88%. Atelectasis versus possible aspiration pneumonia being considered. For atelectasis we will institute trials of CPAP. Consider chest percussion therapy as well. I have added back scheduled nebulizers of Xopenex, ipratropium every 6 hours, budesonide every 12 hours and as needed combination therapy. 07/30/2019 She is stable today but still on high flow nasal cannula. We will continue [facility] and hospital treatments. I have added Decadron as she lists prednisone as an allergy. 07/31/19-patient is still on high flow oxygen. Going for cookie swallow study today. Receiving nebulizer treatments. Patient is also on Decadron. On BiPAP since yesterday. Receiving scheduled Xopenex, ipratropium every 6 hours, but desonide every 12 hours. Needs to continue the present management and once stable plan is to discharge her to SNF. 08/01/19-patient is still on high flow oxygen pulse ox is 93%. Swallowing evaluation was done followed by khris swallow she failed the swallowing study. Plan is to repeat swallowing evaluation on Tuesday. Diet as per speech therapy recommendations. Plan is to continue provide high flow oxygen. (2) Multifocal atrial tachycardia Is this a current diagnosis for this admission?: Yes Plan: 07/29/2019 The patient has metoprolol as needed. Unfortunately she is n.p.o. at this time. Verapamil is also very useful for multifocal atrial tachycardia. Hopefully with aggressive treatment of her underlying respiratory status her rate will settle. 07/30/2019 Heart rate still around 100. Blood pressure still tending to be low. Have instituted a trial midodrine. Would like to avoid IV pressors if possible. 07/31/19-Dr. Jones is following the patient for multifocal atrial tachycardia. He thinks she is not a candidate for amiodarone. It is on Midodrin as per Dr. Jones's recommendations if the heart rate goes up plan to start her on p.o. verapamil or IV or p.o. Cardizem. Heart rate is around 100 this morning. 08/01/2019-patient has multifocal atrial tachycardia. Heart rate in the 90s today. Management as per Dr. Jones. (3) Iron deficiency Is this a current diagnosis for this admission?: Yes Plan: 07/28/2019 Currently n.p.o. but initiate oral iron therapy once her swallow improves 07/29/2019 As above 07/30/2019 Patient remains n.p.o. for any extended time I will administer IV iron. (4) Hypokalemia Is this a current diagnosis for this admission?: Yes Plan: 07/28/2019 Monitor serum potassium. Supplement to keep serum potassium in the normal range. 07/29/2019 Potassium is just below the lower limit normal. Because she is n.p.o. I will give 20 mEq of IV potassium. We will recheck tomorrow. Hopefully she will pass the modified barium swallow enough to begin to take oral medications. 07/29/2019 critical care visit She received IV potassium earlier. As noted above we will monitor electrolytes closely to prevent deficiencies. 07/30/2019 We will need to monitor closely. Small dose of Florinef has been added 07/31/2019-serum potassium from yesterday is 3.9. Patient is presently on Florinef and receiving as needed supplementations of potassium. 08/01/19-latest serum potassium is 3.9 today's labs are pending. (5) Hypocalcemia Is this a current diagnosis for this admission?: Yes Plan: 07/28/2019 We will recheck albumin. Will monitor calcium. Supplement accordingly. 07/29/2019 Calcium is 8.1 but corrects considering albumin. Continue to monitor. 07/29/2019 critical care visit Calcium is normal as above. Will monitor closely for calcium, magnesium and potassium levels. 07/30/2019 Monitor closely including albumin, magnesium and potassium 08/01/2019-serum calcium is 7.7 today's labs are pending. (6) Current every day smoker Is this a current diagnosis for this admission?: Yes Plan: Tobacco cessation counseling performed and nicotine replacement options discussed. (7) Closed right hip fracture Qualifiers: Encounter type: initial encounter Qualified Code(s): S72.001A - Fracture of unspecified part of neck of right femur, initial encounter for closed fracture Is this a current diagnosis for this admission?: Yes Plan: Follow-up orthopedic consult. 07/30/2019 When patient is more stable will initiate physical therapy. (8) Atrial fibrillation with RVR Is this a current diagnosis for this admission?: Yes Plan: IV Cardizem, follow-up cardiac enzymes and chemistry. 07/30/2019 Cardiology reports that the rhythm is not atrial fibrillation but rather multifocal atrial tachycardia. Please see above. 08/01/19-consultation with Dr. Jones was done he thinks rhythm is multifocal atrial tachycardia heart rate today in the 90s.. (9) Cardiac arrest Is this a current diagnosis for this admission?: Yes (10) Urinary tract infection, E. coli Is this a current diagnosis for this admission?: Yes Plan: 07/30/2019 Patient had a previous urine culture that is growing pansensitive E. coli. Patient will be started on ceftriaxone. 08/01/19-urine culture is positive for E. coli on ceftriaxone. Afebrile. (11) Sepsis Is this a current diagnosis for this admission?: Yes Plan: 07/31/2019-performance improved mental team thinks patient may be septic based on tachycardia 400 respiratory rate of around 20 and she has UTI, map of less than 65. Sepsis protocol will be implemented. 08/01/19-latest lactic acid level is 3.6. Trending down. Patient receiving IV fluid supplementation.
[2019-08-01 09:59] LABS: ALBUMIN 2.2 g/dL (3.5-5.0); ALKALINE PHOSPHATASE 132 U/L (38-126); ASPARTATE AMINO TRANSFERASE 21 U/L (14-36); BILIRUBIN,TOTAL 0.3 mg/dL (0.2-1.3); CALCIUM 7.8 mg/dL (8.4-10.2); GLUCOSE 123 mg/dL (75-110); POTASSIUM 3.5 mmol/L (3.6-5.0); TOTAL PROTEIN 4.3 g/dL (6.3-8.2)
[2019-08-01 10:04] LABS: CARBON DIOXIDE 31 mmol/L (22-30); CHLORIDE 105 mmol/L (98-107)
[2019-08-01 10:10] LABS: ANION GAP 2 (5-19); BLOOD UREA NITROGEN < 2 mg/dL (7-20)
[2019-08-01] MEDS: ENOXAPARIN SODIUM INJ 60 MG/0.6 ML DISP.SYRIN SUBCUT SCH ×2 (10:49→21:19)
[2019-08-01] MEDS: CITALOPRAM HYDROBROMIDE 20 MG TABLET PO SCH (10:49)
[2019-08-01] MEDS: MULTIVITAMINS W-IRON TABLET, CHEWABLE PO SCH (10:49)
[2019-08-01] MEDS: THIAMINE HCL 100 MG TABLET PO SCH (10:49)
[2019-08-01] MEDS: MIDODRINE HCL 5 MG TABLET PO SCH ×3 (10:49→17:38)
[2019-08-01] MEDS: FLUDROCORTISONE ACETATE 0.1 MG TABLET PO SCH (10:51)
[2019-08-01] MEDS: NORMAL SALINE 10 ML SDV (SCHEDULED) IV SCH ×2 (10:51→21:33)
[2019-08-01] MEDS: DEXTROSE 5%-LACTATED RINGERS 1,000 ML IV PRN (11:01)
[2019-08-01] MEDS: CEFTRIAXONE 1 GM/D5W RTU 1 GM/50 ML RTUPB IV SCH (17:37)
--- NOTE | 2019-08-01 22:40 | Progress Note ---
Provider Note Provider Note: CARDIOLOGY PROGRESS NOTE by Dr. Fariha Jones on 08/01/2019. SUBJECTIVE: Patient status quo. She denies chest pain or discomfort. She still requires the nasal BiPAP. There is no arrhythmias seen on the monitor. She denies any chest pain discomfort. Swallowing is a problem. PHYSICAL EXAMINATION: The patient appears to be a frail build and appears to be malnourished and chronically ill. Selected Entries 08/01/19 08/01/19 07:20 08:06 Temperature 97.4 F Temperature Oral Source Pulse Rate 88 Respiratory 24 H Rate Blood Pressure 98/67 L Blood Pressure 77 Mean BP Location Left Arm BP Position Supine O2 Sat by Pulse 100 Oximetry Oxygen Delivery High Flow Nasal Method ( Cannula includes room air) Fraction of 55 Inspired Oxygen (FIO2) Oxygen Flow 45 Rate Head: Is atraumatic normocephalic. EYES: Pupils are equal round regular reactive to light and accommodation. Extraocular movements are normal. There is no conjunctival pallor. There is no scleral icterus. EARS: Tympanic membranes are intact. External ocular auditory canals are clear. NOSE: Not examined due to the patient having nasal BiPAP. MOUTH: Mucous membranes of the mouth are moist. Tongue is moist. Mucous membranes are moist. There is no bleeding from the gums. THROAT: There is no redness of the oropharynx. There is no exudates. SKIN: There is no skin rashes. There is no skin lesions. There is no petechia or ecchymosis. Neck: Supple. There Is No JVD. Carotids Are Equal There Is No Bruit. There Is No Lymphadenopathy. There Is No Goiter There Is No Accessory Muscle Respiration Use. Trachea Central. LUNGS: There Is Diminished Air Entry and Prolonged Expiration. There is tubular breath sounds in the right base. There Is a Few Dry Crackles in the Left Base. On per Percussion There Is Hyperresonance. HEART: S1-S2 Is [place]. There Is No S3 Gallop. There Is No S3 Gallop. There Is Systolic Murmur Left Sternal Border and the [place] There Is No Rub. ABDOMEN: Soft. Nontender. There Is No Hepatosplenomegaly. Bowel Sounds Are Well [place]. EXTREMITIES: Well [place]. There Is No Femoral Bruits. Leg Pulses Are Well [place]. There Is No Pedal Edema. There Is No DVT or Cellulitis. There Is No Cyanosis or Clubbing. RN CRITICAL CARE: The Patient Slightly Drowsy but Oriented x3 There Is No Focal Deficits. PSYCHIATRIC: In Spite Of Her Mental Status Her Judgment Insight Are Intact Her Affect Appears to Be Slightly Anxious. Pelvis CT 07/21/19 17:07 IMPRESSION: Postsurgical changes of total right hip arthroplasty. Mildly comminuted right greater trochanteric fracture with mild anterior displacement. No hardware fracture or dislocation. Dilated distal appendix measuring 9 mm in caliber. Elongated gallbladder containing numerous gallstones. Mild right paracolic gutter and moderate right hemipelvis free fluid. As this is a limited noncontrast exam, clinically correlate for acute cholecystitis or appendicitis. Chest X-Ray 07/21/19 21:37 IMPRESSION: No evidence of active intrathoracic disease. Hip/Pelvis X-Ray 07/21/19 23:20 IMPRESSION: Fracture of the femur adjacent to the femoral component of the right hip hemiarthroplasty. Abdomen Ultrasound 07/22/19 00:00 IMPRESSION: 1. Cholelithiasis. 2. Otherwise essentially unremarkable. Chest X-Ray 07/23/19 00:00 IMPRESSION: Endotracheal and enteric tubes are in place. Severe underlying emphysema. Equivocal right upper lobe airspace opacity copyright 2011 [employer]- All Rights Reserved Abdomen/Pelvis CT 07/24/19 00:00 IMPRESSION: 1. No evidence of dissection or aneurysm involving the thoracic or abdominal aorta. The visceral arteries are patent. 2. No pulmonary embolism. 3. Diffuse wall thickening of the small bowel with mucosal enhancement. Findings compatible with shock bowel related to prolonged hypotension. No large vessel arterial occlusion. 4. Moderate left and small right pleural effusion. 5. Bibasilar opacities. This likely represents a component of compressive atelectasis however superimposed aspiration could contribute to this appearance. Continued follow-up recommended. 6. Moderate amount of ascites. 7. Coronary artery atherosclerosis. 8. Centrilobular emphysematous change. Likely chronic bronchitis. 9. 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 Correlation for history of claudication recommended. 10. Nondisplaced fractures of the right fourth through sixth anterior ribs and left third through sixth anterior ribs. This exam was performed according to our departmental dose-optimization program, which includes automated exposure control, adjustment of the mA and/or kV according to patient size and/or use of iterative reconstruction technique. Chest/Abdomen CTA 07/24/19 00:00 IMPRESSION: 1. No evidence of dissection or aneurysm involving the thoracic or abdominal aorta. The visceral arteries are patent. 2. No pulmonary embolism. 3. Diffuse wall thickening of the small bowel with mucosal enhancement. Findings compatible with shock bowel related to prolonged hypotension. No large vessel arterial occlusion. 4. Moderate left and small right pleural effusion. 5. Bibasilar opacities. This likely represents a component of compressive atelectasis however superimposed aspiration could contribute to this appearance. Continued follow-up recommended. 6. Moderate amount of ascites. 7. Coronary artery atherosclerosis. 8. Centrilobular emphysematous change. Likely chronic bronchitis. 9. 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 Correlation for history of claudication recommended. 10. Nondisplaced fractures of the right fourth through sixth anterior ribs and left third through sixth anterior ribs. This exam was performed according to our departmental dose-optimization program, which includes automated exposure control, adjustment of the mA and/or kV according to patient size and/or use of iterative reconstruction technique. Head CTA 07/24/19 00:00 IMPRESSION: 1. No acute intracranial abnormality by CT criteria. 2. No acute abnormality identified in the intracranial arterial circulation. 3. No evidence of stenosis/occlusion involving the cervical carotid or vertebral arteries. This exam was performed according to our departmental dose-optimization program, which includes automated exposure control, adjustment of the mA and/or kV according to patient size and/or use of iterative reconstruction technique. Neck CTA 07/24/19 01:40 IMPRESSION: 1. No acute intracranial abnormality by CT criteria. 2. No acute abnormality identified in the intracranial arterial circulation. 3. No evidence of stenosis/occlusion involving the cervical carotid or vertebral arteries. This exam was performed according to our departmental dose-optimization program, which includes automated exposure control, adjustment of the mA and/or kV according to patient size and/or use of iterative reconstruction technique. Chest X-Ray 07/25/19 00:00 IMPRESSION: 1. Stable appearance of the chest. Chest X-Ray 07/27/19 00:00 IMPRESSION: 1. LOW LYING ENDOTRACHEAL TUBE. RECOMMEND WITHDRAWAL BY 4 - 5 CM. 2. COPD. SMALL PLEURAL EFFUSIONS. NO SIGNIFICANT CHANGE. KUB X-Ray 07/27/19 00:00 IMPRESSION: TIP OF THE NASOGASTRIC TUBE IN THE STOMACH. NO RADIOGRAPHIC EVIDENCE FOR ACUTE ABDOMINAL DISEASE. Chest X-Ray 07/29/19 00:00 IMPRESSION: New prominent right basilar consolidation - pleural effusion. New Left basilar subsegmental atelectasis and increased effusion. PICC Line Insertion 07/30/19 00:00 IMPRESSION: SUCCESSFUL PLACEMENT OF A 5 FR DUAL LUMEN 32 CM PICC IN THE RIGHT BASILIC VEIN. Chest X-Ray 07/30/19 06:00 IMPRESSION: 1. Since the previous examination dated 07/29/2019, decreasing bi lateral pleural effusions, particularly on the left, and bibasilar compressive atelectasis. Modified Barium Swallow 07/31/19 08:00 IMPRESSION: ASPIRATION WITH THIN AND NECTAR THICK CONSISTENCIES. LARYNGEAL PENETRATION FROM RESIDUALS. PLEASE SEE SPEECH PATHOLOGIST REPORT FOR OTHER FINDINGS AND RECOMMENDATIONS. Labs- All tests 24 hr 08/01/19 08/01/19 08/01/19 00:36 05:40 06:13 WBC 7.6 RBC 3.89 Hgb 12.5 Hct 37.4 MCV 96 MCH 32.2 MCHC 33.5 RDW 23.9 H Plt Count 225 Sodium Potassium Chloride Carbon Dioxide Anion Gap BUN Creatinine Est GFR ( Amer) Est GFR (MDRD) Non-Af Glucose POC Glucose 120 H 106 Calcium Total Bilirubin Direct Bilirubin Neonat Total Bilirubin Neonat Direct Bilirubin Neonat Indirect Bili AST ALT Alkaline Phosphatase Total Protein Albumin 08/01/19 08/01/19 09:00 12:05 WBC RBC Hgb Hct MCV MCH MCHC RDW Plt Count Sodium 138.3 Potassium 3.5 L Chloride 105 Carbon Dioxide 31 H Anion Gap 2 L BUN < 2 L Creatinine 0.29 L Est GFR ( Amer) > 60 Est GFR (MDRD) Non-Af > 60 Glucose 123 H POC Glucose 123 H Calcium 7.8 L Total Bilirubin 0.3 Direct Bilirubin 0.0 Neonat Total Bilirubin Not Reportable Neonat Direct Bilirubin Not Reportable Neonat Indirect Bili Not Reportable AST 21 ALT 14 Alkaline Phosphatase 132 H Total Protein 4.3 L Albumin 2.2 L Impression/RECOMMENDATION: 1. Acute on chronic respiratory failure. The patient continues to be in respiratory distress requiring nasal BiPAP. She is not back to her baseline. 2. Status post respiratory arrest leading to cardiac arrest. Later once her COPD is under control then would recommend IV Lexiscan Cardiolite stress test to be sure the patient does not have any severe underlying coronary artery disease. 3. Anemia: Hemoglobin dropped to 7.5. Patient is receiving blood transfusions. 4. No evidence of atrial fibrillation. Hence patient does not require amiodarone. Amiodarone is very high risk medication for this patient. This is due to potential side effects. 5. Multifocal atrial tachycardia: Note that the patient's heart rate is not very fast. If the patient should develop increased heart rate then would recommend IV or p.o. Cardizem or p.o. verapamil, with Midodrine being on board ,to help the patient's blood pressure. 6. Right basilar pneumonia: Continue antibiotics. 7. Right hip fracture in a patient with prior right hip arthroplasty. 8. Tobacco abuse disorder.: Tobacco cessation counseling given. 3 minutes spent on this. 9. Malnutrition consider enteral hyperalimentation. 10. Alcohol dependence: No evidence of withdrawal. 11. Mild hypokalemia: Replace potassium. Medications reviewed. Medical regimen and management plan discussed with the attending physician. Medical decision making is of high complexity. 40 minutes spent on the patient more than 50% of time spent in direct patient care. The patient has multiple medical problems that needs to be addressed. At present the only recommendation of cardiology is to watch the patient for recurrence of any arrhythmias. Also would strongly recommend consider midodrine to get the patient's blood pressure up. We will sign off. Please call if cardiology services are needed.
[2019-08-02] MEDS: DEXTROSE 5%-LACTATED RINGERS 1,000 ML IV PRN ×2 (01:05→22:23)
[2019-08-02] MEDS: IPRATROPIUM BROMIDE 0.02% NEB 0.5 MG/2.5 ML AMPUL NEB SCH ×4 (02:10→20:09)
[2019-08-02] MEDS: LEVALBUTEROL HCL NEB 1.25 MG/3 ML AMPUL NEB SCH ×4 (02:10→20:09)
[2019-08-02] MEDS: MAGNESIUM OXIDE 400 MG TABLET PO SCH ×3 (05:11→21:50)
[2019-08-02] MEDS: DEXAMETHASONE 0.5 MG TABLET PO SCH ×4 (05:11→23:48)
[2019-08-02 06:39] LABS: ABSOLUTE MONOCYTES (AUTO) 0.9 10^3/uL (0.1-1.4); ABSOLUTE NEUT (AUTO) 6.8 10^3/uL (1.7-8.2); BASOPHILS % (AUTO) 0.3 % (0-2); EOSINOPHILS % (AUTO) 0.6 % (0-6); HEMATOCRIT 39.3 % (36.0-47.0); MEAN CORPUSCULAR HEMOGLOBIN 31.9 pg (27.0-33.4); MEAN CORPUSCULAR HGB CONC 32.9 g/dL (32.0-36.0); MEAN CORPUSCULAR VOLUME 97 fl (80-97); MONOCYTES % (AUTO) 10.4 % (3-13); PLATELET COUNT 265 10^3/uL (150-450); RED BLOOD COUNT 4.06 10^6/uL (3.72-5.28); SEGMENTED NEUTROPHILS % (AUTO) 77.7 % (42-78); TOTAL CELLS COUNTED % (AUTO) 100 %; WHITE BLOOD COUNT 8.7 10^3/uL (4.0-10.5)
[2019-08-02 07:02] LABS: ALBUMIN 2.4 g/dL (3.5-5.0); ALKALINE PHOSPHATASE 159 U/L (38-126); ASPARTATE AMINO TRANSFERASE 24 U/L (14-36); BILIRUBIN,TOTAL 0.3 mg/dL (0.2-1.3); BLOOD UREA NITROGEN 2 mg/dL (7-20); CARBON DIOXIDE 32 mmol/L (22-30); CHLORIDE 106 mmol/L (98-107); GLUCOSE 126 mg/dL (75-110); POTASSIUM 4.1 mmol/L (3.6-5.0); TOTAL PROTEIN 4.8 g/dL (6.3-8.2)
[2019-08-02 07:24] LABS: ANION GAP 0 (5-19)
[2019-08-02] MEDS: BUDESONIDE NEB 0.5 MG/2 ML AMPUL NEB SCH ×2 (08:18→20:09)
--- NOTE | 2019-08-02 09:32 | PDOC PROGRESS REPORT ---
Subjective Progress Note for:: 08/02/19 Subjective:: Thin cachectic female comfortable in the bed communicating well. Patient is on high flow oxygen. Going for barium swallow study today. Receiving ceftriaxone for E. coli. Awaiting for placement. 08/01/2019-no acute events in the last 24 hours. Patient has cookie swallow done yesterday she failed swallowing evaluation. Diet as per speech therapy recommendations. Plan is to repeat the swallowing study on Tuesday. Patient is comfortably in the bed complaining of weakness and tiredness. No other complaints. Urine culture is positive for E. coli. Patient is receiving IV ceftriaxone. 08/02/19-patient is still on high flow oxygen. Discussed the plan with the family members told him patient may have to be here for at least 1 week. Plan is to repeat the swallowing evaluation tomorrow. Family agreed for the feeding tube if necessary. Patient is receiving IV ceftriaxone for E. coli. Hemoglobin is 13 stable. Pulse ox is 98% on high flow oxygen. Reason For Visit: FALL HIP FTRACTURE ETOH DEP Physical Exam Vital Signs: Temp Pulse Resp BP Pulse Ox 97.2 F 83 26 H 109/66 97 08/02/19 03:02 08/02/19 07:33 08/02/19 07:33 08/02/19 07:33 08/02/19 07:33 Intake & Output 08/01/19 08/02/19 08/03/19 06:59 06:59 06:59 Intake Total 8 2000 Output Total 750 400 Balance 1298 1600 Weight 55.8 kg 56 kg General appearance: PRESENT: no acute distress, disheveled, thin Head exam: PRESENT: atraumatic Eye exam: PRESENT: PERRLA Mouth exam: PRESENT: moist, tongue midline Teeth exam: PRESENT: poor dentation Neck exam: ABSENT: carotid bruit, JVD, lymphadenopathy, thyromegaly Respiratory exam: PRESENT: decreased breath sounds Cardiovascular exam: PRESENT: RRR. ABSENT: diastolic murmur, rubs, systolic murmur Pulses: PRESENT: normal dorsalis pedis pul GI/Abdominal exam: PRESENT: normal bowel sounds, soft. ABSENT: distended, guarding, mass, organolmegaly, rebound, tenderness Rectal exam: PRESENT: deferred Extremities exam: PRESENT: full ROM. ABSENT: calf tenderness, clubbing, pedal edema Neurological exam: PRESENT: alert, awake, oriented to person, oriented to place, oriented to time, oriented to situation, CN II-XII grossly intact. ABSENT: motor sensory deficit Psychiatric exam: PRESENT: appropriate affect, normal mood. ABSENT: homicidal ideation, suicidal ideation Results Laboratory Results: 08/02/19 05:20 08/02/19 05:20 08/01/19 08/02/19 08/02/19 09:00 05:20 05:20 WBC 8.7 RBC 4.06 Hgb 13.0 Hct 39.3 MCV 97 MCH 31.9 MCHC 32.9 RDW 24.0 H Plt Count 265 Seg Neutrophils % 77.7 Sodium 138.3 137.9 Potassium 3.5 L 4.1 Chloride 105 106 Carbon Dioxide 31 H 32 H Anion Gap 2 L 0 L BUN < 2 L 2 L Creatinine 0.29 L 0.30 L Est GFR ( Amer) > 60 > 60 Glucose 123 H 126 H Calcium 7.8 L 8.0 L Magnesium 1.9 Total Bilirubin 0.3 0.3 AST 21 24 Alkaline Phosphatase 132 H 159 H Total Protein 4.3 L 4.8 L Albumin 2.2 L 2.4 L 07/24/19 15:06 Troponin I 0.014 Impressions: Pelvis CT 07/21/19 17:07 IMPRESSION: Postsurgical changes of total right hip arthroplasty. Mildly comminuted right greater trochanteric fracture with mild anterior displacement. No hardware fracture or dislocation. Dilated distal appendix measuring 9 mm in caliber. Elongated gallbladder containing numerous gallstones. Mild right paracolic gutter and moderate right hemipelvis free fluid. As this is a limited noncontrast exam, clinically correlate for acute cholecystitis or appendicitis. Hip/Pelvis X-Ray 07/21/19 23:20 IMPRESSION: Fracture of the femur adjacent to the femoral component of the right hip hemiarthroplasty. Abdomen Ultrasound 07/22/19 00:00 IMPRESSION: 1. Cholelithiasis. 2. Otherwise essentially unremarkable. Abdomen/Pelvis CT 07/24/19 00:00 IMPRESSION: 1. No evidence of dissection or aneurysm involving the thoracic or abdominal aorta. The visceral arteries are patent. 2. No pulmonary embolism. 3. Diffuse wall thickening of the small bowel with mucosal enhancement. Findings compatible with shock bowel related to prolonged hypotension. No large vessel arterial occlusion. 4. Moderate left and small right pleural effusion. 5. Bibasilar opacities. This likely represents a component of compressive atelectasis however superimposed aspiration could contribute to this appearance. Continued follow-up recommended. 6. Moderate amount of ascites. 7. Coronary artery atherosclerosis. 8. Centrilobular emphysematous change. Likely chronic bronchitis. 9. 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 Correlation for history of claudication recommended. 10. Nondisplaced fractures of the right fourth through sixth anterior ribs and left third through sixth anterior ribs. This exam was performed according to our departmental dose-optimization program, which includes automated exposure control, adjustment of the mA and/or kV according to patient size and/or use of iterative reconstruction technique. Chest/Abdomen CTA 07/24/19 00:00 IMPRESSION: 1. No evidence of dissection or aneurysm involving the thoracic or abdominal aorta. The visceral arteries are patent. 2. No pulmonary embolism. 3. Diffuse wall thickening of the small bowel with mucosal enhancement. Findings compatible with shock bowel related to prolonged hypotension. No large vessel arterial occlusion. 4. Moderate left and small right pleural effusion. 5. Bibasilar opacities. This likely represents a component of compressive atelectasis however superimposed aspiration could contribute to this appearance. Continued follow-up recommended. 6. Moderate amount of ascites. 7. Coronary artery atherosclerosis. 8. Centrilobular emphysematous change. Likely chronic bronchitis. 9. 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 Correlation for history of claudication recommended. 10. Nondisplaced fractures of the right fourth through sixth anterior ribs and left third through sixth anterior ribs. This exam was performed according to our departmental dose-optimization program, which includes automated exposure control, adjustment of the mA and/or kV according to patient size and/or use of iterative reconstruction technique. Head CTA 07/24/19 00:00 IMPRESSION: 1. No acute intracranial abnormality by CT criteria. 2. No acute abnormality identified in the intracranial arterial circulation. 3. No evidence of stenosis/occlusion involving the cervical carotid or vertebral arteries. This exam was performed according to our departmental dose-optimization program, which includes automated exposure control, adjustment of the mA and/or kV according to patient size and/or use of iterative reconstruction technique. Neck CTA 07/24/19 01:40 IMPRESSION: 1. No acute intracranial abnormality by CT criteria. 2. No acute abnormality identified in the intracranial arterial circulation. 3. No evidence of stenosis/occlusion involving the cervical carotid or vertebral arteries. This exam was performed according to our departmental dose-optimization program, which includes automated exposure control, adjustment of the mA and/or kV according to patient size and/or use of iterative reconstruction technique. KUB X-Ray 07/27/19 00:00 IMPRESSION: TIP OF THE NASOGASTRIC TUBE IN THE STOMACH. NO RADIOGRAPHIC EVIDENCE FOR ACUTE ABDOMINAL DISEASE. PICC Line Insertion 07/30/19 00:00 IMPRESSION: SUCCESSFUL PLACEMENT OF A 5 FR DUAL LUMEN 32 CM PICC IN THE RIGHT BASILIC VEIN. Chest X-Ray 07/30/19 06:00 IMPRESSION: 1. Since the previous examination dated 07/29/2019, decreasing bilateral pleural effusions, particularly on the left, and bibasilar compressive atelectasis. Modified Barium Swallow 07/31/19 08:00 IMPRESSION: ASPIRATION WITH THIN AND NECTAR THICK CONSISTENCIES. LARYNGEAL PENETRATION FROM RESIDUALS. PLEASE SEE SPEECH PATHOLOGIST REPORT FOR OTHER FINDINGS AND RECOMMENDATIONS. Assessment and Plan - Diagnosis (1) Acute respiratory failure with hypoxia and hypercapnia Is this a current diagnosis for this admission?: Yes Plan: 07/28/2019 Currently high flow nasal cannula. We will try and wean from oxygen while keeping her saturation 88 to 92%. As needed nebulizers have been ordered. 07/29/2019 Continue high flow nasal cannula 07/29/2019 critical care visit A chest x-ray was obtained urgently. There is atelectasis versus consolidation at the right base. Small pleural effusion on the left. An ABG was drawn. On high flow nasal cannula FiO2 70% pH was 7.36, PCO2 41.9, PO2 55.5, bicarb 23.3, saturation 88%. Atelectasis versus possible aspiration pneumonia being considered. For atelectasis we will institute trials of CPAP. Consider chest percussion therapy as well. I have added back scheduled nebulizers of Xopenex, ipratropium every 6 hours, budesonide every 12 hours and as needed combination therapy. 07/30/2019 She is stable today but still on high flow nasal cannula. We will continue nebulizer treatments. I have added Decadron as she lists prednisone as an al lergy. 07/31/19-patient is still on high flow oxygen. Going for cookie swallow study today. Receiving nebulizer treatments. Patient is also on Decadron. On BiPAP since yesterday. Receiving scheduled Xopenex, ipratropium every 6 hours, but desonide every 12 hours. Needs to continue the present management and once stable plan is to discharge her to SNF. 08/01/19-patient is still on high flow oxygen pulse ox is 93%. Swallowing evaluation was done followed by khris daniel she failed the swallowing study. Plan is to repeat swallowing evaluation on Tuesday. Diet as per speech therapy recommendations. Plan is to continue provide high flow oxygen. 08/02/2019-patient is still on high flow oxygen. Afebrile. Plan is to continue to try to taper off the oxygen requirements. (2) Multifocal atrial tachycardia Is this a current diagnosis for this admission?: Yes Plan: 07/29/2019 The patient has metoprolol as needed. Unfortunately she is n.p.o. at this time. Verapamil is also very useful for multifocal atrial tachycardia. Hopefully with aggressive treatment of her underlying respiratory status her rate will settle. 07/30/2019 Heart rate still around 100. Blood pressure still tending to be low. Have instituted a trial midodrine. Would like to avoid IV pressors if possible. 07/31/19-Dr. Jones is following the patient for multifocal atrial tachycardia. He thinks she is not a candidate for amiodarone. It is on Midodrin as per Dr. Jones's recommendations if the heart rate goes up plan to start her on p.o. verapamil or IV or p.o. Cardizem. Heart rate is around 100 this morning. 08/01/2019-patient has multifocal atrial tachycardia. Heart rate in the 90s today. Management as per Dr. Jones. 08/02/2019-heart rate is around 82. Rate controlled now. Patient is on Midodrin 2 keep the blood pressures close to normal limits. (3) Iron deficiency Is this a current diagnosis for this admission?: Yes Plan: 07/28/2019 Currently n.p.o. but initiate oral iron therapy once her swallow improves 07/29/2019 As above 07/30/2019 Patient remains n.p.o. for any extended time I will administer IV iron. (4) Hypokalemia Is this a current diagnosis for this admission?: Yes Plan: 07/28/2019 Monitor serum potassium. Supplement to keep serum potassium in the normal ra tamiko. 07/29/2019 Potassium is just below the lower limit normal. Because she is n.p.o. I will give 20 mEq of IV potassium. We will recheck tomorrow. Hopefully she will pass the modified barium swallow enough to begin to take oral medications. 07/29/2019 critical care visit She received IV potassium earlier. As noted above we will monitor electrolytes closely to prevent deficiencies. 07/30/2019 We will need to monitor closely. Small dose of Florinef has been added 07/31/2019-serum potassium from yesterday is 3.9. Patient is presently on Florinef and receiving as needed supplementations of potassium. 08/01/19-latest serum potassium is 3.9 today's labs are pending. 08/02/2019-serum potassium today is 4.1 hyperkalemia is resolved. (5) Hypocalcemia Is this a current diagnosis for this admission?: Yes Plan: 07/28/2019 We will recheck albumin. Will monitor calcium. Supplement accordingly. 07/29/2019 Calcium is 8.1 but corrects considering albumin. Continue to monitor. 07/29/2019 critical care visit Calcium is normal as above. Will monitor closely for calcium, magnesium and potassium levels. 07/30/2019 Monitor closely including albumin, magnesium and potassium 08/01/2019-serum calcium is 7.7 today's labs are pending. 08/02/2019-serum calcium is 8, albumin is 2.4. Corrected calcium is high normal. (6) Current every day smoker Is this a current diagnosis for this admission?: Yes Plan: Tobacco cessation counseling performed and nicotine replacement options discussed. (7) Closed right hip fracture Qualifiers: Encounter type: initial encounter Qualified Code(s): S72.001A - Fracture of unspecified part of neck of right femur, initial encounter for closed fracture Is this a current diagnosis for this admission?: Yes Plan: Follow-up orthopedic consult. 07/30/2019 When patient is more stable will initiate physical therapy. (8) Atrial fibrillation with RVR Is this a current diagnosis for this admission?: Yes Plan: IV Cardizem, follow-up cardiac enzymes and chemistry. 07/30/2019 Cardiology reports that the rhythm is not atrial fibrillation but rather multifocal atrial tachycardia. Please see above. 08/01/19-consultation with Dr. Jones was done he thinks rhythm is multifocal atrial tachycardia heart rate today in the 90s.. (9) Cardiac arrest Is this a current diagnosis for this admission?: Yes Plan: Discharge from ICU today. Successfully resuscitated after cardiac arrest requiring intubation and mechanical ventilation as well as IV pressors. She will be monitored on telemetry. Treating for atrial fibrillation. 07/29/2019 Dr. Jones is seeing the patient in consultation. Current rhythm is multifocal atrial tachycardia. (10) Urinary tract infection, E. coli Is this a current diagnosis for this admission?: Yes Plan: 07/30/2019 Patient had a previous urine culture that is growing pansensitive E. coli. Patient will be started on ceftriaxone. 08/01/19-urine culture is positive for E. coli on ceftriaxone. Afebrile. (11) Sepsis Is this a current diagnosis for this admission?: Yes Plan: 07/31/2019-performance improved mental team thinks patient may be septic based on tachycardia 400 respiratory rate of around 20 and she has UTI, map of less than 65. Sepsis protocol will be implemented. 08/01/19-latest lactic acid level is 3.6. Trending down. Patient receiving IV fluid supplementation. 08/02/2019-blood cultures are negative blood pressures are still softer side. Receiving IV fluids. Receiving IV ceftriaxone for E. coli. Blood cultures are negative. (12) Protein-energy malnutrition Is this a current diagnosis for this admission?: Yes Plan: 08/02/2019-patient is cachectic. Wasting of the temporalis muscles, deltoid muscle, quadriceps muscle is seen. Dietary consult will be requested.
[2019-08-02] MEDS: CITALOPRAM HYDROBROMIDE 20 MG TABLET PO SCH (09:57)
[2019-08-02] MEDS: MULTIVITAMINS W-IRON TABLET, CHEWABLE PO SCH (09:57)
[2019-08-02] MEDS: FLUDROCORTISONE ACETATE 0.1 MG TABLET PO SCH (09:57)
[2019-08-02] MEDS: THIAMINE HCL 100 MG TABLET PO SCH (09:57)
[2019-08-02] MEDS: MIDODRINE HCL 5 MG TABLET PO SCH ×3 (09:57→17:55)
[2019-08-02] MEDS: ENOXAPARIN SODIUM INJ 60 MG/0.6 ML DISP.SYRIN SUBCUT SCH ×2 (09:58→21:50)
[2019-08-02] MEDS: NORMAL SALINE 10 ML SDV (SCHEDULED) IV SCH ×2 (09:59→21:50)
[2019-08-02] MEDS: CEFTRIAXONE 1 GM/D5W RTU 1 GM/50 ML RTUPB IV SCH (17:55)
[2019-08-03] MEDS: LEVALBUTEROL HCL NEB 1.25 MG/3 ML AMPUL NEB SCH ×4 (02:33→19:46)
[2019-08-03] MEDS: IPRATROPIUM BROMIDE 0.02% NEB 0.5 MG/2.5 ML AMPUL NEB SCH ×4 (02:33→19:46)
[2019-08-03] MEDS: MAGNESIUM OXIDE 400 MG TABLET PO SCH ×3 (05:22→21:32)
[2019-08-03] MEDS: DEXAMETHASONE 0.5 MG TABLET PO SCH ×4 (05:22→23:28)
[2019-08-03 06:05] LABS: ABSOLUTE BASOPHILS # (AUTO) 0.1 10^3/uL (0.0-0.2); ABSOLUTE MONOCYTES (AUTO) 0.8 10^3/uL (0.1-1.4); ABSOLUTE NEUT (AUTO) 7.6 10^3/uL (1.7-8.2); BASOPHILS % (AUTO) 0.6 % (0-2); EOSINOPHILS % (AUTO) 0.4 % (0-6); HEMATOCRIT 37.2 % (36.0-47.0); HEMOGLOBIN 12.1 g/dL (12.0-15.5); LYMPHOCYTES % (AUTO) 10.5 % (13-45); MEAN CORPUSCULAR HEMOGLOBIN 31.8 pg (27.0-33.4); MEAN CORPUSCULAR HGB CONC 32.6 g/dL (32.0-36.0); MEAN CORPUSCULAR VOLUME 98 fl (80-97); MONOCYTES % (AUTO) 8.2 % (3-13); PLATELET COUNT 239 10^3/uL (150-450); RED BLOOD COUNT 3.81 10^6/uL (3.72-5.28); RED CELL DISTRIBUTION WIDTH 23.9 % (11.5-14.0); SEGMENTED NEUTROPHILS % (AUTO) 80.3 % (42-78); TOTAL CELLS COUNTED % (AUTO) 100 %; WHITE BLOOD COUNT 9.5 10^3/uL (4.0-10.5)
[2019-08-03] MEDS: BUDESONIDE NEB 0.5 MG/2 ML AMPUL NEB SCH ×2 (08:10→19:46)
--- NOTE | 2019-08-03 09:42 | PDOC PROGRESS REPORT ---
Subjective Progress Note for:: 08/03/19 Subjective:: Thin cachectic female comfortable in the bed communicating well. Patient is on high flow oxygen. Going for barium swallow study today. Receiving ceftriaxone for E. coli. Awaiting for placement. 08/01/2019-no acute events in the last 24 hours. Patient has cookie swallow done yesterday she failed swallowing evaluation. Diet as per speech therapy recommendations. Plan is to repeat the swallowing study on Tuesday. Patient is comfortably in the bed complaining of weakness and tiredness. No other complaints. Urine culture is positive for E. coli. Patient is receiving IV ceftriaxone. 08/02/19-patient is still on high flow oxygen. Discussed the plan with the family members told him patient may have to be here for at least 1 week. Plan is to repeat the swallowing evaluation tomorrow. Family agreed for the feeding tube if necessary. Patient is receiving IV ceftriaxone for E. coli. Hemoglobin is 13 stable. Pulse ox is 98% on high flow oxygen. 08/03/19-patient is off high flow oxygen pulse ox is 95% on 6 L today. Patient is going for swallowing evaluation today. Plan is to repeat the chest x-ray today. Comfortably in the bed communicating well. Reason For Visit: FALL HIP FTRACTURE ETOH DEP Physical Exam Vital Signs: Temp Pulse Resp BP Pulse Ox 97.4 F 74 16 98/71 L 95 08/03/19 03:30 08/03/19 07:00 08/03/19 03:30 08/03/19 03:30 08/03/19 03:30 Intake & Output 08/02/19 08/03/19 08/04/19 06:59 06:59 06:59 Intake Total 0 1000 Output Total 400 300 Balance 1650 700 Weight 56 kg 56.9 kg General appearance: PRESENT: no acute distress, thin Head exam: PRESENT: atraumatic Eye exam: PRESENT: PERRLA Mouth exam: PRESENT: moist, tongue midline Teeth exam: PRESENT: poor dentation Neck exam: ABSENT: carotid bruit, JVD, lymphadenopathy, thyromegaly Respiratory exam: PRESENT: decreased breath sounds Cardiovascular exam: PRESENT: RRR. ABSENT: diastolic murmur, rubs, systolic murmur GI/Abdominal exam: PRESENT: normal bowel sounds, soft. ABSENT: distended, guarding, mass, organolmegaly, rebound, tenderness Rectal exam: PRESENT: deferred Extremities exam: PRESENT: full ROM. ABSENT: calf tenderness, clubbing, pedal edema Neurological exam: PRESENT: alert, awake, oriented to person, oriented to place, oriented to time, oriented to situation, CN II-XII grossly intact. ABSENT: motor sensory deficit Psychiatric exam: PRESENT: appropriate affect, normal mood. ABSENT: homicidal ideation, suicidal ideation Results Laboratory Results: 08/03/19 05:40 08/02/19 05:20 08/03/19 08/03/19 05:40 05:40 WBC 9.5 RBC 3.81 Hgb 12.1 Hct 37.2 MCV 98 H MCH 31.8 MCHC 32.6 RDW 23.9 H Plt Count 239 Seg Neutrophils % 80.3 H Magnesium 2.0 07/24/19 15:06 Troponin I 0.014 Impressions: Pelvis CT 07/21/19 17:07 IMPRESSION: Postsurgical changes of total right hip arthroplasty. Mildly comminuted right greater trochanteric fracture with mild anterior displacement. No hardware fracture or dislocation. Dilated distal appendix measuring 9 mm in caliber. Elongated gallbladder containing numerous gallstones. Mild right paracolic gutter and moderate right hemipelvis free fluid. As this is a limited noncontrast exam, clinically joanne elate for acute cholecystitis or appendicitis. Hip/Pelvis X-Ray 07/21/19 23:20 IMPRESSION: Fracture of the femur adjacent to the femoral component of the right hip hemiarthroplasty. Abdomen Ultrasound 07/22/19 00:00 IMPRESSION: 1. Cholelithiasis. 2. Otherwise essentially unremarkable. Abdomen/Pelvis CT 07/24/19 00:00 IMPRESSION: 1. No evidence of dissection or aneurysm involving the thoracic or abdominal aorta. The visceral arteries are patent. 2. No pulmonary embolism. 3. Diffuse wall thickening of the small bowel with mucosal enhancement. Findings compatible with shock bowel related to prolonged hypotension. No large vessel arterial occlusion. 4. Moderate left and small right pleural effusion. 5. Bibasilar opacities. This likely represents a component of compressive atelectasis however superimposed aspiration could contribute to this appearance. Continued follow-up recommended. 6. Moderate amount of ascites. 7. Coronary artery atherosclerosis. 8. Centrilobular emphysematous change. Likely chronic bronchitis. 9. 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 Correlation for history of claudication recommended. 10. Nondisplaced fractures of the right fourth through sixth anterior ribs and left third through sixth anterior ribs. This exam was performed according to our departmental dose-optimization program, which includes automated exposure control, adjustment of the mA and/or kV according to patient size and/or use of iterative reconstruction technique. Chest/Abdomen CTA 07/24/19 00:00 IMPRESSION: 1. No evidence of dissection or aneurysm involving the thoracic or abdominal aorta. The visceral arteries are patent. 2. No pulmonary embolism. 3. Diffuse wall thickening of the small bowel with mucosal enhancement. Findings compatible with shock bowel related to prolonged hypotension. No large vessel arterial occlusion. 4. Moderate left and small right pleural effusion. 5. Bibasilar opacities. This likely represents a component of compressive atelectasis however superimposed aspiration could contribute to this appearance. Continued follow-up recommended. 6. Moderate amount of ascites. 7. Coronary artery atherosclerosis. 8. Centrilobular emphysematous change. Likely chronic bronchitis. 9. 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 Correlation for history of claudication recommended. 10. Nondisplaced fractures of the right fourth through sixth anterior ribs and left third through sixth anterior ribs. This exam was performed according to our departmental dose-optimization program, which includes automated exposure control, adjustment of the mA and/or kV according to patient size and/or use of iterative reconstruction technique. Head CTA 07/24/19 00:00 IMPRESSION: 1. No acute intracranial abnormality by CT criteria. 2. No acute abnormality identified in the intracranial arterial circulation. 3. No evidence of stenosis/occlusion involving the cervical carotid or vertebral arteries. This exam was performed according to our departmental dose-optimization program, which includes automated exposure control, adjustment of the mA and/or kV according to patient size and/or use of iterative reconstruction technique. Neck CTA 07/24/19 01:40 IMPRESSION: 1. No acute intracranial abnormality by CT criteria. 2. No acute abnormality identified in the intracranial arterial circulation. 3. No evidence of stenosis/occlusion involving the cervical carotid or vertebral arteries. This exam was performed according to our departmental dose-optimization program, which includes automated exposure control, adjustment of the mA and/or kV according to patient size and/or use of iterative reconstruction technique. KUB X-Ray 07/27/19 00:00 IMPRESSION: TIP OF THE NASOGASTRIC TUBE IN THE STOMACH. NO RADIOGRAPHIC EVIDENCE FOR ACUTE ABDOMINAL DISEASE. PICC Line Insertion 07/30/19 00:00 IMPRESSION: SUCCESSFUL PLACEMENT OF A 5 FR DUAL LUMEN 32 CM PICC IN THE RIGHT BASILIC VEIN. Chest X-Ray 07/30/19 06:00 IMPRESSION: 1. Since the previous examination dated 07/29/2019, decreasing bilateral pleural effusions, particularly on the left, and bibasilar compressive atelectasis. Modified Barium Swallow 07/31/19 08:00 IMPRESSION: ASPIRATION WITH THIN AND NECTAR THICK CONSISTENCIES. LARYNGEAL PENETRATION FROM RESIDUALS. PLEASE SEE SPEECH PATHOLOGIST REPORT FOR OTHER FINDINGS AND RECOMMENDATIONS. Assessment and Plan - Diagnosis (1) Acute respiratory failure with hypoxia and hypercapnia Is this a current diagnosis for this admission?: Yes Plan: 07/28/2019 Currently high flow nasal cannula. We will try and wean from oxygen while keeping her saturation 88 to 92%. As needed nebulizers have been ordered. 07/29/2019 Continue high flow nasal cannula 07/29/2019 critical care visit A chest x-ray was obtained urgently. There is atelectasis versus consolidation at the right base. Small pleural effusion on the left. An ABG was drawn. On high flow nasal cannula FiO2 70% pH was 7.36, PCO2 41.9, PO2 55.5, bicarb 23.3, saturation 88%. Atelectasis versus possible aspiration pneumonia being consi dered. For atelectasis we will institute trials of CPAP. Consider chest percussion therapy as well. I have added back scheduled nebulizers of Xopenex, ipratropium every 6 hours, budesonide every 12 hours and as needed combination therapy. 07/30/2019 She is stable today but still on high flow nasal cannula. We will continue nebulizer treatments. I have added Decadron as she lists prednisone as an allergy. 07/31/19-patient is still on high flow oxygen. Going for cookie swallow study today. Receiving nebulizer treatments. Patient is also on Decadron. On BiPAP since yesterday. Receiving scheduled Xopenex, ipratropium every 6 hours, but desonide every 12 hours. Needs to continue the present management and once stable plan is to discharge her to SNF. 08/01/19-patient is still on high flow oxygen pulse ox is 93%. Swallowing evaluation was done followed by cookie swallow she failed the swallowing study. Plan is to repeat swallowing evaluation on Tuesday. Diet as per speech therapy recommendations. Plan is to continue provide high flow oxygen. 08/02/2019-patient is still on high flow oxygen. Afebrile. Plan is to continue to try to taper off the oxygen requirements. 08/03/19-patient is off high flow oxygen plan is to discontinue chest physical therapy, to repeat the chest x-ray today. Temp is 97.4, blood pressures are persistently low it is 98/71 today. Patient is going to have a cookie swallow today again. Plan is to continue antibiotic therapy at this time.on IV Rocephin at this time. (2) Multifocal atrial tachycardia Is this a current diagnosis for this admission?: Yes Plan: 07/29/2019 The patient has metoprolol as needed. Unfortunately she is n.p.o. at this time. Verapamil is also very useful for multifocal atrial tachycardia. Hopefully with aggressive treatment of her underlying respiratory status her rate will settle. 07/30/2019 Heart rate still around 100. Blood pressure still tending to be low. Have instituted a trial midodrine. Would like to avoid IV pressors if possible. 07/31/19-Dr. Jones is following the patient for multifocal atrial tachycardia. He thinks she is not a candidate for amiodarone. It is on Midodrin as per Dr. Jones's recommendations if the heart rate goes up plan to start her on p.o. verapamil or IV or p.o. Cardizem. Heart rate is around 100 this morning. 08/01/2019-patient has multifocal atrial tachycardia. Heart rate in the 90s to day. Management as per Dr. Jones. 08/02/2019-heart rate is around 82. Rate controlled now. Patient is on Midodrin 2 keep the blood pressures close to normal limits. (3) Iron deficiency Is this a current diagnosis for this admission?: Yes Plan: 07/28/2019 Currently n.p.o. but initiate oral iron therapy once her swallow improves 07/29/2019 As above 07/30/2019 Patient remains n.p.o. for any extended time I will administer IV iron. (4) Hypokalemia Is this a current diagnosis for this admission?: Yes Plan: 07/28/2019 Monitor serum potassium. Supplement to keep serum potassium in the normal range. 07/29/2019 Potassium is just below the lower limit normal. Because she is n.p.o. I will give 20 mEq of IV potassium. We will recheck tomorrow. Hopefully she will pass the modified barium swallow enough to begin to take oral medications. 07/29/2019 critical care visit She received IV potassium earlier. As noted above we will monitor electrolytes closely to prevent deficiencies. 07/30/2019 We will need to monitor closely. Small dose of Florinef has been added 07/31/2019-serum potassium from yesterday is 3.9. Patient is presently on Florinef and receiving as needed supplementations of potassium. 08/01/19-latest serum potassium is 3.9 today's labs are pending. 08/02/2019-serum potassium today is 4.1 hyperkalemia is resolved. (5) Hypocalcemia Is this a current diagnosis for this admission?: Yes Plan: 07/28/2019 We will recheck albumin. Will monitor calcium. Supplement accordingly. 07/29/2019 Calcium is 8.1 but corrects considering albumin. Continue to monitor. 07/29/2019 critical care visit Calcium is normal as above. Will monitor closely for calcium, magnesium and pot assium levels. 07/30/2019 Monitor closely including albumin, magnesium and potassium 08/01/2019-serum calcium is 7.7 today's labs are pending. 08/02/2019-serum calcium is 8, albumin is 2.4. Corrected calcium is high normal. (6) Current every day smoker Is this a current diagnosis for this admission?: Yes Plan: Tobacco cessation counseling performed and nicotine replacement options discussed. (7) Closed right hip fracture Qualifiers: Encounter type: initial encounter Qualified Code(s): S72.001A - Fracture of unspecified part of neck of right femur, initial encounter for closed fracture Is this a current diagnosis for this admission?: Yes Plan: Follow-up orthopedic consult. 07/30/2019 When patient is more stable will initiate physical therapy. (8) Atrial fibrillation with RVR Is this a current diagnosis for this admission?: Yes Plan: IV Cardizem, follow-up cardiac enzymes and chemistry. 07/30/2019 Cardiology reports that the rhythm is not atrial fibrillation but rather multifocal atrial tachycardia. Please see above. 08/01/19-consultation with Dr. Jones was done he thinks rhythm is multifocal atrial tachycardia heart rate today in the 90s.. (9) Cardiac arrest Is this a current diagnosis for this admission?: Yes Plan: Discharge from ICU today. Successfully resuscitated after cardiac arrest requiring intubation and mechanical ventilation as well as IV pressors. She will be monitored on telemetry. Treating for atrial fibrillation. 07/29/2019 Dr. Jones is seeing the patient in consultation. Current rhythm is multifocal atrial tachycardia. (10) Urinary tract infection, E. coli Is this a current diagnosis for this admission?: Yes Plan: 07/30/2019 Patient had a previous urine culture that is growing pansensitive E. coli. Patient will be started on ceftriaxone. 08/01/19-urine culture is positive for E. coli on ceftriaxone. Afebrile. (11) Sepsis Is this a current diagnosis for this admission?: Yes Plan: 07/31/2019-performance improved mental team thinks patient may be septic based on tachycardia 400 respiratory rate of around 20 and she has UTI, map of less than 65. Sepsis protocol will be implemented. 08/01/19-latest lactic acid level is 3.6. Trending down. Patient receiving IV fluid supplementation. 08/02/2019-blood cultures are negative blood pressures are still softer side. Receiving IV fluids. Receiving IV ceftriaxone for E. coli. Blood cultures are negative. (12) Protein-energy malnutrition Is this a current diagnosis for this admission?: Yes Plan: 08/02/2019-patient is cachectic. Wasting of the temporalis muscles, deltoid muscle, quadriceps muscle is seen. Dietary consult will be requested.
--- NOTE | 2019-08-03 10:54 | RADIOLOGY REPORT (SQ) ---
EXAM DESCRIPTION: CHEST 2 VIEWS IMAGES COMPLETED DATE/TIME: 08/03/2019 10:28 am REASON FOR STUDY: asp pneumonia COMPARISON: AP view of the chest from 07/30/2019. EXAM PARAMETERS: NUMBER OF VIEWS: Two views. TECHNIQUE: PA and lateral views of the chest were obtained. RADIATION DOSE: NA LIMITATIONS: None. FINDINGS: LUNGS AND PLEURA: Opacification of the entire right hemithorax associated with mild ipsila teral mediastinal shift. There are pleural and parenchymal opacities in the inferior aspect of the l eft hemithorax that have increased from 07/30/2019 and could represent a combination of pleural fluid, atelectasis and/or consolidation. MEDIASTINUM AND HILAR STRUCTURES: As above. HEART AND VASCULAR STRUCTURES: The cardiac silhouette is partially obscured. BONES: No acute findings. HARDWARE: The tip of the right upper extremity PICC projects at the level of the cavoatrial junction. OTHER: No other finding. IMPRESSION: 1. Opacification of the entire right hemithorax associated with volume loss given the mi ld ipsilateral mediastinal shift. 2. Increased pleural and parenchymal opacities in the inferior aspect of the left hemithorax that co uld represent a combination of pleural fluid, atelectasis and/or consolidation. TECHNICAL DOCUMENTATION: JOB ID: [id number] 2010 [employer]- All Rights Reserved Reading location - IP/workstation name: [email or web address]
[2019-08-03] MEDS: ENOXAPARIN SODIUM INJ 60 MG/0.6 ML DISP.SYRIN SUBCUT SCH ×2 (10:55→21:32)
[2019-08-03] MEDS: CITALOPRAM HYDROBROMIDE 20 MG TABLET PO SCH (10:55)
[2019-08-03] MEDS: THIAMINE HCL 100 MG TABLET PO SCH (10:55)
[2019-08-03] MEDS: MIDODRINE HCL 5 MG TABLET PO SCH ×3 (10:55→17:51)
[2019-08-03] MEDS: FLUDROCORTISONE ACETATE 0.1 MG TABLET PO SCH (10:56)
[2019-08-03] MEDS: MULTIVITAMINS W-IRON TABLET, CHEWABLE PO SCH (11:34)
[2019-08-03] MEDS: NORMAL SALINE 10 ML SDV (SCHEDULED) IV SCH ×2 (11:37→21:36)
--- NOTE | 2019-08-03 12:47 | RADIOLOGY REPORT (SQ) ---
EXAM DESCRIPTION: COOKIE SWALLOW IMAGES COMPLETED DATE/TIME: 08/03/2019 10:28 am REASON FOR STUDY: repeat study, hx of aspiration COMPARISON: Cookie swallow 07/31/2019. TECHNIQUE: Videofluoroscopic swallowing examination was performed in conjunction with speech patholo gy. Videofluoroscopic imaging was obtained and reviewed and these are the findings: RADIATION DOSE: Fluoro time 5.3 minutes 2 images saved to PACS. LIMITATIONS: None FINDINGS: The patient was brought into the fluoro room and placed upright on a modified barium swall ow chair. The patient was then given multiple consistencies mixed with barium to swallow under live fluoroscopic video guidance. According to the Speech Pathologist there was trace aspiration seen wit h thin barium. Laryngeal penetration was seen with nectar thick and pureed residuals. Please refer t o the speech pathology report for further details. IMPRESSION: TRACE ASPIRATION WITH THIN BARIUM. LARYNGEAL PENETRATION FROM NECTAR THICK AND PUREED R ESIDUALS. PLEASE SEE SPEECH PATHOLOGIST REPORT FOR OTHER FINDINGS AND RECOMMENDATIONS. COMMENT: None Quality ID [id number]: Final reports for procedures using fluoroscopy that document radiation exposure imelda ace, or exposure time and number of fluorographic images (if radiation exposure indices are not avail able) TECHNICAL DOCUMENTATION: JOB ID: [id number] 2010 [employer]- All Rights Reserved Reading location - IP/workstation name: [email or web address] [id number]
--- NOTE | 2019-08-03 13:49 | ST Inp Modified Barium Swallow ---
Medical Diagnosis - Medical Diagnoses Medical Diagnosis Description & ICD-10 Code(s): acute respiratory failure, hip fracture - ICD-10 Tx Diagnosis Coding (1) Dysphagia ICD-10 Code(s): R13.10 - DYSPHAGIA, UNSPECIFIED Inpatient MBS - General Date: 08/03/19 Date of Onset: 07/28/19 - History -: Medical - HISTORY: patient admitted 07/20 initially, was transitioned to ICU on 07/22 due to respiratory failure and intubated. Was extubated on 07/26. Prior medical history includes COPD and right hip fracture. Patient assessed at bedside, overt signs of aspiration present, MBSS was recommended. Study completed 07/31/19, recommended patient remain NPO due to aspiration of multiple consistencies and poor ability to clear residue, and re-assess. Patient remains on high flow nasal cannula at time of assessment. Medications: Medications Reviewed Allergies: Refer to medical record - Subjective Current Nutritional Means: NPO, IV Fluids Current PO Diet: N/A (NPO) Current Symptoms: Aspiration Pain: Patient reports, 0/5 - Objective Assessment: Upright, Left Lateral - Food Trials Food Trials Used: Thin liquids, Honey-thickened liquids, Pureed - Assessment Labial Function: Within Normal Limits Lingual Function: Within Normal Limits Mandibular Function: Within Normal Limits Laryngeal Function: Weak Cough - Pharyngeal Stage Initiation of Pharyngeal Stage: Delayed - 2-3 seconds Decreased Laryngeal Elevation: Yes Reduced Velo-Pharyngeal Closure: no Reduced Pressure Generation: Yes Reduced Tongue Base Retraction: Yes Pre-Swallowing Pooling in Valleculae: Moderate Pre-Swallowing Pooling in Pyriforms: Mild Reduced Thyro-Hyiod Approximation: Yes Reduced Epiglottic Excursion: Yes Reduced Pharyngeal Peristalsis: Yes Multiple Swallows With: Ineffective Clearance Post Swallow Residuals in Valleculae: Significant Post Swallow Residuals in Pyriforms: Mild - Impression/Summary Laryngeal Penetration: Yes - penetration with thin liquids, and residuals from honey thick and puree trials, no cough response Tracheal Aspiration: yes - with thin liquid trials, trace amount, weak cough noted Effective Compensatory Strategies: throat clear & reswallow Ineffective Compensatory Strategies: chin down Patient Presents With: Pharyngeal stage dysph. - moderate to severe Risk of Aspiration: Severe Risk of Nutritional Compromise: Severe - patient will likely be unable to meet nutritional requirments PO Risk Due To: Severe pharyngeal phase dysphagia. Patient demonstrated significantly reduced epiglottic inversion, resulting in significant valleculae residue with solids. These were unable to be cleared with additional dry swallows, was partially cleared with throat-clear reswallow, and with small sip of thin liquid. Demonstrated incomplete airway closure during the swallow. Patient is at severe risk of aspiration due to significant pharyngeal residue after the swallow with thicker textures, and poor airway closure during the swallow, resulting in trace aspiration during the swallow with thin liquids, however, not consistently. - Recommendations NPO: therapeutic trials Solid Diet Recommendations: Pureed - thin puree trials for medications and therapy trials Liquid Diet Recommendations: Thin - WATER ONLY at this time Dysphagia Therapy with LPN CMA: Yes Supervision: requires assistance Other Recommendations: Recommend patient have ice chip trials throughout the day and very limited PO trials (water, thin purees). Recommend dysphagia treatment next week x2. Treatment goals include: 1) Patient will demonstrate throat clear and re-swallow consistently with thin puree trials in 4/5 trials. 2) Patient will demonstrate small sips of water without overt s/s of aspiration in 4/5 trials. 3) Patient will complete pharyngeal phase dysphagia exercises with min cues x5. - Time Total Time: 30 Total Timed Minutes: 30
[2019-08-03] MEDS: CEFTRIAXONE 1 GM/D5W RTU 1 GM/50 ML RTUPB IV SCH (17:52)
[2019-08-03] MEDS: DEXTROSE 5%-LACTATED RINGERS 1,000 ML IV PRN (21:54)
[2019-08-03 22:32] LABS: AMORPHOUS SEDIMENT,URINE TRACE /HPF; APPEARANCE,URINE CLOUDY; BILIRUBIN,URINE NEGATIVE (NEGATIVE); COLOR,URINE YELLOW; GLUCOSE, URINE NEGATIVE (NEGATIVE); KETONES,URINE NEGATIVE (NEGATIVE); LEUKOCYTE ESTERASE,URINE LARGE (NEGATIVE); NITRITE,URINE POSITIVE (NEGATIVE); PROTEIN,URINE 30 mg/dL (NEGATIVE); URINE SPECIFIC GRAVITY 1.019; UROBILINOGEN,URINE NEGATIVE mg/dL (<2.0)
[2019-08-04] MEDS: LEVALBUTEROL HCL NEB 1.25 MG/3 ML AMPUL NEB SCH ×4 (01:59→20:00)
[2019-08-04] MEDS: IPRATROPIUM BROMIDE 0.02% NEB 0.5 MG/2.5 ML AMPUL NEB SCH ×4 (01:59→20:00)
[2019-08-04] MEDS: DEXAMETHASONE 0.5 MG TABLET PO SCH ×3 (05:07→17:39)
[2019-08-04] MEDS: MAGNESIUM OXIDE 400 MG TABLET PO SCH ×3 (05:08→21:37)
[2019-08-04 05:12] LABS: HEMATOCRIT 33.1 % (36.0-47.0); HEMOGLOBIN 10.5 g/dL (12.0-15.5); MEAN CORPUSCULAR HEMOGLOBIN 31.8 pg (27.0-33.4); MEAN CORPUSCULAR HGB CONC 31.8 g/dL (32.0-36.0); MEAN CORPUSCULAR VOLUME 100 fl (80-97); PLATELET COUNT 203 10^3/uL (150-450); RED BLOOD COUNT 3.31 10^6/uL (3.72-5.28)
[2019-08-04 05:33] LABS: ABSOLUTE LYMPHOCYTES# (MANUAL) 0.8 10^3/uL (0.5-4.7); ABSOLUTE MONOCYTES # (MANUAL) 0.3 10^3/uL (0.1-1.4); BAND NEUTROPHILS % (MANUAL) 8 % (3-5); BASOPHILS % (MANUAL) 0 % (0-2); EOSINOPHILS % (MANUAL) 0 % (0-6); LYMPHOCYTES % (MANUAL) 7 % (13-45); MONOCYTES % (MANUAL) 3 % (3-13); SEGMENTED NEUTROPHILS % (MAN) 82 % (42-78); TOTAL CELLS COUNTED 100
[2019-08-04 05:34] LABS: ANISOCYTOSIS 2+; POLYCHROMASIA 1+
[2019-08-04 05:35] LABS: PLATELET COMMENT ADEQUATE
[2019-08-04 07:07] LABS: ALBUMIN 1.8 g/dL (3.5-5.0); ALKALINE PHOSPHATASE 139 U/L (38-126); ASPARTATE AMINO TRANSFERASE 24 U/L (14-36); BILIRUBIN,TOTAL 0.2 mg/dL (0.2-1.3); BLOOD UREA NITROGEN 6 mg/dL (7-20); CALCIUM 7.7 mg/dL (8.4-10.2); CARBON DIOXIDE 34 mmol/L (22-30); CHLORIDE 104 mmol/L (98-107); GLUCOSE 104 mg/dL (75-110); POTASSIUM 3.8 mmol/L (3.6-5.0)
[2019-08-04 07:18] LABS: ANION GAP -1 (5-19)
[2019-08-04] MEDS: BUDESONIDE NEB 0.5 MG/2 ML AMPUL NEB SCH ×2 (08:29→20:00)
[2019-08-04] MEDS: DEXTROSE 5%-LACTATED RINGERS 1,000 ML IV PRN ×2 (10:27→21:39)
[2019-08-04] MEDS: ENOXAPARIN SODIUM INJ 60 MG/0.6 ML DISP.SYRIN SUBCUT SCH (10:28)
[2019-08-04] MEDS: CITALOPRAM HYDROBROMIDE 20 MG TABLET PO SCH (10:28)
[2019-08-04] MEDS: FLUDROCORTISONE ACETATE 0.1 MG TABLET PO SCH (10:28)
[2019-08-04] MEDS: THIAMINE HCL 100 MG TABLET PO SCH (10:28)
[2019-08-04] MEDS: MIDODRINE HCL 5 MG TABLET PO SCH ×3 (10:28→17:37)
[2019-08-04] MEDS: NORMAL SALINE 10 ML SDV (SCHEDULED) IV SCH (10:30)
[2019-08-04] MEDS: MULTIVITAMINS W-IRON TABLET, CHEWABLE PO SCH (10:30)
--- NOTE | 2019-08-04 16:36 | PDOC PROGRESS REPORT ---
Subjective Progress Note for:: 08/04/19 Subjective:: 08/04/2019. No acute events overnight. Currently resting in bed no apparent distress, patient is alert, cooperative with physical examination, unfortunately only oriented to person denies any shortness of breath, chills, nausea, vomiting, diarrhea, constipation or any urinary symptoms. Reason For Visit: FALL HIP FTRACTURE ETOH DEP Physical Exam Vital Signs: Temp Pulse Resp BP Pulse Ox 97.4 F 75 18 90/54 L 93 08/04/19 11:06 08/04/19 14:17 08/04/19 14:17 08/04/19 11:06 08/04/19 14:17 Intake & Output 08/03/19 08/04/19 08/05/19 06:59 06:59 06:59 Intake Total 1050 1641 1000 Output Total 300 350 Balance 750 1291 1000 Weight 56.9 kg 53.5 kg General appearance: PRESENT: no acute distress, thin, other - Frail and cachectic Head exam: PRESENT: atraumatic, normocephalic Respiratory exam: PRESENT: clear to auscultation lovely. ABSENT: rales, rhonchi, wheezes Cardiovascular exam: PRESENT: RRR. ABSENT: diastolic murmur, rubs, systolic murmur GI/Abdominal exam: PRESENT: normal bowel sounds, soft. ABSENT: distended, guarding, mass, organolmegaly, rebound, tenderness Neurological exam: PRESENT: alert, awake, oriented to person, CN II-XII grossly intact. ABSENT: motor sensory deficit Results Laboratory Results: 08/04/19 04:34 08/04/19 06:23 08/03/19 08/04/19 08/04/19 22:00 04:34 04:34 WBC 11.0 H RBC 3.31 L Hgb 10.5 L Hct 33.1 L MCV 100 H MCH 31.8 MCHC 31.8 L RDW 24.0 H Plt Count 203 Seg Neutrophils % Not Reportable Sodium Cancelled Potassium Cancelled Chloride Cancelled Carbon Dioxide Cancelled Anion Gap Cancelled BUN Cancelled Creatinine Cancelled Est GFR ( Amer) Cancelled Est GFR (Non-Af Amer) Cancelled Glucose Cancelled Calcium Cancelled Magnesium Cancelled Total Bilirubin Cancelled AST Cancelled Alkaline Phosphatase Cancelled Total Protein Cancelled Albumin Cancelled Urine Color YELLOW Urine Appearance CLOUDY Urine pH 5.0 Ur Specific Onyx 1.019 Urine Protein 30 H Urine Glucose (UA) NEGATIVE Urine Ketones NEGATIVE Urine Blood LARGE H Urine Nitrite POSITIVE H Ur Leukocyte Esterase LARGE H Urine WBC (Auto) >182 Urine RBC (Auto) >182 08/04/19 06:23 WBC RBC Hgb Hct MCV MCH MCHC RDW Plt Count Seg Neutrophils % Sodium 137.2 Potassium 3.8 Chloride 104 Carbon Dioxide 34 H Anion Gap -1 L BUN 6 L Creatinine 0.30 L Est GFR ( Amer) > 60 Est GFR (Non-Af Amer) Glucose 104 Calcium 7.7 L Magnesium 1.9 Total Bilirubin 0.2 AST 24 Alkaline Phosphatase 139 H Total Protein 4.0 L Albumin 1.8 L Urine Color Urine Appearance Urine pH Ur Specific Onyx Urine Protein Urine Glucose (UA) Urine Ketones Urine Blood Urine Nitrite Ur Leukocyte Esterase Urine WBC (Auto) Urine RBC (Auto) 07/24/19 15:06 Troponin I 0.014 Impressions: Pelvis CT 07/21/19 17:07 IMPRESSION: Postsurgical changes of total right hip arthroplasty. Mildly comminuted right greater trochanteric fracture with mild anterior displacement. No hardware fracture or dislocation. Dilated distal appendix measuring 9 mm in caliber. Elongated gallbladder co ntaining numerous gallstones. Mild right paracolic gutter and moderate right hemipelvis free fluid. As this is a limited noncontrast exam, clinically correlate for acute cholecystitis or appendicitis. Hip/Pelvis X-Ray 07/21/19 23:20 IMPRESSION: Fracture of the femur adjacent to the femoral component of the right hip hemiarthroplasty. Abdomen Ultrasound 07/22/19 00:00 IMPRESSION: 1. Cholelithiasis. 2. Otherwise essentially unremarkable. Abdomen/Pelvis CT 07/24/19 00:00 IMPRESSION: 1. No evidence of dissection or aneurysm involving the thoracic or abdominal aorta. The visceral arteries are patent. 2. No pulmonary embolism. 3. Diffuse wall thickening of the small bowel with mucosal enhancement. Findings compatible with shock bowel related to prolonged hypotension. No large vessel arterial occlusion. 4. Moderate left and small right pleural effusion. 5. Bibasilar opacities. This likely represents a component of compressive atelectasis however superimposed aspiration could contribute to this appearance. Continued follow-up recommended. 6. Moderate amount of ascites. 7. Coronary artery atherosclerosis. 8. Centrilobular emphysematous change. Likely chronic bronchitis. 9. 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 Correlation for history of claudication recommended. 10. Nondisplaced fractures of the right fourth through sixth anterior ribs and left third through sixth anterior ribs. This exam was performed according to our departmental dose-optimization program, which includes automated exposure control, adjustment of the mA and/or kV according to patient size and/or use of iterative reconstruction technique. Chest/Abdomen CTA 07/24/19 00:00 IMPRESSION: 1. No evidence of dissection or aneurysm involving the thoracic or abdominal aorta. The visceral arteries are patent. 2. No pulmonary embolism. 3. Diffuse wall thickening of the small bowel with mucosal enhancement. Findings compatible with shock bowel related to prolonged hypotension. No large vessel arterial occlusion. 4. Moderate left and small right pleural effusion. 5. Bibasilar opacities. This likely represents a component of compressive atelectasis however superimposed aspiration could contribute to this appearance. Continued follow-up recommended. 6. Moderate amount of ascites. 7. Coronary artery atherosclerosis. 8. Centrilobular emphysematous change. Likely chronic bronchitis. 9. 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 Correlation for history of claudication recommended. 10. Nondisplaced fractures of the right fourth through sixth anterior ribs and left third through sixth anterior ribs. This exam was performed according to our departmental dose-optimization program, which includes automated exposure control, adjustment of the mA and/or kV according to patient size and/or use of iterative reconstruction technique. Head CTA 07/24/19 00:00 IMPRESSION: 1. No acute intracranial abnormality by CT criteria. 2. No acute abnormality identified in the intracranial arterial circulation. 3. No evidence of stenosis/occlusion involving the cervical carotid or vertebral arteries. This exam was performed according to our departmental dose-optimization program, which includes automated exposure control, adjustment of the mA and/or kV according to patient size and/or use of iterative reconstruction technique. Neck CTA 07/24/19 01:40 IMPRESSION: 1. No acute intracranial abnormality by CT criteria. 2. No acute abnormality identified in the intracranial arterial circulation. 3. No evidence of stenosis/occlusion involving the cervical carotid or vertebral arteries. This exam was performed according to our departmental dose-optimization program, which includes automated exposure control, adjustment of the mA and/or kV according to patient size and/or use of iterative reconstruction technique. KUB X-Ray 07/27/19 00:00 IMPRESSION: TIP OF THE NASOGASTRIC TUBE IN THE STOMACH. NO RADIOGRAPHIC EVIDENCE FOR ACUTE ABDOMINAL DISEASE. PICC Line Insertion 07/30/19 00:00 IMPRESSION: SUCCESSFUL PLACEMENT OF A 5 FR DUAL LUMEN 32 CM PICC IN THE RIGHT BASILIC VEIN. Chest X-Ray 08/03/19 00:00 IMPRESSION: 1. Opacification of the entire right hemithorax associated with volume loss given the mild ipsilateral mediastinal shift. 2. Increased pleural and parenchymal opacities in the inferior aspect of the left hemithorax that could represent a combination of pleural fluid, atelectasis and/or consolidation. Modified Barium Swallow 08/03/19 00:00 IMPRESSION: TRACE ASPIRATION WITH THIN BARIUM. LARYNGEAL PENETRATION FROM NECTAR THICK AND PUREED RESIDUALS. PLEASE SEE SPEECH PATHOLOGIST REPORT FOR OTHER FINDINGS AND RECOMMENDATIONS. Assessment and Plan - Diagnosis (1) Acute respiratory failure with hypoxia and hypercapnia Is this a current diagnosis for this admission?: Yes Plan: 07/28/2019 Currently high flow nasal cannula. We will try and wean from oxygen while keeping her saturation 88 to 92%. As needed nebulizers have been ordered. 07/29/2019 Continue high flow nasal cannula 07/29/2019 critical care visit A chest x-ray was obtained urgently. There is atelectasis versus consolidation at the right base. Small pleural effusion on the left. An ABG was drawn. On high flow nasal cannula FiO2 70% pH was 7.36, PCO2 41.9, PO2 55.5, bicarb 23.3, saturation 88%. Atelectasis versus possible aspiration pneumonia being considered. For atelectasis we will institute trials of CPAP. Consider chest percussion therapy as well. I have added back scheduled nebulizers of Xopenex, ipratropium every 6 hours, budesonide every 12 hours and as needed combination therapy. 07/30/2019 She is stable today but still on high flow nasal cannula. We will continue nebulizer treatments. I have added Decadron as she lists prednisone as an allergy. 07/31/19-patient is still on high flow oxygen. Going for cookie swallow study today. Receiving nebulizer treatments. Patient is also on Decadron. On BiPAP since yesterday. Receiving scheduled Xopenex, ipratropium every 6 hours, but desonide every 12 hours. Needs to continue the present management and once stable plan is to discharge her to SNF. 08/01/19-patient is still on high flow oxygen pulse ox is 93%. Swallowing evaluation was done followed by khris daniel she failed the swallowing study. Plan is to repeat swallowing evaluation on Tuesday. Diet as per speech therapy recommendations. Plan is to continue provide high flow oxygen. 08/02/2019-patient is still on high flow oxygen. Afebrile. Plan is to continue to try to taper off the oxygen requirements. 08/03/19-patient is off high flow oxygen plan is to discontinue chest physical therapy, to repeat the chest x-ray today. Temp is 97.4, blood pressures are persistently low it is 98/71 today. Patient is going to have a cookie swallow today again. Plan is to continue antibiotic therapy at this time.on IV Rocephin at this time. 08/04/2019. Off of high flow nasal cannula, SPO2 WNL on 3 to 4 L. Continue duo nebs, supplemental oxygen and IV antibiotics. (2) Protein-energy malnutrition Qualifiers: Protein-calorie malnutrition severity: moderate Qualified Code(s): E44.0 - Moderate protein-calorie malnutrition Is this a current diagnosis for this admission?: Yes Plan: Most likely low p.o. intake. Patient has dysphagia and has had PEG tube in the past which she has pulled off. Patient has undergone 2 modified barium swallow for the first 1 and the second 1 which was done on 08/04/2019 Recommendation is for thin liquids and pured diet. Patient is able to tolerate some p.o. intake. Continue nutritional supplement, if patient unable to tolerate oral feeds will place NG tube pending PEG placement on Tuesday after discussion with family. (3) Current every day smoker Is this a current diagnosis for this admission?: Yes Plan: Tobacco cessation counseling performed and nicotine replacement options discussed. (4) Hypocalcemia Is this a current diagnosis for this admission?: Yes Plan: Likely due to low p.o. intake. Corrected calcium normal. Continue oral replacement. Calcium level tomorrow. (5) Hypokalemia Is this a current diagnosis for this admission?: Yes Plan: Resolved. (6) Iron deficiency Is this a current diagnosis for this admission?: Yes Plan: Due to low p.o. intake. We will give 1 dose of IV Injectafer as patient is not able to tolerate p.o. intake. (7) Multifocal atrial tachycardia Is this a current diagnosis for this admission?: Yes Plan: Rate controlled. Cardiology on board. Recommendations noted. Continue telemetry. PRN beta-blockers. (8) Sepsis Is this a current diagnosis for this admission?: Yes Plan: Resolved. (9) Urinary tract infection, E. coli Is this a current diagnosis for this admission?: Yes Plan: Due to E. coli. Pansensitive. Completed course of IV antibiotics. (10) Cardiac arrest Is this a current diagnosis for this admission?: Yes Plan: Successfully resuscitated after cardiac arrest requiring intubation and mechanical ventilation as well as IV pressors. Vitals WNL. Monitor vitals. Cardiology on board.
[2019-08-04] MEDS: CHOLECALCIFEROL (D3) 1,000 UNIT (25 MCG) TABLET PO SCH (17:35)
[2019-08-04] MEDS: CEFTRIAXONE 1 GM/D5W RTU 1 GM/50 ML RTUPB IV SCH (17:39)
[2019-08-04] MEDS: HEPARIN SOD (PORCINE) 5,000 UNIT/ML 1 ML VIAL SUBCUT SCH (21:38)
[2019-08-05] MEDS: DEXAMETHASONE 0.5 MG TABLET PO SCH ×4 (00:09→17:39)
[2019-08-05] MEDS: LEVALBUTEROL HCL NEB 1.25 MG/3 ML AMPUL NEB SCH ×4 (02:36→20:34)
[2019-08-05] MEDS: IPRATROPIUM BROMIDE 0.02% NEB 0.5 MG/2.5 ML AMPUL NEB SCH ×4 (02:36→20:34)
[2019-08-05] MEDS: HEPARIN SOD (PORCINE) 5,000 UNIT/ML 1 ML VIAL SUBCUT SCH ×3 (05:47→21:26)
[2019-08-05] MEDS: MAGNESIUM OXIDE 400 MG TABLET PO SCH ×3 (05:47→21:26)
[2019-08-05 06:14] LABS: HEMATOCRIT 35.5 % (36.0-47.0); HEMOGLOBIN 11.5 g/dL (12.0-15.5); MEAN CORPUSCULAR HEMOGLOBIN 31.5 pg (27.0-33.4); MEAN CORPUSCULAR HGB CONC 32.3 g/dL (32.0-36.0); MEAN CORPUSCULAR VOLUME 98 fl (80-97); PLATELET COUNT 217 10^3/uL (150-450); RED BLOOD COUNT 3.64 10^6/uL (3.72-5.28); RED CELL DISTRIBUTION WIDTH 23.3 % (11.5-14.0); WHITE BLOOD COUNT 15.8 10^3/uL (4.0-10.5)
[2019-08-05 06:35] LABS: ABSOLUTE LYMPHOCYTES# (MANUAL) 1.3 10^3/uL (0.5-4.7); ABSOLUTE MONOCYTES # (MANUAL) 1.1 10^3/uL (0.1-1.4); BAND NEUTROPHILS % (MANUAL) 2 % (3-5); BASOPHILS % (MANUAL) 0 % (0-2); EOSINOPHILS % (MANUAL) 1 % (0-6); LYMPHOCYTES % (MANUAL) 8 % (13-45); MONOCYTES % (MANUAL) 7 % (3-13); SEGMENTED NEUTROPHILS % (MAN) 82 % (42-78); TOTAL CELLS COUNTED 100
[2019-08-05 06:36] LABS: ANISOCYTOSIS 2+; OVALOCYTES 1+; PLATELET COMMENT ADEQUATE; POIKILOCYTOSIS 1+; POLYCHROMASIA 1+; TARGET CELLS 1+
[2019-08-05 07:26] LABS: ALBUMIN 1.8 g/dL (3.5-5.0); ALKALINE PHOSPHATASE 149 U/L (38-126); ASPARTATE AMINO TRANSFERASE 23 U/L (14-36); BILIRUBIN,TOTAL 0.2 mg/dL (0.2-1.3); BLOOD UREA NITROGEN 7 mg/dL (7-20); CALCIUM 7.8 mg/dL (8.4-10.2); GLUCOSE 100 mg/dL (75-110); TOTAL PROTEIN 3.9 g/dL (6.3-8.2)
[2019-08-05 07:33] LABS: CARBON DIOXIDE 35 mmol/L (22-30); CHLORIDE 103 mmol/L (98-107); POTASSIUM 4.1 mmol/L (3.6-5.0)
[2019-08-05] MEDS ORDERED: DEXTROSE 5%-NORMAL SALINE 1,000 ML IV PRN (07:44)
[2019-08-05] MEDS ORDERED: VANCOMYCIN HCL 0 MG in DEXTROSE 5%-WATER 250 ML IV NR (07:45)
[2019-08-05] MEDS ORDERED: VANCOMYCIN HCL INJ 1000 MG VIAL IV PRN (07:49)
[2019-08-05] MEDS ORDERED: LORAZEPAM INJ 2 MG/1 ML VIAL IV PRN (07:55)
[2019-08-05] MEDS ORDERED: VANCOMYCIN HCL 1,000 MG in DEXTROSE 5%-WATER 250 ML IV ONE (08:00)
[2019-08-05] MEDS: BUDESONIDE NEB 0.5 MG/2 ML AMPUL NEB SCH ×2 (08:33→20:34)
--- NOTE | 2019-08-05 08:59 | RADIOLOGY REPORT (SQ) ---
EXAM DESCRIPTION: CHEST SINGLE VIEW IMAGES COMPLETED DATE/TIME: 08/05/2019 8:19 am REASON FOR STUDY: hypoxia COMPARISON: 07/30/2019 EXAM PARAMETERS: NUMBER OF VIEWS: One view. TECHNIQUE: Single frontal radiographic view of the chest acquired. RADIATION DOSE: NA LIMITATIONS: None. FINDINGS: LUNGS AND PLEURA: Interval development of complete volume loss in the right lung with medi astinal shift. Increasing left effusion. Probable right effusion. MEDIASTINUM AND HILAR STRUCTURES: No masses. Contour normal. HEART AND VASCULAR STRUCTURES: Heart normal in size. Normal vasculature. BONES: No acute findings. HARDWARE: Venous access catheter via right peripheral approach. Tip at the level of the cavoatrial j unction. OTHER: No other significant finding. IMPRESSION: Interval development of complete collapse of the right lung likely related to mucous plu gging. Increasing pleural effusions bilateral. New venous access catheter. COMMENT: The findings were sent to the Radiology Results Communication Center at 08:52 on 08/05/2019 to be communicated to a licensed caregiver. TECHNICAL DOCUMENTATION: JOB ID: [id number] 2010 [employer]- All Rights Reserved Reading location - IP/workstation name: [email or web address]
[2019-08-05] MEDS: FLUDROCORTISONE ACETATE 0.1 MG TABLET PO SCH (09:19)
[2019-08-05] MEDS: THIAMINE HCL 100 MG TABLET PO SCH (09:19)
[2019-08-05] MEDS: MIDODRINE HCL 5 MG TABLET PO SCH ×3 (09:19→17:39)
[2019-08-05] MEDS: CITALOPRAM HYDROBROMIDE 20 MG TABLET PO SCH (09:19)
[2019-08-05] MEDS: MULTIVITAMINS W-IRON TABLET, CHEWABLE PO SCH (09:20)
[2019-08-05] MEDS: CEFEPIME 1 GM/D5W RTU 1 GM/50 ML RTUPB IV SCH ×2 (09:20→21:26)
[2019-08-05] MEDS: CHOLECALCIFEROL (D3) 1,000 UNIT (25 MCG) TABLET PO SCH (09:20)
[2019-08-05 09:33] LABS: ARTERIAL BLOOD BASE EXCESS 7.8 mmol/L; ARTERIAL BLOOD FIO2 4L; ARTERIAL BLOOD H2CO3 1.98 mmol/L (1.05-1.35); ARTERIAL BLOOD HCO3 35.5 mmol/L (20-24); ARTERIAL BLOOD O2 SATURATION 88.5 % (94-98); ARTERIAL BLOOD PCO2 65.8 mmHg (35-45); ARTERIAL BLOOD PH 7.35 (7.35-7.45); ARTERIAL BLOOD PO2 59.1 mmHg (80-100); ARTERIAL BLOOD TOTAL CO2 37.5 mmol/L (21-25)
[2019-08-05] MEDS ORDERED: FERRIC CARBOXYMALTOSE INJ 750 MG/15 ML VIAL IV ONE (11:14)
--- NOTE | 2019-08-05 11:14 | PDOC PROGRESS REPORT ---
Subjective Progress Note for:: 08/05/19 Subjective:: 08/04/2019. No acute events overnight. Currently resting in bed no apparent distress, patient is alert, cooperative with physical examination, unfortunately only oriented to person denies any shortness of breath, chills, nausea, vomiting, diarrhea, constipation or any urinary symptoms. 08/05/2019. Patient is able to tolerate some oral repeat, on my encounter patie nt does not seem to be in any acute distress, alert and oriented x3 today, cooperative with physical examination, patient noted to be hypoxic with elevated WBC however patient does not complain much, stating that she is doing fine. She is stating that she does not feel hungry but will try to eat, denies any nausea, vomiting, chest pain, diarrhea. Reason For Visit: FALL HIP FTRACTURE ETOH DEP Physical Exam Vital Signs: Temp Pulse Resp BP Pulse Ox 97.2 F 94 18 108/65 94 08/05/19 07:35 08/05/19 10:56 08/05/19 10:56 08/05/19 07:35 08/05/19 10:56 Intake & Output 08/04/19 08/05/19 08/06/19 06:59 06:59 06:59 Intake Total 1641 2150 Output Total 350 300 Balance 1291 1850 Weight 53.5 kg 56.1 kg General appearance: PRESENT: no acute distress, thin, other - Emaciated Head exam: PRESENT: atraumatic, normocephalic Respiratory exam: PRESENT: decreased breath sounds - Right lung, unlabored. ABSENT: rales, rhonchi, wheezes Cardiovascular exam: PRESENT: RRR. ABSENT: diastolic murmur, rubs, systolic murmur GI/Abdominal exam: PRESENT: normal bowel sounds, soft. ABSENT: distended, guarding, mass, organolmegaly, rebound, tenderness Neurological exam: PRESENT: alert, awake, oriented to person, oriented to place, CN II-XII grossly intact. ABSENT: motor sensory deficit Results Laboratory Results: 08/05/19 05:35 08/05/19 05:35 08/05/19 08/05/19 08/05/19 05:35 05:35 09:10 WBC 15.8 H RBC 3.64 L Hgb 11.5 L Hct 35.5 L MCV 98 H MCH 31.5 MCHC 32.3 RDW 23.3 H Plt Count 217 Seg Neutrophils % Not Reportable Carbonic Acid 1.98 H HCO3/H2CO3 Ratio 17:1 ABG pH 7.35 ABG pCO2 65.8 H ABG pO2 59.1 L ABG HCO3 35.5 H ABG O2 Saturation 88.5 L ABG Base Excess 7.8 FiO2 4L Sodium 136.8 L Potassium 4.1 Chloride 103 Carbon Dioxide 35 H Anion Gap BUN 7 Creatinine 0.30 L Est GFR ( Amer) > 60 Glucose 100 Calcium 7.8 L Magnesium 1.8 Total Bilirubin 0.2 AST 23 Alkaline Phosphatase 149 H Total Protein 3.9 L Albumin 1.8 L 07/24/19 15:06 Troponin I 0.014 Impressions: Pelvis CT 07/21/19 17:07 IMPRESSION: Postsurgical changes of total right hip arthroplasty. Mildly comminuted right greater trochanteric fracture with mild anterior displacement. No hardware fracture or dislocation. Dilated distal appendix measuring 9 mm in caliber. Elongated gallbladder containing numerous gallstones. Mild right paracolic gutter and moderate right hemipelvis free fluid. As this is a limited noncontrast exam, clinically correlate for acute cholecystitis or appendicitis. Hip/Pelvis X-Ray 07/21/19 23:20 IMPRESSION: Fracture of the femur adjacent to the femoral component of the right hip hemiarthroplasty. Abdomen Ultrasound 07/22/19 00:00 IMPRESSION: 1. Cholelithiasis. 2. Otherwise essentially unremarkable. Abdomen/Pelvis CT 07/24/19 00:00 IMPRESSION: 1. No evidence of dissection or aneurysm involving the thoracic or abdominal aorta. The visceral arteries are patent. 2. No pulmonary embolism. 3. Diffuse wall thickening of the small bowel with mucosal enhancement. Findings compatible with shock bowel related to prolonged hypotension. No large vessel arterial occlusion. 4. Moderate left and small right pleural effusion. 5. Bibasilar opacities. This likely represents a component of compressive atelectasis however superimposed aspiration could contribute to this appearance. Continued follow-up recommended. 6. Moderate amount of ascites. 7. Coronary artery atherosclerosis. 8. Centrilobular emphysematous change. Likely chronic bronchitis. 9. 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 Correlation for history of claudication recommended. 10. Nondisplaced fractures of the right fourth through sixth anterior ribs and left third through sixth anterior ribs. This exam was performed according to our departmental dose-optimization program, which includes automated exposure control, adjustment of the mA and/or kV according to patient size and/or use of iterative reconstruction technique. Chest/Abdomen CTA 07/24/19 00:00 IMPRESSION: 1. No evidence of dissection or aneurysm involving the thoracic or abdominal aorta. The visceral arteries are patent. 2. No pulmonary embolism. 3. Diffuse wall thickening of the small bowel with mucosal enhancement. Findings compatible with shock bowel related to prolonged hypotension. No large vessel arterial occlusion. 4. Moderate left and small right pleural effusion. 5. Bibasilar opacities. This likely represents a component of compressive atelectasis however superimposed aspiration could contribute to this appearance. Continued follow-up recommended. 6. Moderate amount of ascites. 7. Coronary artery atherosclerosis. 8. Centrilobular emphysematous change. Likely chronic bronchitis. 9. 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 Correlation for history of claudication recommended. 10. Nondisplaced fractures of the right fourth through sixth anterior ribs and left third through sixth anterior ribs. This exam was performed according to our departmental dose-optimization program, which includes automated exposure control, adjustment of the mA and/or kV according to patient size and/or use of iterative reconstruction technique. Head CTA 07/24/19 00:00 IMPRESSION: 1. No acute intracranial abnormality by CT criteria. 2. No acute abnormality identified in the intracranial arterial circulation. 3. No evidence of stenosis/occlusion involving the cervical carotid or vertebral arteries. This exam was performed according to our departmental dose-optimization program, which includes automated exposure control, adjustment of the mA and/or kV according to patient size and/or use of iterative reconstruction technique. Neck CTA 07/24/19 01:40 IMPRESSION: 1. No acute intracranial abnormality by CT criteria. 2. No acute abnormality identified in the intracranial arterial circulation. 3. No evidence of stenosis/occlusion involving the cervical carotid or vertebral arteries. This exam was performed according to our departmental dose-optimization program, which includes automated exposure control, adjustment of the mA and/or kV according to patient size and/or use of iterative reconstruction technique. KUB X-Ray 07/27/19 00:00 IMPRESSION: TIP OF THE NASOGASTRIC TUBE IN THE STOMACH. NO RADIOGRAPHIC EVIDENCE FOR ACUTE ABDOMINAL DISEASE. PICC Line Insertion 07/30/19 00:00 IMPRESSION: SUCCESSFUL PLACEMENT OF A 5 FR DUAL LUMEN 32 CM PICC IN THE RIGHT BASILIC VEIN. Modified Barium Swallow 08/03/19 00:00 IMPRESSION: TRACE ASPIRATION WITH THIN BARIUM. LARYNGEAL PENETRATION FROM NECTAR THICK AND PUREED RESIDUALS. PLEASE SEE SPEECH PATHOLOGIST REPORT FOR OTHER FINDINGS AND RECOMMENDATIONS. Chest X-Ray 08/05/19 00:00 IMPRESSION: Interval development of complete collapse of the right lung likely related to mucous plugging. Increasing pleural effusions bilateral. New venous access catheter. Assessment and Plan - Diagnosis (1) Acute respiratory failure with hypoxia and hypercapnia Is this a current diagnosis for this admission?: Yes Plan: 07/28/2019 Currently high flow nasal cannula. We will try and wean from oxygen while keeping her saturation 88 to 92%. As needed nebulizers have been ordered. 07/29/2019 Continue high flow nasal cannula 07/29/2019 critical care visit A chest x-ray was obtained urgently. There is atelectasis versus consolidation at the right base. Small pleural effusion on the left. An ABG was drawn. On high flow nasal cannula FiO2 70% pH was 7.36, PCO2 41.9, PO2 55.5, bicarb 23.3, saturation 88%. Atelectasis versus possible aspiration pneumonia being conside red. For atelectasis we will institute trials of CPAP. Consider chest percussion therapy as well. I have added back scheduled nebulizers of Xopenex, ipratropium every 6 hours, budesonide every 12 hours and as needed combination therapy. 07/30/2019 She is stable today but still on high flow nasal cannula. We will continue nebulizer treatments. I have added Decadron as she lists prednisone as an allergy. 07/31/19-patient is still on high flow oxygen. Going for cookie swallow study today. Receiving nebulizer treatments. Patient is also on Decadron. On BiPAP since yesterday. Receiving scheduled Xopenex, ipratropium every 6 hours, but desonide every 12 hours. Needs to continue the present management and once stable plan is to discharge her to SNF. 08/01/19-patient is still on high flow oxygen pulse ox is 93%. Swallowing evaluation was done followed by khris daniel she failed the swallowing study. Plan is to repeat swallowing evaluation on Tuesday. Diet as per speech therapy recommendations. Plan is to continue provide high flow oxygen. 08/02/2019-patient is still on high flow oxygen. Afebrile. Plan is to continue to try to taper off the oxygen requirements. 08/03/19-patient is off high flow oxygen plan is to discontinue chest physical therapy, to repeat the chest x-ray today. Temp is 97.4, blood pressures are persistently low it is 98/71 today. Patient is going to have a cookie swallow today again. Plan is to continue antibiotic therapy at this time.on IV R ocephin at this time. 08/04/2019. Off of high flow nasal cannula, SPO2 WNL on 3 to 4 L. Continue duo nebs, supplemental oxygen and IV antibiotics. 08/05/2019. Patient noted to be hypoxic and hypercarbic with elevated WBC chest x-ray shows right lung collapse most likely due to mucous plugging and possibly postobstructive pneumonia. We will continue supplemental oxygen, will consult respiratory therapy for possible deep suctioning and chest physical therapy and hopeful dislodging mucus plugging and improving her hypoxia, will switch antibiotics to cefepime and vancomycin as patient could be developing healthcare associated pneumonia or postobstructive pneumonia. If no improvement of hypoxia will consult therapy director for possible transfer back to ICU, unfortunately no pulmonology consult available in the weekend. (2) Protein-energy malnutrition Qualifiers: Protein-calorie malnutrition severity: moderate Qualified Code(s): E44.0 - Moderate protein-calorie malnutrition Is this a current diagnosis for this admission?: Yes Plan: Most likely low p.o. intake. Patient has dysphagia and has had PEG tube in the past which she has pulled off per family. Patient has undergone 2 modified barium swallow last month done on 08/04/2019 Recommendation is for thin liquids and pured diet. Patient is able to tolerate some p.o. intake. Continue nutritional supplement, if patient unable to tolerate oral feeds will place NG tube pending PEG placement on Tuesday after discussion with family. (3) Current every day smoker Is this a current diagnosis for this admission?: Yes Plan: Tobacco cessation counseling performed and nicotine replacement options discussed. (4) Hypocalcemia Is this a current diagnosis for this admission?: Yes Plan: Likely due to low p.o. intake. Corrected calcium normal. Continue oral replacement. Calcium level tomorrow. (5) Hypokalemia Is this a current diagnosis for this admission?: Yes Plan: Resolved. (6) Iron deficiency Is this a current diagnosis for this admission?: Yes Plan: Due to low p.o. intake. We will give 1 dose of IV Injectafer as patient is not able to tolerate p.o. intake. (7) Multifocal atrial tachycardia Is this a current diagnosis for this admission?: Yes Plan: Rate controlled. Cardiology on board. Recommendations noted. Continue telemetry. PRN beta-blockers. (8) Sepsis Is this a current diagnosis for this admission?: Yes Plan: Resolved. (9) Urinary tract infection, E. coli Is this a current diagnosis for this admission?: Yes Plan: Due to E. coli. Pansensitive. Completed course of IV antibiotics. (10) Cardiac arrest Is this a current diagnosis for this admission?: Yes Plan: Successfully resuscitated after cardiac arrest requiring intubation and me chanical ventilation as well as IV pressors. Vitals WNL. Monitor vitals. Cardiology on board. (11) Closed right hip fracture Qualifiers: Encounter type: initial encounter Qualified Code(s): S72.001A - Fracture of unspecified part of neck of right femur, initial encounter for closed fracture Is this a current diagnosis for this admission?: Yes Plan: Orthopedic surgery consulted. No intervention recommended at this time. Continue PT OT. Please refer to Ortho note. (12) Vitamin D deficiency Is this a current diagnosis for this admission?: Yes Plan: Severe vitamin D deficiency. Likely due to low p.o. intake. Continue daily vitamin D.
[2019-08-05] MEDS ORDERED: FERRIC CARBOXYMALTOSE 750 MG in NORMAL SALINE 250 ML IV ONE (12:30)
--- NOTE | 2019-08-05 15:59 | RADIOLOGY REPORT (SQ) ---
EXAM DESCRIPTION: CHEST SINGLE VIEW IMAGES COMPLETED DATE/TIME: 08/05/2019 3:37 pm REASON FOR STUDY: RL collapse follow up COMPARISON: 08/05/2019 0810 hours EXAM PARAMETERS: NUMBER OF VIEWS: One view. TECHNIQUE: Single frontal radiographic view of the chest acquired. RADIATION DOSE: NA LIMITATIONS: None. FINDINGS: LUNGS AND PLEURA: Partial re-expansion of the right lung. There are bilateral pleural eff usions [id number]. Parenchymal opacities unchanged. MEDIASTINUM AND HILAR STRUCTURES: No masses. Contour normal. HEART AND VASCULAR STRUCTURES: Heart normal in size. Normal vasculature. BONES: No acute findings. HARDWARE: Venous access catheter unchanged. OTHER: No other significant finding. IMPRESSION: Partial re-expansion of the right lung. Bilateral pleural effusions which are moderate to marked. TECHNICAL DOCUMENTATION: JOB ID: [id number] [email or web address]- All Rights Reserved Reading location - IP/workstation name: [email or web address]
[2019-08-05] MEDS: VANCOMYCIN HCL 750 MG in DEXTROSE 5%-WATER 250 ML IV SCH (17:39)
[2019-08-06] MEDS: DEXAMETHASONE 0.5 MG TABLET PO SCH ×5 (00:30→23:45)
[2019-08-06] MEDS: VANCOMYCIN HCL 750 MG in DEXTROSE 5%-WATER 250 ML IV SCH ×3 (02:29→17:44)
[2019-08-06] MEDS: IPRATROPIUM BROMIDE 0.02% NEB 0.5 MG/2.5 ML AMPUL NEB SCH ×4 (02:38→20:20)
[2019-08-06] MEDS: LEVALBUTEROL HCL NEB 1.25 MG/3 ML AMPUL NEB SCH ×4 (02:38→20:20)
[2019-08-06] MEDS: HEPARIN SOD (PORCINE) 5,000 UNIT/ML 1 ML VIAL SUBCUT SCH ×3 (05:36→22:01)
[2019-08-06] MEDS: MAGNESIUM OXIDE 400 MG TABLET PO SCH ×3 (05:36→22:01)
[2019-08-06 06:30] LABS: HEMATOCRIT 33.4 % (36.0-47.0); HEMOGLOBIN 10.9 g/dL (12.0-15.5); MEAN CORPUSCULAR HEMOGLOBIN 31.9 pg (27.0-33.4); MEAN CORPUSCULAR HGB CONC 32.6 g/dL (32.0-36.0); MEAN CORPUSCULAR VOLUME 98 fl (80-97); PLATELET COUNT 212 10^3/uL (150-450); RED BLOOD COUNT 3.41 10^6/uL (3.72-5.28); RED CELL DISTRIBUTION WIDTH 21.9 % (11.5-14.0); WHITE BLOOD COUNT 14.4 10^3/uL (4.0-10.5)
[2019-08-06 06:36] LABS: APPEARANCE,URINE CLOUDY; BILIRUBIN,URINE NEGATIVE (NEGATIVE); COLOR,URINE YELLOW; GLUCOSE, URINE NEGATIVE (NEGATIVE); KETONES,URINE NEGATIVE (NEGATIVE); LEUKOCYTE ESTERASE,URINE SMALL (NEGATIVE); NITRITE,URINE POSITIVE (NEGATIVE); PROTEIN,URINE NEGATIVE (NEGATIVE); UROBILINOGEN,URINE NEGATIVE mg/dL (<2.0)
[2019-08-06] MEDS: BUDESONIDE NEB 0.5 MG/2 ML AMPUL NEB SCH ×2 (08:03→20:19)
[2019-08-06] MEDS: MIDODRINE HCL 5 MG TABLET PO SCH ×3 (09:12→17:44)
[2019-08-06] MEDS: CHOLECALCIFEROL (D3) 1,000 UNIT (25 MCG) TABLET PO SCH (09:14)
[2019-08-06] MEDS: CEFEPIME 1 GM/D5W RTU 1 GM/50 ML RTUPB IV SCH ×2 (09:14→22:00)
[2019-08-06] MEDS: FLUDROCORTISONE ACETATE 0.1 MG TABLET PO SCH (09:14)
[2019-08-06] MEDS: CITALOPRAM HYDROBROMIDE 20 MG TABLET PO SCH (09:14)
[2019-08-06] MEDS: THIAMINE HCL 100 MG TABLET PO SCH (09:14)
[2019-08-06] MEDS: MULTIVITAMINS W-IRON TABLET, CHEWABLE PO SCH (09:32)
[2019-08-06] MEDS: DEXTROSE 10%-WATER 1,000 ML IV PRN (11:01)
[2019-08-06] MEDS ORDERED: DEXTROSE 40% GEL 15 GM TUBE PO PRN ×2 (12:19)
[2019-08-06] MEDS ORDERED: DEXTROSE 50%-WATER 25 GM/50 ML DISP.SYRIN IV PRN ×2 (12:19)
[2019-08-06] MEDS ORDERED: GLUCAGON,HUMAN RECOMB 1 MG INJ SUBCUT PRN (12:19)
--- NOTE | 2019-08-06 12:30 | PDOC PROGRESS REPORT ---
Subjective Progress Note for:: 08/06/19 Subjective:: 08/04/2019. No acute events overnight. Currently resting in bed no apparent distress, patient is alert, cooperative with physical examination, unfortunately only oriented to person denies any shortness of breath, chills, nausea, vomiting, diarrhea, constipation or any urinary symptoms. 08/05/2019. Patient is able to tolerate some oral repeat, on my encounter patie nt does not seem to be in any acute distress, alert and oriented x3 today, cooperative with physical examination, patient noted to be hypoxic with elevated WBC however patient does not complain much, stating that she is doing fine. She is stating that she does not feel hungry but will try to eat, denies any nausea, vomiting, chest pain, diarrhea. 08/06/2019. Moderate improvement of mental status and respiratory symptoms, patient still on supplemental oxygen however improved compared to yesterday, patient is completely stable no apparent distress, patient is alert and oriented x4 and cooperative with physical examination, I do long discussion with her about her dysphagia and recurrent aspirations and suggested that she would greatly benefit from a PEG tube to avoid aspiration the patient, patient initially was hesitant but after going through her x-rays with her and and the fact that she was emaciated and she would not be able to get enough nutrition through p.o. patient agreed to have PEG tube placement. Patient denies any chest pain, nausea, vomiting, diarrhea, constipation or any urinary symptoms. Reason For Visit: FALL HIP FTRACTURE ETOH DEP Physical Exam Vital Signs: Temp Pulse Resp BP Pulse Ox 97.5 F 123 H 15 94/62 L 86 L 08/06/19 04:08 08/06/19 08:24 08/06/19 08:24 08/06/19 08:24 08/06/19 08:24 Intake & Output 08/05/19 08/06/19 08/07/19 06:59 06:59 06:59 Intake Total 2150 2115 Output Total 300 375 Balance 1850 1740 Weight 56.1 kg 56 kg 56 kg Results Laboratory Results: 08/06/19 05:45 08/05/19 05:35 08/06/19 08/06/19 05:45 05:45 WBC 14.4 H RBC 3.41 L Hgb 10.9 L Hct 33.4 L MCV 98 H MCH 31.9 MCHC 32.6 RDW 21.9 H Plt Count 212 Urine Color YELLOW Urine Appearance CLOUDY Urine pH 5.0 Ur Specific [place] 1.010 Urine Protein NEGATIVE Urine Glucose (UA) NEGATIVE Urine Ketones NEGATIVE Urine Blood MODERATE H Urine Nitrite POSITIVE H Ur Leukocyte Esterase SMALL H Urine WBC (Auto) 25 Urine RBC (Auto) 58 07/24/19 15:06 Troponin I 0.014 Impressions: Pelvis CT 07/21/19 17:07 IMPRESSION: Postsurgical changes of total right hip arthroplasty. Mildly comminuted right greater trochanteric fracture with mild anterior displacement. No hardware fracture or dislocation. Dilated distal appendix measuring 9 mm in caliber. Elongated gallbladder containing numerous gallstones. Mild right paracolic gutter and moderate right hemipelvis free fluid. As this is a limited noncontrast exam, clinically correlate for acute cholecystitis or appendicitis. Hip/Pelvis X-Ray 07/21/19 23:20 IMPRESSION: Fracture of the femur adjacent to the femoral component of the right hip hemiarthroplasty. Abdomen Ultrasound 07/22/19 00:00 IMPRESSION: 1. Cholelithiasis. 2. Otherwise essentially unremarkable. Abdomen/Pelvis CT 07/24/19 00:00 IMPRESSION: 1. No evidence of dissection or aneurysm involving the thoracic or abdominal aorta. The visceral arteries are patent. 2. No pulmonary embolism. 3. Diffuse wall thickening of the small bowel with mucosal enhancement. Findings compatible with shock bowel related to prolonged hypotension. No large vessel arterial occlusion. 4. Moderate left and small right pleural effusion. 5. Bibasilar opacities. This likely represents a component of compressive atelectasis however superimposed aspiration could contribute to this appearance. Continued follow-up recommended. 6. Moderate amount of ascites. 7. Coronary artery atherosclerosis. 8. Centrilobular emphysematous change. Likely chronic bronchitis. 9. 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 Correlation for history of claudication recommended. 10. Nondisplaced fractures of the right fourth through sixth anterior ribs and left third through sixth anterior ribs. This exam was performed according to our departmental dose-optimization program, which includes automated exposure control, adjustment of the mA and/or kV according to patient size and/or use of iterative reconstruction technique. Chest/Abdomen CTA 07/24/19 00:00 IMPRESSION: 1. No evidence of dissection or aneurysm involving the thoracic or abdominal aorta. The visceral arteries are patent. 2. No pulmonary embolism. 3. Diffuse wall thickening of the small bowel with mucosal enhancement. Findings compatible with shock bowel related to prolonged hypotension. No large vessel arterial occlusion. 4. Moderate left and small right pleural effusion. 5. Bibasilar opacities. This likely represents a component of compressive atelectasis however superimposed aspiration could contribute to this appearance. Continued follow-up recommended. 6. Moderate amount of ascites. 7. Coronary artery atherosclerosis. 8. Centrilobular emphysematous change. Likely chronic bronchitis. 9. 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 Correlation for history of claudication recommended. 10. Nondisplaced fractures of the right fourth through sixth anterior ribs and left third through sixth anterior ribs. This exam was performed according to our departmental dose-optimization program, which includes automated exposure control, adjustment of the mA and/or kV according to patient size and/or use of iterative reconstruction technique. Head CTA 07/24/19 00:00 IMPRESSION: 1. No acute intracranial abnormality by CT criteria. 2. No acute abnormality identified in the intracranial arterial circulation. 3. No evidence of stenosis/occlusion involving the cervical carotid or vertebral arteries. This exam was performed according to our departmental dose-optimization program, which includes automated exposure control, adjustment of the mA and/or kV according to patient size and/or use of iterative reconstruction technique. Neck CTA 07/24/19 01:40 IMPRESSION: 1. No acute intracranial abnormality by CT criteria. 2. No acute abnormality identified in the intracranial arterial circulation. 3. No evidence of stenosis/occlusion involving the cervical carotid or vertebral arteries. This exam was performed according to our departmental dose-optimization program, which includes automated exposure control, adjustment of the mA and/or kV according to patient size and/or use of iterative reconstruction technique. KUB X-Ray 07/27/19 00:00 IMPRESSION: TIP OF THE NASOGASTRIC TUBE IN THE STOMACH. NO RADIOGRAPHIC EVIDENCE FOR ACUTE ABDOMINAL DISEASE. PICC Line Insertion 07/30/19 00:00 IMPRESSION: SUCCESSFUL PLACEMENT OF A 5 FR DUAL LUMEN 32 CM PICC IN THE RIGHT BASILIC VEIN. Modified Barium Swallow 08/03/19 00:00 IMPRESSION: TRACE ASPIRATION WITH THIN BARIUM. LARYNGEAL PENETRATION FROM NECTAR THICK AND PUREED RESIDUALS. PLEASE SEE SPEECH PATHOLOGIST REPORT FOR OTHER FINDINGS AND RECOMMENDATIONS. Chest X-Ray 08/05/19 00:00 IMPRESSION: Partial re-expansion of the right lung. Bilateral pleural effusions which are moderate to marked. Assessment and Plan - Diagnosis (1) Acute respiratory failure with hypoxia and hypercapnia Is this a current diagnosis for this admission?: Yes Plan: 07/28/2019 Currently high flow nasal cannula. We will try and wean from oxygen while keeping her saturation 88 to 92%. As needed nebulizers have been ordered. 07/29/2019 Continue high flow nasal cannula 07/29/2019 critical care visit A chest x-ray was obtained urgently. There is atelectasis versus consolidation at the right base. Small pleural effusion on the left. An ABG was drawn. On high flow nasal cannula FiO2 70% pH was 7.36, PCO2 41.9, PO2 55.5, bicarb 23.3, saturation 88%. Atelectasis versus possible aspiration pneumonia being considered. For atelectasis we will institute trials of CPAP. Consider chest percussion therapy as well. I have added back scheduled nebulizers of Xopenex, ipratropium every 6 hours, budesonide every 12 hours and as needed combination therapy. 07/30/2019 She is stable today but still on high flow nasal cannula. We will continue nebulizer treatments. I have added Decadron as she lists prednisone as an allergy. 07/31/19-patient is still on high flow oxygen. Going for khris swallow study today. Receiving nebulizer treatments. Patient is also on Decadron. On BiPAP since yesterday. Receiving scheduled Xopenex, ipratropium every 6 hours, but desonide every 12 hours. Needs to continue the present management and once stable plan is to discharge her to SNF. 08/01/19-patient is still on high flow oxygen pulse ox is 93%. Swallowing evaluation was done followed by khris daniel she failed the swallowing study. Plan is to repeat swallowing evaluation on Tuesday. Diet as per speech therapy recommendations. Plan is to continue provide high flow oxygen. 08/02/2019-patient is still on high flow oxygen. Afebrile. Plan is to continue to try to taper off the oxygen requirements. 08/03/19-patient is off high flow oxygen plan is to discontinue chest physical therapy, to repeat the chest x-ray today. Temp is 97.4, blood pressures are persistently low it is 98/71 today. Patient is going to have a cookie swallow today again. Plan is to continue antibiotic therapy at this time.on IV Rocephin at this time. 08/04/2019. Off of high flow nasal cannula, SPO2 WNL on 3 to 4 L. Continue duo nebs, supplemental oxygen and IV antibiotics. 08/05/2019. Patient noted to be hypoxic and hypercarbic with elevated WBC chest x-ray shows right lung collapse most likely due to mucous plugging and possibly postobstructive pneumonia. We will continue supplemental oxygen, will consult respiratory therapy for possible deep suctioning and chest physical therapy and hopeful dislodging mucus plugging and improving her hypoxia, will switch antibiotics to cefepime and vancomycin as patient could be developing healthcare associated pneumonia or postobstructive pneumonia. If no improvement of hypoxia will consult emergency veterinary technician for possible transfer back to ICU, unfortunately no pulmonology consult available in the weekend. 08/06/2019. Patient respiratory symptoms are improving, still dependent on SPO2, repeat chest x-ray has showed moderate resolution of right lung collapse after deep suctioning and chest physiotherapy by respiratory therapist, patient still has moderate bilateral pleural effusion on x-ray, will continue pleural toileting and supplies again and empiric antibiotics. (2) Pneumonia Qualifiers: Pneumonia type: aspiration pneumonia Aspiration pneumonia type: due to regurgitated food Laterality: right Lung location: unspecified part of lung Qualified Code(s): J69.0 - Pneumonitis due to inhalation of food and vomit Is this a current diagnosis for this admission?: Yes Plan: Multifactorial, most likely aspiration and postobstructive pneumonia. Day 2 IV cefepime. Due to IV vancomycin. Continue aggressive pulmonary toileting, supplemental oxygen, duo nebs. Follow-up blood and sputum cultures. (3) Protein-energy malnutrition Qualifiers: Protein-calorie malnutrition severity: moderate Qualified Code(s): E44.0 - Moderate protein-calorie malnutrition Is this a current diagnosis for this admission?: Yes Plan: Most likely low p.o. intake. Patient has dysphagia and has had PEG tube in the past which she has pulled off per family. Patient has undergone 2 modified barium swallow last month done on 08/04/2019 Recommendation is for thin liquids and pured diet. Patient is able to tolerate minimum p.o. intake. Continue nutritional supplement. Had a long discussion with patient about her underlying dysphagia and a spiration, patient has agreed to have a PEG tube placed. I have consulted surgery and patient is planned to have PEG tube placed tomorrow. (4) Current every day smoker Is this a current diagnosis for this admission?: Yes Plan: Tobacco cessation counseling performed and nicotine replacement options discussed. (5) Hypocalcemia Is this a current diagnosis for this admission?: Yes Plan: Likely due to low p.o. intake. Corrected calcium normal. Continue oral replacement. Calcium level tomorrow. (6) Hypokalemia Is this a current diagnosis for this admission?: Yes Plan: Resolved. (7) Iron deficiency Is this a current diagnosis for this admission?: Yes Plan: Due to low p.o. intake. We will give 1 dose of IV Injectafer as patient is not able to tolerate p.o. intake. (8) Multifocal atrial tachycardia Is this a current diagnosis for this admission?: Yes Plan: Rate controlled. Cardiology on board. Recommendations noted. Continue telemetry. PRN beta-blockers. (9) Sepsis Is this a current diagnosis for this admission?: Yes Plan: Resolved. (10) Urinary tract infection, E. coli Is this a current diagnosis for this admission?: Yes Plan: Due to E. coli. Pansensitive. Completed course of IV antibiotics. (11) Cardiac arrest Is this a current diagnosis for this admission?: Yes Plan: Successfully resuscitated after cardiac arrest requiring intubation and mechanical ventilation as well as IV pressors. Vitals WNL. Monitor vitals. Cardiology on board. (12) Closed right hip fracture Qualifiers: Encounter type: initial encounter Qualified Code(s): S72.001A - Fracture of unspecified part of neck of right femur, initial encounter for closed fracture Is this a current diagnosis for this admission?: Yes Plan: Orthopedic surgery consulted. No intervention recommended at this time. Continue PT OT. Please refer to Ortho note. (13) Vitamin D deficiency Is this a current diagnosis for this admission?: Yes Plan: Severe vitamin D deficiency. Likely due to low p.o. intake. Continue daily vitamin D.
--- NOTE | 2019-08-06 16:25 | PDOC CONSULTATION ---
Consultation Consult Date: 08/06/19 Attending physician:: MICKI COLEMAN Provider Consulted: GANGA MENDEZ Consult reason:: Feeding tube History of Present Illness Admission Date/PCP: 07/22/19 01:[facility] History of Present Illness: OLGA BUSTAMANTE is a 63 year old female Patient hospitalized for over 2 weeks for respiratory decompensation requiring intubation. Eventually extubated, developed some mild cognitive dysfunction. Has dysphasia, multiple episodes of aspiration, failed cookie swallow, has chronic cough. Surgery is consulted for placement of feeding tube. Patient denies abdominal wall surgery. Past Medical History Cardiac Medical History: Reports: None Pulmonary Medical History: Reports: None, Bronchitis, Chronic Obstructive Pulmonary Disease (COPD) EENT Medical History: Reports: None Neurological Medical History: Reports: None Endocrine Medical History: Reports: None Renal/ Medical History: Reports: None Malignancy Medical History: Reports: None Skin Medical History: Reports: Eczema Psychiatric Medical History: Denies: Depression Past Surgical History Past Surgical History: Right hemiarthroplasty, 2013 Past Surgical History: Reports: Orthopedic Surgery - Right hip hemiarthroplasty by Dr. Corbett Social History Information Source: Patient Smoking Status: Current Every Day Smoker Cigarettes Packs Per Day: 1 Electronic Cigarette use?: No Frequency of Alcohol Use: Heavy Hx Recreational Drug Use: No Drugs: None Hx Prescription Drug Abuse: No - Advance Directive Resuscitation Status: Full Code Family History Family History: None, Arthritis, Hyperlipidemia Parental Family History Reviewed: No Children Family History Reviewed: No Sibling(s) Family History Reviewed.: No Medication/Allergy Home Medications: Ibuprofen 200 mg PO DAILYP PRN 02/03/14 Allergies/Adverse Reactions: prednisone [Prednisone] Allergy (Verified 02/03/14 18:02) Review of Systems ROS unobtainable: Due to mental status Ears: ABSENT: hearing changes Cardiovascular: ABSENT: chest pain, dyspnea on exertion, edema, orthropnea, palpitations Physical Exam Vital Signs: Temp Pulse Resp BP Pulse Ox 97.5 F 74 17 94/62 L 93 08/06/19 04:08 08/06/19 13:55 08/06/19 13:55 08/06/19 08:24 08/06/19 13:55 Intake & Output 08/05/19 08/06/19 08/07/19 06:59 06:59 06:59 Intake Total 2150 2115 250 Output Total 300 375 Balance 1850 1740 250 Weight 56.1 kg 56 kg 56 kg General appearance: PRESENT: no acute distress, other - Patient follows simple commands, and give her remote history Eye exam: PRESENT: conjunctiva pink, EOMI, PERRLA. ABSENT: scleral icterus Neck exam: PRESENT: full ROM Respiratory exam: PRESENT: accessory muscle use, rhonchi Pulses: PRESENT: normal carotid pulses, normal radial pulses, normal femoral pulses GI/Abdominal exam: PRESENT: other - Soft, nontender no peritoneal signs no rigidity Musculoskeletal exam: PRESENT: other - Patient has been at bed rest, weak, unable to support her self Neurological exam: PRESENT: oriented to person, oriented to place, other - Somewhat disoriented to location and situation Psychiatric exam: PRESENT: appropriate affect Skin exam: PRESENT: dry Results Laboratory Results: 08/06/19 05:45 08/05/19 05:35 08/06/19 08/06/19 05:45 05:45 WBC 14.4 H RBC 3.41 L Hgb 10.9 L Hct 33.4 L MCV 98 H MCH 31.9 MCHC 32.6 RDW 21.9 H Plt Count 212 Urine Color YELLOW Urine Appearance CLOUDY Urine pH 5.0 Ur Specific [place] 1.010 Urine Protein NEGATIVE Urine Glucose (UA) NEGATIVE Urine Ketones NEGATIVE Urine Blood MODERATE H Urine Nitrite POSITIVE H Ur Leukocyte Esterase SMALL H Urine WBC (Auto) 25 Urine RBC (Auto) 58 07/24/19 15:06 Troponin I 0.014 Impressions: Pelvis CT 07/21/19 17:07 IMPRESSION: Postsurgical changes of total right hip arthroplasty. Mildly comminuted right greater trochanteric fracture with mild anterior displacement. No hardware fracture or dislocation. Dilated distal appendix measuring 9 mm in caliber. Elongated gallbladder containing numerous gallstones. Mild right paracolic gutter and moderate right hemipelvis free fluid. As this is a limited noncontrast exam, clinically correlate for acute cholecystitis or appendicitis. Hip/Pelvis X-Ray 07/21/19 23:20 IMPRESSION: Fracture of the femur adjacent to the femoral component of the right hip hemiarthroplasty. Abdomen Ultrasound 07/22/19 00:00 IMPRESSION: 1. Cholelithiasis. 2. Otherwise essentially unremarkable. Abdomen/Pelvis CT 07/24/19 00:00 IMPRESSION: 1. No evidence of dissection or aneurysm involving the thoracic or abdominal aorta. The visceral arteries are patent. 2. No pulmonary embolism. 3. Diffuse wall thickening of the small bowel with mucosal enhancement. Findings compatible with shock bowel related to prolonged hypotension. No large vessel arterial occlusion. 4. Moderate left and small right pleural effusion. 5. Bibasilar opacities. This likely represents a component of compressive atelectasis however superimposed aspiration could contribute to this appearance. Continued follow-up recommended. 6. Moderate amount of ascites. 7. Coronary artery atherosclerosis. 8. Centrilobular emphysematous change. Likely chronic bronchitis. 9. 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 Correlation for history of claudication recommended. 10. Nondisplaced fractures of the right fourth through sixth anterior ribs and left third through sixth anterior ribs. This exam was performed according to our departmental dose-optimization program, which includes automated exposure control, adjustment of the mA and/or kV according to patient size and/or use of iterative reconstruction technique. Chest/Abdomen CTA 07/24/19 00:00 IMPRESSION: 1. No evidence of dissection or aneurysm involving the thoracic or abdominal aorta. The visceral arteries are patent. 2. No pulmonary embolism. 3. Diffuse wall thickening of the small bowel with mucosal enhancement. Findings compatible with shock bowel related to prolonged hypotension. No large vessel arterial occlusion. 4. Moderate left and small right pleural effusion. 5. Bibasilar opacities. This likely represents a component of compressive atelectasis however superimposed aspiration could contribute to this appearance. Continued follow-up recommended. 6. Moderate amount of ascites. 7. Coronary artery atherosclerosis. 8. Centrilobular emphysematous change. Likely chronic bronchitis. 9. 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 Correlation for history of claudication recommended. 10. Nondisplaced fractures of the right fourth through sixth anterior ribs and left third through sixth anterior ribs. This exam was performed according to our departmental dose-optimization program, which includes automated exposure control, adjustment of the mA and/or kV according to patient size and/or use of iterative reconstruction technique. Head CTA 07/24/19 00:00 IMPRESSION: 1. No acute intracranial abnormality by CT criteria. 2. No acute abnormality identified in the intracranial arterial circulation. 3. No evidence of stenosis/occlusion involving the cervical carotid or vertebral arteries. This exam was performed according to our departmental dose-optimization program, which includes automated exposure control, adjustment of the mA and/or kV according to patient size and/or use of iterative reconstruction technique. Neck CTA 07/24/19 01:40 IMPRESSION: 1. No acute intracranial abnormality by CT criteria. 2. No acute abnormality identified in the intracranial arterial circulation. 3. No evidence of stenosis/occlusion involving the cervical carotid or vertebral arteries. This exam was performed according to our departmental dose-optimization program, which includes automated exposure control, adjustment of the mA and/or kV according to patient size and/or use of iterative reconstruction technique. KUB X-Ray 07/27/19 00:00 IMPRESSION: TIP OF THE NASOGASTRIC TUBE IN THE STOMACH. NO RADIOGRAPHIC EVIDENCE FOR ACUTE ABDOMINAL DISEASE. PICC Line Insertion 07/30/19 00:00 IMPRESSION: SUCCESSFUL PLACEMENT OF A 5 FR DUAL LUMEN 32 CM PICC IN THE RIGHT BASILIC VEIN. Modified Barium Swallow 08/03/19 00:00 IMPRESSION: TRACE ASPIRATION WITH THIN BARIUM. LARYNGEAL PENETRATION FROM NECTAR THICK AND PUREED RESIDUALS. PLEASE SEE SPEECH PATHOLOGIST REPORT FOR OTHER FINDINGS AND RECOMMENDATIONS. Chest X-Ray 08/05/19 00:00 IMPRESSION: Partial re-expansion of the right lung. Bilateral pleural effusions which are moderate to marked. Assessment & Plan - Diagnosis (1) Aspiration into airway Is this a current diagnosis for this admission?: Yes Plan: Impression: Debilitated 63-year-old white female, recovering from respiratory failure, intubation, with chronic dysphasia and aspiration in need of feeding tube. Recommendations: 1. Patient appropriate candidate for percutaneous endoscopic gastrostomy tube placement. Her COVID status is negative. Her coagulation parameters are within normal limits 2. I reviewed the indications for the procedure and the mechanics of it with the patient. She says she will agree to the procedure, will discuss it with her daughter who is the patient's durable healthcare power of candy forming machine operator. 3. We will keep her n.p.o. after midnight, and plan for the procedure to be performed by Dr. Dupree on August 06 (2) Acute respiratory failure with hypoxia and hypercapnia Is this a current diagnosis for this admission?: Yes (3) Current every day smoker Is this a current diagnosis for this admission?: Yes (4) Failure to thrive syndrome, adult Is this a current diagnosis for this admission?: Yes (5) Dysphasia Is this a current diagnosis for this admission?: Yes - Time Time Spent: 30 to 50 Minutes
[2019-08-07] MEDS: VANCOMYCIN HCL 750 MG in DEXTROSE 5%-WATER 250 ML IV SCH ×2 (02:12→14:08)
[2019-08-07] MEDS: IPRATROPIUM BROMIDE 0.02% NEB 0.5 MG/2.5 ML AMPUL NEB SCH ×4 (02:28→19:53)
[2019-08-07] MEDS: LEVALBUTEROL HCL NEB 1.25 MG/3 ML AMPUL NEB SCH ×4 (02:29→19:53)
[2019-08-07] MEDS: HEPARIN SOD (PORCINE) 5,000 UNIT/ML 1 ML VIAL SUBCUT SCH ×3 (05:46→21:41)
[2019-08-07] MEDS: MAGNESIUM OXIDE 400 MG TABLET PO SCH ×3 (05:47→21:41)
[2019-08-07] MEDS: DEXAMETHASONE 0.5 MG TABLET PO SCH ×2 (05:47→13:28)
[2019-08-07 06:11] LABS: ABSOLUTE BASOPHILS # (AUTO) 0.1 10^3/uL (0.0-0.2); ABSOLUTE LYMPHOCYTES (AUTO) 0.7 10^3/uL (0.5-4.7); ABSOLUTE MONOCYTES (AUTO) 0.5 10^3/uL (0.1-1.4); ABSOLUTE NEUT (AUTO) 10.6 10^3/uL (1.7-8.2); BASOPHILS % (AUTO) 0.5 % (0-2); EOSINOPHILS % (AUTO) 0.2 % (0-6); HEMATOCRIT 33.5 % (36.0-47.0); LYMPHOCYTES % (AUTO) 5.9 % (13-45); MEAN CORPUSCULAR HEMOGLOBIN 31.8 pg (27.0-33.4); MEAN CORPUSCULAR HGB CONC 32.7 g/dL (32.0-36.0); MEAN CORPUSCULAR VOLUME 97 fl (80-97); MONOCYTES % (AUTO) 4.5 % (3-13); PLATELET COUNT 209 10^3/uL (150-450); RED BLOOD COUNT 3.45 10^6/uL (3.72-5.28); RED CELL DISTRIBUTION WIDTH 21.9 % (11.5-14.0); SEGMENTED NEUTROPHILS % (AUTO) 88.9 % (42-78); TOTAL CELLS COUNTED % (AUTO) 100 %; WHITE BLOOD COUNT 11.9 10^3/uL (4.0-10.5)
[2019-08-07 06:37] LABS: ALBUMIN 1.8 g/dL (3.5-5.0); ALKALINE PHOSPHATASE 164 U/L (38-126); ASPARTATE AMINO TRANSFERASE 28 U/L (14-36); BILIRUBIN,TOTAL 0.3 mg/dL (0.2-1.3); BLOOD UREA NITROGEN 9 mg/dL (7-20); CARBON DIOXIDE 35 mmol/L (22-30); CHLORIDE 99 mmol/L (98-107); GLUCOSE 81 mg/dL (75-110); PHOSPHORUS 2.2 mg/dL (2.5-4.5); POTASSIUM 4.1 mmol/L (3.6-5.0)
[2019-08-07 06:50] LABS: APPEARANCE,URINE CLOUDY; BILIRUBIN,URINE NEGATIVE (NEGATIVE); COLOR,URINE YELLOW; GLUCOSE, URINE NEGATIVE (NEGATIVE); KETONES,URINE NEGATIVE (NEGATIVE); PROTEIN,URINE NEGATIVE (NEGATIVE); URINE SPECIFIC GRAVITY 1.015; UROBILINOGEN,URINE NEGATIVE mg/dL (<2.0)
[2019-08-07] MEDS ORDERED: PROPOFOL INJ 200 MG/20 ML VIAL IV ONE (07:06)
[2019-08-07 07:59] LABS: ANION GAP -2 (5-19)
[2019-08-07] MEDS: BUDESONIDE NEB 0.5 MG/2 ML AMPUL NEB SCH ×2 (09:18→19:53)
[2019-08-07] MEDS: CITALOPRAM HYDROBROMIDE 20 MG TABLET PO SCH (10:35)
[2019-08-07] MEDS: MULTIVITAMINS W-IRON TABLET, CHEWABLE PO SCH (10:36)
[2019-08-07] MEDS: FLUDROCORTISONE ACETATE 0.1 MG TABLET PO SCH (10:37)
[2019-08-07] MEDS: MIDODRINE HCL 5 MG TABLET PO SCH ×3 (10:37→17:56)
[2019-08-07] MEDS: THIAMINE HCL 100 MG TABLET PO SCH (10:38)
[2019-08-07] MEDS: CHOLECALCIFEROL (D3) 1,000 UNIT (25 MCG) TABLET PO SCH (10:39)
--- NOTE | 2019-08-07 11:03 | PDOC PROGRESS REPORT ---
Subjective Progress Note for:: 08/07/19 Subjective:: 08/04/2019. No acute events overnight. Currently resting in bed no apparent distress, patient is alert, cooperative with physical examination, unfortunately only oriented to person denies any shortness of breath, chills, nausea, vomiting, diarrhea, constipation or any urinary symptoms. 08/05/2019. Patient is able to tolerate some oral repeat, on my encounter patie nt does not seem to be in any acute distress, alert and oriented x3 today, cooperative with physical examination, patient noted to be hypoxic with elevated WBC however patient does not complain much, stating that she is doing fine. She is stating that she does not feel hungry but will try to eat, denies any nausea, vomiting, chest pain, diarrhea. 08/06/2019. Moderate improvement of mental status and respiratory symptoms, patient still on supplemental oxygen however improved compared to yesterday, patient is completely stable no apparent distress, patient is alert and oriented x4 and cooperative with physical examination, I do long discussion with her about her dysphagia and recurrent aspirations and suggested that she would greatly benefit from a PEG tube to avoid aspiration the patient, patient initially was hesitant but after going through her x-rays with her and and the fact that she was emaciated and she would not be able to get enough nutrition through p.o. patient agreed to have PEG tube placement. Patient denies any chest pain, nausea, vomiting, diarrhea, constipation or any urinary symptoms. 08/07/2019. No acute events overnight. Patient endorsing improvement of upper respiratory symptoms, currently resting bed no apparent distress, patient is scheduled to have PEG tube placed today, she has discussed it with her daughter who agrees with our plan, denies any nausea, fever, chills, diarrhea, constipation or any urinary symptoms. Patient was able to work with physical therapy yesterday. Reason For Visit: FALL HIP FTRACTURE ETOH DEP Physical Exam Vital Signs: Temp Pulse Resp BP Pulse Ox 97.2 F 62 16 89/50 L 100 08/07/19 07:25 08/07/19 09:19 08/07/19 09:19 08/07/19 07:25 08/07/19 09:19 Intake & Output 08/06/19 08/07/19 08/08/19 06:59 06:59 06:59 Intake Total 2115 550 300 Output Total 375 625 Balance 1740 -75 300 Weight 56 kg 57.6 kg General appearance: PRESENT: no acute distress, other - Emaciated Head exam: PRESENT: atraumatic, normocephalic Respiratory exam: PRESENT: crackles, decreased breath sounds. ABSENT: rales, rhonchi, wheezes Cardiovascular exam: PRESENT: RRR. ABSENT: diastolic murmur, rubs, systolic mur mur GI/Abdominal exam: PRESENT: normal bowel sounds, soft. ABSENT: distended, guarding, mass, organolmegaly, rebound, tenderness Neurological exam: PRESENT: alert, awake, oriented to person, oriented to place, oriented to time, oriented to situation, CN II-XII grossly intact. ABSENT: motor sensory deficit Results Laboratory Results: 08/07/19 05:30 08/07/19 05:30 08/07/19 08/07/19 08/07/19 05:20 05:30 05:30 WBC 11.9 H RBC 3.45 L Hgb 11.0 L Hct 33.5 L MCV 97 MCH 31.8 MCHC 32.7 RDW 21.9 H Plt Count 209 Seg Neutrophils % 88.9 H Sodium 132.2 L Potassium 4.1 Chloride 99 Carbon Dioxide 35 H Anion Gap -2 L BUN 9 Creatinine 0.41 L Est GFR ( Amer) > 60 Glucose 81 Calcium 8.0 L Phosphorus 2.2 L Magnesium 2.0 Total Bilirubin 0.3 AST 28 Alkaline Phosphatase 164 H Total Protein 4.0 L Albumin 1.8 L Urine Color YELLOW Urine Appearance CLOUDY Urine pH 6.0 Ur Specific [place] 1.015 Urine Protein NEGATIVE Urine Glucose (UA) NEGATIVE Urine Ketones NEGATIVE Urine Blood MODERATE H Urine RBC (Auto) 72 07/24/19 15:06 Troponin I 0.014 Impressions: Pelvis CT 07/21/19 17:07 IMPRESSION: Postsurgical changes of total right hip arthroplasty. Mildly comminuted right greater trochanteric fracture with mild anterior displacement. No hardware fracture or dislocation. Dilated distal appendix measuring 9 mm in caliber. Elongated gallbladder containing numerous gallstones. Mild right paracolic gutter and moderate right hemipelvis free fluid. As this is a limited noncontrast exam, clinically correlate for acute cholecystitis or appendicitis. Hip/Pelvis X-Ray 07/21/19 23:20 IMPRESSION: Fracture of the femur adjacent to the femoral component of the right hip hemiarthroplasty. Abdomen Ultrasound 07/22/19 00:00 IMPRESSION: 1. Cholelithiasis. 2. Otherwise essentially unremarkable. Abdomen/Pelvis CT 07/24/19 00:00 IMPRESSION: 1. No evidence of dissection or aneurysm involving the thoracic or abdominal aorta. The visceral arteries are patent. 2. No pulmonary embolism. 3. Diffuse wall thickening of the small bowel with mucosal enhancement. Findings compatible with shock bowel related to prolonged hypotension. No large vessel arterial occlusion. 4. Moderate left and small right pleural effusion. 5. Bibasilar opacities. This likely represents a component of compressive atelectasis however superimposed aspiration could contribute to this appearance. Continued follow-up recommended. 6. Moderate amount of ascites. 7. Coronary artery atherosclerosis. 8. Centrilobular emphysematous change. Likely chronic bronchitis. 9. 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 Correlation for history of claudication recommended. 10. Nondisplaced fractures of the right fourth through sixth anterior ribs and left third through sixth anterior ribs. This exam was performed according to our departmental dose-optimization program, which includes automated exposure control, adjustment of the mA and/or kV according to patient size and/or use of iterative reconstruction technique. Chest/Abdomen CTA 07/24/19 00:00 IMPRESSION: 1. No evidence of dissection or aneurysm involving the thoracic or abdominal aorta. The visceral arteries are patent. 2. No pulmonary embolism. 3. Diffuse wall thickening of the small bowel with mucosal enhancement. Findings compatible with shock bowel related to prolonged hypotension. No large vessel arterial occlusion. 4. Moderate left and small right pleural effusion. 5. Bibasilar opacities. This likely represents a component of compressive atelectasis however superimposed aspiration could contribute to this appearance. Continued follow-up recommended. 6. Moderate amount of ascites. 7. Coronary artery atherosclerosis. 8. Centrilobular emphysematous change. Likely chronic bronchitis. 9. 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 Correlation for history of claudication recommended. 10. Nondisplaced fractures of the right fourth through sixth anterior ribs and left third through sixth anterior ribs. This exam was performed according to our departmental dose-optimization program, which includes automated exposure control, adjustment of the mA and/or kV according to patient size and/or use of iterative reconstruction technique. Head CTA 07/24/19 00:00 IMPRESSION: 1. No acute intracranial abnormality by CT criteria. 2. No acute abnormality identified in the intracranial arterial circulation. 3. No evidence of stenosis/occlusion involving the cervical carotid or vertebral arteries. This exam was performed according to our departmental dose-optimization program, which includes automated exposure control, adjustment of the mA and/or kV according to patient size and/or use of iterative reconstruction technique. Neck CTA 07/24/19 01:40 IMPRESSION: 1. No acute intracranial abnormality by CT criteria. 2. No acute abnormality identified in the intracranial arterial circulation. 3. No evidence of stenosis/occlusion involving the cervical carotid or vertebral arteries. This exam was performed according to our departmental dose-optimization program, which includes automated exposure control, adjustment of the mA and/or kV according to patient size and/or use of iterative reconstruction technique. KUB X-Ray 07/27/19 00:00 IMPRESSION: TIP OF THE NASOGASTRIC TUBE IN THE STOMACH. NO RADIOGRAPHIC EVIDENCE FOR ACUTE ABDOMINAL DISEASE. PICC Line Insertion 07/30/19 00:00 IMPRESSION: SUCCESSFUL PLACEMENT OF A 5 FR DUAL LUMEN 32 CM PICC IN THE RIGHT BASILIC VEIN. Modified Barium Swallow 08/03/19 00:00 IMPRESSION: TRACE ASPIRATION WITH THIN BARIUM. LARYNGEAL PENETRATION FROM NEC TAR THICK AND PUREED RESIDUALS. PLEASE SEE SPEECH PATHOLOGIST REPORT FOR OTHER FINDINGS AND RECOMMENDATIONS. Chest X-Ray 08/05/19 00:00 IMPRESSION: Partial re-expansion of the right lung. Bilateral pleural effusions which are moderate to marked. Assessment and Plan - Diagnosis (1) Acute respiratory failure with hypoxia and hypercapnia Is this a current diagnosis for this admission?: Yes Plan: 07/28/2019 Currently high flow nasal cannula. We will try and wean from oxygen while keeping her saturation 88 to 92%. As needed nebulizers have been ordered. 07/29/2019 Continue high flow nasal cannula 07/29/2019 critical care visit A chest x-ray was obtained urgently. There is atelectasis versus consolidation at the right base. Small pleural effusion on the left. An ABG was drawn. On high flow nasal cannula FiO2 70% pH was 7.36, PCO2 41.9, PO2 55.5, bicarb 23.3, saturation 88%. Atelectasis versus possible aspiration pneumonia being considered. For atelectasis we will institute trials of CPAP. Consider chest percussion therapy as well. I have added back scheduled nebulizers of Xopenex, ipratropium every 6 hours, budesonide every 12 hours and as needed combination therapy. 07/30/2019 She is stable today but still on high flow nasal cannula. We will continue nebulizer treatments. I have added Decadron as she lists prednisone as an allergy. 07/31/19-patient is still on high flow oxygen. Going for cookie swallow study today. Receiving nebulizer treatments. Patient is also on Decadron. On BiPAP since yesterday. Receiving scheduled Xopenex, ipratropium every 6 hours, but desonide every 12 hours. Needs to continue the present management and once stable plan is to discharge her to SNF. 08/01/19-patient is still on high flow oxygen pulse ox is 93%. Swallowing evaluation was done followed by khris daniel she failed the swallowing study. Plan is to repeat swallowing evaluation on Tuesday. Diet as per speech therapy recommendations. Plan is to continue provide high flow oxygen. 08/02/2019-patient is still on high flow oxygen. Afebrile. Plan is to continue to try to taper off the oxygen requirements. 08/03/19-patient is off high flow oxygen plan is to discontinue chest physical therapy, to repeat the chest x-ray today. Temp is 97.4, blood pressures are persistently low it is 98/71 today. Patient is going to have a cookie swallow today again. Plan is to continue antibiotic therapy at this time.on IV Rocephin at this time. 08/04/2019. Off of high flow nasal cannula, SPO2 WNL on 3 to 4 L. Continue duo nebs, supplemental oxygen and IV antibiotics. 08/05/2019. Patient noted to be hypoxic and hypercarbic with elevated WBC chest x-ray shows right lung collapse most likely due to mucous plugging and possibly postobstructive pneumonia. We will continue supplemental oxygen, will consult respiratory therapy for possible deep suctioning and chest physical therapy and hopeful dislodging mucus plugging and improving her hypoxia, will switch antibiotics to cefepime and vancomycin as patient could be developing healthcare associated pneumonia or postobstructive pneumonia. If no improvement of hypoxia will consult tab machine operator for possible transfer back to ICU, unfortunately no pulmonology consult available in the weekend. 08/06/2019. Patient respiratory symptoms are improving, still dependent on SPO2, repeat chest x-ray has showed moderate resolution of right lung collapse after deep suctioning and chest physiotherapy by respiratory therapist, patient still has moderate bilateral pleural effusion on x-ray, will continue pleural toileting and supplies again and empiric antibiotics. 08/07/2019. Moderate improvement of respiratory symptoms, SPO2 WNL on 4 L, patient still has bilateral pleural effusion and crackles on the right lung. Will continue empiric IV antibiotics patient is pending PEG tube placement today. (2) Pneumonia Qualifiers: Pneumonia type: aspiration pneumonia Aspiration pneumonia type: due to regurgitated food Laterality: right Lung location: unspecified part of lung Qualified Code(s): J69.0 - Pneumonitis due to inhalation of food and vomit Is this a current diagnosis for this admission?: Yes Plan: Multifactorial, most likely aspiration and postobstructive pneumonia. Day 3 IV cefepime. Due 3 IV vancomycin. Continue aggressive pulmonary toileting, supplemental oxygen, duo nebs. Follow-up blood and sputum cultures. (3) Protein-energy malnutrition Qualifiers: Protein-calorie malnutrition severity: moderate Qualified Code(s): E44.0 - Moderate protein-calorie malnutrition Is this a current diagnosis for this admission?: Yes Plan: Most likely low p.o. intake. Patient has dysphagia and has had PEG tube in the past which she has pulled off per family. Patient has undergone 2 modified barium swallow last month done on 08/04/2019 Recommendation is for thin liquids and pured diet. Patient is able to tolerate minimum p.o. intake. Continue nutritional supplement. Patient is pending PEG tube placement today. (4) Current every day smoker Is this a current diagnosis for this admission?: Yes Plan: Tobacco cessation counseling performed and nicotine replacement options discussed. (5) Hypocalcemia Is this a current diagnosis for this admission?: Yes Plan: Likely due to low p.o. intake. Corrected calcium normal. Continue oral replacement. Calcium level tomorrow. (6) Hypokalemia Is this a current diagnosis for this admission?: Yes Plan: Resolved. (7) Iron deficiency Is this a current diagnosis for this admission?: Yes Plan: Due to low p.o. intake. We will give 1 dose of IV Injectafer as patient is not able to tolerate p.o. intake. (8) Multifocal atrial tachycardia Is this a current diagnosis for this admission?: Yes Plan: Rate controlled. Cardiology on board. Recommendations noted. Continue telemetry. PRN beta-blockers. (9) Sepsis Is this a current diagnosis for this admission?: Yes Plan: Resolved. (10) Urinary tract infection, E. coli Is this a current diagnosis for this admission?: Yes Plan: Due to E. coli. Pansensitive. Completed course of IV antibiotics. (11) Cardiac arrest Is this a current diagnosis for this admission?: Yes Plan: Successfully resuscitated after cardiac arrest requiring intubation and mechanical ventilation as well as IV pressors. Vitals WNL. Monitor vitals. Cardiology on board. (12) Closed right hip fracture Qualifiers: Encounter type: initial encounter Qualified Code(s): S72.001A - Fracture of unspecified part of neck of right femur, initial encounter for closed fracture Is this a current diagnosis for this admission?: Yes Plan: Orthopedic surgery consulted. No intervention recommended at this time. Continue PT OT. Please refer to Ortho note. (13) Vitamin D deficiency Is this a current diagnosis for this admission?: Yes Plan: Severe vitamin D deficiency. Likely due to low p.o. intake. Continue daily vitamin D.
--- NOTE | 2019-08-07 11:07 | Operative Report ---
Nonrecallable Operative Report DATE OF SURGERY: 08/07/19 PREOPERATIVE DIAGNOSIS: 1. Dysphasia. 2. Inanition. POSTOPERATIVE DIAGNOSIS: Same as above OPERATION: Percutaneous endoscopic gastrostomy. SURGEON: CON HAMILTON ANESTHESIA: LMAC TISSUE REMOVED OR ALTERED: None COMPLICATIONS: None apparent ESTIMATED BLOOD LOSS: Minimal PROCEDURE: Drains/implants: 20 German PEG. Procedure in detail: After informed consent was obtained, the patient was brought to the operating room and laid in the supine position. The area of the abdomen was prepped and draped in a normal sterile fashion. Next, the flexible gastroscope was inserted into the oropharynx. It was inserted down the oropharynx, esophagus, and into the stomach. The stomach was insufflated with air. There was noted to be mild gastritis throughout the stomach. The scope was pushed through the pylorus, into the duodenum. The first and second portion s of the duodenum appeared normal. The scope was then withdrawn into the gastric body. Maximal insufflation was then achieved. An appropriate place on the abdominal wall for PEG insertion was chosen using one-to-one ballottement as well as transillumination. Once the area was chosen, an incision was created in the abdominal skin. Under direct endoscopic visualization a needle was passed percutaneously, into the stomach. Next, a wire was inserted through the needle. The wire was grasped with a snare, and pulled out through the mouth. The PEG tube was then attached to the wire, and pulled down the oropharynx, and out the anterior abdominal wall. This was done, leaving the internal bumper opposed to the mucosa of the stomach. The PEG tube was found to sit at 1.5 cm at the skin. The external bumper was placed, the PEG tube was assembled, and the internal bumper was visualized using the endoscope. The bumper was snug against the mucosa, but still able to rotate easily. The scope was removed from the patient's oropharynx. A dressing was placed, and the procedure was concluded. All sponge, instrument, and needle counts were correct x2. Condition: Stable.
--- NOTE | 2019-08-07 12:08 | PDOC PROGRESS REPORT ---
Subjective Progress Note for:: 08/07/19 Subjective:: 63-year-old female with dysphagia. She has failed a swallowing eval on 2 separate occasions. Today, she reports being hungry. She denies chest pain, shortness of breath, fevers, chills, nausea, vomiting, dizziness, blurry vision, abdominal pain. Reason For Visit: FALL HIP FTRACTURE ETOH DEP Physical Exam Vital Signs: Temp Pulse Resp BP Pulse Ox 97.2 F 65 16 89/50 L 100 08/07/19 07:25 08/07/19 07:25 08/07/19 07:25 08/07/19 07:25 08/07/19 07:25 Intake & Output 08/06/19 08/07/19 08/08/19 06:59 06:59 06:59 Intake Total 2115 550 300 Output Total 375 625 Balance 1740 -75 300 Weight 56 kg 57.6 kg General appearance: PRESENT: no acute distress, thin Head exam: PRESENT: atraumatic, normocephalic Eye exam: ABSENT: scleral icterus Neck exam: ABSENT: meningismus, tenderness, tracheostomy Respiratory exam: PRESENT: unlabored. ABSENT: tachypnea Cardiovascular exam: ABSENT: tachycardia GI/Abdominal exam: PRESENT: soft. ABSENT: tenderness Rectal exam: PRESENT: deferred Musculoskeletal exam: ABSENT: deformity Neurological exam: PRESENT: alert, awake, oriented to person, oriented to place, oriented to time, oriented to situation, CN II-XII grossly intact Psychiatric exam: ABSENT: agitated, anxious, depressed Focused psych exam: ABSENT: delusional Skin exam: ABSENT: cyanosis, erythema, jaundice Results Laboratory Results: 08/07/19 05:30 08/07/19 05:30 08/07/19 08/07/19 08/07/19 05:20 05:30 05:30 WBC 11.9 H RBC 3.45 L Hgb 11.0 L Hct 33.5 L MCV 97 MCH 31.8 MCHC 32.7 RDW 21.9 H Plt Count 209 Seg Neutrophils % 88.9 H Sodium 132.2 L Potassium 4.1 Chloride 99 Carbon Dioxide 35 H Anion Gap -2 L BUN 9 Creatinine 0.41 L Est GFR ( Amer) > 60 Glucose 81 Calcium 8.0 L Phosphorus 2.2 L Magnesium 2.0 Total Bilirubin 0.3 AST 28 Alkaline Phosphatase 164 H Total Protein 4.0 L Albumin 1.8 L Urine Color YELLOW Urine Appearance CLOUDY Urine pH 6.0 Ur Specific [place] 1.015 Urine Protein NEGATIVE Urine Glucose (UA) NEGATIVE Urine Ketones NEGATIVE Urine Blood MODERATE H Urine RBC (Auto) 72 07/24/19 15:06 Troponin I 0.014 Impressions: Pelvis CT 07/21/19 17:07 IMPRESSION: Postsurgical changes of total right hip arthroplasty. Mildly comminuted right greater trochanteric fracture with mild anterior displacement. No hardware fracture or dislocation. Dilated distal appendix measuring 9 mm in caliber. Elongated gallbladder containing numerous gallstones. Mild right paracolic gutter and moderate right hemipelvis free fluid. As this is a limited noncontrast exam, clinically correlate for acute cholecystitis or appendicitis. Hip/Pelvis X-Ray 07/21/19 23:20 IMPRESSION: Fracture of the femur adjacent to the femoral component of the right hip hemiarthroplasty. Abdomen Ultrasound 07/22/19 00:00 IMPRESSION: 1. Cholelithiasis. 2. Otherwise essentially unremarkable. Abdomen/Pelvis CT 07/24/19 00:00 IMPRESSION: 1. No evidence of dissection or aneurysm involving the thoracic or abdominal aorta. The visceral arteries are patent. 2. No pulmonary embolism. 3. Diffuse wall thickening of the small bowel with mucosal enhancement. Findings compatible with shock bowel related to prolonged hypotension. No large vessel arterial occlusion. 4. Moderate left and small right pleural effusion. 5. Bibasilar opacities. This likely represents a component of compressive atelectasis however superimposed aspiration could contribute to this appearance. Continued follow-up recommended. 6. Moderate amount of ascites. 7. Coronary artery atherosclerosis. 8. Centrilobular emphysematous change. Likely chronic bronchitis. 9. 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 Correlation for history of claudication recommended. 10. Nondisplaced fractures of the right fourth through sixth anterior ribs and left third through sixth anterior ribs. This exam was performed according to our departmental dose-optimization program, which includes automated exposure control, adjustment of the mA and/or kV according to patient size and/or use of iterative reconstruction technique. Chest/Abdomen CTA 07/24/19 00:00 IMPRESSION: 1. No evidence of dissection or aneurysm involving the thoracic or abdominal aorta. The visceral arteries are patent. 2. No pulmonary embolism. 3. Diffuse wall thickening of the small bowel with mucosal enhancement. Findings compatible with shock bowel related to prolonged hypotension. No large vessel arterial occlusion. 4. Moderate left and small right pleural effusion. 5. Bibasilar opacities. This likely represents a component of compressive atelectasis however superimposed aspiration could contribute to this appearance. Continued follow-up recommended. 6. Moderate amount of ascites. 7. Coronary artery atherosclerosis. 8. Centrilobular emphysematous change. Likely chronic bronchitis. 9. 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 Correlation for history of claudication recommended. 10. Nondisplaced fractures of the right fourth through sixth anterior ribs and left third through sixth anterior ribs. This exam was performed according to our departmental dose-optimization program, which includes automated exposure control, adjustment of the mA and/or kV according to patient size and/or use of iterative reconstruction technique. Head CTA 07/24/19 00:00 IMPRESSION: 1. No acute intracranial abnormality by CT criteria. 2. No acute abnormality identified in the intracranial arterial circulation. 3. No evidence of stenosis/occlusion involving the cervical carotid or vertebral arteries. This exam was performed according to our departmental dose-optimization program, which includes automated exposure control, adjustment of the mA and/or kV according to patient size and/or use of iterative reconstruction technique. Neck CTA 07/24/19 01:40 IMPRESSION: 1. No acute intracranial abnormality by CT criteria. 2. No acute abnormality identified in the intracranial arterial circulation. 3. No evidence of stenosis/occlusion involving the cervical carotid or vertebral arteries. This exam was performed according to our departmental dose-optimization program, which includes automated exposure control, adjustment of the mA and/or kV according to patient size and/or use of iterative reconstruction technique. KUB X-Ray 07/27/19 00:00 IMPRESSION: TIP OF THE NASOGASTRIC TUBE IN THE STOMACH. NO RADIOGRAPHIC EVIDE NCE FOR ACUTE ABDOMINAL DISEASE. PICC Line Insertion 07/30/19 00:00 IMPRESSION: SUCCESSFUL PLACEMENT OF A 5 FR DUAL LUMEN 32 CM PICC IN THE RIGHT BASILIC VEIN. Modified Barium Swallow 08/03/19 00:00 IMPRESSION: TRACE ASPIRATION WITH THIN BARIUM. LARYNGEAL PENETRATION FROM NECTAR THICK AND PUREED RESIDUALS. PLEASE SEE SPEECH PATHOLOGIST REPORT FOR OTHER FINDINGS AND RECOMMENDATIONS. Chest X-Ray 08/05/19 00:00 IMPRESSION: Partial re-expansion of the right lung. Bilateral pleural effusions which are moderate to marked. Assessment & Plan - Diagnosis (1) Inanition Is this a current diagnosis for this admission?: Yes (2) Dysphagia Qualifiers: Dysphagia type: unspecified Qualified Code(s): R13.10 - Dysphagia, unspecified Is this a current diagnosis for this admission?: Yes
[2019-08-07] MEDS: ALBUMIN HUMAN 12.5 GM/50 ML RTUINJ IV SCH ×4 (13:27→17:52)
[2019-08-07] MEDS: DEXTROSE 10%-WATER 1,000 ML IV PRN (13:32)
[2019-08-07 13:44] LABS: VANCOMYCIN,TROUGH 23.2 ug/mL (5.0-20.0)
[2019-08-07] MEDS: CEFEPIME 1 GM/D5W RTU 1 GM/50 ML RTUPB IV SCH ×2 (13:58→14:51)
[2019-08-07] MEDS ORDERED: CALCIUM ACETATE 667 MG CAPSULE PO SCH (17:00)
[2019-08-07] MEDS: DEXTROSE 5%-NORMAL SALINE 1,000 ML IV PRN (17:55)
[2019-08-07] MEDS: PHOSPHORUS #1 250 MG TABLET PO SCH ×2 (17:56→21:41)
[2019-08-07] MEDS: VANCOMYCIN HCL 500 MG in DEXTROSE 5%-WATER 100 ML IV SCH (21:40)
[2019-08-08] MEDS: CEFEPIME 1 GM/D5W RTU 1 GM/50 ML RTUPB IV SCH ×2 (02:04→13:22)
[2019-08-08] MEDS: LEVALBUTEROL HCL NEB 1.25 MG/3 ML AMPUL NEB SCH ×4 (02:06→20:39)
[2019-08-08] MEDS: IPRATROPIUM BROMIDE 0.02% NEB 0.5 MG/2.5 ML AMPUL NEB SCH ×4 (02:06→20:39)
[2019-08-08] MEDS: HEPARIN SOD (PORCINE) 5,000 UNIT/ML 1 ML VIAL SUBCUT SCH ×3 (05:22→21:08)
[2019-08-08] MEDS: MAGNESIUM OXIDE 400 MG TABLET PO SCH ×3 (05:23→21:08)
--- NOTE | 2019-08-08 06:39 | PDOC PROGRESS REPORT ---
Subjective Progress Note for:: 08/08/19 Subjective:: 63-year-old female with dysphagia. She is recently status post percutaneous endoscopic gastrostomy. Today, she reports being hungry. She denies chest pain, shortness of breath, fevers, chills, nausea, vomiting, dizziness, blurry vision, abdominal pain. She denies any problems with her gastrostomy tube. Reason For Visit: FALL HIP FTRACTURE ETOH DEP Physical Exam Vital Signs: Temp Pulse Resp BP Pulse Ox 97.4 F 74 16 86/54 L 97 08/08/19 03:46 08/08/19 03:47 08/08/19 03:46 08/08/19 03:47 08/08/19 03:47 Intake & Output 08/06/19 08/07/19 08/08/19 06:59 06:59 06:59 Intake Total 2115 550 1100 Output Total 375 625 400 Balance 1740 -75 700 Weight 56 kg 57.6 kg General appearance: PRESENT: thin Head exam: PRESENT: atraumatic, normocephalic Eye exam: PRESENT: EOMI, PERRLA. ABSENT: scleral icterus Mouth exam: PRESENT: moist, neck supple Neck exam: ABSENT: meningismus, tenderness, thyromegaly, tracheal deviation Respiratory exam: PRESENT: unlabored. ABSENT: tachypnea, wheezes Cardiovascular exam: ABSENT: tachycardia Vascular exam: PRESENT: normal capillary refill GI/Abdominal exam: PRESENT: soft, other - Gastrostomy in place. ABSENT: distended, firm, guarding, tenderness Rectal exam: PRESENT: deferred Extremities exam: ABSENT: clubbing Musculoskeletal exam: ABSENT: deformity Neurological exam: PRESENT: alert, awake, oriented to person, oriented to place, oriented to time, oriented to situation, CN II-XII grossly intact Psychiatric exam: ABSENT: agitated, anxious, depressed Focused psych exam: ABSENT: delusional Skin exam: ABSENT: cyanosis, erythema, jaundice Results Laboratory Results: 08/07/19 05:30 08/07/19 05:30 08/07/19 08/07/19 05:20 05:30 Sodium 132.2 L Potassium 4.1 Chloride 99 Carbon Dioxide 35 H Anion Gap -2 L BUN 9 Creatinine 0.41 L Est GFR ( Amer) > 60 Glucose 81 Calcium 8.0 L Phosphorus 2.2 L Magnesium 2.0 Total Bilirubin 0.3 AST 28 Alkaline Phosphatase 164 H Total Protein 4.0 L Albumin 1.8 L Urine Color YELLOW Urine Appearance CLOUDY Urine pH 6.0 Ur Specific [place] 1.015 Urine Protein NEGATIVE Urine Glucose (UA) NEGATIVE Urine Ketones NEGATIVE Urine Blood MODERATE H Urine RBC (Auto) 72 07/24/19 15:06 Troponin I 0.014 Impressions: Pelvis CT 07/21/19 17:07 IMPRESSION: Postsurgical changes of total right hip arthroplasty. Mildly comminuted right greater trochanteric fracture with mild anterior displacement. No hardware fracture or dislocation. Dilated distal appendix measuring 9 mm in caliber. Elongated gallbladder containing numerous gallstones. Mild right paracolic gutter and moderate right hemipelvis free fluid. As this is a limited noncontrast exam, clinically correlate for acute cholecystitis or appendicitis. Hip/Pelvis X-Ray 07/21/19 23:20 IMPRESSION: Fracture of the femur adjacent to the femoral component of the right hip hemiarthroplasty. Abdomen Ultrasound 07/22/19 00:00 IMPRESSION: 1. Cholelithiasis. 2. Otherwise essentially unremarkable. Abdomen/Pelvis CT 07/24/19 00:00 IMPRESSION: 1. No evidence of dissection or aneurysm involving the thoracic or abdominal aorta. The visceral arteries are patent. 2. No pulmonary embolism. 3. Diffuse wall thickening of the small bowel with mucosal enhancement. Findings compatible with shock bowel related to prolonged hypotension. No large vessel arterial occlusion. 4. Moderate left and small right pleural effusion. 5. Bibasilar opacities. This likely represents a component of compressive atelectasis however superimposed aspiration could contribute to this appearance. Continued follow-up recommended. 6. Moderate amount of ascites. 7. Coronary artery atherosclerosis. 8. Centrilobular emphysematous change. Likely chronic bronchitis. 9. 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 Correlation for history of claudication recommended. 10. Nondisplaced fractures of the right fourth through sixth anterior ribs and left third through sixth anterior ribs. This exam was performed according to our departmental dose-optimization program, which includes automated exposure control, adjustment of the mA and/or kV according to patient size and/or use of iterative reconstruction technique. Chest/Abdomen CTA 07/24/19 00:00 IMPRESSION: 1. No evidence of dissection or aneurysm involving the thoracic or abdominal aorta. The visceral arteries are patent. 2. No pulmonary embolism. 3. Diffuse wall thickening of the small bowel with mucosal enhancement. Findings compatible with shock bowel related to prolonged hypotension. No large vessel arterial occlusion. 4. Moderate left and small right pleural effusion. 5. Bibasilar opacities. This likely represents a component of compressive atelectasis however superimposed aspiration could contribute to this appearance. Continued follow-up recommended. 6. Moderate amount of ascites. 7. Coronary artery atherosclerosis. 8. Centrilobular emphysematous change. Likely chronic bronchitis. 9. 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 Correlation for history of claudication recommended. 10. Nondisplaced fractures of the right fourth through sixth anterior ribs and left third through sixth anterior ribs. This exam was performed according to our departmental dose-optimization program, which includes automated exposure control, adjustment of the mA and/or kV according to patient size and/or use of iterative reconstruction technique. Head CTA 07/24/19 00:00 IMPRESSION: 1. No acute intracranial abnormality by CT criteria. 2. No acute abnormality identified in the intracranial arterial circulation. 3. No evidence of stenosis/occlusion involving the cervical carotid or vertebral arteries. This exam was performed according to our departmental dose-optimization program, which includes automated exposure control, adjustment of the mA and/or kV according to patient size and/or use of iterative reconstruction technique. Neck CTA 07/24/19 01:40 IMPRESSION: 1. No acute intracranial abnormality by CT criteria. 2. No acute abnormality identified in the intracranial arterial circulation. 3. No evidence of stenosis/occlusion involving the cervical carotid or vertebral arteries. This exam was performed according to our departmental dose-optimization program, which includes automated exposure control, adjustment of the mA and/or kV according to patient size and/or use of iterative reconstruction technique. KUB X-Ray 07/27/19 00:00 IMPRESSION: TIP OF THE NASOGASTRIC TUBE IN THE STOMACH. NO RADIOGRAPHIC EVIDENCE FOR ACUTE ABDOMINAL DISEASE. PICC Line Insertion 07/30/19 00:00 IMPRESSION: SUCCESSFUL PLACEMENT OF A 5 FR DUAL LUMEN 32 CM PICC IN THE RIGHT BASILIC VEIN. Modified Barium Swallow 08/03/19 00:00 IMPRESSION: TRACE ASPIRATION WITH THIN BARIUM. LARYNGEAL PENETRATION FROM NECTAR THICK AND PUREED RESIDUALS. PLEASE SEE SPEECH PATHOLOGIST REPORT FOR OTHER FINDINGS AND RECOMMENDATIONS. Chest X-Ray 08/05/19 00:00 IMPRESSION: Partial re-expansion of the right lung. Bilateral pleural effusions which are moderate to marked. Assessment & Plan - Diagnosis (1) Inanition Is this a current diagnosis for this admission?: Yes (2) Dysphagia Qualifiers: Dysphagia type: unspecified Qualified Code(s): R13.10 - Dysphagia, unspecified Is this a current diagnosis for this admission?: Yes - Plan Summary Plan Summary: This is a 63-year-old female status post percutaneous endoscopic gastrostomy placement. There are no apparent issues with her PEG tube. She has no abdominal pain, fevers, or other signs of tube dysfunction. It is okay to start using her PEG for feedings as well as medications. Surgery will sign off at this time. Please renotify with any questions or concerns.
[2019-08-08 07:07] LABS: HEMATOCRIT 31.3 % (36.0-47.0); HEMOGLOBIN 10.4 g/dL (12.0-15.5); MEAN CORPUSCULAR HEMOGLOBIN 31.8 pg (27.0-33.4); MEAN CORPUSCULAR HGB CONC 33.2 g/dL (32.0-36.0); MEAN CORPUSCULAR VOLUME 96 fl (80-97); PLATELET COUNT 199 10^3/uL (150-450); RED BLOOD COUNT 3.27 10^6/uL (3.72-5.28); RED CELL DISTRIBUTION WIDTH 21.6 % (11.5-14.0)
[2019-08-08 07:19] LABS: ALBUMIN 2.4 g/dL (3.5-5.0); ALKALINE PHOSPHATASE 140 U/L (38-126); ASPARTATE AMINO TRANSFERASE 28 U/L (14-36); BILIRUBIN,TOTAL 0.4 mg/dL (0.2-1.3); BLOOD UREA NITROGEN 8 mg/dL (7-20); GLUCOSE 94 mg/dL (75-110); POTASSIUM 4.1 mmol/L (3.6-5.0); TOTAL PROTEIN 4.5 g/dL (6.3-8.2)
[2019-08-08 07:24] LABS: CARBON DIOXIDE 35 mmol/L (22-30); CHLORIDE 98 mmol/L (98-107)
[2019-08-08 07:29] LABS: ANION GAP 0 (5-19)
[2019-08-08] MEDS: BUDESONIDE NEB 0.5 MG/2 ML AMPUL NEB SCH ×2 (08:05→20:39)
[2019-08-08] MEDS: CHOLECALCIFEROL (D3) 1,000 UNIT (25 MCG) TABLET PO SCH (09:10)
[2019-08-08] MEDS: MIDODRINE HCL 5 MG TABLET PO SCH ×3 (09:10→17:24)
[2019-08-08] MEDS: PHOSPHORUS #1 250 MG TABLET PO SCH ×4 (09:11→21:07)
[2019-08-08] MEDS: THIAMINE HCL 100 MG TABLET PO SCH (09:11)
[2019-08-08] MEDS: CITALOPRAM HYDROBROMIDE 20 MG TABLET PO SCH (09:11)
[2019-08-08] MEDS: VANCOMYCIN HCL 500 MG in DEXTROSE 5%-WATER 100 ML IV SCH ×2 (09:13→21:07)
[2019-08-08] MEDS: MULTIVITAMINS W-IRON TABLET, CHEWABLE PO SCH (09:20)
[2019-08-08] MEDS: DEXTROSE 5%-NORMAL SALINE 1,000 ML IV PRN (09:24)
[2019-08-08] MEDS ORDERED: NORMAL SALINE 10 ML SDV (AFTER EACH USE) IV PRN (09:30)
[2019-08-08] MEDS: NORMAL SALINE 10 ML SDV (SCHEDULED) IV SCH ×2 (09:35→21:09)
--- NOTE | 2019-08-08 10:28 | PDOC PROGRESS REPORT ---
Subjective Progress Note for:: 08/08/19 Subjective:: 08/04/2019. No acute events overnight. Currently resting in bed no apparent distress, patient is alert, cooperative with physical examination, unfortunately only oriented to person denies any shortness of breath, chills, nausea, vomiting, diarrhea, constipation or any urinary symptoms. 08/05/2019. Patient is able to tolerate some oral repeat, on my encounter cecilia nt does not seem to be in any acute distress, alert and oriented x3 today, cooperative with physical examination, patient noted to be hypoxic with elevated WBC however patient does not complain much, stating that she is doing fine. She is stating that she does not feel hungry but will try to eat, denies any nausea, vomiting, chest pain, diarrhea. 08/06/2019. Moderate improvement of mental status and respiratory symptoms, patient still on supplemental oxygen however improved compared to yesterday, patient is completely stable no apparent distress, patient is alert and oriented x4 and cooperative with physical examination, I do long discussion with her about her dysphagia and recurrent aspirations and suggested that she would greatly benefit from a PEG tube to avoid aspiration the patient, patient initially was hesitant but after going through her x-rays with her and and the fact that she was emaciated and she would not be able to get enough nutrition through p.o. patient agreed to have PEG tube placement. Patient denies any chest pain, nausea, vomiting, diarrhea, constipation or any urinary symptoms. 08/07/2019. No acute events overnight. Patient endorsing improvement of upper respiratory symptoms, currently resting bed no apparent distress, patient is scheduled to have PEG tube placed today, she has discussed it with her daughter who agrees with our plan, denies any nausea, fever, chills, diarrhea, constipation or any urinary symptoms. Patient was able to work with physical therapy yesterday. 08/08/2019. No acute events overnight. Patient is status post PEG tube vince cement, no complication, complaining of mild soreness in the stomach otherwise passing flatus and is not nauseous, respiratory symptoms are improved, denies any fever, chills, nausea, vomiting, diarrhea, constipation or any urinary symptoms. Reason For Visit: FALL HIP FTRACTURE ETOH DEP Physical Exam Vital Signs: Temp Pulse Resp BP Pulse Ox 97.3 F 70 18 82/48 L 98 08/08/19 07:56 08/08/19 08:05 08/08/19 08:05 08/08/19 07:56 08/08/19 08:05 Intake & Output 08/07/19 08/08/19 08/09/19 06:59 06:59 06:59 Intake Total 550 1100 1000 Output Total 625 490 Balance -75 610 1000 Weight 57.6 kg 62.6 kg General appearance: PRESENT: no acute distress, thin Head exam: PRESENT: atraumatic, normocephalic Respiratory exam: PRESENT: crackles, decreased breath sounds. ABSENT: rales, rhonchi, wheezes GI/Abdominal exam: PRESENT: normal bowel sounds, soft. ABSENT: distended, guarding, mass, organolmegaly, rebound, tenderness Neurological exam: PRESENT: alert, awake, oriented to person, oriented to place, oriented to time, oriented to situation, CN II-XII grossly intact. ABSENT: motor sensory deficit Results Laboratory Results: 08/08/19 06:03 08/08/19 06:03 08/08/19 08/08/19 06:03 06:03 WBC 10.0 RBC 3.27 L Hgb 10.4 L Hct 31.3 L MCV 96 MCH 31.8 MCHC 33.2 RDW 21.6 H Plt Count 199 Sodium 133.3 L Potassium 4.1 Chloride 98 Carbon Dioxide 35 H Anion Gap 0 L BUN 8 Creatinine 0.38 L Est GFR ( Amer) > 60 Glucose 94 Calcium 8.0 L Magnesium 2.0 Total Bilirubin 0.4 AST 28 Alkaline Phosphatase 140 H Total Protein 4.5 L Albumin 2.4 L 07/24/19 15:06 Troponin I 0.014 Impressions: Pelvis CT 07/21/19 17:07 IMPRESSION: Postsurgical changes of total right hip arthroplasty. Mildly comminuted right greater trochanteric fracture with mild anterior displacement. No hardware fracture or dislocation. Dilated distal appendix measuring 9 mm in caliber. Elongated gallbladder containing numerous gallstones. Mild right paracolic gutter and moderate right hemipelvis free fluid. As this is a limited noncontrast exam, clinically cor relate for acute cholecystitis or appendicitis. Hip/Pelvis X-Ray 07/21/19 23:20 IMPRESSION: Fracture of the femur adjacent to the femoral component of the right hip hemiarthroplasty. Abdomen Ultrasound 07/22/19 00:00 IMPRESSION: 1. Cholelithiasis. 2. Otherwise essentially unremarkable. Abdomen/Pelvis CT 07/24/19 00:00 IMPRESSION: 1. No evidence of dissection or aneurysm involving the thoracic or abdominal aorta. The visceral arteries are patent. 2. No pulmonary embolism. 3. Diffuse wall thickening of the small bowel with mucosal enhancement. Findings compatible with shock bowel related to prolonged hypotension. No large vessel arterial occlusion. 4. Moderate left and small right pleural effusion. 5. Bibasilar opacities. This likely represents a component of compressive atelectasis however superimposed aspiration could contribute to this appearance. Continued follow-up recommended. 6. Moderate amount of ascites. 7. Coronary artery atherosclerosis. 8. Centrilobular emphysematous change. Likely chronic bronchitis. 9. 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 Correlation for history of claudication recommended. 10. Nondisplaced fractures of the right fourth through sixth anterior ribs and left third through sixth anterior ribs. This exam was performed according to our departmental dose-optimization program, which includes automated exposure control, adjustment of the mA and/or kV according to patient size and/or use of iterative reconstruction technique. Chest/Abdomen CTA 07/24/19 00:00 IMPRESSION: 1. No evidence of dissection or aneurysm involving the thoracic or abdominal aorta. The visceral arteries are patent. 2. No pulmonary embolism. 3. Diffuse wall thickening of the small bowel with mucosal enhancement. Findings compatible with shock bowel related to prolonged hypotension. No large vessel arterial occlusion. 4. Moderate left and small right pleural effusion. 5. Bibasilar opacities. This likely represents a component of compressive atelectasis however superimposed aspiration could contribute to this appearance. Continued follow-up recommended. 6. Moderate amount of ascites. 7. Coronary artery atherosclerosis. 8. Centrilobular emphysematous change. Likely chronic bronchitis. 9. 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 Correlation for history of claudication recommended. 10. Nondisplaced fractures of the right fourth through sixth anterior ribs and left third through sixth anterior ribs. This exam was performed according to our departmental dose-optimization program, which includes automated exposure control, adjustment of the mA and/or kV according to patient size and/or use of iterative reconstruction technique. Head CTA 07/24/19 00:00 IMPRESSION: 1. No acute intracranial abnormality by CT criteria. 2. No acute abnormality identified in the intracranial arterial circulation. 3. No evidence of stenosis/occlusion involving the cervical carotid or vertebral arteries. This exam was performed according to our departmental dose-optimization program, which includes automated exposure control, adjustment of the mA and/or kV according to patient size and/or use of iterative reconstruction technique. Neck CTA 07/24/19 01:40 IMPRESSION: 1. No acute intracranial abnormality by CT criteria. 2. No acute abnormality identified in the intracranial arterial circulation. 3. No evidence of stenosis/occlusion involving the cervical carotid or vertebral arteries. This exam was performed according to our departmental dose-optimization program, which includes automated exposure control, adjustment of the mA and/or kV according to patient size and/or use of iterative reconstruction technique. KUB X-Ray 07/27/19 00:00 IMPRESSION: TIP OF THE NASOGASTRIC TUBE IN THE STOMACH. NO RADIOGRAPHIC EVIDENCE FOR ACUTE ABDOMINAL DISEASE. PICC Line Insertion 07/30/19 00:00 IMPRESSION: SUCCESSFUL PLACEMENT OF A 5 FR DUAL LUMEN 32 CM PICC IN THE RIGHT BASILIC VEIN. Modified Barium Swallow 08/03/19 00:00 IMPRESSION: TRACE ASPIRATION WITH THIN BARIUM. LARYNGEAL PENETRATION FROM NECTAR THICK AND PUREED RESIDUALS. PLEASE SEE SPEECH PATHOLOGIST REPORT FOR OTHER FINDINGS AND RECOMMENDATIONS. Chest X-Ray 08/05/19 00:00 IMPRESSION: Partial re-expansion of the right lung. Bilateral pleural eff usions which are moderate to marked. Assessment and Plan - Diagnosis (1) Acute respiratory failure with hypoxia and hypercapnia Is this a current diagnosis for this admission?: Yes Plan: Likely healthcare associated pneumonia complicated by recurrent aspiration pneumonia and postobstructive pneumonia. Afebrile. WBC WNL. SPO2 WNL on 4 L NC. Day 4 IV antibiotics. Day 4 IV vancomycin. Day 4 IV cefepime. Continue empiric IV antibiotics. Continue as needed DuoNebs. Continue incent demetrio spirometry and flutter valve. Continue aggressive pulmonary toileting. (2) Pneumonia Qualifiers: Pneumonia type: aspiration pneumonia Aspiration pneumonia type: due to regurgitated food Laterality: right Lung location: unspecified part of lung Qualified Code(s): J69.0 - Pneumonitis due to inhalation of food and vomit Is this a current diagnosis for this admission?: Yes Plan: Multifactorial, most likely aspiration and postobstructive pneumonia. Day 4 IV cefepime. Due 4 IV vancomycin. Continue aggressive pulmonary toileting, supplemental oxygen, duo nebs. Follow-up blood and sputum cultures. (3) Protein-energy malnutrition Qualifiers: Protein-calorie malnutrition severity: moderate Qualified Code(s): E44.0 - Moderate protein-calorie malnutrition Is this a current diagnosis for this admission?: Yes Plan: Most likely low p.o. intake. Patient has dysphagia. Failed modified barium swallow twice. Patient is status post PEG tube placement on 08/07/2019. No complication. Recommendation for surgery is PEG tube can be used. Dietitian consulted. Recommendations noted. (4) Current every day smoker Is this a current diagnosis for this admission?: Yes Plan: Tobacco cessation counseling performed and nicotine replacement options discussed. (5) Hypocalcemia Is this a current diagnosis for this admission?: Yes Plan: Likely due to low p.o. intake. Corrected calcium normal. Continue oral replacement. Calcium level tomorrow. (6) Hypokalemia Is this a current diagnosis for this admission?: Yes Plan: Resolved. (7) Iron deficiency Is this a current diagnosis for this admission?: Yes Plan: Due to low p.o. intake. Received 1 dose of Injectafer. Continue oral ferrous sulfate. (8) Multifocal atrial tachycardia Is this a current diagnosis for this admission?: Yes Plan: Rate controlled. Cardiology on board. Recommendations noted. Continue telemetry. PRN beta-blockers. (9) Sepsis Is this a current diagnosis for this admission?: Yes Plan: Resolved. (10) Urinary tract infection, E. coli Is this a current diagnosis for this admission?: Yes Plan: Due to E. coli. Pansensitive. Completed course of IV antibiotics. (11) Cardiac arrest Is this a current diagnosis for this admission?: Yes Plan: Successfully resuscitated after cardiac arrest requiring intubation and mechanical ventilation as well as IV pressors. Vitals WNL. Monitor vitals. Cardiology on board. (12) Closed right hip fracture Qualifiers: Encounter type: initial encounter Qualified Code(s): S72.001A - Fracture of unspecified part of neck of right femur, initial encounter for closed fracture Is this a current diagnosis for this admission?: Yes Plan: Orthopedic surgery consulted. No intervention recommended at this time. Continue PT OT. Please refer to Ortho note. (13) Vitamin D deficiency Is this a current diagnosis for this admission?: Yes Plan: Severe vitamin D deficiency. Likely due to low p.o. intake. Continue daily vitamin D.
[2019-08-08] MEDS: AMINO AC/PROTEIN HYDR/WHEY PRO 11 GM/45 ML PKT GT SCH ×2 (11:58→17:24)
[2019-08-09] MEDS: CEFEPIME 1 GM/D5W RTU 1 GM/50 ML RTUPB IV SCH ×2 (01:28→14:08)
[2019-08-09] MEDS: IPRATROPIUM BROMIDE 0.02% NEB 0.5 MG/2.5 ML AMPUL NEB SCH ×4 (01:49→21:16)
[2019-08-09] MEDS: LEVALBUTEROL HCL NEB 1.25 MG/3 ML AMPUL NEB SCH ×4 (01:49→21:16)
[2019-08-09] MEDS: MAGNESIUM OXIDE 400 MG TABLET PO SCH ×3 (05:08→21:58)
[2019-08-09] MEDS: HEPARIN SOD (PORCINE) 5,000 UNIT/ML 1 ML VIAL SUBCUT SCH ×3 (05:08→21:57)
[2019-08-09 05:48] LABS: HEMOGLOBIN 10.5 g/dL (12.0-15.5); MEAN CORPUSCULAR HEMOGLOBIN 32.1 pg (27.0-33.4); MEAN CORPUSCULAR HGB CONC 32.9 g/dL (32.0-36.0); MEAN CORPUSCULAR VOLUME 97 fl (80-97); PLATELET COUNT 201 10^3/uL (150-450); RED BLOOD COUNT 3.29 10^6/uL (3.72-5.28); RED CELL DISTRIBUTION WIDTH 21.6 % (11.5-14.0); WHITE BLOOD COUNT 9.3 10^3/uL (4.0-10.5)
[2019-08-09 06:11] LABS: ALBUMIN 2.1 g/dL (3.5-5.0); ALKALINE PHOSPHATASE 160 U/L (38-126); ASPARTATE AMINO TRANSFERASE 27 U/L (14-36); BILIRUBIN,TOTAL 0.4 mg/dL (0.2-1.3); BLOOD UREA NITROGEN 10 mg/dL (7-20); CALCIUM 7.7 mg/dL (8.4-10.2); GLUCOSE 87 mg/dL (75-110); POTASSIUM 3.6 mmol/L (3.6-5.0); TOTAL PROTEIN 4.1 g/dL (6.3-8.2)
[2019-08-09 06:15] LABS: CARBON DIOXIDE 37 mmol/L (22-30); CHLORIDE 95 mmol/L (98-107)
[2019-08-09 06:22] LABS: ANION GAP 2 (5-19)
[2019-08-09] MEDS: BUDESONIDE NEB 0.5 MG/2 ML AMPUL NEB SCH ×2 (09:26→21:16)
--- NOTE | 2019-08-09 09:31 | RADIOLOGY REPORT (SQ) ---
EXAM DESCRIPTION: CHEST SINGLE VIEW IMAGES COMPLETED DATE/TIME: 08/09/2019 8:56 am REASON FOR STUDY: Hypoxia COMPARISON: 08/05/2019 and 07/30/2019 EXAM PARAMETERS: NUMBER OF VIEWS: One view. TECHNIQUE: Single frontal radiographic view of the chest acquired. RADIATION DOSE: NA LIMITATIONS: Patient rotation FINDINGS: LUNGS AND PLEURA: Essentially stable pulmonary exam demonstrating bilateral pleural effusi ons and compressive atelectasis versus consolidation involving the right lung. No pneumothorax. MEDIASTINUM AND HILAR STRUCTURES: Stable. HEART AND VASCULAR STRUCTURES: Stable. BONES: No acute findings. HARDWARE: Right upper extremity PICC terminates in the region of the superior vena cava. OTHER: No other significant finding. IMPRESSION: Stable radiographic appearance of the chest demonstrating persistent atelectasis versus consolidation of the right lung with moderate bilateral pleural effusions. Stable right upper extrem ity PICC peer TECHNICAL DOCUMENTATION: JOB ID: [id number] 2010 [employer]- All Rights Reserved Reading location - IP/workstation name: [email or web address]
[2019-08-09] MEDS: VANCOMYCIN HCL 500 MG in DEXTROSE 5%-WATER 100 ML IV SCH ×2 (09:47→21:56)
[2019-08-09] MEDS: AMINO AC/PROTEIN HYDR/WHEY PRO 11 GM/45 ML PKT GT SCH ×2 (09:48→17:15)
[2019-08-09] MEDS: CITALOPRAM HYDROBROMIDE 20 MG TABLET PO SCH (09:48)
[2019-08-09] MEDS: THIAMINE HCL 100 MG TABLET PO SCH (09:48)
[2019-08-09] MEDS: PHOSPHORUS #1 250 MG TABLET PO SCH ×4 (09:48→21:58)
[2019-08-09] MEDS: MULTIVITAMINS W-IRON TABLET, CHEWABLE PO SCH (09:49)
[2019-08-09] MEDS: MIDODRINE HCL 5 MG TABLET PO SCH ×3 (09:49→17:14)
[2019-08-09] MEDS: CHOLECALCIFEROL (D3) 1,000 UNIT (25 MCG) TABLET PO SCH (09:49)
[2019-08-09 10:19] LABS: VANCOMYCIN,TROUGH 16.9 ug/mL (5.0-20.0)
[2019-08-09] MEDS: NORMAL SALINE 10 ML SDV (SCHEDULED) IV SCH ×2 (11:05→21:57)
--- NOTE | 2019-08-09 12:25 | PDOC PROGRESS REPORT ---
Subjective Progress Note for:: 08/09/19 Subjective:: 08/04/2019. No acute events overnight. Currently resting in bed no apparent distress, patient is alert, cooperative with physical examination, unfortunately only oriented to person denies any shortness of breath, chills, nausea, vomiting, diarrhea, constipation or any urinary symptoms. 08/05/2019. Patient is able to tolerate some oral repeat, on my encounter mathewe nt does not seem to be in any acute distress, alert and oriented x3 today, cooperative with physical examination, patient noted to be hypoxic with elevated WBC however patient does not complain much, stating that she is doing fine. She is stating that she does not feel hungry but will try to eat, denies any nausea, vomiting, chest pain, diarrhea. 08/06/2019. Moderate improvement of mental status and respiratory symptoms, patient still on supplemental oxygen however improved compared to yesterday, patient is completely stable no apparent distress, patient is alert and oriented x4 and cooperative with physical examination, I do long discussion with her about her dysphagia and recurrent aspirations and suggested that she would greatly benefit from a PEG tube to avoid aspiration the patient, patient initially was hesitant but after going through her x-rays with her and and the fact that she was emaciated and she would not be able to get enough nutrition through p.o. patient agreed to have PEG tube placement. Patient denies any chest pain, nausea, vomiting, diarrhea, constipation or any urinary symptoms. 08/07/2019. No acute events overnight. Patient endorsing improvement of upper respiratory symptoms, currently resting bed no apparent distress, patient is scheduled to have PEG tube placed today, she has discussed it with her daughter who agrees with our plan, denies any nausea, fever, chills, diarrhea, constipation or any urinary symptoms. Patient was able to work with physical therapy yesterday. 08/08/2019. No acute events overnight. Patient is status post PEG tube vince cement, no complication, complaining of mild soreness in the stomach otherwise passing flatus and is not nauseous, respiratory symptoms are improved, denies any fever, chills, nausea, vomiting, diarrhea, constipation or any urinary symptoms. 08/09/2019. No acute events overnight. Patient comfortably sitting in bed no apparent distress, alert and oriented x3, cooperative with physical examination, answering question properly, tolerating her feeds, having normal bowel movements, having normal bladder movements, denies any fever, chills, nausea, vomiting, diarrhea, constipation or any urinary symptoms. Reason For Visit: FALL HIP FTRACTURE ETOH DEP Physical Exam Vital Signs: Temp Pulse Resp BP Pulse Ox 97.7 F 90 18 92/57 L 96 08/09/19 08:41 08/09/19 09:26 08/09/19 09:26 08/09/19 08:41 08/09/19 09:26 Intake & Output 08/08/19 08/09/19 08/10/19 06:59 06:59 06:59 Intake Total 1100 1435 250 Output Total 490 0 Balance 610 1435 250 Weight 62.6 kg 65.1 kg General appearance: PRESENT: no acute distress, thin Head exam: PRESENT: atraumatic, normocephalic Respiratory exam: PRESENT: crackles, decreased breath sounds. ABSENT: rales, rhonchi, wheezes Cardiovascular exam: PRESENT: RRR. ABSENT: diastolic murmur, rubs, systolic murmur GI/Abdominal exam: PRESENT: normal bowel sounds, soft. ABSENT: distended, guarding, mass, organolmegaly, rebound, tenderness Neurological exam: PRESENT: alert, awake, oriented to person, oriented to place, oriented to time, oriented to situation, CN II-XII grossly intact. ABSENT: motor sensory deficit Skin exam: PRESENT: dry, intact, warm. ABSENT: cyanosis, rash Results Laboratory Results: 08/09/19 05:29 08/09/19 09:34 08/09/19 08/09/19 08/09/19 05:29 05:29 09:34 WBC 9.3 RBC 3.29 L Hgb 10.5 L Hct 32.0 L MCV 97 MCH 32.1 MCHC 32.9 RDW 21.6 H Plt Count 201 Sodium 131.7 L Potassium 3.6 Chloride 95 L Carbon Dioxide 37 H Anion Gap 2 L BUN 10 Creatinine 0.47 L 0.43 L Est GFR ( Amer) > 60 > 60 Glucose 87 Calcium 7.7 L Phosphorus 2.0 L Magnesium 1.8 Total Bilirubin 0.4 AST 27 Alkaline Phosphatase 160 H Total Protein 4.1 L Albumin 2.1 L 07/24/19 15:06 Troponin I 0.014 Impressions: Pelvis CT 07/21/19 17:07 IMPRESSION: Postsurgical changes of total right hip arthroplasty. Mildly comminuted right greater trochanteric fracture with mild anterior displacement. No hardware fracture or dislocation. Dilated distal appendix measuring 9 mm in caliber. Elongated gallbladder containing numerous gallstones. Mild right paracolic gutter and moderate right hemipelvis free fluid. As this is a limited noncontrast exam, clinically correlate for acute cholecystitis or appendicitis. Hip/Pelvis X-Ray 07/21/19 23:20 IMPRESSION: Fracture of the femur adjacent to the femoral component of the right hip hemiarthroplasty. Abdomen Ultrasound 07/22/19 00:00 IMPRESSION: 1. Cholelithiasis. 2. Otherwise essentially unremarkable. Abdomen/Pelvis CT 07/24/19 00:00 IMPRESSION: 1. No evidence of dissection or aneurysm involving the thoracic or abdominal aorta. The visceral arteries are patent. 2. No pulmonary embolism. 3. Diffuse wall thickening of the small bowel with mucosal enhancement. Findings compatible with shock bowel related to prolonged hypotension. No large vessel arterial occlusion. 4. Moderate left and small right pleural effusion. 5. Bibasilar opacities. This likely represents a component of compressive atelectasis however superimposed aspiration could contribute to this appearance. Continued follow-up recommended. 6. Moderate amount of ascites. 7. Coronary artery atherosclerosis. 8. Centrilobular emphysematous change. Likely chronic bronchitis. 9. 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 Correlation for history of claudication recommended. 10. Nondisplaced fractures of the right fourth through sixth anterior ribs and left third through sixth anterior ribs. This exam was performed according to our departmental dose-optimization program, which includes automated exposure control, adjustment of the mA and/or kV according to patient size and/or use of iterative reconstruction technique. Chest/Abdomen CTA 07/24/19 00:00 IMPRESSION: 1. No evidence of dissection or aneurysm involving the thoracic or abdominal aorta. The visceral arteries are patent. 2. No pulmonary embolism. 3. Diffuse wall thickening of the small bowel with mucosal enhancement. Findings compatible with shock bowel related to prolonged hypotension. No large vessel arterial occlusion. 4. Moderate left and small right pleural effusion. 5. Bibasilar opacities. This likely represents a component of compressive atelectasis however superimposed aspiration could contribute to this appearance. Continued follow-up recommended. 6. Moderate amount of ascites. 7. Coronary artery atherosclerosis. 8. Centrilobular emphysematous change. Likely chronic bronchitis. 9. 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 Correlation for history of claudication recommended. 10. Nondisplaced fractures of the right fourth through sixth anterior ribs and left third through sixth anterior ribs. This exam was performed according to our departmental dose-optimization program, which includes automated exposure control, adjustment of the mA and/or kV according to patient size and/or use of iterative reconstruction technique. Head CTA 07/24/19 00:00 IMPRESSION: 1. No acute intracranial abnormality by CT criteria. 2. No acute abnormality identified in the intracranial arterial circulation. 3. No evidence of stenosis/occlusion involving the cervical carotid or vertebral arteries. This exam was performed according to our departmental dose-optimization program, which includes automated exposure control, adjustment of the mA and/or kV according to patient size and/or use of iterative reconstruction technique. Neck CTA 07/24/19 01:40 IMPRESSION: 1. No acute intracranial abnormality by CT criteria. 2. No acute abnormality identified in the intracranial arterial circulation. 3. No evidence of stenosis/occlusion involving the cervical carotid or vertebral arteries. This exam was performed according to our departmental dose-optimization program, which includes automated exposure control, adjustment of the mA and/or kV according to patient size and/or use of iterative reconstruction technique. KUB X-Ray 07/27/19 00:00 IMPRESSION: TIP OF THE NASOGASTRIC TUBE IN THE STOMACH. NO RADIOGRAPHIC EVIDENCE FOR ACUTE ABDOMINAL DISEASE. PICC Line Insertion 07/30/19 00:00 IMPRESSION: SUCCESSFUL PLACEMENT OF A 5 FR DUAL LUMEN 32 CM PICC IN THE RIGHT BASILIC VEIN. Modified Barium Swallow 08/03/19 00:00 IMPRESSION: TRACE ASPIRATION WITH THIN BARIUM. LARYNGEAL PENETRATION FROM NECTAR THICK AND PUREED RESIDUALS. PLEASE SEE SPEECH PATHOLOGIST REPORT FOR OTHER FINDINGS AND RECOMMENDATIONS. Chest X-Ray 08/09/19 06:00 IMPRESSION: Stable radiographic appearance of the chest demonstrating persistent atelectasis versus consolidation of the right lung with moderate bilateral pleural effusions. Stable right upper extremity PICC peer Assessment and Plan - Diagnosis (1) Acute respiratory failure with hypoxia and hypercapnia Is this a current diagnosis for this admission?: Yes Plan: Likely healthcare associated pneumonia complicated by recurrent aspiration pneumonia and postobstructive pneumonia. Afebrile. WBC WNL. SPO2 WNL on 4 L NC. Day 5 IV antibiotics. Day 5 IV vancomycin. Day 5 IV cefepime. Continue empiric IV antibiotics. Continue as needed DuoNebs. Continue incentive spirometry and flutter valve. Continue aggressive pulmonary toileting. (2) Pneumonia Qualifiers: Pneumonia type: aspiration pneumonia Aspiration pneumonia type: due to regurgitated food Laterality: right Lung location: unspecified part of lung Qualified Code(s): J69.0 - Pneumonitis due to inhalation of food and vomit Is this a current diagnosis for this admission?: Yes Plan: Multifactorial, most likely aspiration and postobstructive pneumonia. Repeat chest x-ray unchanged. Afebrile. WBC WNL. Day 5 IV cefepime. Due 5 IV vancomycin. Continue aggressive pulmonary toileting, supplemental oxygen, duo nebs. Follow-up blood and sputum cultures. (3) Protein-energy malnutrition Qualifiers: Protein-calorie malnutrition severity: moderate Qualified Code(s): E44.0 - Moderate protein-calorie malnutrition Is this a current diagnosis for this admission?: Yes Plan: Most likely low p.o. intake. Patient has dysphagia. Failed modified barium swallow twice. Status post PEG tube placement on 08/07/2019. No complication. Tolerating feeds. Dietitian consulted. Recommendations noted. (4) Current every day smoker Is this a current diagnosis for this admission?: Yes Plan: Tobacco cessation counseling performed and nicotine replacement options discussed. (5) Hypocalcemia Is this a current diagnosis for this admission?: Yes Plan: Likely due to low p.o. intake. Corrected calcium normal. Continue oral replacement. Calcium level tomorrow. (6) Hypokalemia Is this a current diagnosis for this admission?: Yes Plan: Resolved. (7) Iron deficiency Is this a current diagnosis for this admission?: Yes Plan: Due to low p.o. intake. Received 1 dose of Injectafer. Continue oral ferrous sulfate. (8) Multifocal atrial tachycardia Is this a current diagnosis for this admission?: Yes Plan: Rate controlled. Cardiology on board. Recommendations noted. Continue telemetry. PRN beta-blockers. (9) Sepsis Is this a current diagnosis for this admission?: Yes Plan: Resolved. (10) Urinary tract infection, E. coli Is this a current diagnosis for this admission?: Yes Plan: Due to E. coli. Pansensitive. Completed course of IV antibiotics. (11) Cardiac arrest Is this a current diagnosis for this admission?: Yes Plan: Successfully resuscitated after cardiac arrest requiring intubation and mechanical ventilation as well as IV pressors. Vitals WNL. Monitor vitals. Cardiology on board. (12) Closed right hip fracture Qualifiers: Encounter type: initial encounter Qualified Code(s): S72.001A - Fracture of unspecified part of neck of right femur, initial encounter for closed fracture Is this a current diagnosis for this admission?: Yes Plan: Orthopedic surgery consulted. No intervention recommended at this time. Continue PT OT. Please refer to Ortho note. (13) Vitamin D deficiency Is this a current diagnosis for this admission?: Yes Plan: Severe vitamin D deficiency. Likely due to low p.o. intake. Continue daily vitamin D.
[2019-08-09] MEDS ORDERED: MIRTAZAPINE 15 MG TABLET PO SCH (22:00)
[2019-08-10] MEDS: CEFEPIME 1 GM/D5W RTU 1 GM/50 ML RTUPB IV SCH ×2 (01:47→13:48)
[2019-08-10] MEDS: LEVALBUTEROL HCL NEB 1.25 MG/3 ML AMPUL NEB SCH ×4 (02:13→20:44)
[2019-08-10] MEDS: IPRATROPIUM BROMIDE 0.02% NEB 0.5 MG/2.5 ML AMPUL NEB SCH ×4 (02:13→20:44)
[2019-08-10] MEDS: HEPARIN SOD (PORCINE) 5,000 UNIT/ML 1 ML VIAL SUBCUT SCH ×3 (05:16→23:24)
[2019-08-10] MEDS: MAGNESIUM OXIDE 400 MG TABLET PO SCH ×3 (05:16→23:22)
[2019-08-10 05:33] LABS: BLOOD UREA NITROGEN 13 mg/dL (7-20); CALCIUM 7.4 mg/dL (8.4-10.2); CHLORIDE 94 mmol/L (98-107); GLUCOSE 96 mg/dL (75-110); PHOSPHORUS 2.2 mg/dL (2.5-4.5); POTASSIUM 3.6 mmol/L (3.6-5.0)
[2019-08-10 05:56] LABS: ANION GAP -2 (5-19); CARBON DIOXIDE 39 mmol/L (22-30)
[2019-08-10] MEDS: BUDESONIDE NEB 0.5 MG/2 ML AMPUL NEB SCH ×2 (07:50→20:44)
[2019-08-10] MEDS: VANCOMYCIN HCL 500 MG in DEXTROSE 5%-WATER 100 ML IV SCH (09:15)
[2019-08-10] MEDS: CITALOPRAM HYDROBROMIDE 20 MG TABLET PO SCH (09:16)
[2019-08-10] MEDS: PHOSPHORUS #1 250 MG TABLET PO SCH ×4 (09:16→23:22)
[2019-08-10] MEDS: MIDODRINE HCL 5 MG TABLET PO SCH ×3 (09:16→17:29)
[2019-08-10] MEDS: THIAMINE HCL 100 MG TABLET PO SCH (09:17)
[2019-08-10] MEDS: CHOLECALCIFEROL (D3) 1,000 UNIT (25 MCG) TABLET PO SCH (09:17)
[2019-08-10] MEDS: AMINO AC/PROTEIN HYDR/WHEY PRO 11 GM/45 ML PKT GT SCH ×2 (09:17→17:30)
[2019-08-10] MEDS: NORMAL SALINE 10 ML SDV (SCHEDULED) IV SCH ×2 (09:18→23:24)
[2019-08-10] MEDS: MULTIVITAMINS W-IRON TABLET, CHEWABLE PO SCH (11:12)
[2019-08-10] MEDS: GUAIFENESIN 600 MG TABLET.SA PO SCH ×2 (11:56→23:22)
--- NOTE | 2019-08-10 15:23 | PDOC PROGRESS REPORT ---
Subjective Progress Note for:: 08/10/19 Subjective:: 08/04/2019. No acute events overnight. Currently resting in bed no apparent distress, patient is alert, cooperative with physical examination, unfortunately only oriented to person denies any shortness of breath, chills, nausea, vomiting, diarrhea, constipation or any urinary symptoms. 08/05/2019. Patient is able to tolerate some oral repeat, on my encounter mathewe nt does not seem to be in any acute distress, alert and oriented x3 today, cooperative with physical examination, patient noted to be hypoxic with elevated WBC however patient does not complain much, stating that she is doing fine. She is stating that she does not feel hungry but will try to eat, denies any nausea, vomiting, chest pain, diarrhea. 08/06/2019. Moderate improvement of mental status and respiratory symptoms, patient still on supplemental oxygen however improved compared to yesterday, patient is completely stable no apparent distress, patient is alert and oriented x4 and cooperative with physical examination, I do long discussion with her about her dysphagia and recurrent aspirations and suggested that she would greatly benefit from a PEG tube to avoid aspiration the patient, patient initially was hesitant but after going through her x-rays with her and and the fact that she was emaciated and she would not be able to get enough nutrition through p.o. patient agreed to have PEG tube placement. Patient denies any chest pain, nausea, vomiting, diarrhea, constipation or any urinary symptoms. 08/07/2019. No acute events overnight. Patient endorsing improvement of upper respiratory symptoms, currently resting bed no apparent distress, patient is scheduled to have PEG tube placed today, she has discussed it with her daughter who agrees with our plan, denies any nausea, fever, chills, diarrhea, constipation or any urinary symptoms. Patient was able to work with physical therapy yesterday. 08/08/2019. No acute events overnight. Patient is status post PEG tube vince cement, no complication, complaining of mild soreness in the stomach otherwise passing flatus and is not nauseous, respiratory symptoms are improved, denies any fever, chills, nausea, vomiting, diarrhea, constipation or any urinary symptoms. 08/09/2019. No acute events overnight. Patient comfortably sitting in bed no apparent distress, alert and oriented x3, cooperative with physical examination, answering question properly, tolerating her feeds, having normal bowel movements, having normal bladder movements, denies any fever, chills, nausea, vomiting, diarrhea, constipation or any urinary symptoms. 08/10/2019. No acute events overnight. Patient currently resting in bed no apparent distress, on my encounter patient is receiving speech therapy, as per primary nurse patient does not take part in physical therapy when I asked her she is stating that she feels very down and she feels like she has no energy but she will try, patient is alert and oriented, cooperative, interactive and an swering questions appropriately. When asked if she is depressed she states may be. She had a good night sleep after being started on mirtazapine last night, patient encouraged to ambulate as much as possible and use her incentive spirometry and flutter valve. Patient denies any headache, fever, chills, nausea, vomiting, diarrhea, constipation or any urinary symptoms. Had one bowel movement today. Reason For Visit: FALL HIP FTRACTURE ETOH DEP Physical Exam Vital Signs: Temp Pulse Resp BP Pulse Ox 97.9 F 95 16 95/59 L 92 08/10/19 11:48 08/10/19 14:15 08/10/19 14:15 08/10/19 11:48 08/10/19 14:15 Intake & Output 08/09/19 08/10/19 08/11/19 06:59 06:59 06:59 Intake Total 1435 480 100 Output Total 0 0 Balance 1435 480 100 Weight 65.1 kg 67.7 kg General appearance: PRESENT: no acute distress, well-developed, well-nourished Head exam: PRESENT: atraumatic, normocephalic Respiratory exam: PRESENT: crackles, decreased breath sounds. ABSENT: rales, rhonchi, wheezes Cardiovascular exam: PRESENT: RRR. ABSENT: diastolic murmur, rubs, systolic murmur GI/Abdominal exam: PRESENT: normal bowel sounds, soft. ABSENT: distended, guarding, mass, organolmegaly, rebound, tenderness Extremities exam: PRESENT: full ROM. ABSENT: calf tenderness, clubbing, pedal edema Neurological exam: PRESENT: alert, awake, oriented to person, oriented to place, oriented to time, oriented to situation, CN II-XII grossly intact. ABSENT: motor sensory deficit Results Laboratory Results: 08/09/19 05:29 08/10/19 04:40 08/10/19 04:40 Sodium 131.5 L Potassium 3.6 Chloride 94 L Carbon Dioxide 39 H Anion Gap -2 L BUN 13 Creatinine 0.52 Est GFR ( Amer) > 60 Glucose 96 Calcium 7.4 L Phosphorus 2.2 L Magnesium 1.8 08/05/19 08:46 Blood Blood Culture - Final NO GROWTH IN 5 DAYS 08/05/19 08:50 Blood Blood Culture - Final NO GROWTH IN 5 DAYS 08/07/19 05:20 Catheterized Urine Urine Culture - Final Pseudomonas Aeruginosa C.albicans/C.dubliniensis 07/24/19 15:06 Troponin I 0.014 Impressions: Pelvis CT 07/21/19 17:07 IMPRESSION: Postsurgical changes of total right hip arthroplasty. Mildly comminuted right greater trochanteric fracture with mild anterior displacement. No hardware fracture or dislocation. Dilated distal appendix measuring 9 mm in caliber. Elongated gallbladder containing numerous gallstones. Mild right paracolic gutter and moderate right hemipelvis free fluid. As this is a limited noncontrast exam, clinically correlate for acute cholecystitis or appendicitis. Hip/Pelvis X-Ray 07/21/19 23:20 IMPRESSION: Fracture of the femur adjacent to the femoral component of the right hip hemiarthroplasty. Abdomen Ultrasound 07/22/19 00:00 IMPRESSION: 1. Cholelithiasis. 2. Otherwise essentially unremarkable. Abdomen/Pelvis CT 07/24/19 00:00 IMPRESSION: 1. No evidence of dissection or aneurysm involving the thoracic or abdominal aorta. The visceral arteries are patent. 2. No pulmonary embolism. 3. Diffuse wall thickening of the small bowel with mucosal enhancement. Findings compatible with shock bowel related to prolonged hypotension. No large vessel arterial occlusion. 4. Moderate left and small right pleural effusion. 5. Bibasilar opacities. This likely represents a component of compressive atelectasis however superimposed aspiration could contribute to this appearance. Continued follow-up recommended. 6. Moderate amount of ascites. 7. Coronary artery atherosclerosis. 8. Centrilobular emphysematous change. Likely chronic bronchitis. 9. 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 Correlation for history of claudication recommended. 10. Nondisplaced fractures of the right fourth through sixth anterior ribs and left third through sixth anterior ribs. This exam was performed according to our departmental dose-optimization program, which includes automated exposure control, adjustment of the mA and/or kV according to patient size and/or use of iterative reconstruction technique. Chest/Abdomen CTA 07/24/19 00:00 IMPRESSION: 1. No evidence of dissection or aneurysm involving the thoracic or abdominal aorta. The visceral arteries are patent. 2. No pulmonary embolism. 3. Diffuse wall thickening of the small bowel with mucosal enhancement. Findings compatible with shock bowel related to prolonged hypotension. No large vessel arterial occlusion. 4. Moderate left and small right pleural effusion. 5. Bibasilar opacities. This likely represents a component of compressive atelectasis however superimposed aspiration could contribute to this appearance. Continued follow-up recommended. 6. Moderate amount of ascites. 7. Coronary artery atherosclerosis. 8. Centrilobular emphysematous change. Likely chronic bronchitis. 9. 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 Correlation for history of claudication recommended. 10. Nondisplaced fractures of the right fourth through sixth anterior ribs and left third through sixth anterior ribs. This exam was performed according to our departmental dose-optimization program, which includes automated exposure control, adjustment of the mA and/or kV according to patient size and/or use of iterative reconstruction technique. Head CTA 07/24/19 00:00 IMPRESSION: 1. No acute intracranial abnormality by CT criteria. 2. No acute abnormality identified in the intracranial arterial circulation. 3. No evidence of stenosis/occlusion involving the cervical carotid or vertebral arteries. This exam was performed according to our departmental dose-optimization program, which includes automated exposure control, adjustment of the mA and/or kV according to patient size and/or use of iterative reconstruction technique. Neck CTA 07/24/19 01:40 IMPRESSION: 1. No acute intracranial abnormality by CT criteria. 2. No acute abnormality identified in the intracranial arterial circulation. 3. No evidence of stenosis/occlusion involving the cervical carotid or vertebral arteries. This exam was performed according to our departmental dose-optimization program, which includes automated exposure control, adjustment of the mA and/or kV according to patient size and/or use of iterative reconstruction technique. KUB X-Ray 07/27/19 00:00 IMPRESSION: TIP OF THE NASOGASTRIC TUBE IN THE STOMACH. NO RADIOGRAPHIC EVIDENCE FOR ACUTE ABDOMINAL DISEASE. PICC Line Insertion 07/30/19 00:00 IMPRESSION: SUCCESSFUL PLACEMENT OF A 5 FR DUAL LUMEN 32 CM PICC IN THE RIGHT BASILIC VEIN. Modified Barium Swallow 08/03/19 00:00 IMPRESSION: TRACE ASPIRATION WITH THIN BARIUM. LARYNGEAL PENETRATION FROM NECTAR THICK AND PUREED RESIDUALS. PLEASE SEE SPEECH PATHOLOGIST REPORT FOR OTHER FINDINGS AND RECOMMENDATIONS. Chest X-Ray 08/09/19 06:00 IMPRESSION: Stable radiographic appearance of the chest demonstrating persistent atelectasis versus consolidation of the right lung with moderate bilateral pleural effusions. Stable right upper extremity PICC peer Assessment and Plan - Diagnosis (1) Acute respiratory failure with hypoxia and hypercapnia Is this a current diagnosis for this admission?: Yes Plan: Likely healthcare associated pneumonia complicated by recurrent aspiration p neumonia and postobstructive pneumonia. Afebrile. WBC WNL. SPO2 WNL on 4 L NC. Day 6 IV antibiotics. Day 6 IV vancomycin. Day 6 IV cefepime. Continue empiric IV antibiotics. Continue as needed DuoNebs. Continue incentive spirometry and flutter valve. Continue aggressive pulmonary toileting. (2) Pneumonia Qualifiers: Pneumonia type: aspiration pneumonia Aspiration pneumonia type: due to regurgitated food Laterality: right Lung location: unspecified part of lung Qualified Code(s): J69.0 - Pneumonitis due to inhalation of food and vomit Is this a current diagnosis for this admission?: Yes Plan: Multifactorial, most likely aspiration and postobstructive pneumonia. Repeat chest x-ray unchanged. Afebrile. WBC WNL. Day 6 IV cefepime. Due 6 IV vancomycin. Continue aggressive pulmonary toileting, supplemental oxygen, duo nebs. Follow-up blood and sputum cultures. (3) Urinary tract infection, E. coli Is this a current diagnosis for this admission?: Yes Plan: Initial urine culture due to E. coli. Pansensitive. Completed course of IV antibiotics. However second urine culture positive for Pseudomonas which is sensitive to cefepime. Patient is already receiving cefepime for her pneumonia. (4) Depression Qualifiers: Depression Type: major depressive disorder Is this a current diagnosis for this admission?: Yes Plan: History of major depression. Patient takes citalopram already. When asked if she is depressed she states it "may be". Patient still grieves the loss of her who 2 years ago. Denies any suicidal or homicidal ideation. Complaining of feeling down and having no energy. Continue citalopram. Augment with mirtazapine which will stimulate her appetite and sleep. (5) Protein-energy malnutrition Qualifiers: Protein-calorie malnutrition severity: moderate Qualified Code(s): E44.0 - Moderate protein-calorie malnutrition Is this a current diagnosis for this admission?: Yes Plan: Most likely low p.o. intake. Patient has dysphagia. Failed modified barium swallow twice. Status post PEG tube placement on 08/07/2019. No complication. Tolerating feeds. Dietitian consulted. Recommendations noted. (6) Hypocalcemia Is this a current diagnosis for this admission?: Yes Plan: Likely due to low p.o. intake. Corrected calcium normal. Continue oral replacement. Calcium level tomorrow. (7) Hypokalemia Is this a current diagnosis for this admission?: Yes Plan: Resolved. (8) Iron deficiency Is this a current diagnosis for this admission?: Yes Plan: Due to low p.o. intake. Received 1 dose of Injectafer. Continue oral ferrous sulfate. (9) Multifocal atrial tachycardia Is this a current diagnosis for this admission?: Yes Plan: Rate controlled. Cardiology on board. Recommendations noted. Continue telemetry. PRN beta-blockers. (10) Sepsis Is this a current diagnosis for this admission?: Yes Plan: Resolved. (11) Cardiac arrest Is this a current diagnosis for this admission?: Yes Plan: Successfully resuscitated after cardiac arrest requiring intubation and mechanical ventilation as well as IV pressors. Vitals WNL. Monitor vitals. Cardiology on board. (12) Closed right hip fracture Qualifiers: Encounter type: initial encounter Qualified Code(s): S72.001A - Fracture of unspecified part of neck of right femur, initial encounter for closed fracture Is this a current diagnosis for this admission?: Yes Plan: Orthopedic surgery consulted. No intervention recommended at this time. Cont inue PT OT. Please refer to Ortho note. (13) Vitamin D deficiency Is this a current diagnosis for this admission?: Yes Plan: Severe vitamin D deficiency. Likely due to low p.o. intake. Continue daily vitamin D. (14) Current every day smoker Is this a current diagnosis for this admission?: Yes Plan: Tobacco cessation counseling performed and nicotine replacement options discussed.
[2019-08-10] MEDS ORDERED: GUAIFENESIN 600 MG TABLET.SA PO SCH (22:00)
[2019-08-10] MEDS: MIRTAZAPINE 15 MG TABLET PO SCH (23:22)
[2019-08-11] MEDS: LEVALBUTEROL HCL NEB 1.25 MG/3 ML AMPUL NEB SCH ×4 (01:53→20:40)
[2019-08-11] MEDS: IPRATROPIUM BROMIDE 0.02% NEB 0.5 MG/2.5 ML AMPUL NEB SCH ×4 (01:53→20:40)
[2019-08-11] MEDS: VANCOMYCIN HCL 500 MG in DEXTROSE 5%-WATER 100 ML IV SCH ×3 (02:12→22:01)
[2019-08-11] MEDS: MAGNESIUM OXIDE 400 MG TABLET PO SCH ×3 (05:14→22:00)
[2019-08-11] MEDS: CEFEPIME 1 GM/D5W RTU 1 GM/50 ML RTUPB IV SCH ×2 (05:14→14:03)
[2019-08-11] MEDS: HEPARIN SOD (PORCINE) 5,000 UNIT/ML 1 ML VIAL SUBCUT SCH ×3 (05:15→22:01)
[2019-08-11 06:22] LABS: ABSOLUTE BASOPHILS # (AUTO) 0.1 10^3/uL (0.0-0.2); ABSOLUTE MONOCYTES (AUTO) 1.4 10^3/uL (0.1-1.4); ABSOLUTE NEUT (AUTO) 7.6 10^3/uL (1.7-8.2); BASOPHILS % (AUTO) 0.8 % (0-2); EOSINOPHILS % (AUTO) 0.4 % (0-6); HEMATOCRIT 31.6 % (36.0-47.0); HEMOGLOBIN 10.4 g/dL (12.0-15.5); LYMPHOCYTES % (AUTO) 9.5 % (13-45); MEAN CORPUSCULAR HEMOGLOBIN 31.8 pg (27.0-33.4); MEAN CORPUSCULAR HGB CONC 32.9 g/dL (32.0-36.0); MEAN CORPUSCULAR VOLUME 97 fl (80-97); MONOCYTES % (AUTO) 13.7 % (3-13); PLATELET COUNT 194 10^3/uL (150-450); RED BLOOD COUNT 3.27 10^6/uL (3.72-5.28); RED CELL DISTRIBUTION WIDTH 20.7 % (11.5-14.0); SEGMENTED NEUTROPHILS % (AUTO) 75.6 % (42-78); TOTAL CELLS COUNTED % (AUTO) 100 %
[2019-08-11 06:41] LABS: ALBUMIN 1.9 g/dL (3.5-5.0); ALKALINE PHOSPHATASE 188 U/L (38-126); ASPARTATE AMINO TRANSFERASE 32 U/L (14-36); BILIRUBIN,TOTAL 0.3 mg/dL (0.2-1.3); BLOOD UREA NITROGEN 16 mg/dL (7-20); CALCIUM 7.5 mg/dL (8.4-10.2); CHLORIDE 90 mmol/L (98-107); GLUCOSE 100 mg/dL (75-110); PHOSPHORUS 2.2 mg/dL (2.5-4.5); POTASSIUM 3.8 mmol/L (3.6-5.0); TOTAL PROTEIN 3.8 g/dL (6.3-8.2)
[2019-08-11 06:51] LABS: ANION GAP 0 (5-19); CARBON DIOXIDE 42 mmol/L (22-30)
[2019-08-11] MEDS: BUDESONIDE NEB 0.5 MG/2 ML AMPUL NEB SCH ×2 (08:33→20:40)
[2019-08-11 08:50] LABS: ARTERIAL BLOOD BASE EXCESS 11.4 mmol/L; ARTERIAL BLOOD H2CO3 1.53 mmol/L (1.05-1.35); ARTERIAL BLOOD HCO3 36.4 mmol/L (20-24); ARTERIAL BLOOD O2 SATURATION 98.9 % (94-98); ARTERIAL BLOOD PCO2 50.8 mmHg (35-45); ARTERIAL BLOOD PH 7.47 (7.35-7.45); ARTERIAL BLOOD PO2 143.7 mmHg (80-100)
[2019-08-11 08:52] LABS: ARTERIAL BLOOD FIO2 5L
--- NOTE | 2019-08-11 09:01 | RADIOLOGY REPORT (SQ) ---
EXAM DESCRIPTION: CHEST SINGLE VIEW IMAGES COMPLETED DATE/TIME: 08/11/2019 8:35 am REASON FOR STUDY: hypoxia COMPARISON: 08/09/2019 FINDINGS: One-view chest AP portable upright. No significant change allowing for differences in technique, patient less rotated today. Bilateral effusions and subsegmental volume loss/ airspace disease. No pneumothorax. Right PICC remains in place. TECHNICAL DOCUMENTATION: JOB ID: [id number] Reading location - IP/workstation name: [email or web address]
[2019-08-11] MEDS: PHOSPHORUS #1 250 MG TABLET PO SCH ×4 (10:18→22:00)
[2019-08-11] MEDS: CHOLECALCIFEROL (D3) 1,000 UNIT (25 MCG) TABLET PO SCH (10:19)
[2019-08-11] MEDS: GUAIFENESIN 600 MG TABLET.SA PO SCH ×2 (10:19→22:00)
[2019-08-11] MEDS: THIAMINE HCL 100 MG TABLET PO SCH (10:19)
[2019-08-11] MEDS: MIDODRINE HCL 5 MG TABLET PO SCH ×3 (10:19→17:28)
[2019-08-11] MEDS: CITALOPRAM HYDROBROMIDE 20 MG TABLET PO SCH (10:20)
[2019-08-11] MEDS: AMINO AC/PROTEIN HYDR/WHEY PRO 11 GM/45 ML PKT GT SCH ×2 (10:21→17:28)
[2019-08-11] MEDS: NORMAL SALINE 10 ML SDV (SCHEDULED) IV SCH ×2 (10:29→22:00)
[2019-08-11] MEDS: MULTIVITAMINS W-IRON TABLET, CHEWABLE PO SCH (10:54)
--- NOTE | 2019-08-11 11:13 | PDOC PROGRESS REPORT ---
Subjective Progress Note for:: 08/11/19 Subjective:: 08/04/2019. No acute events overnight. Currently resting in bed no apparent distress, patient is alert, cooperative with physical examination, unfortunately only oriented to person denies any shortness of breath, chills, nausea, vomiting, diarrhea, constipation or any urinary symptoms. 08/05/2019. Patient is able to tolerate some oral repeat, on my encounter mathewe nt does not seem to be in any acute distress, alert and oriented x3 today, cooperative with physical examination, patient noted to be hypoxic with elevated WBC however patient does not complain much, stating that she is doing fine. She is stating that she does not feel hungry but will try to eat, denies any nausea, vomiting, chest pain, diarrhea. 08/06/2019. Moderate improvement of mental status and respiratory symptoms, patient still on supplemental oxygen however improved compared to yesterday, patient is completely stable no apparent distress, patient is alert and oriented x4 and cooperative with physical examination, I do long discussion with her about her dysphagia and recurrent aspirations and suggested that she would greatly benefit from a PEG tube to avoid aspiration the patient, patient initially was hesitant but after going through her x-rays with her and and the fact that she was emaciated and she would not be able to get enough nutrition through p.o. patient agreed to have PEG tube placement. Patient denies any chest pain, nausea, vomiting, diarrhea, constipation or any urinary symptoms. 08/07/2019. No acute events overnight. Patient endorsing improvement of upper respiratory symptoms, currently resting bed no apparent distress, patient is scheduled to have PEG tube placed today, she has discussed it with her daughter who agrees with our plan, denies any nausea, fever, chills, diarrhea, constipation or any urinary symptoms. Patient was able to work with physical therapy yesterday. 08/08/2019. No acute events overnight. Patient is status post PEG tube vince cement, no complication, complaining of mild soreness in the stomach otherwise passing flatus and is not nauseous, respiratory symptoms are improved, denies any fever, chills, nausea, vomiting, diarrhea, constipation or any urinary symptoms. 08/09/2019. No acute events overnight. Patient comfortably sitting in bed no apparent distress, alert and oriented x3, cooperative with physical examination, answering question properly, tolerating her feeds, having normal bowel movements, having normal bladder movements, denies any fever, chills, nausea, vomiting, diarrhea, constipation or any urinary symptoms. 08/10/2019. No acute events overnight. Patient currently resting in bed no apparent distress, on my encounter patient is receiving speech therapy, as per primary nurse patient does not take part in physical therapy when I asked her she is stating that she feels very down and she feels like she has no energy but she will try, patient is alert and oriented, cooperative, interactive and an swering questions appropriately. When asked if she is depressed she states may be. She had a good night sleep after being started on mirtazapine last night, patient encouraged to ambulate as much as possible and use her incentive spirometry and flutter valve. Patient denies any headache, fever, chills, nausea, vomiting, diarrhea, constipation or any urinary symptoms. Had one bowel movement today. 08/10/2019. No acute events overnight. Patient currently receiving apparent distress, reporting mild improvement of her energy, had a good night sleep, having loose bowel movements, denies any fever, chills, nausea, vomiting, constipation or any urinary symptoms. 08/11/2019. No acute events overnight. Patient currently receiving apparent distress, reporting mild improvement of her energy, had a good night sleep, having loose bowel movements, denies any fever, chills, nausea, vomiting, co nstipation or any urinary symptoms. Reason For Visit: FALL HIP FTRACTURE ETOH DEP Physical Exam Vital Signs: Temp Pulse Resp BP Pulse Ox 97.9 F 98 22 H 98/58 L 92 08/11/19 03:48 08/11/19 08:35 08/11/19 08:35 08/11/19 03:48 08/11/19 08:35 Intake & Output 08/10/19 08/11/19 08/12/19 06:59 06:59 06:59 Intake Total 480 250 50 Output Total 0 Balance 480 250 50 Weight 67.7 kg 69.2 kg General appearance: PRESENT: no acute distress, well-developed, well-nourished Head exam: PRESENT: atraumatic, normocephalic Respiratory exam: PRESENT: decreased breath sounds. ABSENT: rales, rhonchi, wheezes Cardiovascular exam: PRESENT: RRR. ABSENT: diastolic murmur, rubs, systolic murmur Pulses: PRESENT: normal dorsalis pedis pul GI/Abdominal exam: PRESENT: normal bowel sounds, soft. ABSENT: distended, guarding, mass, organolmegaly, rebound, tenderness Neurological exam: PRESENT: alert, awake, oriented to person, oriented to place, oriented to time, oriented to situation, CN II-XII grossly intact. ABSENT: motor sensory deficit Results Laboratory Results: 08/11/19 05:25 08/11/19 05:25 08/11/19 08/11/19 08/11/19 05:25 05:25 08:20 WBC 10.0 RBC 3.27 L Hgb 10.4 L Hct 31.6 L MCV 97 MCH 31.8 MCHC 32.9 RDW 20.7 H Plt Count 194 Seg Neutrophils % 75.6 Carbonic Acid 1.53 H HCO3/H2CO3 Ratio 23:1 ABG pH 7.47 H ABG pCO2 50.8 H ABG pO2 143.7 H ABG HCO3 36.4 H ABG O2 Saturation 98.9 H ABG Base Excess 11.4 FiO2 5L Sodium 130.6 L Potassium 3.8 Chloride 90 L Carbon Dioxide 42 H* Anion Gap 0 L BUN 16 Creatinine 0.44 L Est GFR ( Amer) > 60 Glucose 100 Calcium 7.5 L Phosphorus 2.2 L Magnesium 1.7 Total Bilirubin 0.3 AST 32 Alkaline Phosphatase 188 H Total Protein 3.8 L Albumin 1.9 L 08/05/19 08:46 Blood Blood Culture - Final NO GROWTH IN 5 DAYS 08/05/19 08:50 Blood Blood Culture - Final NO GROWTH IN 5 DAYS 08/07/19 05:20 Catheterized Urine Urine Culture - Final Pseudomonas Aeruginosa C.albicans/C.dubliniensis 07/24/19 15:06 Troponin I 0.014 Impressions: Pelvis CT 07/21/19 17:07 IMPRESSION: Postsurgical changes of total right hip arthroplasty. Mildly comminuted right greater trochanteric fracture with mild anterior displacement. No hardware fracture or dislocation. Dilated distal appendix measuring 9 mm in caliber. Elongated gallbladder containing numerous gallstones. Mild right paracolic gutter and moderate right hemipelvis free fluid. As this is a limited noncontrast exam, clinically correlate for acute cholecystitis or appendicitis. Hip/Pelvis X-Ray 07/21/19 23:20 IMPRESSION: Fracture of the femur adjacent to the femoral component of the right hip hemiarthroplasty. Abdomen Ultrasound 07/22/19 00:00 IMPRESSION: 1. Cholelithiasis. 2. Otherwise essentially unremarkable. Abdomen/Pelvis CT 07/24/19 00:00 IMPRESSION: 1. No evidence of dissection or aneurysm involving the thoracic or abdominal aorta. The visceral arteries are patent. 2. No pulmonary embolism. 3. Diffuse wall thickening of the small bowel with mucosal enhancement. Findings compatible with shock bowel related to prolonged hypotension. No large vessel arterial occlusion. 4. Moderate left and small right pleural effusion. 5. Bibasilar opacities. This likely represents a component of compressive atelectasis however superimposed aspiration could contribute to this appearance. Continued follow-up recommended. 6. Moderate amount of ascites. 7. Coronary artery atherosclerosis. 8. Centrilobular emphysematous change. Likely chronic bronchitis. 9. 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 Correlation for history of claudication recommended. 10. Nondisplaced fractures of the right fourth through sixth anterior ribs and left third through sixth anterior ribs. This exam was performed according to our departmental dose-optimization program, which includes automated exposure control, adjustment of the mA and/or kV according to patient size and/or use of iterative reconstruction technique. Chest/Abdomen CTA 07/24/19 00:00 IMPRESSION: 1. No evidence of dissection or aneurysm involving the thoracic or abdominal aorta. The visceral arteries are patent. 2. No pulmonary embolism. 3. Diffuse wall thickening of the small bowel with mucosal enhancement. Findings compatible with shock bowel related to prolonged hypotension. No large vessel arterial occlusion. 4. Moderate left and small right pleural effusion. 5. Bibasilar opacities. This likely represents a component of compressive atelectasis however superimposed aspiration could contribute to this appearance. Continued follow-up recommended. 6. Moderate amount of ascites. 7. Coronary artery atherosclerosis. 8. Centrilobular emphysematous change. Likely chronic bronchitis. 9. 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 Correlation for history of claudication recommended. 10. Nondisplaced fractures of the right fourth through sixth anterior ribs and left third through sixth anterior ribs. This exam was performed according to our departmental dose-optimization program, which includes automated exposure control, adjustment of the mA and/or kV according to patient size and/or use of iterative reconstruction technique. Head CTA 07/24/19 00:00 IMPRESSION: 1. No acute intracranial abnormality by CT criteria. 2. No acute abnormality identified in the intracranial arterial circulation. 3. No evidence of stenosis/occlusion involving the cervical carotid or vertebral arteries. This exam was performed according to our departmental dose-optimization program, which includes automated exposure control, adjustment of the mA and/or kV according to patient size and/or use of iterative reconstruction technique. Neck CTA 07/24/19 01:40 IMPRESSION: 1. No acute intracranial abnormality by CT criteria. 2. No acute abnormality identified in the intracranial arterial circulation. 3. No evidence of stenosis/occlusion involving the cervical carotid or vertebral arteries. This exam was performed according to our departmental dose-optimization program, which includes automated exposure control, adjustment of the mA and/or kV according to patient size and/or use of iterative reconstruction technique. KUB X-Ray 07/27/19 00:00 IMPRESSION: TIP OF THE NASOGASTRIC TUBE IN THE STOMACH. NO RADIOGRAPHIC EVIDENCE FOR ACUTE ABDOMINAL DISEASE. PICC Line Insertion 07/30/19 00:00 IMPRESSION: SUCCESSFUL PLACEMENT OF A 5 FR DUAL LUMEN 32 CM PICC IN THE RIGHT BASILIC VEIN. Modified Barium Swallow 08/03/19 00:00 IMPRESSION: TRACE ASPIRATION WITH THIN BARIUM. LARYNGEAL PENETRATION FROM NECTAR THICK AND PUREED RESIDUALS. PLEASE SEE SPEECH PATHOLOGIST REPORT FOR OTHER FINDINGS AND RECOMMENDATIONS. Assessment and Plan - Diagnosis (1) Acute respiratory failure with hypoxia and hypercapnia Is this a current diagnosis for this admission?: Yes Plan: Likely healthcare associated pneumonia complicated by recurrent aspiration pneumonia and postobstructive pneumonia. Afebrile. WBC WNL. SPO2 WNL on 4 L NC. Day 7 IV antibiotics. Day 7 IV vancomycin. Day 7 IV cefepime. Repeat ABG on 08/11/2019 shows resolution of hypoxemia. Patient is still having persistent bilateral pleural effusion however improved compared to prior study. Will consult radiology for possible thoracentesis. Continue empiric IV antibiotics. Continue as needed DuoNebs. Continue incentive spirometry and flutter valve. Continue aggressive pulmonary toileting. (2) Pneumonia Qualifiers: Pneumonia type: aspiration pneumonia Aspiration pneumonia type: due to regurgitated food Laterality: right Lung location: unspecified part of lung Qualified Code(s): J69.0 - Pneumonitis due to inhalation of food and vomit Is this a current diagnosis for this admission?: Yes Plan: Multifactorial, most likely aspiration and postobstructive pneumonia. Repeat chest x-ray unchanged. Afebrile. WBC WNL. Day 7 IV cefepime. Due 7 IV vancomycin. Continue aggressive pulmonary toileting, supplemental oxygen, duo nebs. Follow-up blood and sputum cultures. (3) Metabolic alkalosis with respiratory acidosis Is this a current diagnosis for this admission?: Yes Plan: With respiratory compensation. Expected PaCO2 49 - 53 mmHg Patient has low sodium and chloride likely due to GI losses. Patient has been complaining of loose stools since being started on PEG tube feeds. Decrease PEG tube feeds from 40 to 30 cc/hr to avoid refeeding syndrome. Monitor for refeeding syndrome. Continue supplemental Neutra-Phos, magnesium and multivitamins. CMP, magnesium and phosphorus level tomorrow. (4) Urinary tract infection, E. coli Is this a current diagnosis for this admission?: Yes Plan: Initial urine culture due to E. coli. Pansensitive. Completed course of IV antibiotics. However second urine culture positive for Pseudomonas which is sensitive to cefepime. Patient is already receiving cefepime for her pneumonia. (5) Depression Qualifiers: Depression Type: major depressive disorder Is this a current diagnosis for this admission?: Yes Plan: Mild improvement. Sleeping has improved since being started mirtazapine. Reports some increase in his energy level. History of major depression. Patient takes citalopram already. When asked if she is depressed she states it "may be". Patient still grieves the loss of her who 2 years ago. Denies any suicidal or homicidal ideation. Complaining of feeling down and having no energy. Continue citalopram and mirtazapine. (6) Protein-energy malnutrition Qualifiers: Protein-calorie malnutrition severity: moderate Qualified Code(s): E44.0 - Moderate protein-calorie malnutrition Is this a current diagnosis for this admission?: Yes Plan: Improving. BMI 26.2. Still have very low prealbumin. Most likely low p.o. intake. Patient has dysphagia. Failed modified barium swallow twice. Status post PEG tube placement on 08/07/2019. No complication. Tolerating feeds. Dietitian consulted. Recommendations noted. (7) Hypocalcemia Is this a current diagnosis for this admission?: Yes Plan: Likely due to low p.o. intake. Corrected calcium normal. Continue oral replacement. Calcium level tomorrow. (8) Hypokalemia Is this a current diagnosis for this admission?: Yes Plan: Resolved. (9) Iron deficiency Is this a current diagnosis for this admission?: Yes Plan: Due to low p.o. intake. Received 1 dose of Injectafer. Continue oral ferrous sulfate. (10) Multifocal atrial tachycardia Is this a current diagnosis for this admission?: Yes Plan: Rate controlled. Cardiology on board. Recommendations noted. Continue telemetry. PRN beta-blockers. (11) Sepsis Is this a current diagnosis for this admission?: Yes Plan: Resolved. (12) Cardiac arrest Is this a current diagnosis for this admission?: Yes Plan: Successfully resuscitated after cardiac arrest requiring intubation and mechanical ventilation as well as IV pressors. Vitals WNL. Monitor vitals. Cardiology on board. (13) Closed right hip fracture Qualifiers: Encounter type: initial encounter Qualified Code(s): S72.001A - Fracture of unspecified part of neck of right femur, initial encounter for closed fracture Is this a current diagnosis for this admission?: Yes Plan: Orthopedic surgery consulted. No intervention recommended at this time. Continue PT OT. Please refer to Ortho note. (14) Vitamin D deficiency Is this a current diagnosis for this admission?: Yes Plan: Severe vitamin D deficiency. Likely due to low p.o. intake. Continue daily vitamin D. (15) Current every day smoker Is this a current diagnosis for this admission?: Yes Plan: Tobacco cessation counseling performed and nicotine replacement options discussed.
[2019-08-11] MEDS: ALBUMIN HUMAN 12.5 GM/50 ML RTUINJ IV SCH ×4 (11:27→15:16)
[2019-08-11] MEDS ORDERED: POTASSIUM CHLORIDE 10 MEQ TABLET.ER PO SCH (12:00)
[2019-08-11] MEDS: POTASSIUM CHLORIDE 20 MEQ PACKET NG SCH (14:13)
[2019-08-11 15:48] LABS: INTERNATIONAL RATION (INR) 1.07; PROTHROMBIN TIME 13.9 SEC (11.4-15.4)
[2019-08-11 15:49] LABS: PARTIAL THROMBOPLASTIN TIME 30.9 SEC (23.5-35.8)
[2019-08-11] MEDS: MIRTAZAPINE 15 MG TABLET PO SCH (22:00)
[2019-08-12] MEDS: CEFEPIME 1 GM/D5W RTU 1 GM/50 ML RTUPB IV SCH (02:07)
[2019-08-12] MEDS: IPRATROPIUM BROMIDE 0.02% NEB 0.5 MG/2.5 ML AMPUL NEB SCH ×4 (02:20→20:24)
[2019-08-12] MEDS: LEVALBUTEROL HCL NEB 1.25 MG/3 ML AMPUL NEB SCH ×4 (02:20→20:24)
[2019-08-12] MEDS: MAGNESIUM OXIDE 400 MG TABLET PO SCH ×3 (05:41→22:03)
[2019-08-12 06:48] LABS: ALBUMIN 2.4 g/dL (3.5-5.0); ALKALINE PHOSPHATASE 172 U/L (38-126); ASPARTATE AMINO TRANSFERASE 30 U/L (14-36); BILIRUBIN,TOTAL 0.4 mg/dL (0.2-1.3); BLOOD UREA NITROGEN 18 mg/dL (7-20); CALCIUM 7.9 mg/dL (8.4-10.2); CHLORIDE 91 mmol/L (98-107); GLUCOSE 102 mg/dL (75-110); PHOSPHORUS 2.8 mg/dL (2.5-4.5); TOTAL PROTEIN 4.5 g/dL (6.3-8.2)
[2019-08-12 06:55] LABS: POTASSIUM 3.9 mmol/L (3.6-5.0)
[2019-08-12 06:59] LABS: CARBON DIOXIDE 44 mmol/L (22-30)
[2019-08-12 07:00] LABS: ANION GAP -2 (5-19)
[2019-08-12] MEDS: BUDESONIDE NEB 0.5 MG/2 ML AMPUL NEB SCH ×2 (08:01→20:24)
[2019-08-12] MEDS: PHOSPHORUS #1 250 MG TABLET PO SCH ×4 (08:13→22:03)
[2019-08-12] MEDS: CHOLECALCIFEROL (D3) 1,000 UNIT (25 MCG) TABLET PO SCH (10:23)
[2019-08-12] MEDS: CITALOPRAM HYDROBROMIDE 20 MG TABLET PO SCH (10:24)
[2019-08-12] MEDS: POTASSIUM CHLORIDE 20 MEQ PACKET NG SCH (10:24)
[2019-08-12] MEDS: MIDODRINE HCL 5 MG TABLET PO SCH ×3 (10:24→17:21)
[2019-08-12] MEDS: THIAMINE HCL 100 MG TABLET PO SCH (10:24)
[2019-08-12] MEDS: NORMAL SALINE 10 ML SDV (SCHEDULED) IV SCH ×2 (10:24→22:04)
[2019-08-12] MEDS: GUAIFENESIN 600 MG TABLET.SA PO SCH ×2 (10:24→22:03)
[2019-08-12] MEDS: VANCOMYCIN HCL 500 MG in DEXTROSE 5%-WATER 100 ML IV SCH (10:26)
[2019-08-12] MEDS: AMINO AC/PROTEIN HYDR/WHEY PRO 11 GM/45 ML PKT GT SCH ×2 (10:26→17:25)
[2019-08-12] MEDS: MULTIVITAMINS W-IRON TABLET, CHEWABLE PO SCH (10:28)
--- NOTE | 2019-08-12 10:55 | PDOC PROGRESS REPORT ---
Subjective Progress Note for:: 08/12/19 Subjective:: 08/04/2019. No acute events overnight. Currently resting in bed no apparent distress, patient is alert, cooperative with physical examination, unfortunately only oriented to person denies any shortness of breath, chills, nausea, vomiting, diarrhea, constipation or any urinary symptoms. 08/05/2019. Patient is able to tolerate some oral repeat, on my encounter mathewe nt does not seem to be in any acute distress, alert and oriented x3 today, cooperative with physical examination, patient noted to be hypoxic with elevated WBC however patient does not complain much, stating that she is doing fine. She is stating that she does not feel hungry but will try to eat, denies any nausea, vomiting, chest pain, diarrhea. 08/06/2019. Moderate improvement of mental status and respiratory symptoms, patient still on supplemental oxygen however improved compared to yesterday, patient is completely stable no apparent distress, patient is alert and oriented x4 and cooperative with physical examination, I do long discussion with her about her dysphagia and recurrent aspirations and suggested that she would greatly benefit from a PEG tube to avoid aspiration the patient, patient initially was hesitant but after going through her x-rays with her and and the fact that she was emaciated and she would not be able to get enough nutrition through p.o. patient agreed to have PEG tube placement. Patient denies any chest pain, nausea, vomiting, diarrhea, constipation or any urinary symptoms. 08/07/2019. No acute events overnight. Patient endorsing improvement of upper respiratory symptoms, currently resting bed no apparent distress, patient is scheduled to have PEG tube placed today, she has discussed it with her daughter who agrees with our plan, denies any nausea, fever, chills, diarrhea, constipation or any urinary symptoms. Patient was able to work with physical therapy yesterday. 08/08/2019. No acute events overnight. Patient is status post PEG tube vince cement, no complication, complaining of mild soreness in the stomach otherwise passing flatus and is not nauseous, respiratory symptoms are improved, denies any fever, chills, nausea, vomiting, diarrhea, constipation or any urinary symptoms. 08/09/2019. No acute events overnight. Patient comfortably sitting in bed no apparent distress, alert and oriented x3, cooperative with physical examination, answering question properly, tolerating her feeds, having normal bowel movements, having normal bladder movements, denies any fever, chills, nausea, vomiting, diarrhea, constipation or any urinary symptoms. 08/10/2019. No acute events overnight. Patient currently resting in bed no apparent distress, on my encounter patient is receiving speech therapy, as per primary nurse patient does not take part in physical therapy when I asked her she is stating that she feels very down and she feels like she has no energy but she will try, patient is alert and oriented, cooperative, interactive and an swering questions appropriately. When asked if she is depressed she states may be. She had a good night sleep after being started on mirtazapine last night, patient encouraged to ambulate as much as possible and use her incentive spirometry and flutter valve. Patient denies any headache, fever, chills, nausea, vomiting, diarrhea, constipation or any urinary symptoms. Had one bowel movement today. 08/10/2019. No acute events overnight. Patient currently receiving apparent distress, reporting mild improvement of her energy, had a good night sleep, having loose bowel movements, denies any fever, chills, nausea, vomiting, constipation or any urinary symptoms. 08/12/2019. No acute events overnight. Currently receiving up with nurse, reporting mild improvement of her strength, her sleep is improving, denies any fever, chills, nausea, vomiting, diarrhea, constipation. Loose stool has i mproved, tolerating PEG tube feeds. Once patient has had her paracentesis and her hypoxia improved patient can be safely discharged to rehab to continue her recovery. Reason For Visit: FALL HIP FTRACTURE ETOH DEP Physical Exam Vital Signs: Temp Pulse Resp BP Pulse Ox 97.5 F 98 20 94/55 L 88 L 08/12/19 08:34 08/12/19 08:34 08/12/19 08:34 08/12/19 08:34 08/12/19 08:34 Intake & Output 08/11/19 08/12/19 08/13/19 06:59 06:59 06:59 Intake Total 250 1148 50 Balance 250 1148 50 Weight 69.2 kg 66.3 kg General appearance: PRESENT: no acute distress, well-developed, well-nourished Head exam: PRESENT: atraumatic, normocephalic Respiratory exam: PRESENT: crackles, decreased breath sounds. ABSENT: rales, rhonchi, wheezes Cardiovascular exam: PRESENT: RRR. ABSENT: diastolic murmur, rubs, systolic murmur GI/Abdominal exam: PRESENT: normal bowel sounds, soft. ABSENT: distended, guarding, mass, organolmegaly, rebound, tenderness Extremities exam: PRESENT: full ROM. ABSENT: calf tenderness, clubbing, pedal edema Neurological exam: PRESENT: alert, awake, oriented to person, oriented to place, oriented to time, oriented to situation, CN II-XII grossly intact. ABSENT: motor sensory deficit Results Laboratory Results: 08/11/19 05:25 08/12/19 05:40 08/11/19 08/12/19 15:10 05:40 Sodium 133.2 L Potassium 3.9 Chloride 91 L Carbon Dioxide 44 H* Anion Gap -2 L BUN 18 Creatinine 0.43 L Est GFR ( Amer) > 60 Glucose 102 Calcium 7.9 L Phosphorus 2.8 Magnesium 1.7 Total Bilirubin 0.4 AST 30 Alkaline Phosphatase 172 H Total Protein 4.2 L 4.5 L Albumin 2.4 L 07/24/19 15:06 Troponin I 0.014 Impressions: Pelvis CT 07/21/19 17:07 IMPRESSION: Postsurgical changes of total right hip arthroplasty. Mildly co mminuted right greater trochanteric fracture with mild anterior displacement. No hardware fracture or dislocation. Dilated distal appendix measuring 9 mm in caliber. Elongated gallbladder containing numerous gallstones. Mild right paracolic gutter and moderate right hemipelvis free fluid. As this is a limited noncontrast exam, clinically correlate for acute cholecystitis or appendicitis. Hip/Pelvis X-Ray 07/21/19 23:20 IMPRESSION: Fracture of the femur adjacent to the femoral component of the right hip hemiarthroplasty. Abdomen Ultrasound 07/22/19 00:00 IMPRESSION: 1. Cholelithiasis. 2. Otherwise essentially unremarkable. Abdomen/Pelvis CT 07/24/19 00:00 IMPRESSION: 1. No evidence of dissection or aneurysm involving the thoracic or abdominal aorta. The visceral arteries are patent. 2. No pulmonary embolism. 3. Diffuse wall thickening of the small bowel with mucosal enhancement. Findings compatible with shock bowel related to prolonged hypotension. No large vessel arterial occlusion. 4. Moderate left and small right pleural effusion. 5. Bibasilar opacities. This likely represents a component of compressive atelectasis however superimposed aspiration could contribute to this appearance. Continued follow-up recommended. 6. Moderate amount of ascites. 7. Coronary artery atherosclerosis. 8. Centrilobular emphysematous change. Likely chronic bronchitis. 9. 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 Correlation for history of claudication recommended. 10. Nondisplaced fractures of the right fourth through sixth anterior ribs and left third through sixth anterior ribs. This exam was performed according to our departmental dose-optimization program, which includes automated exposure control, adjustment of the mA and/or kV according to patient size and/or use of iterative reconstruction technique. Chest/Abdomen CTA 07/24/19 00:00 IMPRESSION: 1. No evidence of dissection or aneurysm involving the thoracic or abdominal aorta. The visceral arteries are patent. 2. No pulmonary embolism. 3. Diffuse wall thickening of the small bowel with mucosal enhancement. Findings compatible with shock bowel related to prolonged hypotension. No large vessel arterial occlusion. 4. Moderate left and small right pleural effusion. 5. Bibasilar opacities. This likely represents a component of compressive atelectasis however superimposed aspiration could contribute to this appearance. Continued follow-up recommended. 6. Moderate amount of ascites. 7. Coronary artery atherosclerosis. 8. Centrilobular emphysematous change. Likely chronic bronchitis. 9. 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 Correlation for history of claudication recommended. 10. Nondisplaced fractures of the right fourth through sixth anterior ribs and left third through sixth anterior ribs. This exam was performed according to our departmental dose-optimization program, which includes automated exposure control, adjustment of the mA and/or kV according to patient size and/or use of iterative reconstruction technique. Head CTA 07/24/19 00:00 IMPRESSION: 1. No acute intracranial abnormality by CT criteria. 2. No acute abnormality identified in the intracranial arterial circulation. 3. No evidence of stenosis/occlusion involving the cervical carotid or vertebral arteries. This exam was performed according to our departmental dose-optimization program, which includes automated exposure control, adjustment of the mA and/or kV according to patient size and/or use of iterative reconstruction technique. Neck CTA 07/24/19 01:40 IMPRESSION: 1. No acute intracranial abnormality by CT criteria. 2. No acute abnormality identified in the intracranial arterial circulation. 3. No evidence of stenosis/occlusion involving the cervical carotid or vertebral arteries. This exam was performed according to our departmental dose-optimization program, which includes automated exposure control, adjustment of the mA and/or kV according to patient size and/or use of iterative reconstruction technique. KUB X-Ray 07/27/19 00:00 IMPRESSION: TIP OF THE NASOGASTRIC TUBE IN THE STOMACH. NO RADIOGRAPHIC EVIDENCE FOR ACUTE ABDOMINAL DISEASE. PICC Line Insertion 07/30/19 00:00 IMPRESSION: SUCCESSFUL PLACEMENT OF A 5 FR DUAL LUMEN 32 CM PICC IN THE RIGHT BASILIC VEIN. Modified Barium Swallow 08/03/19 00:00 IMPRESSION: TRACE ASPIRATION WITH THIN BARIUM. LARYNGEAL PENETRATION FROM NECTAR THICK AND PUREED RESIDUALS. PLEASE SEE SPEECH PATHOLOGIST REPORT FOR OTHER FINDINGS AND RECOMMENDATIONS. Assessment and Plan - Diagnosis (1) Acute respiratory failure with hypoxia and hypercapnia Is this a current diagnosis for this admission?: Yes Plan: Likely healthcare associated pneumonia complicated by recurrent aspiration pneumonia and postobstructive pneumonia. Afebrile. WBC WNL. SPO2 WNL on 4 L NC. Day 8 IV antibiotics. Day 8 IV vancomycin. Day 8 IV cefepime. Repeat ABG on 08/11/2019 shows resolution of hypoxemia. Patient is still having persistent bilateral pleural effusion however improved compared to prior study. Radiology has been consulted however thoracentesis has been delayed to Tuesday. Once thoracentesis has been done and respiratory symptoms improved patient's antibiotics can be DC'd as she does not have any sign of pneumonia. Continue empiric IV antibiotics. Continue as needed DuoNebs. Continue incentive spirometry and flutter valve. Continue aggressive pulmonary toileting. (2) Pneumonia Qualifiers: Pneumonia type: aspiration pneumonia Aspiration pneumonia type: due to regurgitated food Laterality: right Lung location: unspecified part of lung Qualified Code(s): J69.0 - Pneumonitis due to inhalation of food and vomit Is this a current diagnosis for this admission?: Yes Plan: Multifactorial, most likely aspiration and postobstructive pneumonia. Repeat chest x-ray unchanged. Afebrile. WBC WNL. Afebrile. WBC WNL. SPO2 WNL on 4 L NC. Day 8 IV antibiotics. Day 8 IV vancomycin. Day 8 IV cefepime. Repeat ABG on 08/11/2019 shows resolution of hypoxemia. Patient is still having persistent bilateral pleural effusion however improved compared to prior study. Radiology has been consulted however thoracentesis has been delayed to Tuesday. Once thoracentesis has been done and respiratory symptoms improved patient's antibiotics can be DC'd as she does not have any sign of pneumonia. Continue empiric IV antibiotics. Continue as needed DuoNebs. Continue incentive spirometry and flutter valve. Continue aggressive pulmonary toileting. (3) Metabolic alkalosis with respiratory acidosis Is this a current diagnosis for this admission?: Yes Plan: With respiratory compensation. Expected PaCO2 49 - 53 mmHg Patient has low sodium and chloride likely due to GI losses. Patient has been complaining of loose stools since being started on PEG tube feeds. Decrease PEG tube feeds from 40 to 30 cc/hr to avoid refeeding syndrome. Monitor for refeeding syndrome. Continue supplemental Neutra-Phos, magnesium and multivitamins. CMP, magnesium and phosphorus level tomorrow. (4) Urinary tract infection, E. coli Is this a current diagnosis for this admission?: Yes Plan: Initial urine culture due to E. coli. Pansensitive. Completed course of IV antibiotics. However second urine culture positive for Pseudomonas which is sensitive to cefepime. Asymptomatic. Completed a course of IV cefepime. (5) Depression Qualifiers: Depression Type: major depressive disorder Is this a current diagnosis for this admission?: Yes Plan: Mild improvement. Sleeping has improved since being started mirtazapine. Reports some increase in his energy level. History of major depression. Patient takes citalopram already. When asked if she is depressed she states it "may be". Patient still grieves the loss of her who 2 years ago. Denies any suicidal or homicidal ideation. Complaining of feeling down and having no energy. Continue citalopram and mirtazapine. (6) Protein-energy malnutrition Qualifiers: Protein-calorie malnutrition severity: moderate Qualified Code(s): E44.0 - Moderate protein-calorie malnutrition Is this a current diagnosis for this admission?: Yes Plan: Improving. BMI 26.2. Still have very low prealbumin. Most likely low p.o. intake. Patient has dysphagia. Failed modified barium swallow twice. Status post PEG tube placement on 08/07/2019. No complication. Tolerating feeds. Dietitian consulted. Recommendations noted. (7) Hypocalcemia Is this a current diagnosis for this admission?: Yes Plan: Likely due to low p.o. intake. Corrected calcium normal. Continue oral replacement. Calcium level tomorrow. (8) Hypokalemia Is this a current diagnosis for this admission?: Yes Plan: Resolved. (9) Iron deficiency Is this a current diagnosis for this admission?: Yes Plan: Due to low p.o. intake. Received 1 dose of Injectafer. Continue oral ferrous sulfate. (10) Multifocal atrial tachycardia Is this a current diagnosis for this admission?: Yes Plan: Rate controlled. Cardiology on board. Recommendations noted. Continue telemetry. PRN beta-blockers. (11) Sepsis Is this a current diagnosis for this admission?: Yes Plan: Resolved. (12) Cardiac arrest Is this a current diagnosis for this admission?: Yes Plan: Successfully resuscitated after cardiac arrest requiring intubation and me chanical ventilation as well as IV pressors. Vitals WNL. Monitor vitals. Cardiology on board. (13) Closed right hip fracture Qualifiers: Encounter type: initial encounter Qualified Code(s): S72.001A - Fracture of unspecified part of neck of right femur, initial encounter for closed fracture Is this a current diagnosis for this admission?: Yes Plan: Orthopedic surgery consulted. No intervention recommended at this time. Continue PT OT. Please refer to Ortho note. (14) Vitamin D deficiency Is this a current diagnosis for this admission?: Yes Plan: Severe vitamin D deficiency. Likely due to low p.o. intake. Continue daily vitamin D. (15) Current every day smoker Is this a current diagnosis for this admission?: Yes Plan: Tobacco cessation counseling performed and nicotine replacement options discussed.
[2019-08-12] MEDS: MIRTAZAPINE 15 MG TABLET PO SCH (22:03)
[2019-08-13] MEDS: LEVALBUTEROL HCL NEB 1.25 MG/3 ML AMPUL NEB SCH ×4 (01:52→19:59)
[2019-08-13] MEDS: IPRATROPIUM BROMIDE 0.02% NEB 0.5 MG/2.5 ML AMPUL NEB SCH ×4 (01:52→19:59)
[2019-08-13] MEDS: MAGNESIUM OXIDE 400 MG TABLET PO SCH ×3 (06:11→22:44)
[2019-08-13 06:55] LABS: ABSOLUTE BASOPHILS # (AUTO) 0.1 10^3/uL (0.0-0.2); ABSOLUTE EOSINOPHILS # (AUTO) 0.1 10^3/uL (0.0-0.6); ABSOLUTE MONOCYTES (AUTO) 1.5 10^3/uL (0.1-1.4); ABSOLUTE NEUT (AUTO) 7.6 10^3/uL (1.7-8.2); BASOPHILS % (AUTO) 0.6 % (0-2); EOSINOPHILS % (AUTO) 0.6 % (0-6); HEMATOCRIT 30.9 % (36.0-47.0); HEMOGLOBIN 10.2 g/dL (12.0-15.5); LYMPHOCYTES % (AUTO) 9.4 % (13-45); MEAN CORPUSCULAR HEMOGLOBIN 32.2 pg (27.0-33.4); MEAN CORPUSCULAR HGB CONC 33.2 g/dL (32.0-36.0); MEAN CORPUSCULAR VOLUME 97 fl (80-97); MONOCYTES % (AUTO) 14.4 % (3-13); PLATELET COUNT 197 10^3/uL (150-450); RED BLOOD COUNT 3.18 10^6/uL (3.72-5.28); RED CELL DISTRIBUTION WIDTH 20.5 % (11.5-14.0); TOTAL CELLS COUNTED % (AUTO) 100 %; WHITE BLOOD COUNT 10.1 10^3/uL (4.0-10.5)
[2019-08-13 07:29] LABS: ALBUMIN 2.2 g/dL (3.5-5.0); ALKALINE PHOSPHATASE 180 U/L (38-126); ASPARTATE AMINO TRANSFERASE 36 U/L (14-36); BILIRUBIN,TOTAL 0.4 mg/dL (0.2-1.3); BLOOD UREA NITROGEN 21 mg/dL (7-20); CALCIUM 8.2 mg/dL (8.4-10.2); CHLORIDE 90 mmol/L (98-107); GLUCOSE 91 mg/dL (75-110); PHOSPHORUS 3.1 mg/dL (2.5-4.5); POTASSIUM 4.3 mmol/L (3.6-5.0); TOTAL PROTEIN 4.5 g/dL (6.3-8.2)
[2019-08-13 07:45] LABS: ANION GAP 1 (5-19)
[2019-08-13 07:46] LABS: CARBON DIOXIDE 43 mmol/L (22-30)
[2019-08-13] MEDS: BUDESONIDE NEB 0.5 MG/2 ML AMPUL NEB SCH ×2 (08:32→19:59)
[2019-08-13] MEDS: CHOLECALCIFEROL (D3) 1,000 UNIT (25 MCG) TABLET PO SCH (09:15)
[2019-08-13] MEDS: MIDODRINE HCL 5 MG TABLET PO SCH ×3 (09:15→17:28)
[2019-08-13] MEDS: GUAIFENESIN 600 MG TABLET.SA PO SCH ×2 (09:15→22:37)
[2019-08-13] MEDS: POTASSIUM CHLORIDE 20 MEQ PACKET NG SCH (09:15)
[2019-08-13] MEDS: CITALOPRAM HYDROBROMIDE 20 MG TABLET PO SCH (09:15)
[2019-08-13] MEDS: PHOSPHORUS #1 250 MG TABLET PO SCH ×4 (09:16→22:44)
[2019-08-13] MEDS: AMINO AC/PROTEIN HYDR/WHEY PRO 11 GM/45 ML PKT GT SCH ×2 (09:16→17:29)
[2019-08-13] MEDS: THIAMINE HCL 100 MG TABLET PO SCH (09:16)
[2019-08-13] MEDS: NORMAL SALINE 10 ML SDV (SCHEDULED) IV SCH ×2 (09:19→22:44)
[2019-08-13 10:16] LABS: VANCOMYCIN,TROUGH 13.5 ug/mL (5.0-20.0)
--- NOTE | 2019-08-13 19:49 | PDOC PROGRESS REPORT ---
Subjective Progress Note for:: 08/13/19 Subjective:: 08/04/2019. No acute events overnight. Currently resting in bed no apparent distress, patient is alert, cooperative with physical examination, unfortunately only oriented to person denies any shortness of breath, chills, nausea, vomiting, diarrhea, constipation or any urinary symptoms. 08/05/2019. Patient is able to tolerate some oral repeat, on my encounter cecilia nt does not seem to be in any acute distress, alert and oriented x3 today, cooperative with physical examination, patient noted to be hypoxic with elevated WBC however patient does not complain much, stating that she is doing fine. She is stating that she does not feel hungry but will try to eat, denies any nausea, vomiting, chest pain, diarrhea. 08/06/2019. Moderate improvement of mental status and respiratory symptoms, patient still on supplemental oxygen however improved compared to yesterday, patient is completely stable no apparent distress, patient is alert and oriented x4 and cooperative with physical examination, I do long discussion with her about her dysphagia and recurrent aspirations and suggested that she would greatly benefit from a PEG tube to avoid aspiration the patient, patient initially was hesitant but after going through her x-rays with her and and the fact that she was emaciated and she would not be able to get enough nutrition through p.o. patient agreed to have PEG tube placement. Patient denies any chest pain, nausea, vomiting, diarrhea, constipation or any urinary symptoms. 08/07/2019. No acute events overnight. Patient endorsing improvement of upper respiratory symptoms, currently resting bed no apparent distress, patient is scheduled to have PEG tube placed today, she has discussed it with her daughter who agrees with our plan, denies any nausea, fever, chills, diarrhea, constipation or any urinary symptoms. Patient was able to work with physical therapy yesterday. 08/08/2019. No acute events overnight. Patient is status post PEG tube vince cement, no complication, complaining of mild soreness in the stomach otherwise passing flatus and is not nauseous, respiratory symptoms are improved, denies any fever, chills, nausea, vomiting, diarrhea, constipation or any urinary symptoms. 08/09/2019. No acute events overnight. Patient comfortably sitting in bed no apparent distress, alert and oriented x3, cooperative with physical examination, answering question properly, tolerating her feeds, having normal bowel movements, having normal bladder movements, denies any fever, chills, nausea, vomiting, diarrhea, constipation or any urinary symptoms. 08/10/2019. No acute events overnight. Patient currently resting in bed no apparent distress, on my encounter patient is receiving speech therapy, as per primary nurse patient does not take part in physical therapy when I asked her she is stating that she feels very down and she feels like she has no energy but she will try, patient is alert and oriented, cooperative, interactive and an swering questions appropriately. When asked if she is depressed she states may be. She had a good night sleep after being started on mirtazapine last night, patient encouraged to ambulate as much as possible and use her incentive spirometry and flutter valve. Patient denies any headache, fever, chills, nausea, vomiting, diarrhea, constipation or any urinary symptoms. Had one bowel movement today. 08/10/2019. No acute events overnight. Patient currently receiving apparent distress, reporting mild improvement of her energy, had a good night sleep, having loose bowel movements, denies any fever, chills, nausea, vomiting, constipation or any urinary symptoms. 08/12/2019. No acute events overnight. Currently receiving up with nurse, reporting mild improvement of her strength, her sleep is improving, denies any fever, chills, nausea, vomiting, diarrhea, constipation. Loose stool has i mproved, tolerating PEG tube feeds. Once patient has had her paracentesis and her hypoxia improved patient can be safely discharged to rehab to continue her recovery. 08/13/19 Patient was seen on morning rounds and again, briefly, this afternoon once her daughter arrived. She is A&Ox4; no clear evidence of confusion. However, nursing notes she is more confused than she was last week (unfortunately, are not able to provide detailed examples). Patient answered all questions to the negative and maintained her same position when asked in a different way to confirm her response. She tells me that she does not want her thoracentesis today, does not want to remain in the hospital; desires to go home, does not want me to discharge her with hospice services, but is not interested in participating with rehab in order to continue pursuing SNF placement. She tells me that she does not want her daughter to visit and does not wish for me to speak with her daughter (nursing was present during this part of the conversation), however, once her daughter arrives, she consents to allow you to discuss her current status with her daughter. During conversation with the daughter, patient continued to make negative statements towards participation/progression in her care. Unfortunately, patient would not participate further with conversation assessment to allow me to assist in determining what the cause of her emotional discomfort today is. She does appear to be comfortable and is not noted to be in acute distress. Reason For Visit: FALL HIP FTRACTURE ETOH DEP Physical Exam Vital Signs: Temp Pulse Resp BP Pulse Ox 97.9 F 102 H 16 92/64 L 93 08/13/19 17:01 08/13/19 17:01 08/13/19 17:01 08/13/19 17:01 08/13/19 17:01 Intake & Output 08/12/19 08/13/19 08/14/19 06:59 06:59 06:59 Intake Total 1148 150 Balance 1148 150 Weight 66.3 kg 66.3 kg General appearance: PRESENT: no acute distress, well-developed, well-nourished. ABSENT: cooperative Head exam: PRESENT: atraumatic, normocephalic Eye exam: PRESENT: conjunctiva pink, EOMI, PERRLA. ABSENT: scleral icterus Mouth exam: PRESENT: moist, tongue midline Teeth exam: PRESENT: poor dentation Respiratory exam: PRESENT: symmetrical, unlabored, other - supplemental oxygen via NC. ABSENT: accessory muscle use, retraction Cardiovascular exam: PRESENT: tachycardia - by telemetry; HR 100-120 Extremities exam: PRESENT: full ROM - moves all extremities spontaneously. ABSENT: calf tenderness, clubbing, pedal edema Neurological exam: PRESENT: alert, awake, oriented to person, oriented to place, oriented to time, oriented to situation, CN II-XII grossly intact. ABSENT: motor sensory deficit Psychiatric exam: PRESENT: agitated, flat affect Skin exam: PRESENT: dry, warm. ABSENT: cyanosis, rash Additional comments: Exam limited r/t patient participation/cooperation; specifically stated, "do not touch me." Results Laboratory Results: 08/13/19 06:20 08/13/19 06:20 08/13/19 08/13/19 06:20 06:20 WBC 10.1 RBC 3.18 L Hgb 10.2 L Hct 30.9 L MCV 97 MCH 32.2 MCHC 33.2 RDW 20.5 H Plt Count 197 Seg Neutrophils % 75.0 Sodium 133.5 L Potassium 4.3 Chloride 90 L Carbon Dioxide 43 H* Anion Gap 1 L BUN 21 H Creatinine 0.39 L Est GFR ( Amer) > 60 Glucose 91 Calcium 8.2 L Phosphorus 3.1 Magnesium 1.8 Total Bilirubin 0.4 AST 36 Alkaline Phosphatase 180 H Total Protein 4.5 L Albumin 2.2 L 07/24/19 15:06 Troponin I 0.014 Impressions: Pelvis CT 07/21/19 17:07 IMPRESSION: Postsurgical changes of total right hip arthroplasty. Mildly comminuted right greater trochanteric fracture with mild anterior displacement. No hardware fracture or dislocation. Dilated distal appendix measuring 9 mm in caliber. Elongated gallbladder containing numerous gallstones. Mild right paracolic gutter and moderate right hemipelvis free fluid. As this is a limited noncontrast exam, clinically co rrelate for acute cholecystitis or appendicitis. Hip/Pelvis X-Ray 07/21/19 23:20 IMPRESSION: Fracture of the femur adjacent to the femoral component of the right hip hemiarthroplasty. Abdomen Ultrasound 07/22/19 00:00 IMPRESSION: 1. Cholelithiasis. 2. Otherwise essentially unremarkable. Abdomen/Pelvis CT 07/24/19 00:00 IMPRESSION: 1. No evidence of dissection or aneurysm involving the thoracic or abdominal aorta. The visceral arteries are patent. 2. No pulmonary embolism. 3. Diffuse wall thickening of the small bowel with mucosal enhancement. Findings compatible with shock bowel related to prolonged hypotension. No large vessel arterial occlusion. 4. Moderate left and small right pleural effusion. 5. Bibasilar opacities. This likely represents a component of compressive atelectasis however superimposed aspiration could contribute to this appearance. Continued follow-up recommended. 6. Moderate amount of ascites. 7. Coronary artery atherosclerosis. 8. Centrilobular emphysematous change. Likely chronic bronchitis. 9. 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 Correlation for history of claudication recommended. 10. Nondisplaced fractures of the right fourth through sixth anterior ribs and left third through sixth anterior ribs. This exam was performed according to our departmental dose-optimization program, which includes automated exposure control, adjustment of the mA and/or kV according to patient size and/or use of iterative reconstruction technique. Chest/Abdomen CTA 07/24/19 00:00 IMPRESSION: 1. No evidence of dissection or aneurysm involving the thoracic or abdominal aorta. The visceral arteries are patent. 2. No pulmonary embolism. 3. Diffuse wall thickening of the small bowel with mucosal enhancement. Findings compatible with shock bowel related to prolonged hypotension. No large vessel arterial occlusion. 4. Moderate left and small right pleural effusion. 5. Bibasilar opacities. This likely represents a component of compressive atelectasis however superimposed aspiration could contribute to this appearance. Continued follow-up recommended. 6. Moderate amount of ascites. 7. Coronary artery atherosclerosis. 8. Centrilobular emphysematous change. Likely chronic bronchitis. 9. 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 Correlation for history of claudication recommended. 10. Nondisplaced fractures of the right fourth through sixth anterior ribs and left third through sixth anterior ribs. This exam was performed according to our departmental dose-optimization program, which includes automated exposure control, adjustment of the mA and/or kV according to patient size and/or use of iterative reconstruction technique. Head CTA 07/24/19 00:00 IMPRESSION: 1. No acute intracranial abnormality by CT criteria. 2. No acute abnormality identified in the intracranial arterial circulation. 3. No evidence of stenosis/occlusion involving the cervical carotid or vertebral arteries. This exam was performed according to our departmental dose-optimization program, which includes automated exposure control, adjustment of the mA and/or kV according to patient size and/or use of iterative reconstruction technique. Neck CTA 07/24/19 01:40 IMPRESSION: 1. No acute intracranial abnormality by CT criteria. 2. No acute abnormality identified in the intracranial arterial circulation. 3. No evidence of stenosis/occlusion involving the cervical carotid or vertebral arteries. This exam was performed according to our departmental dose-optimization program, which includes automated exposure control, adjustment of the mA and/or kV according to patient size and/or use of iterative reconstruction technique. KUB X-Ray 07/27/19 00:00 IMPRESSION: TIP OF THE NASOGASTRIC TUBE IN THE STOMACH. NO RADIOGRAPHIC EVIDENCE FOR ACUTE ABDOMINAL DISEASE. PICC Line Insertion 07/30/19 00:00 IMPRESSION: SUCCESSFUL PLACEMENT OF A 5 FR DUAL LUMEN 32 CM PICC IN THE RIGHT BASILIC VEIN. Modified Barium Swallow 08/03/19 00:00 IMPRESSION: TRACE ASPIRATION WITH THIN BARIUM. LARYNGEAL PENETRATION FROM NECTAR THICK AND PUREED RESIDUALS. PLEASE SEE SPEECH PATHOLOGIST REPORT FOR OTHER FINDINGS AND RECOMMENDATIONS. Assessment and Plan - Diagnosis (1) Acute respiratory failure with hypoxia and hypercapnia Is this a current diagnosis for this admission?: Yes Plan: Worsening; increased oxygen needs to maintain saturations >89%. Now on 6lpm via NC. Likely healthcare associated pneumonia complicated by recurrent aspiration pneumonia and postobstructive pneumonia. Afebrile. WBC WNL. Received full course of abx: Day 8 IV vancomycin. Day 8 IV cefepime. Patient is still having persistent bilateral pleural effusion however improved compared to prior study. Patient declined thoracentesis on multiple conversations today; including while daughter was present. Continue supplemental oxygen and BiPAP as needed to maintain saturations. Continue scheduled and as needed nebulizer treatments. Continue incentive spirometry and flutter valve. Continue aggressive pulmonary toileting. (2) Pneumonia Qualifiers: Pneumonia type: aspiration pneumonia Aspiration pneumonia type: due to regurgitated food Laterality: right Lung location: unspecified part of lung Qualified Code(s): J69.0 - Pneumonitis due to inhalation of food and vomit Is this a current diagnosis for this admission?: Yes Plan: Multifactorial, most likely aspiration and postobstructive pneumonia. Repeat chest x-ray unchanged. Afebrile. WBC WNL. Afebrile. WBC WNL. Completed full course of IV antibiotics. Day 8 IV vancomycin. Day 8 IV cefepime. Remaining evaluation management as above. (3) Closed right hip fracture Qualifiers: Encounter type: initial encounter Qualified Code(s): S72.001A - Fracture of unspecified part of neck of right femur, initial encounter for closed fracture Is this a current diagnosis for this admission?: Yes Plan: Orthopedic surgery consulted. No intervention recommended at this time. Continue PT OT. Please refer to Ortho note. (4) Depression Qualifiers: Depression Type: major depressive disorder Is this a current diagnosis for this admission?: Yes Plan: Patient is withdrawn with flat affect (turning her head away, closing her eyes when I enter the room) and answers in the negative to all questions. She does not wish to participate in the discussion regarding her care. She declines interventions and physical exam today. Continue to monitor closely. History of major depression. Continue citalopram and mirtazapine. Consider mental health consultation. (5) Hypocalcemia Is this a current diagnosis for this admission?: Yes Plan: Likely due to low p.o. intake. Corrected calcium normal. Continue oral replacement. (6) Iron deficiency Is this a current diagnosis for this admission?: Yes Plan: Due to low p.o. intake. Received 1 dose of Injectafer. Continue oral ferrous sulfate. (7) Metabolic alkalosis with respiratory acidosis Is this a current diagnosis for this admission?: Yes Plan: With respiratory compensation. Expected PaCO2 49 - 53 mmHg Patient has low sodium and chloride likely due to GI losses. Patient has been complaining of loose stools since being started on PEG tube feeds. Have decreased PEG tube feeds from 40 to 30 cc/hr to avoid refeeding syndrome. Monitor for refeeding syndrome. Continue supplemental Neutra-Phos, magnesium and multivitamins. Continue to monitor CMP, magnesium and phosphorus levels (8) Multifocal atrial tachycardia Is this a current diagnosis for this admission?: Yes Plan: Rate controlled. Cardiology on board. Recommendations noted. Continue telemetry. PRN beta-blockers. (9) Protein-energy malnutrition Qualifiers: Protein-calorie malnutrition severity: moderate Qualified Code(s): E44.0 - Moderate protein-calorie malnutrition Is this a current diagnosis for this admission?: Yes Plan: Improving. BMI 25.1 Still have very low prealbumin. Most likely low p.o. intake. Patient has dysphagia. Failed modified barium swallow twice. Status post PEG tube placement on 08/07/2019. No complication. Tolerating feeds. Dietitian consulted. Recommendations noted. (10) Vitamin D deficiency Is this a current diagnosis for this admission?: Yes Plan: Severe vitamin D deficiency. Likely due to low p.o. intake. Continue daily vitamin D. (11) Cardiac arrest Is this a current diagnosis for this admission?: Yes Plan: Successfully resuscitated after cardiac arrest requiring intubation and mechanical ventilation as well as IV pressors. Monitor vitals; low threshold for escalation to interventions/ICU review as the patient is adamant that she remains a full code (this is despite her continued refusal of all interventions). Cardiology on board. (12) Urinary tract infection, E. coli Is this a current diagnosis for this admission?: Yes Plan: Resolved. Initial urine culture due to E. coli. Pansensitive. Completed course of IV antibiotics. However second urine culture positive for Pseudomonas which is sensitive to cefepime. Asymptomatic. Completed a course of IV cefepime. (13) Sepsis Is this a current diagnosis for this admission?: Yes Plan: Resolved. (14) Hypokalemia Is this a current diagnosis for this admission?: Yes Plan: Resolved. (15) Current every day smoker Is this a current diagnosis for this admission?: Yes Plan: Smoking cessation encouraged. Nicotine replacement therapies provided. - Time Time Spent with patient: 35 or more minutes Medications reviewed and adjusted accordingly: Yes
[2019-08-13] MEDS: MIRTAZAPINE 15 MG TABLET PO SCH (22:44)
[2019-08-14] MEDS: LEVALBUTEROL HCL NEB 1.25 MG/3 ML AMPUL NEB SCH ×2 (02:06→09:21)
[2019-08-14] MEDS: IPRATROPIUM BROMIDE 0.02% NEB 0.5 MG/2.5 ML AMPUL NEB SCH ×2 (02:06→09:21)
[2019-08-14] MEDS: MAGNESIUM OXIDE 400 MG TABLET PO SCH (05:56)
[2019-08-14 06:57] LABS: ALBUMIN 2.4 g/dL (3.5-5.0); ALKALINE PHOSPHATASE 182 U/L (38-126); ASPARTATE AMINO TRANSFERASE 32 U/L (14-36); BILIRUBIN,DIRECT 0.1 mg/dL (0.0-0.4); BILIRUBIN,TOTAL 0.4 mg/dL (0.2-1.3); BLOOD UREA NITROGEN 23 mg/dL (7-20); CALCIUM 8.3 mg/dL (8.4-10.2); CHLORIDE 91 mmol/L (98-107); GLUCOSE 121 mg/dL (75-110); POTASSIUM 4.5 mmol/L (3.6-5.0); TOTAL PROTEIN 4.7 g/dL (6.3-8.2)
[2019-08-14 07:12] LABS: ANION GAP -1 (5-19)
[2019-08-14 07:14] LABS: CARBON DIOXIDE 45 mmol/L (22-30)
[2019-08-14] MEDS: PHOSPHORUS #1 250 MG TABLET PO SCH (09:12)
[2019-08-14] MEDS: THIAMINE HCL 100 MG TABLET PO SCH (09:13)
[2019-08-14] MEDS: GUAIFENESIN 600 MG TABLET.SA PO SCH (09:13)
[2019-08-14] MEDS: CITALOPRAM HYDROBROMIDE 20 MG TABLET PO SCH (09:13)
[2019-08-14] MEDS: MIDODRINE HCL 5 MG TABLET PO SCH (09:13)
[2019-08-14] MEDS: POTASSIUM CHLORIDE 20 MEQ PACKET NG SCH (09:13)
[2019-08-14] MEDS: CHOLECALCIFEROL (D3) 1,000 UNIT (25 MCG) TABLET PO SCH (09:13)
[2019-08-14] MEDS: NORMAL SALINE 10 ML SDV (SCHEDULED) IV SCH ×2 (09:14→22:00)
[2019-08-14] MEDS: AMINO AC/PROTEIN HYDR/WHEY PRO 11 GM/45 ML PKT GT SCH (09:15)
[2019-08-14] MEDS: BUDESONIDE NEB 0.5 MG/2 ML AMPUL NEB SCH (09:21)
--- NOTE | 2019-08-14 11:36 | RADIOLOGY REPORT (SQ) ---
EXAM DESCRIPTION: CT CHEST WITHOUT IMAGES COMPLETED DATE/TIME: 08/14/2019 11:13 am REASON FOR STUDY: SOB COMPARISON: 02/03/2014 TECHNIQUE: CT scan performed of the chest without intravenous contrast. Images reviewed with lung, soft tissue and bone windows. Reconstructed coronal and sagittal MPR images reviewed. All images st ored on PACS. All CT scanners at this facility use dose modulation, iterative reconstruction, and/or weight based d osing when appropriate to reduce radiation dose to as low as reasonably achievable (ALARA). [facility]: Dose Right [facility]: CareDose [facility]: Dose Right [facility]: Teradose 4D [facility]: WhoJam RADIATION DOSE: CT Rad equipment meets quality standard of care and radiation dose reduction techniq ues were employed. CTDIvol: 5.3 mGy. DLP: 239 mGy-cm. mGy. LIMITATIONS: No technical limitations. FINDINGS: LUNGS AND PLEURA: Collapse of the right lung with bronchial cut off sign mainstem bronchus . Right pleural effusion volume estimated less than 500 cc. Left pleural effusion estimated 750 cc. No pneumothorax. HILAR AND MEDIASTINAL STRUCTURES: No identified masses or abnormal nodes. No obvious aneurysm. HEART AND VASCULAR STRUCTURES: No aneurysm. No pericardial effusion. UPPER ABDOMEN: Mild ascites. Gastrostomy. THYROID AND OTHER SOFT TISSUES: No masses. No adenopathy. BONES: No significant finding. HARDWARE: None in the chest. OTHER: Right central line tip SVC. IMPRESSION: Collapse of the right lung secondary to mucous plug in the mainstem bronchus. Bilateral pleural effusions status post left thoracentesis. No pneumothorax. TECHNICAL DOCUMENTATION: JOB ID: [id number] Quality ID # [id number]: Final reports with documentation of one or more dose reduction techniques (e.g., Au tomated exposure control, adjustment of the mA and/or kV according to patient size, use of iterative reconstruction technique) 2010 [employer]- All Rights Reserved Reading location - IP/workstation name: [email or web address]
--- NOTE | 2019-08-14 11:38 | RADIOLOGY REPORT (SQ) ---
EXAM DESCRIPTION: CHEST SINGLE VIEW IMAGES COMPLETED DATE/TIME: 08/14/2019 11:05 am REASON FOR STUDY: S/P LT THORACENTESIS COMPARISON: 08/11/2019 NUMBER OF VIEWS: One view. TECHNIQUE: Single frontal radiographic image of the chest acquired. LIMITATIONS: None. FINDINGS: Complete opacification of the right lung with bronchial cut off sign. Improved aeration i n the left lung with residual small effusion. No pneumothorax. Right side PICC line position unchan ged. IMPRESSION: No pneumothorax status post left thoracentesis. Reading location - IP/workstation name: [email or web address]
--- NOTE | 2019-08-14 11:39 | RADIOLOGY REPORT (SQ) ---
EXAM DESCRIPTION: U/S THORACENTESIS WITH IMAGING IMAGES COMPLETED DATE/TIME: 08/14/2019 11:00 am REASON FOR STUDY: bilateral pleural effusion COMPARISON: None. LIMITATIONS: None. PROCEDURE: Procedure, risks, benefit, and alternative explained to patient who then gave written con sent. The left lateral chest wall was marked using ultrasound guidance. A time-out was called for c orrect marking verification. Chest prepped and draped using sterile technique. Local anesthesia achi eved using 3.0 ml of 1% lidocaine injection. A 6fr Safe-T- Centesis set was introduced into the left pleural space. Fluid was aspirated. The catheter was removed and the entry site was covered with s terile bandage. No immediate complications noted. Images acquired during the procedure were stored on PACS. FINDINGS: ENTRY SITE: Lateral left chest. FLUID VOLUME: 1000 cc FLUID ANALYSIS: Straw OTHER: Fluid sent to the lab for testing. IMPRESSION: SUCCESSFUL THORACENTESIS USING ULTRASOUND GUIDANCE. COMMENT: Patient medication list reviewed: Yes- Quality ID# [id number]:Eligible professional attests to doc umenting in the medical record they obtained, updated, or reviewed the patient's current medications. TECHNICAL DOCUMENTATION: JOB ID: [id number] 2010 [employer]- All Rights Reserved Reading location - IP/workstation name: [email or web address]
[2019-08-14] MEDS ORDERED: ACETYLCYSTEINE 20% SOLN 800 MG/4 ML VIAL.NEB NEB SCH (11:45)
[2019-08-14] MEDS ORDERED: LEVALBUTEROL HCL NEB 1.25 MG/3 ML AMPUL NEB SCH (12:00)
[2019-08-14] MEDS ORDERED: IPRATROPIUM BROMIDE 0.02% NEB 0.5 MG/2.5 ML AMPUL NEB SCH (12:00)
[2019-08-14] MEDS ORDERED: MORPHINE SULFATE 10 MG/ML INJ IV PRN (13:05)
[2019-08-14] MEDS ORDERED: LORAZEPAM INJ 2 MG/1 ML VIAL IV PRN (13:05)
[2019-08-14] MEDS ORDERED: ATROPINE SULFATE 1% OPH SOLN 5 ML BOTTLE SL PRN (13:06)
[2019-08-14 13:46] LABS: FLUID TYPE PLEURAL
[2019-08-14 13:47] LABS: FLUID APPEARANCE CLEAR; FLUID COLOR STRAW; FLUID SOURCE LUNG; FLUID VISCOSITY LIQUID
--- NOTE | 2019-08-14 14:02 | RADIOLOGY REPORT (SQ) ---
EXAM DESCRIPTION: CHEST SINGLE VIEW IMAGES COMPLETED DATE/TIME: 08/14/2019 1:36 pm REASON FOR STUDY: S/P LT THORACENTESIS 2 HOUR COMPARISON: Earlier the same day. NUMBER OF VIEWS: One view. TECHNIQUE: Single frontal radiographic image of the chest acquired. LIMITATIONS: None. FINDINGS: LUNGS AND PLEURA: No significant change. No pneumothorax. MEDIASTINUM AND HEART: Stable heart size and mediastinal structures. SUPPORT DEVICES: Appropriate location without change. BONY STRUCTURES: No acute findings. HARDWARE: None. OTHER: No other significant finding. IMPRESSION: No pneumothorax status post left thoracentesis. Reading location - IP/workstation name: [email or web address]
--- NOTE | 2019-08-14 19:41 | PDOC PROGRESS REPORT ---
Subjective Progress Note for:: 08/14/19 Subjective:: 08/04/2019. No acute events overnight. Currently resting in bed no apparent distress, patient is alert, cooperative with physical examination, unfortunately only oriented to person denies any shortness of breath, chills, nausea, vomiting, diarrhea, constipation or any urinary symptoms. 08/05/2019. Patient is able to tolerate some oral repeat, on my encounter mathewe nt does not seem to be in any acute distress, alert and oriented x3 today, cooperative with physical examination, patient noted to be hypoxic with elevated WBC however patient does not complain much, stating that she is doing fine. She is stating that she does not feel hungry but will try to eat, denies any nausea, vomiting, chest pain, diarrhea. 08/06/2019. Moderate improvement of mental status and respiratory symptoms, patient still on supplemental oxygen however improved compared to yesterday, patient is completely stable no apparent distress, patient is alert and oriented x4 and cooperative with physical examination, I do long discussion with her about her dysphagia and recurrent aspirations and suggested that she would greatly benefit from a PEG tube to avoid aspiration the patient, patient initially was hesitant but after going through her x-rays with her and and the fact that she was emaciated and she would not be able to get enough nutrition through p.o. patient agreed to have PEG tube placement. Patient denies any chest pain, nausea, vomiting, diarrhea, constipation or any urinary symptoms. 08/07/2019. No acute events overnight. Patient endorsing improvement of upper respiratory symptoms, currently resting bed no apparent distress, patient is scheduled to have PEG tube placed today, she has discussed it with her daughter who agrees with our plan, denies any nausea, fever, chills, diarrhea, constipation or any urinary symptoms. Patient was able to work with physical therapy yesterday. 08/08/2019. No acute events overnight. Patient is status post PEG tube vince cement, no complication, complaining of mild soreness in the stomach otherwise passing flatus and is not nauseous, respiratory symptoms are improved, denies any fever, chills, nausea, vomiting, diarrhea, constipation or any urinary symptoms. 08/09/2019. No acute events overnight. Patient comfortably sitting in bed no apparent distress, alert and oriented x3, cooperative with physical examination, answering question properly, tolerating her feeds, having normal bowel movements, having normal bladder movements, denies any fever, chills, nausea, vomiting, diarrhea, constipation or any urinary symptoms. 08/10/2019. No acute events overnight. Patient currently resting in bed no apparent distress, on my encounter patient is receiving speech therapy, as per primary nurse patient does not take part in physical therapy when I asked her she is stating that she feels very down and she feels like she has no energy but she will try, patient is alert and oriented, cooperative, interactive and an swering questions appropriately. When asked if she is depressed she states may be. She had a good night sleep after being started on mirtazapine last night, patient encouraged to ambulate as much as possible and use her incentive spirometry and flutter valve. Patient denies any headache, fever, chills, nausea, vomiting, diarrhea, constipation or any urinary symptoms. Had one bowel movement today. 08/10/2019. No acute events overnight. Patient currently receiving apparent distress, reporting mild improvement of her energy, had a good night sleep, having loose bowel movements, denies any fever, chills, nausea, vomiting, constipation or any urinary symptoms. 08/12/2019. No acute events overnight. Currently receiving up with nurse, reporting mild improvement of her strength, her sleep is improving, denies any fever, chills, nausea, vomiting, diarrhea, constipation. Loose stool has i mproved, tolerating PEG tube feeds. Once patient has had her paracentesis and her hypoxia improved patient can be safely discharged to rehab to continue her recovery. 08/13/19 Patient was seen on morning rounds and again, briefly, this afternoon once her daughter arrived. She is A&Ox4; no clear evidence of confusion. However, nursing notes she is more confused than she was last week (unfortunately, are not able to provide detailed examples). Patient answered all questions to the negative and maintained her same position when asked in a different way to confirm her response. She tells me that she does not want her thoracentesis today, does not want to remain in the hospital; desires to go home, does not want me to discharge her with hospice services, but is not interested in participating with rehab in order to continue pursuing SNF placement. She tells me that she does not want her daughter to visit and does not wish for me to speak with her daughter (nursing was present during this part of the conversation), however, once her daughter arrives, she consents to allow you to discuss her current status with her daughter. During conversation with the daughter, patient continued to make negative statements towards participation/progression in her care. Unfortunately, patient would not participate further with conversation assessment to allow me to assist in determining what the cause of her emotional discomfort today is. She does appear to be comfortable and is not noted to be in acute distress. 08/14/19. Patient was seen on morning rounds with her daughter present. She was visited again shortly later with her daughter present and her 2 sons by conference call. The patient has increased confusion today. She is arousable, briefly makes eye contact, but does not answer questions or respond to directions. She did have thoracentesis today with follow-up imaging showing grave prognosis of her respiratory status; now with completely obliterated right lung related to mucous plug and large pleural effusion with a moderate pleural effusion to the left following 1 L removal by thoracentesis. Multiple discussions had with the patient's daughter regarding interventions available for treatment of her mucous plug. Ultimately, it was decided that the patient would not desire to have additional surgical interventions, intubation, or prolonged hospital stay. Therefore, the family decided to transition the patient to hospice services with focus on comfort care only. Reason For Visit: FALL HIP FTRACTURE ETOH DEP Physical Exam Vital Signs: Temp Pulse Resp BP Pulse Ox 97.8 F 92 16 100/63 89 L 08/14/19 11:36 08/14/19 14:00 08/14/19 11:36 08/14/19 11:36 08/14/19 11:36 Intake & Output 08/13/19 08/14/19 08/15/19 06:59 06:59 06:59 Intake Total 150 510 480 Balance 150 510 480 Weight 66.3 kg 63.8 kg 63.8 kg General appearance: PRESENT: severe distress, well-nourished Head exam: PRESENT: atraumatic, normocephalic Eye exam: PRESENT: conjunctiva pink, EOMI, PERRLA. ABSENT: scleral icterus Mouth exam: PRESENT: dry mucosa, tongue midline Respiratory exam: PRESENT: accessory muscle use, decreased breath sounds - throughout, symmetrical, tachypnea, other - Supplemental oxygen with Oxymizer. ABSENT: rales, rhonchi, wheezes Cardiovascular exam: PRESENT: RRR, tachycardia. ABSENT: diastolic murmur, rubs, systolic murmur Vascular exam: PRESENT: normal capillary refill Extremities exam: PRESENT: full ROM. ABSENT: calf tenderness, clubbing, pedal edema Neurological exam: PRESENT: alert, awake, CN II-XII grossly intact, other - Arousable, does not answer questions or follow directions. ABSENT: motor sens ory deficit Skin exam: PRESENT: dry, warm. ABSENT: cyanosis, rash Results Laboratory Results: 08/13/19 06:20 08/14/19 06:00 08/14/19 08/14/19 06:00 10:30 Sodium 135.5 L Potassium 4.5 Chloride 91 L Carbon Dioxide 45 H* Anion Gap -1 L BUN 23 H Creatinine 0.49 L Est GFR ( Amer) > 60 Glucose 121 H Calcium 8.3 L Total Bilirubin 0.4 AST 32 Alkaline Phosphatase 182 H Total Protein 4.7 L Albumin 2.4 L Fluid Type PLEURAL Fluid Source LUNG Fluid Color STRAW Fluid Appearance CLEAR Fluid Viscosity LIQUID Fluid WBC 51 Fluid RBC 130 07/24/19 15:06 Troponin I 0.014 Impressions: Pelvis CT 07/21/19 17:07 IMPRESSION: Postsurgical changes of total right hip arthroplasty. Mildly comminuted right greater trochanteric fracture with mild anterior displacement. No hardware fracture or dislocation. Dilated distal appendix measuring 9 mm in caliber. Elongated gallbladder con taining numerous gallstones. Mild right paracolic gutter and moderate right hemipelvis free fluid. As this is a limited noncontrast exam, clinically correlate for acute cholecystitis or appendicitis. Hip/Pelvis X-Ray 07/21/19 23:20 IMPRESSION: Fracture of the femur adjacent to the femoral component of the right hip hemiarthroplasty. Abdomen Ultrasound 07/22/19 00:00 IMPRESSION: 1. Cholelithiasis. 2. Otherwise essentially unremarkable. Abdomen/Pelvis CT 07/24/19 00:00 IMPRESSION: 1. No evidence of dissection or aneurysm involving the thoracic or abdominal aorta. The visceral arteries are patent. 2. No pulmonary embolism. 3. Diffuse wall thickening of the small bowel with mucosal enhancement. Findings compatible with shock bowel related to prolonged hypotension. No large vessel arterial occlusion. 4. Moderate left and small right pleural effusion. 5. Bibasilar opacities. This likely represents a component of compressive atelectasis however superimposed aspiration could contribute to this appearance. Continued follow-up recommended. 6. Moderate amount of ascites. 7. Coronary artery atherosclerosis. 8. Centrilobular emphysematous change. Likely chronic bronchitis. 9. 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 Correlation for history of claudication recommended. 10. Nondisplaced fractures of the right fourth through sixth anterior ribs and left third through sixth anterior ribs. This exam was performed according to our departmental dose-optimization program, which includes automated exposure control, adjustment of the mA and/or kV according to patient size and/or use of iterative reconstruction technique. Chest/Abdomen CTA 07/24/19 00:00 IMPRESSION: 1. No evidence of dissection or aneurysm involving the thoracic or abdominal aorta. The visceral arteries are patent. 2. No pulmonary embolism. 3. Diffuse wall thickening of the small bowel with mucosal enhancement. Findings compatible with shock bowel related to prolonged hypotension. No large vessel arterial occlusion. 4. Moderate left and small right pleural effusion. 5. Bibasilar opacities. This likely represents a component of compressive atelectasis however superimposed aspiration could contribute to this appearance. Continued follow-up recommended. 6. Moderate amount of ascites. 7. Coronary artery atherosclerosis. 8. Centrilobular emphysematous change. Likely chronic bronchitis. 9. 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 Correlation for history of claudication recommended. 10. Nondisplaced fractures of the right fourth through sixth anterior ribs and left third through sixth anterior ribs. This exam was performed according to our departmental dose-optimization program, which includes automated exposure control, adjustment of the mA and/or kV according to patient size and/or use of iterative reconstruction technique. Head CTA 07/24/19 00:00 IMPRESSION: 1. No acute intracranial abnormality by CT criteria. 2. No acute abnormality identified in the intracranial arterial circulation. 3. No evidence of stenosis/occlusion involving the cervical carotid or vertebral arteries. This exam was performed according to our departmental dose-optimization program, which includes automated exposure control, adjustment of the mA and/or kV according to patient size and/or use of iterative reconstruction technique. Neck CTA 07/24/19 01:40 IMPRESSION: 1. No acute intracranial abnormality by CT criteria. 2. No acute abnormality identified in the intracranial arterial circulation. 3. No evidence of stenosis/occlusion involving the cervical carotid or vertebral arteries. This exam was performed according to our departmental dose-optimization program, which includes automated exposure control, adjustment of the mA and/or kV according to patient size and/or use of iterative reconstruction technique. KUB X-Ray 07/27/19 00:00 IMPRESSION: TIP OF THE NASOGASTRIC TUBE IN THE STOMACH. NO RADIOGRAPHIC EVIDENCE FOR ACUTE ABDOMINAL DISEASE. PICC Line Insertion 07/30/19 00:00 IMPRESSION: SUCCESSFUL PLACEMENT OF A 5 FR DUAL LUMEN 32 CM PICC IN THE RIGHT BASILIC VEIN. Modified Barium Swallow 08/03/19 00:00 IMPRESSION: TRACE ASPIRATION WITH THIN BARIUM. LARYNGEAL PENETRATION FROM NECTAR THICK AND PUREED RESIDUALS. PLEASE SEE SPEECH PATHOLOGIST REPORT FOR OTHER FINDINGS AND RECOMMENDATIONS. Chest CT 08/14/19 00:00 IMPRESSION: Collapse of the right lung secondary to mucous plug in the mainstem bronchus. Bilateral pleural effusions status post left thoracentesis. No pneumothorax. Chest X-Ray 08/14/19 00:00 IMPRESSION: No pneumothorax status post left thoracentesis. Thoracentesis Ultrasound 08/14/19 11:03 IMPRESSION: SUCCESSFUL THORACENTESIS USING ULTRASOUND GUIDANCE. Assessment and Plan - Diagnosis (1) Comfort measures only status Is this a current diagnosis for this admission?: Yes (2) Acute respiratory failure with hypoxia and hypercapnia Is this a current diagnosis for this admission?: Yes Plan: Have transition to comfort care measures only Received full course of abx: Day 8 IV vancomycin. Day 8 IV cefepime. (3) Pneumonia Qualifiers: Pneumonia type: aspiration pneumonia Aspiration pneumonia type: due to regurgitated food Laterality: right Lung location: unspecified part of lung Qualified Code(s): J69.0 - Pneumonitis due to inhalation of food and vomit Is this a current diagnosis for this admission?: Yes Plan: Multifactorial, most likely aspiration and postobstructive pneumonia. Repeat chest x-ray unchanged. Afebrile. WBC WNL. Postthoracentesis chest imaging shows large mucous plug, bilateral pleural effusions, resulting in complete obliteration of the right lung. Long discussions had with patient's family members. They have elected to transition to hospice with comfort care measures. No further antibiotics indicated. Has completed full course of IV cefepime and vancomycin (4) Closed right hip fracture Qualifiers: Encounter type: initial encounter Qualified Code(s): S72.001A - Fracture of unspecified part of neck of right femur, initial encounter for closed fracture Is this a current diagnosis for this admission?: Yes Plan: Orthopedic surgery consulted. No intervention recommended at this time. (5) Depression Qualifiers: Depression Type: major depressive disorder Is this a current diagnosis for this admission?: Yes Plan: Patient was placed on citalopram and mirtazapine. Have now transition to comfort care only. (6) Hypocalcemia Is this a current diagnosis for this admission?: Yes Plan: Likely due to low p.o. intake. Corrected calcium normal. (7) Iron deficiency Is this a current diagnosis for this admission?: Yes Plan: Due to low p.o. intake. Received 1 dose of Injectafer. (8) Metabolic alkalosis with respiratory acidosis Is this a current diagnosis for this admission?: Yes Plan: With respiratory compensation. Expected PaCO2 49 - 53 mmHg And worsening respiratory status. Transitioning to comfort care measures only. (9) Multifocal atrial tachycardia Is this a current diagnosis for this admission?: Yes Plan: COMPARISON SHOPPER (10) Protein-energy malnutrition Qualifiers: Protein-calorie malnutrition severity: moderate Qualified Code(s): E44.0 - Moderate protein-calorie malnutrition Is this a current diagnosis for this admission?: Yes Plan: Improved. BMI 24.1 Still have very low prealbumin. Status post PEG tube placement on 08/07/2019. No complication. No transitioned to COMPARISON SHOPPER. (11) Vitamin D deficiency Is this a current diagnosis for this admission?: Yes Plan: Severe vitamin D deficiency. Likely due to low p.o. intake. (12) Cardiac arrest Is this a current diagnosis for this admission?: Yes Plan: Successfully resuscitated after cardiac arrest requiring intubation and mechan ical ventilation as well as IV pressors. Family has indicated desire to transition to COMPARISON SHOPPER. (13) Urinary tract infection, E. coli Is this a current diagnosis for this admission?: Yes Plan: Resolved. Completed a course of IV cefepime. (14) Sepsis Is this a current diagnosis for this admission?: Yes Plan: Resolved. (15) Hypokalemia Is this a current diagnosis for this admission?: Yes Plan: Resolved. (16) Current every day smoker Is this a current diagnosis for this admission?: Yes Plan: Nicotine replacement therapies provided. - Time Time Spent with patient: 35 or more minutes Medications reviewed and adjusted accordingly: Yes Anticipated discharge: Hospice Within: within 24 hours
[2019-08-15 09:02] VITALS: BP 84/52
[2019-08-15] MEDS: NORMAL SALINE 10 ML SDV (SCHEDULED) IV SCH (10:34)
--- NOTE | 2019-08-15 14:48 | PDOC TRANSFER SUMMARY ---
General - Admit/Disc Date/PCP Admission Date/Primary Care Provider: 07/22/19 01:19 [facility] Discharge Date: 08/15/19 - Discharge Diagnosis (1) Comfort measures only status Is this a current diagnosis for this admission?: Yes (2) Acute respiratory failure with hypoxia and hypercapnia Is this a current diagnosis for this admission?: Yes (3) Pneumonia Is this a current diagnosis for this admission?: Yes (4) Closed right hip fracture Is this a current diagnosis for this admission?: Yes (5) Depression Is this a current diagnosis for this admission?: Yes (6) Hypocalcemia Is this a current diagnosis for this admission?: Yes (7) Iron deficiency Is this a current diagnosis for this admission?: Yes (8) Metabolic alkalosis with respiratory acidosis Is this a current diagnosis for this admission?: Yes (9) Multifocal atrial tachycardia Is this a current diagnosis for this admission?: Yes (10) Protein-energy malnutrition Is this a current diagnosis for this admission?: Yes (11) Vitamin D deficiency Is this a current diagnosis for this admission?: Yes (12) Cardiac arrest Is this a current diagnosis for this admission?: Yes (13) Urinary tract infection, E. coli Is this a current diagnosis for this admission?: Yes (14) Sepsis Is this a current diagnosis for this admission?: Yes (15) Hypokalemia Is this a current diagnosis for this admission?: Yes (16) Current every day smoker Is this a current diagnosis for this admission?: Yes - Additional Information Resuscitation Status: Comfort Measures Only Discharge Diet: As Tolerated Discharge Activity: Activity As Tolerated Home Medications: Acetaminophen [Tylenol 325 mg Supp] 325 mg VA Q4HP PRN supp.rect 08/15/19 Acetaminophen [Tylenol 325 mg Tablet] 650 mg PO Q4HP PRN tablet 08/15/19 History of Present Illness Admission Date/PCP: 07/22/19 [facility] History of Present Illness: Per Critical Care admission note: Ms. Lisa Tobar is a 63-year-old female with a past medical history of COPD, right hip fracture status post hemiarthroplasty on 02/05/2014. She reports falling at home approximately 1 month ago. Since the fall she is been having pain in her right hip and difficulty ambulating even with assistance of a walker. She presented to the emergency department on 07/21/2019 and was admitted to the hospitalist service. At 2238 rapid response was called upon arrival to the floor patient was actively seizing she had a total of 3 mg of Ativan and was loaded with 1 g of Dilantin. At 2256 patient began agonal breathing and subsequently went into asystole ACLS was initiated. She was intubated with a 7.5 ETT 23 cm at the lip. She was given 4 rounds of epinephrine, 2 Amps of bicarb, and 0.5 mg of atropine. ROSC was achieved at 230. Pulse was thready she was started on epinephrine drip at 0.01 mg/min, and transferred to the ICU for further management. Upon arrival to the intensive care unit she remained hypotensive with systolic blood pressure in the 70s she was started on norepinephrine arterial line was placed in the left femoral artery. An 18-gauge IV was placed in the right EJ. Hospital Course Hospital Course: (1) Acute respiratory failure with hypoxia and hypercapnia Worsening; increased oxygen needs to maintain saturations >89%. Now on Oxymizer at maximum liters per minute. Likely healthcare associated pneumonia complicated by recurrent aspiration pneumonia and postobstructive pneumonia. Received full course of abx: Day 8 IV vancomycin. Day 8 IV cefepime. Patient is still having persistent bilateral pleural effusion. Postthoracentesis chest imaging shows large mucous plug, bilateral pleural effusions, resulting in complete obliteration of the right lung. (2) Pneumonia Multifactorial, most likely aspiration and postobstructive pneumonia. Completed full course of IV antibiotics. Day 8 IV vancomycin. Day 8 IV cefepime. Postthoracentesis chest imaging shows large mucous plug, bilateral pleural effusions, resulting in complete obliteration of the right lung. Long discussions had with patient's family members. They have elected to transition to hospice with comfort care measures. No further antibiotics indicated. Has completed full course of IV cefepime and vancomycin (3) Closed right hip fracture Orthopedic surgery consulted. No intervention recommended at this time. Continue PT OT. Please refer to Ortho note. (4) Depression Patient was placed on citalopram and mirtazapine. Have now transition to comfort care only. (5) Hypocalcemia Likely due to low p.o. intake. Corrected calcium normal. Received oral replacement. (6) Iron deficiency Due to low p.o. intake. Received 1 dose of Injectafer. Received oral ferrous sulfate. (7) Metabolic alkalosis with respiratory acidosis With respiratory compensation. Expected PaCO2 49 - 53 mmHg Now with worsening respiratory status. Patient has low sodium and chloride likely due to GI losses. Monitored for refeeding syndrome. Received supplemental Neutra-Phos, magnesium and multivitamins. (8) Multifocal atrial tachycardia Rate controlled with PRN beta-blockers. Cardiology was consulted for assistance. (9) Protein-energy malnutrition Improved. BMI 24.1 Still have very low prealbumin. Most likely low p.o. intake. Patient has dysphagia. Failed modified barium swallow twice. Status post PEG tube placement on 08/07/2019 for tube feedings. Dietitian was consulted. Recommendations noted. (10) Vitamin D deficiency Severe vitamin D deficiency. Likely due to low p.o. intake. Received daily vitamin D. (11) Cardiac arrest Successfully resuscitated after cardiac arrest requiring intubation and mechanical ventilation as well as IV pressors. (12) Urinary tract infection, E. coli Resolved. Initial urine culture due to E. coli. Pansensitive. Completed course of IV antibiotics. However second urine culture positive for Pseudomonas which is sensitive to cefepime. Asymptomatic. Completed a course of IV cefepime. (13) Sepsis Resolved. (14) Hypokalemia Resolved. (15) Current every day smoker Smoking cessation was encouraged. Nicotine replacement therapies provided. (16) Need for Comfort Care After discussions with family members, she is transition to comfort care measures only. She has PRN Ativan, atropine SL drops, and Tylenol. She also has as needed morphine, which she has needed, for management of her discomfort and tachypnea. Discharge planning is consulted; patient will ideally transition to inpatient hospice as soon as possible. Awaiting bed offer. Physical Exam Vital Signs: Temp Pulse Resp BP Pulse Ox 98.1 F 95 20 84/52 L 92 08/15/19 08:25 08/15/19 08:25 08/15/19 08:25 08/15/19 08:25 08/15/19 08:25 Intake & Output 08/14/19 08/15/19 08/16/19 06:59 06:59 06:59 Intake Total 510 480 Balance 510 480 Weight 63.8 kg 63.8 kg General appearance: PRESENT: mild distress, well-developed, other - Anasarca; +3 pitting edema BLE extending to proximal thighs. Head exam: PRESENT: atraumatic, normocephalic Eye exam: PRESENT: conjunctiva pale, EOMI, PERRLA. ABSENT: scleral icterus Mouth exam: PRESENT: dry mucosa, tongue midline Neck exam: ABSENT: carotid bruit, JVD, lymphadenopathy, thyromegaly Respiratory exam: PRESENT: decreased breath sounds - Absent right side;, retraction, symmetrical, tachypnea, other - Oxymizer at 15 L/min. ABSENT: rales, rhonchi, wheezes Cardiovascular exam: PRESENT: irregular rhythm, tachycardia. ABSENT: diastolic murmur, rubs, systolic murmur Pulses: PRESENT: other - Thready pedal pulses Vascular exam: PRESENT: pallor Neurological exam: PRESENT: alert, awake, oriented to person, CN II-XII grossly intact, other - Lethargic, intermittent awareness to self, speaks incoherently. ABSENT: motor sensory deficit Skin exam: PRESENT: dry, pallor, other. ABSENT: cyanosis, rash Results Laboratory Results: 08/13/19 06:20 08/14/19 06:00 08/14/19 08/14/19 08/14/19 10:30 10:30 10:30 Fluid Type PLEURAL Fluid Source LUNG Fluid Color STRAW Fluid Appearance CLEAR Fluid Viscosity LIQUID Fluid pH Fluid WBC 51 Fluid RBC 130 Fluid Glucose Fluid Total Protein Fluid Albumin 0.5 Fluid LDH Fluid Amylase 19 08/14/19 08/14/19 08/14/19 10:30 10:30 10:30 Fluid Type Fluid Source Fluid Color Fluid Appearance Fluid Viscosity Fluid pH 8.3 Fluid WBC Fluid RBC Fluid Glucose 117 Fluid Total Protein Fluid Albumin Fluid LDH 65 Fluid Amylase 08/14/19 10:30 Fluid Type Fluid Source Fluid Color Fluid Appearance Fluid Viscosity Fluid pH Fluid WBC Fluid RBC Fluid Glucose Fluid Total Protein 0.8 Fluid Albumin Fluid LDH Fluid Amylase 07/24/19 15:06 Troponin I 0.014 Impressions: Pelvis CT 07/21/19 17:07 IMPRESSION: Postsurgical changes of total right hip arthroplasty. Mildly comminuted right greater trochanteric fracture with mild anterior displacement. No hardware fracture or dislocation. Dilated distal appendix measuring 9 mm in caliber. Elongated gallbladder containing numerous gallstones. Mild right paracolic gutter and moderate right hemipelvis free fluid. As this is a limited noncontrast exam, clinically joanne elate for acute cholecystitis or appendicitis. Hip/Pelvis X-Ray 07/21/19 23:20 IMPRESSION: Fracture of the femur adjacent to the femoral component of the right hip hemiarthroplasty. Abdomen Ultrasound 07/22/19 00:00 IMPRESSION: 1. Cholelithiasis. 2. Otherwise essentially unremarkable. Abdomen/Pelvis CT 07/24/19 00:00 IMPRESSION: 1. No evidence of dissection or aneurysm involving the thoracic or abdominal aorta. The visceral arteries are patent. 2. No pulmonary embolism. 3. Diffuse wall thickening of the small bowel with mucosal enhancement. Findings compatible with shock bowel related to prolonged hypotension. No large vessel arterial occlusion. 4. Moderate left and small right pleural effusion. 5. Bibasilar opacities. This likely represents a component of compressive atelectasis however superimposed aspiration could contribute to this appearance. Continued follow-up recommended. 6. Moderate amount of ascites. 7. Coronary artery atherosclerosis. 8. Centrilobular emphysematous change. Likely chronic bronchitis. 9. 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 Correlation for history of claudication recommended. 10. Nondisplaced fractures of the right fourth through sixth anterior ribs and left third through sixth anterior ribs. This exam was performed according to our departmental dose-optimization program, which includes automated exposure control, adjustment of the mA and/or kV according to patient size and/or use of iterative reconstruction technique. Chest/Abdomen CTA 07/24/19 00:00 IMPRESSION: 1. No evidence of dissection or aneurysm involving the thoracic or abdominal aorta. The visceral arteries are patent. 2. No pulmonary embolism. 3. Diffuse wall thickening of the small bowel with mucosal enhancement. Findings compatible with shock bowel related to prolonged hypotension. No large vessel arterial occlusion. 4. Moderate left and small right pleural effusion. 5. Bibasilar opacities. This likely represents a component of compressive atelectasis however superimposed aspiration could contribute to this appearance. Continued follow-up recommended. 6. Moderate amount of ascites. 7. Coronary artery atherosclerosis. 8. Centrilobular emphysematous change. Likely chronic bronchitis. 9. 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 Correlation for history of claudication recommended. 10. Nondisplaced fractures of the right fourth through sixth anterior ribs and left third through sixth anterior ribs. This exam was performed according to our departmental dose-optimization program, which includes automated exposure control, adjustment of the mA and/or kV according to patient size and/or use of iterative reconstruction technique. Head CTA 07/24/19 00:00 IMPRESSION: 1. No acute intracranial abnormality by CT criteria. 2. No acute abnormality identified in the intracranial arterial circulation. 3. No evidence of stenosis/occlusion involving the cervical carotid or vertebral arteries. This exam was performed according to our departmental dose-optimization program, which includes automated exposure control, adjustment of the mA and/or kV according to patient size and/or use of iterative reconstruction technique. Neck CTA 07/24/19 01:40 IMPRESSION: 1. No acute intracranial abnormality by CT criteria. 2. No acute abnormality identified in the intracranial arterial circulation. 3. No evidence of stenosis/occlusion involving the cervical carotid or vertebral arteries. This exam was performed according to our departmental dose-optimization program, which includes automated exposure control, adjustment of the mA and/or kV according to patient size and/or use of iterative reconstruction technique. KUB X-Ray 07/27/19 00:00 IMPRESSION: TIP OF THE NASOGASTRIC TUBE IN THE STOMACH. NO RADIOGRAPHIC EVIDENCE FOR ACUTE ABDOMINAL DISEASE. PICC Line Insertion 07/30/19 00:00 IMPRESSION: SUCCESSFUL PLACEMENT OF A 5 FR DUAL LUMEN 32 CM PICC IN THE RIGHT BASILIC VEIN. Modified Barium Swallow 08/03/19 00:00 IMPRESSION: TRACE ASPIRATION WITH THIN BARIUM. LARYNGEAL PENETRATION FROM NECTAR THICK AND PUREED RESIDUALS. PLEASE SEE SPEECH PATHOLOGIST REPORT FOR OTHER FINDINGS AND RECOMMENDATIONS. Chest CT 08/14/19 00:00 IMPRESSION: Collapse of the right lung secondary to mucous plug in the mainstem bronchus. Bilateral pleural effusions status post left thoracentesis. No pneumothorax. Chest X-Ray 08/14/19 00:00 IMPRESSION: No pneumothorax status post left thoracentesis. Thoracentesis Ultrasound 08/14/19 11:03 IMPRESSION: SUCCESSFUL THORACENTESIS USING ULTRASOUND GUIDANCE. Transfer Plan - Disposition Transfer Plan: Transfer to inpatient hospice services for continued comfort care. - Time Spent with Patient Time spent with patient: Greater than 30 Minutes Qualifiers PATIENT BEING DISCHARGED WITH ANY OF THE FOLLOWING DIAGNOSIS: No
--- NOTE | 2019-08-15 16:40 | PDOC CONSULTATION ---
Consultation-[facility] Consultation: PSYCHIATRIC CONSULT 08.14.2019 1900 Hours Met with Patient at request of her attending Medical Provider. Patient was watching TV upon this Provider entering her room. Upon introduction, Patient responded pleasantly and politely. She described her reason for being as "a broken hip." The Patient went to provide her name, date of , where she is physically located and the reason. Patient incorrectly reported her age as "53" and was not able to name the most current President. She stated, " I hated Obama." She correctly spelled the word "world" forward but struggled to spell it backward. Additionally, when asked to spell the word backward, she asked for the word to be used in a sentence then repeated (sang) the phrase "he's got the whole world in his hands" at least 4 times. Answers to questions of personal safety were impaired. For example, to the question about smoke coming from her neighbor's house, the Patient responded, "I would go help, I would get a bucket of water." To the question regarding her bathroom overflowing with water she responded, "I would call the police." Overall, the Patient engaged in appropriately and was initially alert, however, she quickly declined in her stamina, appearing to become very tired and having difficulty staying awake. She admitted she was tired and went on to say she was tired of life and depressed but not suicidal. She reported she missed her family and it was hard to be in hospital without family and her daughter, whom she stated she had a good relationship. 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 Her speech was slow and labored. Her intellectual abilities were estimated within the average range. Attention and concentration was initially within normal limits but declined to poor. There was no evidence of auditory or visual hallucinations, and thought processes were logical, linear, and rational. In summary, review of the Patient's medical chart and medical history reveals she has significant ongoing respiratory problems to include hypoxia, which likely contributes to her waxing and waning of mental status. Though she presented generally well and not impaired enough to suggest or recommend capacity at the time of this provider's evaluation, her complex and declining medical status certainly warrants the assignation of a medical power of highway technician. Thank you for this kind referral and please do not hesitate to contact the behavioral health team at [phone] with any questions regarding this assessment.
--- NOTE | 2019-08-15 16:51 | Death Summary ---
Summary Date : 08/15/19 Time of :: 15:55 Autopsy: No Resuscitation Status: Comfort Measures Only - Final Diagnosis (1) Comfort measures only status Is this a current diagnosis for this admission?: Yes (2) Acute respiratory failure with hypoxia and hypercapnia Is this a current diagnosis for this admission?: Yes (3) Pneumonia Is this a current diagnosis for this admission?: Yes (4) Closed right hip fracture Is this a current diagnosis for this admission?: Yes (5) Depression Is this a current diagnosis for this admission?: Yes (6) Hypocalcemia Is this a current diagnosis for this admission?: Yes (7) Iron deficiency Is this a current diagnosis for this admission?: Yes (8) Metabolic alkalosis with respiratory acidosis Is this a current diagnosis for this admission?: Yes (9) Multifocal atrial tachycardia Is this a current diagnosis for this admission?: Yes (10) Protein-energy malnutrition Is this a current diagnosis for this admission?: Yes (11) Vitamin D deficiency Is this a current diagnosis for this admission?: Yes (12) Cardiac arrest Is this a current diagnosis for this admission?: Yes (13) Urinary tract infection, E. coli Is this a current diagnosis for this admission?: Yes (14) Sepsis Is this a current diagnosis for this admission?: Yes (15) Hypokalemia Is this a current diagnosis for this admission?: Yes (16) Current every day smoker Is this a current diagnosis for this admission?: Yes (17) Pleural effusion Is this a current diagnosis for this admission?: Yes (18) Mucus plugging of bronchi Is this a current diagnosis for this admission?: Yes Hospital Course:: Per Critical Care admission note: Ms. Lisa Tobar is a 63-year-old female with a past medical history of COPD, right hip fracture status post hemiarthroplasty on 02/05/2014. She reports falling at home approximately 1 month ago. Since the fall she is been having pain in her right hip and difficulty ambulating even with assistance of a walker. She presented to the emergency department on 07/21/2019 and was admitted to the hospitalist service. At 2238 rapid response was called upon arrival to the floor patient was actively seizing she had a total of 3 mg of Ativan and was loaded with 1 g of Dilantin. At 2257 patient began agonal breathing and subsequently went into asystole ACLS was initiated. She was intubated with a 7.5 ETT 23 cm at the lip. She was given 4 rounds of epinephrine, 2 Amps of bicarb, and 0.5 mg of atropine. ROSC was achieved at 2306. Pulse was thready she was started on epinephrine drip at 0.01 mg/min, and transferred to the ICU for further management. Upon arrival to the intensive care unit she remained hypotensive with systolic blood pressure in the 70s she was started on norepinephrine arterial line was placed in the left femoral artery. An 18-gauge IV was placed in the right EJ. Brief Course: Patient was admitted for nondisplaced femur fracture adjacent to previous repair in setting of patient with alcohol dependence with continuous use. Shortly after admission, the patient had a witnessed seizure, presumably related to alcohol withdrawal. She was treated with IV Ativan and then subsequently had a PEA arrest. She was intubated 07/22/19 and extubated 07/27/19. Cardiology services were brought on board for management of multifocal atrial tachycardia. She was treated with broad spectrum antibiotics for development of aspiration pneumonia. Unfortunately, the patient failed multiple swallow studies and under went successful PEG placement on 08/07/19. She tolerated tube feedings well. She was downgraded to [facility] for continued respiratory care and physical therapy services for her profound debility. She received nutritional support through tube feedings, vitamin supplementation, and long term acute care registered nurse consultation. Despite aggressive rehab and supportive care, her respiratory status continued to decline. The patient's oxygen requirements increased rapidly with, ultimately, requirement of oximizer to maintain adequate oxygen saturations. Chest imagining revealed development of large bilateral pleural effusions. Arrangements were made for the patient to undergo thoracentesis on 08/14/19 with successful removal of 1L fluid from the left chest. Post-procedure films demonstrated a remaining large pleural effusion to the left with complete white out of the right lung. Follow up Chest CT showed collapse of the right lung r/t mainstem bronchus mucus plug with continued bilateral pleural effusions. A family meeting was held with the patients daughter, Mary, at bedside, and two sons by phone. We reviewed the necessary interventions for treatment of mucous plug. The family elected to transition to DNR with comfort care measures and hospice consultation. Arrangements were made for the patient to transition to [facility]; she ultimately shortly prior to her transport time with nursing at bedside. Time of 1555 Cause of : 1) Acute Respiratory Failure - Mainstem bronchus mucous plug - Large bilateral pleural effusions - Aspiration PNA 2) PEA arrest 3) Alcohol withdrawal seaizure 4 (+) Tobacco use
== END 2019-08-15 18:38 | DRG 535 ==
LOC: ER 16:50 → EH 07-22 01:19 → 3W 07-22 04:50 → ICU 07-23 23:18 → 4S 07-28 12:17 → 3S 07-29 17:53
PROVIDERS: ADMIT Internal Medicine; ATTEND Registered Nurse
PROC: 0BH17EZ Insertion of Endotracheal Airway into Trachea, Via Natural or Artificial Opening (ICD-10-PCS; principal; 2019-07-23)
PROC: 5A1945Z Respiratory Ventilation, 24-96 Consecutive Hours (ICD-10-PCS; 2019-07-23)
PROC: 04HL33Z Insertion of Infusion Device into Left Femoral Artery, Percutaneous Approach (ICD-10-PCS; 2019-07-24)
PROC: 02HV33Z Insertion of Infusion Device into Superior Vena Cava, Percutaneous Approach (ICD-10-PCS; 2019-07-30)
PROC: B518ZZA Fluoroscopy of Superior Vena Cava, Guidance (ICD-10-PCS; 2019-07-30)
PROC: B548ZZA Ultrasonography of Superior Vena Cava, Guidance (ICD-10-PCS; 2019-07-30)
PROC: 30233N1 Transfusion of Nonautologous Red Blood Cells into Peripheral Vein, Percutaneous Approach (ICD-10-PCS; 2019-07-30)
PROC: 0DH64UZ Insertion of Feeding Device into Stomach, Percutaneous Endoscopic Approach (ICD-10-PCS; 2019-08-07)
PROC: 0W9B3ZZ Drainage of Left Pleural Cavity, Percutaneous Approach (ICD-10-PCS; 2019-08-14)
DX: S72.111A Displaced fracture of greater trochanter of right femur, initial encounter for closed fracture (principal); J96.02 Acute respiratory failure with hypercapnia; J96.01 Acute respiratory failure with hypoxia; A41.9 Sepsis, unspecified organism; J69.0 Pneumonitis due to inhalation of food and vomit; M97.01XA Periprosthetic fracture around internal prosthetic right hip joint, initial encounter; J90 Pleural effusion, not elsewhere classified; R64 Cachexia; I47.1 Supraventricular tachycardia; E44.0 Moderate protein-calorie malnutrition; N39.0 Urinary tract infection, site not specified; E87.4 Mixed disorder of acid-base balance; Z51.5 Encounter for palliative care; I46.9 Cardiac arrest, cause unspecified; J44.9 Chronic obstructive pulmonary disease, unspecified; R56.9 Unspecified convulsions; F17.210 Nicotine dependence, cigarettes, uncomplicated; Z68.23 Body mass index [BMI] 23.0-23.9, adult; R58 Hemorrhage, not elsewhere classified; Y92.009 Unspecified place in unspecified non-institutional (private) residence as the place of occurrence of the external cause; E83.51 Hypocalcemia; E87.6 Hypokalemia; E83.42 Hypomagnesemia; R73.9 Hyperglycemia, unspecified; E16.2 Hypoglycemia, unspecified; B96.20 Unspecified Escherichia coli [E. coli] as the cause of diseases classified elsewhere; R13.10 Dysphagia, unspecified; B96.5 Pseudomonas (aeruginosa) (mallei) (pseudomallei) as the cause of diseases classified elsewhere; Z03.818 Encounter for observation for suspected exposure to other biological agents ruled out; W19.XXXA Unspecified fall, initial encounter; F10.10 Alcohol abuse, uncomplicated; F32.9 Major depressive disorder, single episode, unspecified; R62.7 Adult failure to thrive; D50.9 Iron deficiency anemia, unspecified; K29.70 Gastritis, unspecified, without bleeding; Z88.8 Allergy status to other drugs, medicaments and biological substances; F41.9 Anxiety disorder, unspecified; Z91.81 History of falling; Z96.641 Presence of right artificial hip joint; Z78.1 Physical restraint status; Z60.2 Problems related to living alone
CPT/HCPCS: 00813; 32555; 36415; 36430; 36573; 36600; 36620; 43246; 51702; 70496; 70498; 71045; 71046; 71250; 71275; 72192; 74018; 74177; 74230; 76705; 80048; 80053; 80069; 80074; 80202; 80307; 81001; 81332; 82040; 82042; 82150; 82306; 82330; 82533; 82565; 82607; 82728; 82746; 82803; 82945; 82962; 83540; 83550; 83605; 83615; 83735; 83986; 84100; 84134; 84155; 84157; 84443; 84466; 84484; 85025; 85027; 85045; 85384; 85610; 85730; 86850; 86900; 86901; 86920; 87015; 87040; 87070; 87075; 87086; 87088; 87101; 87116; 87186; 87205; 87206; 87635; 89050; 92950; 93005; 93010; 93306; 94002; 94003; 94640; 94660; 94668; 94799; 95819; 96360; 96361; 99221; 99285; 99291; J0610; B4155; C1887; C9113; C9803; J0171; J0282; J0461; J0692; J0696; J1100; J1160; J1165; J1439; J1642; J1644; J1650; J1720; J1815; J1885; J1940; J2060; J2250; J2270; J2704; J3360; J3370; J3411; J3430; J3475; J3480; J3490; J7030; J7042; J7050; J7060; J7121; J7620; J8540; P9016; P9041; P9047